=== PATIENT | female | born 1940 | race Caucasian/White ===

== ENCOUNTER → 2017-06-24 08:15 | Outpatient (CLI) | payer MEDICARE, SELFPAY ==
[2017-06-24 14:02] LABS: Basophils % 0.3 % (0.1-2.0); Eosinophils # 0.1 K/mm3 (0.0-0.4); Eosinophils % 2.4 % (0.1-12.0); Hematocrit 37.1 % (37.0-47.0); Hemoglobin 11.9 g/dL (12.2-16.2); Lymphocytes # 2.2 K/mm3 (0.7-4.5); Lymphocytes % 48.5 K/mm3 (10-50); Mean Corpuscular HGB Conc 31.9 g/dL (31.8-35.4); Mean Corpuscular Hemoglobin 30.2 pg (27.0-31.2); Mean Corpuscular Volume 94.5 fl (81-99); Mean Platelet Volume 7.6 fl (7.4-10.4); Monocytes # 0.3 K/mm3 (0.1-1.0); Monocytes % 7.1 % (1.7-9.3); Neutrophils # 1.9 K/mm3 (1.8-7.8); Neutrophils % 41.7 % (37.0-80.0); Platelet Count 200 K/mm3 (142-424); Red Blood Count 3.93 M/mm3 (4.20-5.40); White Blood Count 4.6 K/mm3 (4.8-10.8)
[2017-06-24 14:57] LABS: Alanine Aminotransferase 26 U/L (12-78); Albumin Level 3.8 gm/dL (3.4-5.0); Albumin/Globulin Ratio 1.4 (1.1-1.8); Alkaline Phosphatase 95 U/L (46-116); Anion Gap 10.7 mEq/L (5-15); Aspartate Amino Transferase 21 U/L (15-37); Bilirubin,Total 0.2 mg/dL (0.2-1.0); Blood Urea Nitrogen 13 mg/dL (7-18); Calcium 9.3 mg/dL (8.5-10.1); Carbon Dioxide 30 mmol/L (21.0-32.0); Chloride 104 mmol/L (98-107); Chol/HDL Ratio 3.8 (1-3.5); Cholesterol 229 mg/dL (140-200); Creatine Kinase 45 U/L (26-192); Creatinine,Serum 0.93 mg/dL (0.55-1.02); Estimated Glomerular Filt Rate 58 ml/min (>60); Ferritin 22 ng/mL (8-388); GFR (African American) 71 ML/MIN (>60); Globulin 2.7 gm/dl (1.3-3.2); Glucose 101 mg/dL (74-106); HDL Cholesterol 61 mg/dL (29-89); LDL Cholesterol 128 mg/dL (0-130); Potassium 4.7 mmoL/L (3.5-5.1); Sodium 140 mmol/L (136-145); Thyroid Stimulating Hormone 0.34 uIU/ml (0.358-3.740); Total Protein,Serum 6.5 gm/dL (6.4-8.2); Triglycerides 200 mg/dL (30-200); VLDL Cholesterol 40 mg/dL (0-40)
== END ==
PROVIDERS: PCP Internal Medicine Adolescent Medicine; Visit Provider Internal Medicine Adolescent Medicine
DX: E78.5 Hyperlipidemia, unspecified (principal); M79.1 Myalgia; E03.9 Hypothyroidism, unspecified; D64.9 Anemia, unspecified
CPT/HCPCS: 36415; 80053; 80061; 82550; 82728; 84443; 85025

== ENCOUNTER → 2017-09-24 09:32 | Outpatient (CLI) | payer MEDICARE, SELFPAY ==
--- NOTE | 2017-09-24 09:35 | MM_ITS ---
MM Dig screening mamm BI w/CAD CAD Screening COMPARISON: Digital mammograms 03/16/2015 and 04/02/2016 INDICATION: There is no personal or family history of breast cancer. There have been previous biopsies on each breast. TECHNIQUE: Standard CC and MLO images were obtained. R2 CAD reviewed. FINDINGS: Prominent heterogenic fibroglandular densities are seen in both breasts. There is arterial calcification bilaterally. There is no suspicious lesion and there are no suspicious microcalcifications. IMPRESSION: Dense and heterogenic parenchymal pattern with no suspicious lesion seen BI-RADS Category: 2 Benign Finding(s) RECOMMENDED FOLLOW-UP: 1YR - 1 YEAR FOLLOW-UP (A letter has been sent to the patient regarding results of the study.)
== END ==
PROVIDERS: Family Provider Internal Medicine Adolescent Medicine; PCP Internal Medicine Adolescent Medicine; Visit Provider Internal Medicine Adolescent Medicine
DX: Z12.31 Encounter for screening mammogram for malignant neoplasm of breast (principal)
CPT/HCPCS: 77067

== ENCOUNTER → 2018-12-14 14:03 | Outpatient (CLI) | payer MEDICARE, SELFPAY ==
--- NOTE | 2018-12-14 14:12 | MM_ITS ---
MM Dig screening mamm BI w/CAD CAD Screening COMPARISON: Digital mammograms with CAD 09/24/2017 and 04/02/2016 INDICATION: There is no personal or family history of breast cancer TECHNIQUE: Standard CC and MLO images were obtained. R2 CAD reviewed. FINDINGS: Again noted is a diffusely dense and heterogenic parenchymal pattern lessening the sensitivity of mammography. There is moderate arterial calcification both breasts. There are few scattered benign-appearing microcalcifications in each breast as well. There is no suspicious lesion and no suspicious microcalcifications. IMPRESSION: Stable exam with no suspicious lesion seen BI-RADS Category: 2 Benign Finding(s) RECOMMENDED FOLLOW-UP: 1YR - 1 YEAR FOLLOW-UP (A letter has been sent to the patient regarding results of the study.)
== END ==
PROVIDERS: PCP Internal Medicine Adolescent Medicine; Visit Provider Internal Medicine Adolescent Medicine
DX: Z12.31 Encounter for screening mammogram for malignant neoplasm of breast (principal)
CPT/HCPCS: 77067

== ENCOUNTER → 2019-02-08 12:58 | Outpatient (CLI) | payer MEDICARE, SELFPAY ==
--- NOTE | 2019-02-08 13:04 | XR_ITS ---
PROCEDURE: XR LUMBAR SPINE MIN 4V CLINICAL INDICATION: LBP Low back pain COMPARISON: ABDPELW/WO CT ABD PELVIS W/WO CONTRAST from 03/04/2017 FINDINGS: There degenerative disc disease from T12-S1. There appears to be fusion at of the vertebral bodies at L4-L5 and S1. There is mild anterolisthesis of L3 on L4 of 6 mm. No fracture or dislocation. There is minimal lumbar curvature convex right. There is generalized vascular calcification. Degenerative changes are present in the hips left greater than right. No fracture or dislocation. No lytic or blastic change. IMPRESSION: Multilevel lumbar spondylosis with degenerative disc disease. Partial fusion of the vertebral bodies at L4-L5 and S1 Dictated by: Rao Echevarria MD 02/08/2019 15:40 Electronically signed by Rao Echevarria MD in [place] 02/08/2019 15:40
== END ==
PROVIDERS: PCP Internal Medicine Adolescent Medicine; Visit Provider Internal Medicine Adolescent Medicine
DX: M54.5 Low back pain (principal)
CPT/HCPCS: 72110

== ENCOUNTER → 2019-03-23 12:58 | Outpatient (CLI) | payer MEDICARE, SELFPAY | PROVIDERS: PCP Internal Medicine Adolescent Medicine; Visit Provider Internal Medicine Adolescent Medicine | DX: R06.09 Other forms of dyspnea (principal) | CPT/HCPCS: 94060; 94640; 94726; 94729 ==

== ENCOUNTER → 2019-06-20 09:26 | Outpatient (CLI) | payer MEDICARE, SELFPAY ==
--- NOTE | 2019-06-20 09:46 | XR_ITS ---
PROCEDURE: XR KUB CLINICAL INDICATION: SITZ MARKER STUDY, ABNORMAL DEFECATION Constipation, evaluate colon transit time COMPARISON: ABDPELW/O CT ABD PELVIS W/O CONTRAST from 01/10/2014 ABDPELW/WO CT ABD PELVIS W/WO CONTRAST from 03/04/2017 XR KUB from 06/22/2019 XR KUB from 06/24/2019 FINDINGS: Patient ingested a Sitz marker capsule. A 1 exam demonstrates 24 rings which all appear to be in the colon. Most are present in the transverse colon region. Day 3 exam demonstrates 4 residual rings 1 in the right colon and 2 in the sigmoid region and 1 in the rectal area. Day 5 KUB shows only 2 rings present in the rectal area. Incidental findings made of degenerative changes of the lumbar spine and a lobular coarse calcific density overlying the right ilium laterally and may be related to overlying gluteal calcification as noted on the prior CT scan. IMPRESSION: Colon transit time shows only 2 remaining Sitz marker rings at day 5 indicating colonic transit is grossly normal. Dictated by: Rao Echevarria MD 06/25/2019 12:58 Electronically signed by Rao Echevarria MD in [place] 06/25/2019 12:58
== END ==
PROVIDERS: PCP Internal Medicine Adolescent Medicine; Visit Provider Colon & Rectal Surgery
DX: R19.8 Other specified symptoms and signs involving the digestive system and abdomen (principal)
CPT/HCPCS: 74018

== ENCOUNTER → 2019-06-22 09:29 | Outpatient (CLI) | payer MEDICARE, SELFPAY ==
--- NOTE | 2019-06-22 09:35 | XR_ITS ---
PROCEDURE: XR KUB CLINICAL INDICATION: SITZ MARKER STUDY, ABNORMAL DEFECATION Constipation, evaluate colon transit time COMPARISON: ABDPELW/O CT ABD PELVIS W/O CONTRAST from 01/10/2014 ABDPELW/WO CT ABD PELVIS W/WO CONTRAST from 03/04/2017 XR KUB from 06/22/2019 XR KUB from 06/24/2019 FINDINGS: Patient ingested a Sitz marker capsule. A 1 exam demonstrates 24 rings which all appear to be in the colon. Most are present in the transverse colon region. Day 3 exam demonstrates 4 residual rings 1 in the right colon and 2 in the sigmoid region and 1 in the rectal area. Day 5 KUB shows only 2 rings present in the rectal area. Incidental findings made of degenerative changes of the lumbar spine and a lobular coarse calcific density overlying the right ilium laterally and may be related to overlying gluteal calcification as noted on the prior CT scan. IMPRESSION: Colon transit time shows only 2 remaining Sitz marker rings at day 5 indicating colonic transit is grossly normal. Dictated by: Rao Echevarria MD 06/22/2019 14:44 Electronically signed by Rao Echevarria MD in [place] 06/25/2019 12:59
== END ==
PROVIDERS: PCP Internal Medicine Adolescent Medicine; Visit Provider Colon & Rectal Surgery
DX: R19.8 Other specified symptoms and signs involving the digestive system and abdomen (principal)
CPT/HCPCS: 74018

== ENCOUNTER → 2019-06-24 09:27 | Outpatient (CLI) | payer MEDICARE, SELFPAY ==
--- NOTE | 2019-06-24 09:31 | XR_ITS ---
PROCEDURE: XR KUB CLINICAL INDICATION: ABNORMAL DEFECATION, SITZ MARKER STUDY Constipation COMPARISON: ABDPELW/WO CT ABD PELVIS W/WO CONTRAST from 03/04/2017 XR KUB from 06/22/2019 FINDINGS: ONLY 2 MARKERS ARE LEFT IN THE LOWER RECTAL REGION IMPRESSION: Grossly normal colon transit time Dictated by: Rao Echevarria MD 06/25/2019 13:28 Electronically signed by Rao Echevarria MD in [place] 06/25/2019 13:28
== END ==
PROVIDERS: PCP Internal Medicine Adolescent Medicine; Visit Provider Colon & Rectal Surgery
DX: R19.8 Other specified symptoms and signs involving the digestive system and abdomen (principal)
CPT/HCPCS: 74018

== ENCOUNTER → 2019-12-14 09:22 | Outpatient (CLI) | payer MEDICARE, SELFPAY ==
[2019-12-14 14:19] LABS: Basophils % 0.3 % (0.1-2.0); Eosinophils % 0.7 % (0.1-12.0); Hematocrit 30.9 % (37.0-47.0); Lymphocytes # 1.5 K/mm3 (0.7-4.5); Lymphocytes % 26.6 % (10-50); Mean Corpuscular HGB Conc 32.2 g/dL (31.8-35.4); Mean Corpuscular Hemoglobin 31.3 pg (27.0-31.2); Mean Platelet Volume 8.6 fl (7.4-10.4); Monocytes # 0.4 K/mm3 (0.1-1.0); Monocytes % 6.7 % (1.7-9.3); Neutrophils # 3.7 K/mm3 (1.8-7.8); Neutrophils % 65.6 % (37.0-80.0); Platelet Count 270 K/mm3 (142-424); Red Blood Count 3.19 M/mm3 (4.20-5.40); Red Cell Distribution Width 14.7 % (11.5-17.5); White Blood Count 5.7 K/mm3 (4.8-10.8)
[2019-12-14 14:28] LABS: Alanine Aminotransferase 11 U/L (12-78); Albumin Level 3.8 g/dl (3.5-5.0); Albumin/Globulin Ratio 1.6 (1.1-1.8); Alkaline Phosphatase 81 U/L (38-126); Anion Gap 13.2 mEq/L (5-15); Aspartate Amino Transferase 22 U/L (14-36); Bilirubin,Total 0.3 mg/dl (0.2-1.3); Blood Urea Nitrogen 14 mg/dl (7-17); Calcium 9.4 mg/dl (8.4-10.2); Carbon Dioxide 29 mmol/L (22.0-30.0); Chloride 98 mmol/L (98-107); Estimated Glomerular Filt Rate 53 ml/min (>60); GFR (African American) 64 ML/MIN (>60); Globulin 2.4 g/dL (1.3-3.2); Glucose 126 mg/dl (74-100); Potassium 4.2 mmoL/L (3.5-5.1); Sodium 136 mmol/L (136-145); Total Protein,Serum 6.2 g/dl (6.3-8.2)
== END ==
PROVIDERS: Visit Provider Colon & Rectal Surgery
DX: R19.7 Diarrhea, unspecified (principal)
CPT/HCPCS: 36415; 80053; 85025

== ENCOUNTER → 2020-01-06 07:39 | Outpatient (CLI) | payer MEDICARE, SELFPAY ==
--- NOTE | 2020-01-06 07:43 | MM_ITS ---
PROCEDURE: MM DIG SCREENING MAMM BI W/CAD Digital Breast Tomosynthesis Included CLINICAL INDICATION: SCREENING There is no personal or family history of breast cancer. There have been previous biopsies on each breast for benign disease. COMPARISON: MG DMSB DIG MAMM-SCREEN BAN from 04/02/2016 MG [facility]BI MM Dig screening mamm BI w/CAD from 09/24/2017 MG DIG MAMM-SCREEN BAN from 12/14/2018 TECHNIQUE: Standard CC and MLO images and 3D Tomosynthesis was obtained. R2 CAD reviewed. FINDINGS: Prominent somewhat heterogenic fibroglandular densities are seen throughout both breasts. There is a biopsy clip central portion left breast. There is minimal scattered arterial calcification in each breast. There is a benign-appearing calcifications central portion left breast. There is no suspicious lesion and no suspicious microcalcifications. IMPRESSION: Stable somewhat heterogenic moderately dense parenchymal pattern with no suspicious lesions seen BI-RAD Category: 2 Benign Finding(s) FOLLOW-UP: 1YR 1 Year Follow-up (A letter has been sent to the patient regarding results of the study.) Dictated by: Dr. Jose Sanchez MD 01/06/2020 10:32 Dr. Jose Sanchez MD in [place] 01/06/2020 10:32
--- NOTE | 2020-01-06 07:44 | XR_ITS ---
PROCEDURE: XR DEXA AXIAL SKELETON CLINICAL HISTORY: OSTEOPENIA the patient is postmenopausal and currently is on vitamin-D and calcium. COMPARISON: No exams were available for comparison FINDINGS: The total right hip BMD is 0.752 grams/centimeter squared with a t-score of -1.6. The right femoral neck is 0.582 grams/centimeter sq with a T-score -2.4. The total left hip BMD is 0.679 grams/centimeter squared with T-score -2.2. the left femoral neck is 0.640 grams/centimeter sq with a T-score -1.9. The lumbar spine BMD is 0.990 g per cm squared with a t-score of -0.5.. IMPRESSION: T-score in the osteopenia range for bilateral hips and normal range for lumbar spine, consider a follow-up study in 2 years Dictated by: Dr. Jose Sanchez MD 01/06/2020 11:48 Dr. Jose Sanchez MD in 01/06/2020 11:48
== END ==
PROVIDERS: PCP Internal Medicine Adolescent Medicine; Visit Provider Internal Medicine Adolescent Medicine
DX: Z12.31 Encounter for screening mammogram for malignant neoplasm of breast (principal); M85.89 Other specified disorders of bone density and structure, multiple sites
CPT/HCPCS: 77063; 77067; 77080

== ENCOUNTER → 2020-09-25 18:59 | Outpatient (CLI) | payer MEDICARE, SELFPAY ==
[2020-09-25 19:24] LABS: Basophils % 0.4 % (0.1-2.0); Eosinophils # 0.1 K/mm3 (0.0-0.4); Eosinophils % 1.3 % (0.1-12.0); Hematocrit 39.8 % (37.0-47.0); Hemoglobin 13.1 g/dL (12.2-16.2); Lymphocytes # 3.1 K/mm3 (0.7-4.5); Lymphocytes % 37.8 % (10-50); Mean Corpuscular Hemoglobin 31.5 pg (27.0-31.2); Mean Corpuscular Volume 95.5 fl (81-99); Mean Platelet Volume 8.8 fl (7.4-10.4); Monocytes # 0.6 K/mm3 (0.1-1.0); Monocytes % 7.6 % (1.7-9.3); Neutrophils # 4.4 K/mm3 (1.8-7.8); Neutrophils % 52.9 % (37.0-80.0); Platelet Count 231 K/mm3 (142-424); Red Blood Count 4.17 M/mm3 (4.20-5.40); Red Cell Distribution Width 13.2 % (11.5-17.5); White Blood Count 8.3 K/mm3 (4.8-10.8)
[2020-09-25 19:55] LABS: Alanine Aminotransferase 11 U/L (12-78); Albumin Level 4.5 g/dl (3.5-5.0); Alkaline Phosphatase 86 U/L (38-126); Aspartate Amino Transferase 26 U/L (14-36); Bilirubin,Total 0.4 mg/dl (0.2-1.3); Blood Urea Nitrogen 10 mg/dl (7-17); Calcium 9.7 mg/dl (8.4-10.2); Carbon Dioxide 28 mmol/L (22.0-30.0); Chloride 101 mmol/L (98-107); Chol/HDL Ratio 5.1 (1-3.5); Cholesterol 219 mg/dl (140-200); Estimated Glomerular Filt Rate 53 ml/min (>60); GFR (African American) 64 ML/MIN (>60); Globulin 2.2 g/dL (1.3-3.2); Glucose 92 mg/dl (74-100); HDL Cholesterol 43 mg/dl (40-60); Sodium 141 mmol/L (136-145); Total Protein,Serum 6.7 g/dl (6.3-8.2)
[2020-09-25 20:06] LABS: Direct LDL Cholesterol 100.67 mg/dL (100-129)
[2020-09-25 20:09] LABS: Triglycerides 448 mg/dl (30-150)
[2020-09-25 20:28] LABS: Ferritin 56.8 ng/ml (11.1-264)
== END ==
PROVIDERS: Visit Provider Internal Medicine Adolescent Medicine
DX: D50.0 Iron deficiency anemia secondary to blood loss (chronic) (principal); E78.5 Hyperlipidemia, unspecified; E03.9 Hypothyroidism, unspecified
CPT/HCPCS: 80053; 80061; 82728; 84443; 85025

== ENCOUNTER → 2020-12-25 18:37 | Outpatient (CLI) | payer MEDICARE, SELFPAY | PROVIDERS: Visit Provider Internal Medicine Adolescent Medicine | DX: R30.0 Dysuria (principal) | CPT/HCPCS: 87086; 87088; 87186 ==

== ENCOUNTER → 2021-01-08 08:20 | Outpatient (CLI) | payer MEDICARE, SELFPAY | PROVIDERS: Visit Provider Nurse Practitioner Family | DX: N39.0 Urinary tract infection, site not specified (principal) | CPT/HCPCS: 87086; 87088; 87186 ==

== ENCOUNTER → 2021-03-26 16:30 | Outpatient (CLI) | payer MEDICARE, SELFPAY ==
[2021-03-27 09:07] LABS: Basophils # 0.1 K/mm3 (0-0.2); Basophils % 0.9 % (0.1-2.0); Eosinophils # 0.1 K/mm3 (0.0-0.4); Eosinophils % 2.4 % (0.1-12.0); Hematocrit 41.1 % (37.0-47.0); Hemoglobin 12.9 g/dL (12.2-16.2); Lymphocytes % 50.1 % (10-50); Mean Corpuscular HGB Conc 31.3 g/dL (31.8-35.4); Mean Corpuscular Hemoglobin 31.4 pg (27.0-31.2); Mean Corpuscular Volume 100.3 fl (81-99); Mean Platelet Volume 9.3 fl (7.4-10.4); Monocytes # 0.4 K/mm3 (0.1-1.0); Monocytes % 6.2 % (1.7-9.3); Neutrophils # 2.4 K/mm3 (1.8-7.8); Neutrophils % 40.4 % (37.0-80.0); Platelet Count 234 K/mm3 (142-424); Red Blood Count 4.09 M/mm3 (4.20-5.40); Red Cell Distribution Width 13.1 % (11.5-17.5); White Blood Count 5.9 K/mm3 (4.8-10.8)
[2021-03-27 09:14] LABS: MANUAL DIFFERENTIAL MANUAL DIFFERENTIAL (MANUAL DIFF)
[2021-03-27 09:49] LABS: Eosinophils % 5 % (0-3); Lymphocytes % 52 % (10-50); Monocytes % 11 % (2-9); Neutrophils % 32 % (42-76); Total Cells Counted 100
[2021-03-27 09:50] LABS: Anisocytosis 1+; Hypochromasia 1+; Macrocytosis 1+; Platelet Estimate Normal
[2021-03-27 10:16] LABS: Chloride 104 mmol/L (98-107); Potassium 4.8 mmoL/L (3.5-5.1); Sodium 141 mmol/L (136-145)
[2021-03-27 10:18] LABS: Blood Urea Nitrogen 17 mg/dl (7-17); Estimated Glomerular Filt Rate 48 ml/min (>60); GFR (African American) 58 ML/MIN (>60)
[2021-03-27 10:19] LABS: Alanine Aminotransferase 9 U/L (12-78); Albumin Level 4.1 g/dl (3.5-5.0); Albumin/Globulin Ratio 1.7 (1.1-1.8); Alkaline Phosphatase 103 U/L (38-126); Anion Gap 16.8 mEq/L (5-15); Aspartate Amino Transferase 23 U/L (14-36); Bilirubin,Total 0.3 mg/dl (0.2-1.3); Calcium 9.4 mg/dl (8.4-10.2); Carbon Dioxide 25 mmol/L (22.0-30.0); Globulin 2.4 g/dL (1.3-3.2); Glucose 88 mg/dl (74-100); Magnesium 1.9 mg/dl (1.6-2.3); Total Protein,Serum 6.5 g/dl (6.3-8.2)
[2021-03-27 10:47] LABS: Thyroid Stimulating Hormone 2.82 uIU/mL (0.465-4.68)
== END ==
PROVIDERS: Visit Provider Internal Medicine Adolescent Medicine
DX: I25.10 Atherosclerotic heart disease of native coronary artery without angina pectoris (principal); E03.9 Hypothyroidism, unspecified
CPT/HCPCS: 80053; 83735; 84443; 85007; 85025

== ENCOUNTER → 2021-09-24 11:23 | Outpatient (CLI) | payer MEDICARE, SELFPAY ==
--- NOTE | 2021-09-24 11:38 | XR_ITS ---
FINAL REPORT CLINICAL HISTORY: COUGH; soa; patient has had part of right lung removed FINDINGS: Two views of the chest were obtained. The heart size and pulmonary vascularity are within normal limits. The mediastinum is normal. There is elevation of the right hemidiaphragm. There is postoperative change of the right thorax. There is mild scarring in the right lung. There is no abnormality in the left lung. There is no pneumothorax. The bony thorax is intact. IMPRESSION: No acute cardiopulmonary process. Reviewed, Interpreted and Dictated by Rojas Ricardo III, MD Transcribed by Glenn Velasco Authenticated by Rojas Ricardo III, MD on 09/24/2021 01:56:20 PM [facility]
[2021-09-24 12:41] LABS: Basophils # 0.1 K/mm3 (0-0.2); Basophils % 1.4 % (0.1-2.0); Eosinophils # 0.1 K/mm3 (0.0-0.4); Eosinophils % 1.3 % (0.1-12.0); Hematocrit 34.4 % (37.0-47.0); Hemoglobin 11.3 g/dL (12.2-16.2); Lymphocytes # 2.4 K/mm3 (0.7-4.5); Lymphocytes % 32.1 % (10-50); Mean Corpuscular Hemoglobin 31.2 pg (27.0-31.2); Mean Corpuscular Volume 94.4 fl (81-99); Monocytes # 0.5 K/mm3 (0.1-1.0); Monocytes % 7.3 % (1.7-9.3); Neutrophils # 4.3 K/mm3 (1.8-7.8); Platelet Count 290 K/mm3 (142-424); Red Blood Count 3.64 M/mm3 (4.20-5.40); Red Cell Distribution Width 13.5 % (11.5-17.5); White Blood Count 7.4 K/mm3 (4.8-10.8)
[2021-09-24 12:50] LABS: Chloride 103 mmol/L (98-107)
[2021-09-24 12:51] LABS: Sodium 140 mmol/L (136-145)
[2021-09-24 12:53] LABS: Alanine Aminotransferase 8 U/L (12-78); Aspartate Amino Transferase 16 U/L (14-36); Blood Urea Nitrogen 9 mg/dl (7-17); Estimated Glomerular Filt Rate 48 ml/min (>60); GFR (African American) 58 ML/MIN (>60)
[2021-09-24 12:54] LABS: Albumin Level 3.6 g/dl (3.5-5.0); Albumin/Globulin Ratio 1.6 (1.1-1.8); Alkaline Phosphatase 90 U/L (38-126); Bilirubin,Total 0.3 mg/dl (0.2-1.3); Calcium 9.3 mg/dl (8.4-10.2); Carbon Dioxide 31 mmol/L (22.0-30.0); Globulin 2.2 g/dL (1.3-3.2); Glucose 106 mg/dl (74-100); Total Protein,Serum 5.8 g/dl (6.3-8.2)
[2021-09-24 13:29] LABS: Ferritin 66.7 ng/ml (11.1-264)
== END ==
PROVIDERS: PCP Internal Medicine Adolescent Medicine; Visit Provider Internal Medicine Adolescent Medicine
DX: R05.9 Cough, unspecified (principal); D50.0 Iron deficiency anemia secondary to blood loss (chronic)
CPT/HCPCS: 36415; 71046; 80053; 82728; 85025

== ENCOUNTER → 2022-01-16 06:03 | Outpatient (CLI) | payer MEDICARE, SELFPAY ==
[2022-01-16 18:18] LABS: Basophils # 0.1 K/mm3 (0-0.2); Basophils % 0.8 % (0.1-2.0); Eosinophils # 0.1 K/mm3 (0.0-0.4); Eosinophils % 1.3 % (0.1-12.0); Hemoglobin 12.5 g/dL (12.2-16.2); Lymphocytes # 2.7 K/mm3 (0.7-4.5); Mean Corpuscular HGB Conc 32.1 g/dL (31.8-35.4); Mean Corpuscular Hemoglobin 31.1 pg (27.0-31.2); Mean Corpuscular Volume 96.7 fl (81-99); Mean Platelet Volume 9.5 fl (7.4-10.4); Monocytes # 0.5 K/mm3 (0.1-1.0); Monocytes % 7.3 % (1.7-9.3); Neutrophils # 3.1 K/mm3 (1.8-7.8); Neutrophils % 48.6 % (37.0-80.0); Platelet Count 258 K/mm3 (142-424); Red Blood Count 4.03 M/mm3 (4.20-5.40); Red Cell Distribution Width 14.2 % (11.5-17.5); White Blood Count 6.4 K/mm3 (4.8-10.8)
[2022-01-16 19:02] LABS: Erythrocyte Sedimentation Rate 37 mm/hr (0-30)
[2022-01-16 19:05] LABS: Alanine Aminotransferase 9 U/L (12-78); Albumin Level 4.3 g/dl (3.5-5.0); Alkaline Phosphatase 94 U/L (38-126); Anion Gap 13.3 mEq/L (5-15); Aspartate Amino Transferase 21 U/L (14-36); Blood Urea Nitrogen 10 mg/dl (7-17); Calcium 9.5 mg/dl (8.4-10.2); Carbon Dioxide 29 mmol/L (22.0-30.0); Chloride 102 mmol/L (98-107); Estimated Glomerular Filt Rate 53 ml/min (>60); GFR (African American) 64 ML/MIN (>60); Globulin 2.2 g/dL (1.3-3.2); Glucose 102 mg/dl (74-100); Potassium 4.3 mmoL/L (3.5-5.1); Sodium 140 mmol/L (136-145); Total Protein,Serum 6.5 g/dl (6.3-8.2)
[2022-01-16 19:13] LABS: Bilirubin,Total < 0.1 mg/dl (0.2-1.3)
== END ==
PROVIDERS: PCP Internal Medicine Adolescent Medicine; Visit Provider Internal Medicine Adolescent Medicine
DX: C34.90 Malignant neoplasm of unspecified part of unspecified bronchus or lung (principal); E78.5 Hyperlipidemia, unspecified; E03.9 Hypothyroidism, unspecified; I10 Essential (primary) hypertension
CPT/HCPCS: 80053; 84443; 85025; 85651

== ENCOUNTER → 2022-05-07 14:30 | Outpatient (CLI) | payer MEDICARE, SELFPAY | PROVIDERS: PCP Family Medicine; Visit Provider Family Medicine | DX: R30.0 Dysuria (principal); B96.29 Other Escherichia coli [E. coli] as the cause of diseases classified elsewhere | CPT/HCPCS: 87086; 87088; 87186 ==

== ENCOUNTER 2022-07-01 11:00 | Outpatient (RCR) | payer MEDICARE, SELFPAY ==
--- NOTE | 2022-06-02 12:26 | HMH.PTOPEV ---
PT Outpatient Evaluation Rehab PT Outpatient Evaluation Start: 06/02/22 11:03 Freq: Status: Active Protocol: Document 06/02/22 11:03 YOANA (Rec: 06/02/22 12:25 [email or web address] [id number]) E-signed By Dell Bond, PT Outpatient Therapy Subjective History Subjective History Pt. is a 81 year old female whom presents to [facility] Out[facility] Therapy Services in [place] for the initial evaluation this date( 06/02/22) w/ c/o acute on chronic and intermittent P!, tingling, and imbalance of insidious onset that has worsened since 2021. Pt. c/o increased P! 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 Pt. also reports LLE hip P! that increases w/ activity. Pt. reports having a constant ache into BLEs secondary to having rounds of Chemotherapy to treat for cancer. Pt. also c/o spinning when she has a fall. Pt. reports most recent fall was forward and onto her face. Pt. RTMD in 3 months of for an annual check up, sooner if need be. Current medications include Atenolol, Nexium, and Zyrtec. PMH includes RA, cancer in remission, R-sided lobectomy, hx. chemotherapy, hx. of inner ear infections. Pt. denies history of pacemaker, denies hx. of diabetes, denies latex allergy , reports medicational allergy to Lipitor. Chief Complaint Pain,Spasms,Stiff,Paresthesia, Weakness,Decreased Glass Finisher Strength,Decreased Coordination Symptom Type Ache,Sharp,Dull,Stabbing, Numbness,Tingling,Shooting Symptoms Relieved By Rest/Positioning,Ice, Prescription Meds Symptoms Aggravated By Standing,Bending/Stooping, Physical Activity,Twisting,
== END 2022-07-03 13:11 | disposition home or self-care (01) ==
LOC: PT 11:00
PROVIDERS: PCP Family Medicine; Visit Provider Internal Medicine Adolescent Medicine
DX: R29.6 Repeated falls (principal)
CPT/HCPCS: 97110; 97112; 97163; 97530; 97535

== ENCOUNTER → 2022-08-18 05:52 | Outpatient (CLI) | payer MEDICARE, SELFPAY | PROVIDERS: PCP Family Medicine; Visit Provider Family Medicine | DX: R30.0 Dysuria (principal); B96.29 Other Escherichia coli [E. coli] as the cause of diseases classified elsewhere | CPT/HCPCS: 87086; 87088; 87186 ==

== ENCOUNTER 2023-10-06 13:00 | Outpatient (RCR) | payer MEDICARE, SELFPAY | END 2023-10-13 17:55 | disposition home or self-care (01) | LOC: PT 13:00 | PROVIDERS: Visit Provider Orthopaedic Surgery | DX: M25.552 Pain in left hip (principal) | CPT/HCPCS: 97010; 97014; 97035; 97110; 97140; 97163; 97164; 97530; G0283 ==

== ENCOUNTER 2024-03-10 14:00 | Outpatient (RCR) | payer MEDICARE, SELFPAY | END 2024-03-15 17:00 | disposition home or self-care (01) | LOC: PT 14:00 | PROVIDERS: Visit Provider Orthopaedic Surgery | DX: M70.72 Other bursitis of hip, left hip (principal) | CPT/HCPCS: 97110; 97140; 97163 ==

== ENCOUNTER 2024-07-23 13:56 | Inpatient (IN) | payer MEDICARE, SELFPAY ==
[2024-07-23] VITALS (14 sets, daily range): BP systolic 113–136; BP diastolic 52–68; PULSE 98–117; RESP 18–22; TEMP 36.8–38.4; O2SAT 91–99; BMI 20.5; BMI 21.3
--- NOTE | 2024-07-23 14:13 | CT_ITS ---
PROCEDURE INFORMATION: Exam: CTA Chest With Contrast Exam date and time: 07/23/2024 4:52 PM Age: 83 years old Clinical indication: Other: Sepsis; Additional info: Sepsis, AMS, unknown origin TECHNIQUE: Imaging protocol: Computed tomographic angiography of the chest with contrast. Exam focused on the arteries. 3D rendering (Not supervised by radiologist): MIP and/or 3D reconstructed images were created by the technologist. Radiation optimization: All CT scans at this facility use at least one of these dose optimization techniques: automated exposure control; mA and/or kV adjustment per patient size (includes targeted exams where dose is matched to clinical indication); or iterative reconstruction. Contrast material: ISOVUE 370; Contrast volume: 75 ml; Contrast route: INTRAVENOUS (IV); COMPARISON: CR XR CHEST 2V 09/24/2021 11:59 AM FINDINGS: Pulmonary arteries: Normal. No pulmonary emboli. Aorta: Aortic annulus calcifications. Other arteries: Heavy atherosclerotic disease. Lungs: Right lung base consolidation with satellite ground-glass and tree-in-bud nodularity. Multifocal regions of architectural distortion, scarring, atelectasis. Sub 6 mm solid left upper lobe nodule (series 5, image 31). A few focal regions of bronchial filling in the right lower lobe. Pleural spaces: Unremarkable. No pneumothorax. No pleural effusion. Heart: Unremarkable. No cardiomegaly. No pericardial effusion. Coronary arteries: [id number] coronary calcified atherosclerotic disease. Lymph nodes: Unremarkable. No enlarged lymph nodes. Bones/joints: Diffusely demineralized bones. Diffuse degenerative change of the visualized osseous structures. Soft tissues: Unremarkable. IMPRESSION: 1. No pulmonary embolus. 2. Right lower lobe pneumonia with possible superimposed aspiration. Correlate clinically. Recommend 8-12 week interval follow-up to ensure improvement/resolution as neoplasm can sometimes present similarly. 3. Solitary 6 mm left upper lobe solid nodule. Recommend follow-up CT in 12 months to ensure stability.
--- NOTE | 2024-07-23 14:13 | CT_ITS ---
PROCEDURE INFORMATION: Exam: CT Head Without Contrast Exam date and time: 07/23/2024 4:29 PM Age: 83 years old Clinical indication: Other: Sepsis, AMS, unknown origin TECHNIQUE: Imaging protocol: Computed tomography of the head without contrast. Radiation optimization: All CT scans at this facility use at least one of these dose optimization techniques: automated exposure control; mA and/or kV adjustment per patient size (includes targeted exams where dose is matched to clinical indication); or iterative reconstruction. COMPARISON: No relevant prior studies available. FINDINGS: Brain: No intracranial hemorrhage. Generalized atrophic changes of the ventricles and subarachnoid spaces. Chronic small-vessel ischemic changes noted. No mass, mass effect or midline shift. Intracranial atherosclerotic changes are noted. Cerebral ventricles: See Brain finding. Paranasal sinuses: Visualized sinuses are unremarkable. No fluid levels. Mastoid air cells: Visualized mastoid air cells are well aerated. Bones: Unremarkable. No acute fracture. Soft tissues: Unremarkable. IMPRESSION: No acute intracranial abnormality. Chronic changes as above.
--- NOTE | 2024-07-23 14:13 | CT_ITS ---
PROCEDURE INFORMATION: Exam: CT Abdomen And Pelvis With Contrast Exam date and time: 07/23/2024 4:52 PM Age: 83 years old Clinical indication: Other: Sepsis; Additional info: Sepsis, AMS, unknown origin TECHNIQUE: Imaging protocol: Computed tomography of the abdomen and pelvis with contrast. 3D rendering (Not supervised by radiologist): MIP and/or 3D reconstructed images were created by the technologist. Radiation optimization: All CT scans at this facility use at least one of these dose optimization techniques: automated exposure control; mA and/or kV adjustment per patient size (includes targeted exams where dose is matched to clinical indication); or iterative reconstruction. Contrast material: ISOVUE; Contrast volume: 75 ml; Contrast route: IV; COMPARISON: CR XR KUB 06/24/2019 9:33 AM FINDINGS: Lungs: Consolidation with peripheral ground-glass noted in the right lower lobe. Scattered basilar atelectasis and scarring elsewhere. Heart: Base of heart is unremarkable as visualized. Coronary arteries: Heavy coronary calcified atherosclerotic disease. Liver: Prominence of the intrahepatic and extrahepatic biliary system which is not an uncommon finding in a patient that is status post cholecystectomy. Gallbladder and biliary ducts: Cholecystectomy. Pancreas: Atrophy of the pancreas. Spleen: Normal. No splenomegaly. Adrenal glands: Normal. No mass. Kidneys and ureters: Multiple bilateral benign appearing renal cysts. Prominence of the ureters. Stomach and bowel: Suture chain noted of the distal large bowel. Diverticulosis without evidence of diverticulitis. Mild colonic stool burden. Appendix: No evidence of appendicitis. Intraperitoneal space: Unremarkable. No free air. No significant fluid collection. Vasculature: Peripheral arterial vascular disease. Heavy atherosclerotic disease. Aortic annulus calcifications. Lymph nodes: Unremarkable. No enlarged lymph nodes. Urinary bladder: Bladder is distended. Reproductive: Unremarkable as visualized. Bones/joints: Demineralized bones diffusely. Left total hip arthroplasty. Anterolisthesis of L3 on L4. Soft tissues: Unremarkable. IMPRESSION: 1. Right lung base pneumonia. Recommend follow-up to ensure resolution as neoplasm is difficult to exclude. 2. Prominence of the urinary collecting system which is likely due to a distended bladder. Cystitis/urinary tract infection can appear similarly. Correlate clinically. 3. Otherwise, no acute findings of the abdomen, specifically no evidence for further source of sepsis. COMMENTS: Consistent with the [employer]'s Incidental Findings Committee white paper (J Am Kelley Radiol 2018): Any incidental renal lesion less than 1 cm or classified as too small to characterize, or any incidental cystic renal lesion characterized as simple-appearing, is likely benign. No follow-up imaging is recommended for these lesions per consensus recommendations based on imaging criteria.
[2024-07-23 14:23] LABS: Microscopic, Urine URINE MICROSCOPIC (MICROSCOPIC)
--- NOTE | 2024-07-23 14:25 | ECG_ITS ---
APPROVED REPORT Exam: Resting ECG HR:113 bpm ECG Measurements Heart Rate 113 AXES NJ 181 P 63 QRSd 82 QRS 5 QT 297 T 80 QTc 364 Conclusion SINUS TACHYCARDIA WITH OCCASIONAL VENTRICULAR PREMATURE COMPLEXES NONSPECIFIC ST & T-WAVE ABNORMALITY Electronically signed by : VICTOR HUGO ROBIN, 07/23/2024 16:17:20
[2024-07-23 14:30] LABS: VBG Base Excess -2.4 mmol/L (-2.4-2.3); VBG HCO3 21.8 mmol/L (23-30); VBG Oxygen Saturation 81.2 % (50-70); VBG PCO2 33.4 mmol/L (35-51); VBG PH 7.43 mmol/L (7.31-7.41); VBG PO2 44.1 mmol/L (28-40); VBG Total CO2 22.8 mmol/L (23-27)
[2024-07-23 14:33] LABS: Lactate Venous 2.7 mmol/L (0.4-2.0)
[2024-07-23 14:35] LABS: Appearance,Urine CLEAR (Clear); Bilirubin,Urine Negative (Negative); Blood, Urine Negative (Negative); Color,Urine YELLOW (Yellow); Glucose,Urine (UA) Negative (Negative); Ketones,Urine Negative (Negative); Leukocyte Esterase,Urine Negative (Negative); Nitrate,Urine Negative (Negative); PH,Urine 5.5 (5.0-8.5); Protein,Urine Negative (Negative); Specific Gravity, Urine 1.015 (1.005-1.030); Urobilinogen,Urine 0.2 EU/dl (0.2)
[2024-07-23 14:35] LABS: Eosinophils % 0.2 % (0.1-12.0); Hematocrit 34.6 % (37.0-47.0); Hemoglobin 11.6 g/dL (12.2-16.2); Lymphocytes # 0.6 K/mm3 (0.7-4.5); Lymphocytes % 11.8 % (10-50); Mean Corpuscular HGB Conc 33.5 g/dL (31.8-35.4); Mean Corpuscular Volume 95.6 fl (81-99); Mean Platelet Volume 9.6 fl (7.4-10.4); Monocytes # 0.5 K/mm3 (0.1-1.0); Monocytes % 8.9 % (1.7-9.3); Neutrophils % 78.3 % (37.0-80.0); Platelet Count 122 K/mm3 (142-424); Red Blood Count 3.62 M/mm3 (4.20-5.40); Red Cell Distribution Width 12.5 % (11.5-17.5); White Blood Count 5.1 K/mm3 (4.8-10.8)
[2024-07-23 14:42] LABS: Activated Partial Thrombo Time 21.8 seconds (22.5-28.5)
--- NOTE | 2024-07-23 14:47 | ED_ITS ---
Discharge Plan Disposition Patient Disposition: Admitted Chief Complaint: Altered Mental Status Prescriptions Prescriptions: No Action esomeprazole magnesium 40 mg capsule,delayed release(DR/EC) 40 mg PO BID 30 Days Qty: 60 Patient Comments: levothyroxine 100 mcg tablet 100 mcg PO DAILY 90 Days Qty: 90 Patient Comments: pravastatin 40 mg tablet 40 mg PO HS 90 Days Qty: 90 Patient Comments: lidocaine 5 % adhesive patch,medicated 1 patch topical DAILY oxycodone-acetaminophen 7.5-325 mg tablet 1 tab PO QID promethazine 25 mg tablet 25 mg PO QID PRN (Reason: Nausea) meclizine 25 mg tablet 25 mg PO DAILY PRN (Reason: Dizziness Or Vertigo) furosemide 20 mg tablet 20 mg PO DAILY Referrals Follow up/Referrals: Mazin Restrepo MD [Primary Care Provider] - See instructions Clinical Impressions Clinical Impression: Pneumonia, Sepsis Instructions Patient Instructions: DI for Altered Mental Status Print Language Print Language: Mosotho Discharge ED Provider: Ilir Kim General Adult HPI <Adriana Fernandes DO - Last Filed: 07/23/24 15:23> General Chief complaint: Altered Mental Status Stated complaint: Weakness Time Seen by Provider: 07/23/24 14:01 Mode of Arrival: EMS Source of Information: Patient, Relative and EMS Limitations: Altered Mental Status Description of Symptoms (Recalled from ER Triage Doc. by RN): pt is confused,fever,flu last week, weak. History of Present Illness HPI narrative: This patient is an 83-year-old female with history of hypertension, hypothyroidism, hyperlipidemia, lymphoma in remission, rheumatoid arthritis presenting to the emergency department for evaluation with concern for altered mental status. According to the patient's family, she tested positive for the flu just over a week ago and has had some persistent fevers, cough and issues since then. The states that it really has knocked her down. She typically lives alone and is fully functional, but today they noted that she is very very confused and not answering questions for them appropriately. They live across the street and check on her frequently. Patient does not contribute to history, as she is very confused. She answers yes or no questions and denies any chest pain, abdominal pain, or pain elsewhere. Related Data Home Medications ?Medication ?Instructions ?Recorded ?Confirmed esomeprazole magnesium 40 mg 40 mg PO BID GERD 30 days #60 caps 01/16/22 07/23/24 capsule,delayed release levothyroxine 100 mcg tablet 100 mcg PO DAILY hypothyroidism 90 01/16/22 07/23/24 days #90 tabs pravastatin 40 mg tablet 40 mg PO HS hyprelipdemia 90 days 01/16/22 07/23/24 #90 tabs lidocaine 5 % topical patch 1 patch topical DAILY 07/20/24 07/23/24 meclizine 25 mg tablet 25 mg PO DAILY PRN Dizziness Or 07/20/24 07/23/24 Vertigo oxycodone-acetaminophen 7.5 mg-325 1 tab PO QID 07/20/24 07/23/24 mg tablet promethazine 25 mg tablet 25 mg PO QID PRN Nausea 07/20/24 07/23/24 furosemide 20 mg tablet 20 mg PO DAILY 07/23/24 07/23/24 Allergies Allergy/AdvReac Type Severity Reaction Status Date / Time atorvastatin (From LIPITOR) Allergy Unknown LEG CRAMPS Verified 07/23/24 14:31 tolmetin (From TOLECTIN) Allergy Unknown FACIAL Verified 07/23/24 14:31 SWELLING PFS <Adriana Fernandes DO - Last Filed: 07/23/24 15:23> [facility] Disclaimer: The information contained in this section may have been updated after the patient was seen, as this information can be updated by other users. Medical History Cognitive change Lung cancer Fall Heart murmur Hyperlipidemia Hypothyroidism Hypertension Stress incontinence in female Surgical History History of hip replacement, total History of lung surgery History of hysterectomy History of cholecystectomy Hx of cardiac cath History of bowel resection Family History Other No significant family history Social History Smoking Status: Never smoker alcohol intake: never substance use type: denies use current occupational status: retired Travel in the last 8 weeks: None household members: none housing: house lives independently: Yes marital status: number of children: 3 halfway: No Hx Recent Travel: No sexually active: No well-balanced diet: daily or most days physical activity: walking Have you lived/traveled outside [place] in past 30 days?: No Contact w/someone who lives/traveled outside US past 30 days?: No Exposure to someone with infectious disease in past 14 days?: No Do you have a fever (greater than 100.4 F or 38 C)?: No Have you tested positive for COVID-19: No Exposed to someone with COVID-19 in past 14 days?: No Do you have a sore throat?: No Do you have a cough?: No Do you have any weakness?: Yes Do you have any diarrhea?: No Are you experiencing any unusual bleeding?: No Do you have any muscle aches/pain?: No Do you have any abdominal pain?: No Are you experiencing loss of taste or smell?: No Other Medical History Have you received the Flu Vaccine for this season: Yes Have you received the Pneumonia Vaccine: Yes <Adriana Fernandes DO - Last Filed: 07/23/24 15:23> ROS Obtained: Yes All systems reviewed & no additional complaints except as documented Physical Exam <Adriana Fernandes DO - Last Filed: 07/23/24 15:23> General General appearance: alert and in no apparent distress Head Head exam: atraumatic and normocephalic Eye Eye exam: Present normal appearance, PERRL and EOMI ENT ENT exam: Present normal exam, normal oropharynx, mucous membranes moist and normal external ear exam Neck Neck exam: Present normal inspection, full ROM and trachea midline; Absent tenderness Chest Chest inspection: Present normal inspection and symmetric chest wall rise; Absent tenderness Respiratory Respiratory exam: Present other (Coarse rhonchi bilaterally); Absent respiratory distress, wheezes, stridor or accessory muscle use Cardiovascular Cardiovascular exam: Present normal rhythm and tachycardia Abdominal Exam Abdominal exam: Present soft; Absent distention, tenderness or guarding Extremities Exam Extremities exam: Present normal inspection, full ROM and normal capillary refill; Absent tenderness or edema Back Exam Back exam: Present normal inspection and full ROM; Absent tenderness Neurological Exam Neurological exam: Present alert, CN II-XII intact, normal gait and other (Pleasantly confused without focal neurologic deficit); Absent oriented X3 or motor sensory deficit Psychiatric Psychiatric exam: Present normal affect and normal mood Skin Skin exam: Present warm and dry Medical Decision Making <Adriana Fernandes DO - Last Filed: 07/23/24 15:23> Medical Records Medical records reviewed: Yes I reviewed the patient's medical records. Screening: Per USPSTF and CDC recommendations, given the prevalence of disease in our region, it is our hospital?s policy to screen for HIV and viral Hepatitis for all patients aged 18 and over and those with ongoing risk factors. Kirill Inquiry Pt receiving controlled substance: No Vital Signs: 07/23/24 13:56 07/23/24 14:01 07/23/24 14:14 Temperature 101.2 F H Temperature Source Oral Pulse Rate 111 H 110 H Pulse Rate [Right] 117 H Respiratory Rate 18 22 Blood Pressure 132/67 136/56 L Blood Pressure [Right Arm] 122/61 Blood Pressure Mean [Right Arm] 81 02 Sat by Pulse Oximetry 93 L 93 L 91 L Oxygen Delivery Method Room Air Room Air Room Air 07/23/24 14:30 07/23/24 15:01 07/23/24 15:30 Temperature Temperature Source Pulse Rate 108 H 104 H 106 H Pulse Rate [Right] Respiratory Rate 20 22 19 Blood Pressure 136/62 113/52 L 117/52 L Blood Pressure [Right Arm] Blood Pressure Mean [Right Arm] 02 Sat by Pulse Oximetry 93 L 92 L 93 L Oxygen Delivery Method Room Air Room Air Room Air 07/23/24 16:00 07/23/24 17:11 07/23/24 17:30 Temperature Temperature Source Pulse Rate 108 H 107 H 104 H Pulse Rate [Right] Respiratory Rate 22 22 20 Blood Pressure 113/56 L 133/65 134/62 Blood Pressure [Right Arm] Blood Pressure Mean [Right Arm] 02 Sat by Pulse Oximetry 95 94 L 96 Oxygen Delivery Method Room Air Room Air Room Air 07/23/24 18:00 Temperature 99.8 F H Temperature Source Pulse Rate 103 H Pulse Rate [Right] Respiratory Rate 21 Blood Pressure 136/68 Blood Pressure [Right Arm] Blood Pressure Mean [Right Arm] 02 Sat by Pulse Oximetry 97 Oxygen Delivery Method Lab Data Lab results reviewed: Yes I reviewed the patient's lab results. Lab Results 07/23/24 14:00: Urine Color Yellow, Urine Appearance Clear, Urine pH 5.5, Ur Specific [place] 1.015, Urine Protein Negative, Urine Glucose (UA) Negative, Urine Ketones Negative, Urine Blood Negative, Urine Nitrate Negative, Urine Bilirubin Negative, Urine Urobilinogen 0.2, Ur Leukocyte Esterase Negative, Urine RBC None, Urine WBC Occasional, Ur Squamous Epith Cells Occasional, Urine Bacteria Trace 07/23/24 14:14: WBC 5.1, RBC 3.62 L, Hgb 11.6 L, Hct 34.6 L, MCV 95.6, MCH 32.0 H, MCHC 33.5, RDW 12.5, Plt Count 122 L, MPV 9.6, Neut % (Auto) 78.3, Lymph % (Auto) 11.8, [place] % (Auto) 8.9, Eos % (Auto) 0.2, Baso % (Auto) 0.0 L, Neut # (Auto) 4.0, Lymph # (Auto) 0.6 L, [place] # (Auto) 0.5, Eos # (Auto) 0.0, Baso # (Auto) 0.0, PT 10.0, INR 0.90, APTT 21.8 L, Sodium 136, Potassium 4.0, Chloride 102, Carbon Dioxide 24, Anion Gap 14.0, BUN 18 H, Creatinine 1.10 H, Estimated Creat Clear 34, Estimated GFR 47 L, Est GFR ( Amer) 57 L, Glucose 112 H, Calcium 8.6, Total Bilirubin 0.7, AST 30, ALT 13, Alkaline Phosphatase 43, Total Creatine Kinase 49, Troponin I 0.02, Total Protein 6.1 L, Albumin 4.2, Globulin 1.9, Albumin/Globulin Ratio 2.2 H, Lipase 31, TSH 0.24 L, Thyroxine (T4) 14.0 H, HCV Ab NOVA w/Rflx PCR Qn Negative, HIV Ag/Ab Combo Qual Negative 07/23/24 14:18: VBG pH 7.43 H, VBG pCO2 33.4 L, VBG pO2 44.1 H, VBG HCO3 21.8 L, VBG Total CO2 22.8 L, VBG O2 Saturation 81.2 H, VBG Base Excess -2.4, VBG Lactic Acid 2.7 H 07/23/24 14:14 07/23/24 14:14 Orders (Tests/Meds): ED MEDICATIONS Generic Name Dose Route Start Last Admin Trade Name Freq PRN Reason Stop Dose Admin Miscellaneous 1 each 07/23/24 15:15 07/23/24 15:41 Vancomycin Consult Request NOTAPPLIC 08/22/24 15:14 1 each CONSULT PHARMACY KARLO Administration Sodium Chloride 10 ml 07/23/24 16:53 07/23/24 16:55 Sodium Chloride 0.9% 10ml Syr (Rad Only) IV 08/22/24 16:52 10 ml NEEDED PRN Administration Maintain IV Site Discontinued Medications Generic Name Dose Route Start Last Admin Trade Name Freq PRN Reason Stop Dose Admin Acetaminophen 1,000 mg 07/23/24 14:19 07/23/24 15:05 Acetaminophen 1,000mg/100ml Vial IV 07/23/24 14:20 1,000 mg ONCE ONE Administration Lactated Ringer's 1,780 mls @ 890 mls/hr 07/23/24 14:39 07/23/24 15:05 Lactated Ringer's 1000 Ml Bag 30 ml/kg infuse over 2 hr (1780 ml) 07/23/24 16:38 890 mls/hr IV Administration .Q2H ONE Piperacillin Sod/Tazobactam 50 mls @ 100 mls/hr 07/23/24 15:12 07/23/24 15:44 Sod 3.375 gm/ Sodium Chloride IV 07/23/24 15:41 100 mls/hr ONCE ONE Administration Vancomycin/PEG/NADA/Lysine/Water 1.25 gm in 250 mls @ 125 mls/hr 07/23/24 15:30 07/23/24 16:04 Vancomycin 1.25gm/250ml (Peg) Premix IV 07/23/24 17:29 125 mls/hr ONCE ONE Administration Iopamidol 70 ml 07/23/24 16:53 07/23/24 16:54 Iopamidol-370 (76%);100ml Bottle IV 07/23/24 16:54 70 ml ONCE ONE Administration Sodium Chloride 50 ml 07/23/24 16:53 07/23/24 16:54 0.9 % Sodium Chloride 50 Ml Vial IV 07/23/24 16:54 50 ml ONCE ONE Administration ORDERS Category Date Time Status CT abdomen pelvis w con Stat Cat Scan 07/23/24 14:[address] angio chest PE protocol Stat Cat Scan 07/23/24 14:[address] head/brain wo con Stat Cat Scan 07/23/24 14:13 Completed CK [Creatine Kinase] Stat Lab 07/23/24 14:14 Completed Complete Blood Count Auto Diff Stat Lab 07/23/24 14:14 Completed Comprehensive Metabolic Panel Stat Lab 07/23/24 14:14 Completed Full Resp Panel w/COVID ([facility]) Routine Lab 07/23/24 15:24 Received HIV Combo Stat Lab 07/23/24 14:14 Completed Hepatitis C Ab Qual. W/ RFX Stat Lab 07/23/24 14:14 Completed Lactic Acid Follow Up (RFLX 1) Stat Lab 07/23/24 18:32 Ordered Lipase Stat Lab 07/23/24 14:14 Completed PT INR [Prothrombin Time INR] Stat Lab 07/23/24 14:14 Completed PTT [Activated Partial Thrombo Time] Stat Lab 07/23/24 14:14 Completed T4 (Thyroxine) Stat Lab 07/23/24 14:14 Completed TSH [Thyroid Stimulating Hormone] Stat Lab 07/23/24 14:14 Completed Trop I [Troponin I] Stat Lab 07/23/24 14:14 Completed Troponin I Q3H Lab 07/23/24 17:15 Ordered Troponin I Q3H Lab 07/23/24 20:15 Ordered UA [Urinalysis and Microscopic] Stat Lab 07/23/24 14:00 Completed Blood Culture Stat Micro 07/23/24 14:40 Received Urine Culture Stat Micro 07/23/24 14:00 Received VBG [Venous Blood Gas] Stat RT 07/23/24 14:18 Completed ECG Data Tracing #1: I reviewed this ECG and interpreted as documented below: Sinus tachycardia with a ventricular to [address] changes concerning for STEMI. PVCs noted. Normal QTc at 364 ms ECG initial impression date: 07/23/24 ECG initial impression time: 14:27 Medical Decision Narrative: In summary, this patient is a 83-year-old female presenting to the Emergency Department for evaluation of fevers, cough, general weakness, altered mental status. Differential diagnoses considered include but are not limited to sepsis, pneumonia, urinary tract infection, metabolic derangements, hyperthyroid. Ruling out the most morbid conditions drove assessment. It should be noted patient's history includes hypothyroidism, lymphoma in remission, hypertension, hyperlipidemia which may or may not be at goal therapy. This complicates all aspects of care by increasing patient's risk for morbidity. I reviewed patient's past medical records and noted PCP evaluation 3 days ago to establish care with Dr. Restrepo. They did note some cognitive concerns at that time for which it was like he was going to refer her to neurology. On exam, the patient is lying in bed in no acute distress. She is tachycardic and febrile O2 saturation is 92 to 93% on room air. Blood pressure is stable. She is pleasantly confused, not answering orientation questions. She will answer yes and no questions by nodding, and she denies any pain. Workup included lab evaluation to evaluate for infectious, metabolic, cardiac causes of potential altered mental status. With vital sign abnormalities, she technically triggers for sepsis, so sepsis bolus was given as well as IV vancomycin and Zosyn. She cannot provide a reliable history and is altered, so I have made the decision to order CT head, CT angiogram PE protocol, and CT abdomen pelvis with IV contrast to evaluate for cause of sepsis/borderline respiratory failure. CBC demonstrated mild anemia with no significant leukocytosis. VBG demonstrates elevated lactic acid and a mild respiratory alkalosis. Urine is not really concerning for infection. Chemistries and imaging pending at time of signout to oncoming provider, Dr. Kim. <Ilir Kim MD - Last Filed: 07/23/24 18:37> Vital Signs: 07/23/24 13:56 07/23/24 14:01 07/23/24 14:14 Temperature 101.2 F H Temperature Source Oral Pulse Rate 111 H 110 H Pulse Rate [Right] 117 H Respiratory Rate 18 22 Blood Pressure 132/67 136/56 L Blood Pressure [Right Arm] 122/61 Blood Pressure Mean [Right Arm] 81 02 Sat by Pulse Oximetry 93 L 93 L 91 L Oxygen Delivery Method Room Air Room Air Room Air 07/23/24 14:30 07/23/24 15:01 07/23/24 15:30 Temperature Temperature Source Pulse Rate 108 H 104 H 106 H Pulse Rate [Right] Respiratory Rate 20 22 19 Blood Pressure 136/62 113/52 L 117/52 L Blood Pressure [Right Arm] Blood Pressure Mean [Right Arm] 02 Sat by Pulse Oximetry 93 L 92 L 93 L Oxygen Delivery Method Room Air Room Air Room Air 07/23/24 16:00 07/23/24 17:11 07/23/24 17:30 Temperature Temperature Source Pulse Rate 108 H 107 H 104 H Pulse Rate [Right] Respiratory Rate 22 22 20 Blood Pressure 113/56 L 133/65 134/62 Blood Pressure [Right Arm] Blood Pressure Mean [Right Arm] 02 Sat by Pulse Oximetry 95 94 L 96 Oxygen Delivery Method Room Air Room Air Room Air 07/23/24 18:00 Temperature 99.8 F H Temperature Source Pulse Rate 103 H Pulse Rate [Right] Respiratory Rate 21 Blood Pressure 136/68 Blood Pressure [Right Arm] Blood Pressure Mean [Right Arm] 02 Sat by Pulse Oximetry 97 Oxygen Delivery Method Lab Data Lab Results 07/23/24 14:00: Urine Color Yellow, Urine Appearance Clear, Urine pH 5.5, Ur Specific [place] 1.015, Urine Protein Negative, Urine Glucose (UA) Negative, Urine Ketones Negative, Urine Blood Negative, Urine Nitrate Negative, Urine Bilirubin Negative, Urine Urobilinogen 0.2, Ur Leukocyte Esterase Negative, Urine RBC None, Urine WBC Occasional, Ur Squamous Epith Cells Occasional, Urine Bacteria Trace 07/23/24 14:14: WBC 5.1, RBC 3.62 L, Hgb 11.6 L, Hct 34.6 L, MCV 95.6, MCH 32.0 H, MCHC 33.5, RDW 12.5, Plt Count 122 L, MPV 9.6, Neut % (Auto) 78.3, Lymph % (Auto) 11.8, [place] % (Auto) 8.9, Eos % (Auto) 0.2, Baso % (Auto) 0.0 L, Neut # (Auto) 4.0, Lymph # (Auto) 0.6 L, [place] # (Auto) 0.5, Eos # (Auto) 0.0, Baso # (Auto) 0.0, PT 10.0, INR 0.90, APTT 21.8 L, Sodium 136, Potassium 4.0, Chloride 102, Carbon Dioxide 24, Anion Gap 14.0, BUN 18 H, Creatinine 1.10 H, Estimated Creat Clear 34, Estimated GFR 47 L, Est GFR ( Amer) 57 L, Glucose 112 H, Calcium 8.6, Total Bilirubin 0.7, AST 30, ALT 13, Alkaline Phosphatase 43, Total Creatine Kinase 49, Troponin I 0.02, Total Protein 6.1 L, Albumin 4.2, Globulin 1.9, Albumin/Globulin Ratio 2.2 H, Lipase 31, TSH 0.24 L, Thyroxine (T4) 14.0 H, HCV Ab NOVA w/Rflx PCR Qn Negative, HIV Ag/Ab Combo Qual Negative 07/23/24 14:18: VBG pH 7.43 H, VBG pCO2 33.4 L, VBG pO2 44.1 H, VBG HCO3 21.8 L, VBG Total CO2 22.8 L, VBG O2 Saturation 81.2 H, VBG Base Excess -2.4, VBG Lactic Acid 2.7 H Orders (Tests/Meds): ED MEDICATIONS Generic Name Dose Route Start Last Admin Trade Name Freq PRN Reason Stop Dose Admin Miscellaneous 1 each 07/23/24 15:15 07/23/24 15:41 Vancomycin Consult Request NOTAPPLIC 08/22/24 15:14 1 each CONSULT PHARMACY KARLO Administration Sodium Chloride 10 ml 07/23/24 16:53 07/23/24 16:55 Sodium Chloride 0.9% 10ml Syr (Rad Only) IV 08/22/24 16:52 10 ml NEEDED PRN Administration Maintain IV Site Discontinued Medications Generic Name Dose Route Start Last Admin Trade Name Freq PRN Reason Stop Dose Admin Acetaminophen 1,000 mg 07/23/24 14:19 07/23/24 15:05 Acetaminophen 1,000mg/100ml Vial IV 07/23/24 14:20 1,000 mg ONCE ONE Administration Lactated Ringer's 1,780 mls @ 890 mls/hr 07/23/24 14:39 07/23/24 15:05 Lactated Ringer's 1000 Ml Bag 30 ml/kg infuse over 2 hr (1780 ml) 07/23/24 16:38 890 mls/hr IV Administration .Q2H ONE Piperacillin Sod/Tazobactam 50 mls @ 100 mls/hr 07/23/24 15:12 07/23/24 15:44 Sod 3.375 gm/ Sodium Chloride IV 07/23/24 15:41 100 mls/hr ONCE ONE Administration Vancomycin/PEG/NADA/Lysine/Water 1.25 gm in 250 mls @ 125 mls/hr 07/23/24 15:30 07/23/24 16:04 Vancomycin 1.25gm/250ml (Peg) Premix IV 07/23/24 17:29 125 mls/hr ONCE ONE Administration Iopamidol 70 ml 07/23/24 16:53 07/23/24 16:54 Iopamidol-370 (76%);100ml Bottle IV 07/23/24 16:54 70 ml ONCE ONE Administration Sodium Chloride 50 ml 07/23/24 16:53 07/23/24 16:54 0.9 % Sodium Chloride 50 Ml Vial IV 07/23/24 16:54 50 ml ONCE ONE Administration ORDERS Category Date Time Status CT abdomen pelvis w con Stat Cat Scan 07/23/24 14:[address] angio chest PE protocol Stat Cat Scan 07/23/24 14:[address] head/brain wo con Stat Cat Scan 07/23/24 14:13 Completed CK [Creatine Kinase] Stat Lab 07/23/24 14:14 Completed Complete Blood Count Auto Diff Stat Lab 07/23/24 14:14 Completed Comprehensive Metabolic Panel Stat Lab 07/23/24 14:14 Completed Full Resp Panel w/COVID ([facility]) Routine Lab 07/23/24 15:24 Received HIV Combo Stat Lab 07/23/24 14:14 Completed Hepatitis C Ab Qual. W/ RFX Stat Lab 07/23/24 14:14 Completed Lactic Acid Follow Up (RFLX 1) Stat Lab 07/23/24 18:32 Ordered Lipase Stat Lab 07/23/24 14:14 Completed PT INR [Prothrombin Time INR] Stat Lab 07/23/24 14:14 Completed PTT [Activated Partial Thrombo Time] Stat Lab 07/23/24 14:14 Completed T4 (Thyroxine) Stat Lab 07/23/24 14:14 Completed TSH [Thyroid Stimulating Hormone] Stat Lab 07/23/24 14:14 Completed Trop I [Troponin I] Stat Lab 07/23/24 14:14 Completed Troponin I Q3H Lab 07/23/24 17:15 Ordered Troponin I Q3H Lab 07/23/24 20:15 Ordered UA [Urinalysis and Microscopic] Stat Lab 07/23/24 14:00 Completed Blood Culture Stat Micro 07/23/24 14:40 Received Urine Culture Stat Micro 07/23/24 14:00 Received VBG [Venous Blood Gas] Stat RT 07/23/24 14:18 Completed Medical Decision Narrative: In summary, this patient is a 83-year-old female presenting to the Emergency Department for evaluation of fevers, cough, general weakness, altered mental status. Differential diagnoses considered include but are not limited to sepsis, pneumonia, urinary tract infection, metabolic derangements, hyperthyroid. Ruling out the most morbid conditions drove assessment. It should be noted patient's history includes hypothyroidism, lymphoma in remission, hypertension, hyperlipidemia which may or may not be at goal therapy. This complicates all aspects of care by increasing patient's risk for morbidity. I reviewed patient's past medical records and noted PCP evaluation 3 days ago to establish care with Dr. Restrepo. They did note some cognitive concerns at that time for which it was like he was going to refer her to neurology. On exam, the patient is lying in bed in no acute distress. She is tachycardic and febrile O2 saturation is 92 to 93% on room air. Blood pressure is stable. She is pleasantly confused, not answering orientation questions. She will answer yes and no questions by nodding, and she denies any pain. Workup included lab evaluation to evaluate for infectious, metabolic, cardiac causes of potential altered mental status. With vital sign abnormalities, she technically triggers for sepsis, so sepsis bolus was given as well as IV vancomycin and Zosyn. She cannot provide a reliable history and is altered, so I have made the decision to order CT head, CT angiogram PE protocol, and CT abdomen pelvis with IV contrast to evaluate for cause of sepsis/borderline respiratory failure. CBC demonstrated mild anemia with no significant leukocytosis. VBG demonstrates elevated lactic acid and a mild respiratory alkalosis. Urine is not really concerning for infection. Chemistries and imaging pending at time of signout to oncoming provider, Dr. Kim. Ilir Kim MD Patient's thyroid studies which showed low TSH of 0.24 and T4 elevated at 14. Patient is reportedly on levothyroxine. Urine studies without evidence of infection. Patient's creatinine mildly elevated at 1.10 and BUN mildly elevated at 18 (her baseline creatinine appears to be between 1 and 1.0). eGFR of 47. Glucose of 112. CT imaging was interpreted by me personally and demonstrated no acute intracranial findings. No acute findings within the abdomen and pelvis. She does have a right-sided lower lobe pneumonia with groundglass opacities in this area. Prior to official radiology read. Patient was mildly hypoxic with SpO2 at 88% and was put on 2 L nasal cannula. Due to her sepsis in the setting of pneumonia, will discuss case with Dr. Winslow for admission. Dr. Mejia agreed to admit the patient. Critical Care <Adriana Fernandes, DO - Last Filed: 07/23/24 15:23> Critical Care Time Critical Care Time: No
[2024-07-23 14:51] LABS: Troponin I 0.02 ng/ml (0.00-0.034)
[2024-07-23] MEDS: ACETAMINOPHEN 1,000MG/100ML VIAL 1000 MG IV (15:05)
[2024-07-23] MEDS: LACTATED RINGERS 1000ML 1,780 ML 890 ML IV (15:05)
[2024-07-23 15:09] LABS: Thyroid Stimulating Hormone 0.24 uIU/mL (0.465-4.68)
[2024-07-23 15:10] LABS: Bacteria,Urine Trace /lpf; Squamous Epithelial Cell,Urine Occasional #/hpf (0-5); WBC,Urine Occasional #/hpf (0-3)
[2024-07-23 15:33] LABS: Adenovirus,PCR Not Detected (NotDetected); Bordetella Pertussis Not Detected (NotDetected); Chlamydophila Pneumoniae, PCR Not Detected (NotDetected); Coronavirus 19, PCR Not Detected (NotDetected); Coronavirus 229E Not Detected (NotDetected); Coronavirus NL63 Not Detected (NotDetected); Coronavirus OC43 Not Detected (NotDetected); Coronovirus HKU1,PCR Not Detected (NotDetected); Human Metapneumovirus Not Detected (NotDetected); Influenza A, PCR Not Detected (NotDetected); Influenza AH1, PCR Not Detected (NotDetected); Influenza AH3,PCR Not Detected (NotDetected); Influenza B, PCR Not Detected (NotDetected); Mycoplasma Pneumoniae, PCR Not Detected (NotDetected); Parainfluenza 1, PCR Not Detected (NotDetected); Parainfluenza 2, PCR Not Detected (NotDetected); Parainfluenza 3, PCR Not Detected (NotDetected); Parainfluenza 4, PCR Not Detected (NotDetected); Respiratory Syncytial Virus Not Detected (NotDetected); Rhinovirus/Enterovirus Not Detected (NotDetected)
[2024-07-23] MEDS: VANCOMYCIN CONSULT REQUEST 1 EACH NOTAPPLIC (15:41)
[2024-07-23] MEDS: PIPERACILLIN/TAZO 3.375 GM in 0.9 % SODIUM CHLORIDE 50 ML IV (15:44)
[2024-07-23] MEDS: VANCOMYCIN/WATER FOR INJ (PEG) 1.25 GM/250 ML PIGGYBACK IV (16:04)
[2024-07-23 16:18] LABS: Chloride 102 mmol/L (98-107); Sodium 136 mmol/L (136-145)
[2024-07-23 16:20] LABS: Alanine Aminotransferase 13 U/L (12-78); Alkaline Phosphatase 43 U/L (38-126); Aspartate Amino Transferase 30 U/L (14-36); Bilirubin,Total 0.7 mg/dl (0.2-1.3); Blood Urea Nitrogen 18 mg/dl (7-17); Carbon Dioxide 24 mmol/L (22.0-30.0); Creatinine Clearance Estimated 34 mL/min (50-200); Estimated Glomerular Filt Rate 47 ml/min (>60); GFR (African American) 57 ML/MIN (>60); Total Protein,Serum 6.1 g/dl (6.3-8.2)
[2024-07-23 16:21] LABS: Calcium 8.6 mg/dl (8.4-10.2); Creatine Kinase 49 U/L (30-135); Glucose 112 mg/dl (74-100); Lipase 31 U/L (23-300)
[2024-07-23 16:39] LABS: Albumin/Globulin Ratio 2.2 (1.1-1.8); Globulin 1.9 g/dL (1.3-3.2); HIV Combo NEGATIVE (Negative)
[2024-07-23 16:40] LABS: Albumin Level 4.2 g/dl (3.5-5.0)
[2024-07-23 16:47] LABS: Hepatitis C Ab Qual. W/ RFX NEGATIVE (Negative)
[2024-07-23] MEDS: IOPAMIDOL-370 (76%);100ML BOTTLE 70 ML IV (16:54)
[2024-07-23] MEDS: 0.9 % SODIUM CHLORIDE 50 ML VIAL IV (16:54)
[2024-07-23] MEDS: SODIUM CHLORIDE 0.9% 10ML SYR (RAD ONLY) 10 ML IV (16:55)
--- NOTE | 2024-07-23 17:00 | PC.NURSE ---
pt is at ct
--- NOTE | 2024-07-23 17:02 | PC.NURSE ---
pt arrived back to room from ct
--- NOTE | 2024-07-23 18:06 | PC.NURSE ---
Family approached the nurses station stating they are concerned about the pts color. I went bedside they state they are worried about her skin being bright pink around her hairline. I notified the provider, she suggested to decrease the dose of the vanc. I slowed it down to 100ml/hr. I asked the pt if she would like to be pulled up in the bed and repositioned she declined. no needs voiced. no new complaints. call su in reach.
[2024-07-23 18:32] LABS: Reflex Lactic Add Lactic Reflex
--- NOTE | 2024-07-23 18:38 | PC.NURSE ---
HS aware of admission
[2024-07-23 18:44] LABS: Influenza AH1, 2009 Detected (NotDetected)
[2024-07-23 19:21] LABS: Lactic Acid Follow Up (RFLX 1) 3.3 mmol/L (0.7-2.1)
[2024-07-23 19:30] LABS: Troponin I 0.01 ng/ml (0.00-0.034)
--- NOTE | 2024-07-23 19:41 | P.HP_ITS ---
<Statement entered by Shahab Keene MD - 07/25/24 22:59> Personally evaluated patient and agree with plan of care as outlined by the PRINCIPAL BIOSTATISTICIAN. History of Present Illness *Admission Date: 07/23/24 *Reason for visit:: Altered Mental Status *History of present illness: The patient is an 83-year-old female with a past medical history significant for hypertension, hypothyroidism (on levothyroxine), hyperlipidemia, lymphoma in remission, and rheumatoid arthritis, who presented to the emergency department for evaluation of altered mental status. Per family, the patient tested positive for influenza approximately 9 days ago and has since experienced persistent fevers, cough, and generalized weakness, which they describe as having knocked her down. She typically lives independently and is fully functional, but today, family noted marked confusion with inability to answer questions appropriately. They check on her frequently as they live across the [address]. The patient is unable to provide a reliable history due to her altered mental status, though she can nod to yes/no questions and denies chest pain, abdominal pain, or other localized pain. In the ED, vital signs revealed tachycardia (HR 113 bpm, per ECG showing sinus tachycardia with PVCs), fever, and O2 saturation of 92-93% on room air (later dropping to 88%, improved with 2L NC). BP was stable. Physical exam showed a pleasantly confused elderly female, not oriented, but in no acute distress. Labs demonstrated mild anemia (Hgb 11.6, Hct 34.6), thrombocytopenia (Plt 122), normal WBC (5.1), elevated lactic acid (2.7), mild respiratory alkalosis on VBG (pH 7.43, pCO2 33.4, HCO3 21.8), and a mildly elevated creatinine (1.10, with eGFR 47, consistent with baseline ~1.0-1.1). Thyroid studies showed low TSH (0.24) and elevated T4 (14.0), suggesting possible over-replacement of levothyroxine. Urinalysis was unremarkable for infection. CT imaging revealed right lower lobe pneumonia with ground-glass opacities, but no acute intracranial, abdominal, or PE findings. ECG showed sinus tachycardia without STEMI changes (QTc 364 ms). Given fever, tachycardia, hypoxia, and altered mental status, the patient met sepsis criteria. She received an IV fluid bolus, vancomycin, and Zosyn in the ED. Differential diagnosis includes sepsis secondary to pneumonia, possible contribution from influenza, hyperthyroidism, and less likely metabolic or neurologic etiologies. After discussion with hospitalist service, the patient was deemed appropriate for inpatient admission for further management. [facility] Disclaimer: The information contained in this section may have been updated after the patient was seen, as this information can be updated by other users. Medical History Cognitive change Lung cancer Fall Heart murmur Hyperlipidemia Hypothyroidism Hypertension Stress incontinence in female Surgical History History of hip replacement, total History of lung surgery History of hysterectomy History of cholecystectomy Hx of cardiac cath History of bowel resection Family History Other No significant family history Social History Smoking Status: Never smoker alcohol intake: never substance use type: denies use current occupational status: retired Travel in the last 8 weeks: None household members: none housing: house lives independently: Yes marital status: number of children: 3 alf: No Hx Recent Travel: No sexually active: No well-balanced diet: daily or most days physical activity: walking Have you lived/traveled outside [place] in past 30 days?: No Contact w/someone who lives/traveled outside [place] past 30 days?: No Exposure to someone with infectious disease in past 14 days?: No Do you have a fever (greater than 100.4 F or 38 C)?: No Have you tested positive for COVID-19: No Exposed to someone with COVID-19 in past 14 days?: No Do you have a sore throat?: No Do you have a cough?: No Do you have any weakness?: Yes Do you have any diarrhea?: No Are you experiencing any unusual bleeding?: No Do you have any muscle aches/pain?: No Do you have any abdominal pain?: No Are you experiencing loss of taste or smell?: No Other Medical History Have you received the Flu Vaccine for this season: Yes Have you received the Pneumonia Vaccine: Yes Review of Systems Review of Systems Review of systems (narrative): 13 point review of systems negative outside of HPI Meds Home Medications and Allergies Home Medications ?Medication ?Instructions ?Recorded ?Confirmed ?Type esomeprazole magnesium 40 mg 40 mg PO BID GERD 30 days #60 caps 01/16/22 07/23/24 History capsule,delayed release levothyroxine 100 mcg tablet 100 mcg PO DAILY hypothyroidism 90 01/16/22 07/23/24 History days #90 tabs pravastatin 40 mg tablet 40 mg PO HS hyprelipdemia 90 days 01/16/22 07/23/24 History #90 tabs lidocaine 5 % topical patch 1 patch topical DAILY 07/20/24 07/23/24 History meclizine 25 mg tablet 25 mg PO DAILY PRN Dizziness Or 07/20/24 07/23/24 History Vertigo oxycodone-acetaminophen 7.5 mg-325 1 tab PO QID 07/20/24 07/23/24 History mg tablet promethazine 25 mg tablet 25 mg PO QID PRN Nausea 07/20/24 07/23/24 History furosemide 20 mg tablet 20 mg PO DAILY 07/23/24 07/23/24 History New Prescriptions to Start Prescriptions: Allergies Allergy/AdvReac Type Severity Reaction Status Date / Time atorvastatin (From LIPITOR) Allergy Unknown LEG CRAMPS Verified 07/23/24 14:31 tolmetin (From TOLECTIN) Allergy Unknown FACIAL Verified 07/23/24 14:31 SWELLING Exam Data for Last 24 hours Vital signs and Labs for Last 24 Hours: Temp Pulse Resp BP Pulse Ox O2 Del Method 99.8 F H 103 H 20 116/53 L 97 Room Air 07/23/24 18:00 07/23/24 18:30 07/23/24 18:30 07/23/24 18:30 07/23/24 18:30 07/23/24 18:30 Laboratory Results - last 24 hr 07/23/24 14:00: Urine Color Yellow, Urine Appearance Clear, Urine pH 5.5, Ur Specific [place] 1.015, Urine Protein Negative, Urine Glucose (UA) Negative, Urine Ketones Negative, Urine Blood Negative, Urine Nitrate Negative, Urine Bilirubin Negative, Urine Urobilinogen 0.2, Ur Leukocyte Esterase Negative, Urine RBC None, Urine WBC Occasional, Ur Squamous Epith Cells Occasional, Urine Bacteria Trace 07/23/24 14:14: WBC 5.1, RBC 3.62 L, Hgb 11.6 L, Hct 34.6 L, MCV 95.6, MCH 32.0 H, MCHC 33.5, RDW 12.5, Plt Count 122 L, MPV 9.6, Neut % (Auto) 78.3, Lymph % (Auto) 11.8, [place] % (Auto) 8.9, Eos % (Auto) 0.2, Baso % (Auto) 0.0 L, Neut # (Auto) 4.0, Lymph # (Auto) 0.6 L, [place] # (Auto) 0.5, Eos # (Auto) 0.0, Baso # (Auto) 0.0, PT 10.0, INR 0.90, APTT 21.8 L, Sodium 136, Potassium 4.0, Chloride 102, Carbon Dioxide 24, Anion Gap 14.0, BUN 18 H, Creatinine 1.10 H, Estimated Creat Clear 34, Estimated GFR 47 L, Est GFR ( Amer) 57 L, Glucose 112 H, Calcium 8.6, Total Bilirubin 0.7, AST 30, ALT 13, Alkaline Phosphatase 43, Total Creatine Kinase 49, Troponin I 0.02, Total Protein 6.1 L, Albumin 4.2, Globulin 1.9, Albumin/Globulin Ratio 2.2 H, Lipase 31, TSH 0.24 L, Thyroxine (T4) 14.0 H, HCV Ab NOVA w/Rflx PCR Qn Negative, HIV Ag/Ab Combo Qual Negative 07/23/24 14:18: VBG pH 7.43 H, VBG pCO2 33.4 L, VBG pO2 44.1 H, VBG HCO3 21.8 L, VBG Total CO2 22.8 L, VBG O2 Saturation 81.2 H, VBG Base Excess -2.4, VBG Lactic Acid 2.7 H 07/23/24 15:24: Chlamy pneumoniae PCR Not detected, Adenovirus (PCR) Not detected, B. pertussis DNA (PCR) Not detected, Coronavirus OC43 (PCR) Not detected, Coronavirus HKU1 (PCR) Not detected, Coronavirus 229E (PCR) Not detected, SARS-CoV-2 (PCR) Not detected, Coronavirus NL63 (PCR) Not detected, Human Metapneumovir PCR Not detected, Influenza A (H1) PCR Not detected, Influ A (H1N1/09) PCR Detected A, Influenza A (H3) PCR Not detected, Influenza Type A (PCR) Not detected, Influenza Type B (PCR) Not detected, M. pneumoniae (PCR) Not detected, Parainfluenza 1 (PCR) Not detected, Parainfluenza 2 (PCR) Not detected, Parainfluenza 3 (PCR) Not detected, Parainfluenza 4 (PCR) Not detected, RSV (PCR) Not detected, Entero/Rhino (PCR) Not detected 07/23/24 18:53: Lactate 3.3 H, Troponin I 0.01 I & O for Last 24 hours: Intake & Output 07/20/24 07/21/24 07/22/24 07/23/24 23:59 23:59 23:59 23:59 Weight 57.606 kg Constitutional Constitutional: no acute distress and chronically ill appearing *Routine HEENT Exam Head: Present normocephalic Eye: Present EOMI and PERRL ENT: Present mucous membranes moist *Routine Neck Exam Neck: Present supple; Absent lymphadenopathy *Routine Respiratory Exam Respiratory: Present CTA bilaterally *Routine Cardiovascular Exam Cardiovascular: Present RRR *Routine Abdominal Exam Abdominal: Present soft and normoactive bowel sounds; Absent tenderness *Routine Rectal Exam Rectal:: deferred *Routine Genitalia Exam Genitalia:: deferred *Routine Extremities Exam Extremities: Absent cyanosis, clubbing or edema *Routine Skin Exam Skin: Present warm; Absent rash *Routine Neurological Exam Neurological: Present alert and oriented X3 Assessment and Plan *Assessment and plan (1) Sepsis: Status: Acute Category: Medical Code(s): A41.9 - Sepsis, unspecified organism (2) Pneumonia: Status: Acute Category: Medical Code(s): J18.9 - Pneumonia, unspecified organism (3) Cognitive change: Status: Acute Category: Medical Code(s): R41.89 - Other symptoms and signs involving cognitive functions and awareness (4) Hyperlipidemia: Status: Acute Category: Medical Code(s): E78.5 - Hyperlipidemia, unspecified Plan * Sepsis secondary to pneumonia * Pertinent Info: Fever, tachycardia (HR 113 bpm), hypoxia (SpO2 88% on RA, improved to 92-93% on 2L NC), lactic acid 2.7, and CT chest showing right lower lobe pneumonia with ground-glass opacities. Meets sepsis criteria per SIRS (fever, tachycardia, respiratory compromise). Likely post-influenza bacterial superinfection given flu diagnosis 9 days ago. * Continue IV antibiotics: Vancomycin and Zosyn initiated in ED; await cultures (blood, sputum) to tailor therapy. * IV fluids: 30 mL/kg bolus given in ED; monitor for fluid overload given age and baseline renal function (eGFR 47). * Supplemental O2: Maintain 2L NC, titrate to SpO2 >90%. * Monitor lactate q6h until normalization (<2.0). * Daily CXR to assess pneumonia progression. * Altered mental status * Pertinent Info: Pleasantly confused, unable to answer orientation questions but responds to yes/no prompts. Likely multifactorial: sepsis, possible hyperthyroidism (see below), and baseline cognitive concerns noted by PCP [address] head negative for acute intracranial pathology. * Treat underlying sepsis as primary jukebox route driver; reassess mental status daily with CAM-ICU score. * Check ammonia, vitamin B12, and folate levels to exclude other metabolic causes. * Avoid sedatives; ensure safe environment (fall precautions). * Hyperthyroidism (possible over-replacement) * Pertinent Info: TSH 0.24 (low), T4 14.0 (high), on levothyroxine for hypothyroidism. May contribute to tachycardia and altered mental status. No overt thyroid storm (stable BP, no severe agitation). * Hold levothyroxine pending further evaluation. * Order free T3 and repeat TSH/T4 in 24 hours to trend. * Recommend PCP follow-up * Mild acute kidney injury (GENE) * Pertinent Info: Creatinine 1.10 (baseline ~1.0-1.1), BUN 18, eGFR 47. Likely prerenal from dehydration/sepsis vs. early ATN. Urine studies negative for infection or significant abnormalities. * Monitor renal function daily (Cr, BUN, urine output). * Continue IV fluids cautiously; avoid nephrotoxic agents. * Recheck BMP in a.m. * Anemia and thrombocytopenia * Pertinent Info: Hgb 11.6, Hct 34.6, Plt 122. Mild anemia and thrombocytopenia, possibly chronic (lymphoma history) or acute (sepsis- related bone marrow suppression). No active bleeding. * Monitor CBC daily; transfuse PRBCs if Hgb <7 or symptomatic. * Trend platelets; no transfusion unless <10K or bleeding. * Review peripheral smear if worsening. * Hypoxia * Pertinent Info: SpO2 88% on RA, improved to 92-93% on 2L NC. Likely due to pneumonia; CT PE protocol negative for embolism. * Continue 2L NC, titrate to maintain SpO2 >90%. * Pulmonary toilet: Encourage incentive spirometry once mentation improves. * Repeat ABG if respiratory status worsens. * Chronic conditions * Hypertension: BP stable; hold home meds until sepsis resolves and reassess. * Hyperlipidemia: Hold statins during acute illness. * Lymphoma in remission: No evidence of recurrence; monitor CBC trends. * Rheumatoid arthritis: No acute flare; hold DMARDs during sepsis workup. * Supportive care * DVT prophylaxis: Lovenox 40 units subcu. * Nutrition: NPO initially given altered mental status; perform bedside swallow study before advancing * Strict I/Os, daily weights, and telemetry monitoring. * Family updated; goals of care to be discussed if clinical decline. Disposition: The patient will be admitted to the medical floor under Dr. Mejia?s service for management of sepsis secondary to pneumonia, altered mental status, and associated comorbidities. She requires close monitoring for respiratory status, mental status improvement, and response to antibiotics. Anticipated length of stay is 3-5 days, pending clinical improvement (resolution of fever, lactate clearance, and return to baseline mentation). Discharge planning will include coordination with family for potential short-term rehab or home support, given her acute deconditioning and baseline independence. Will reassess need for outpatient follow-ups (PCP, neurology, endocrine) based on hospital course.
--- NOTE | 2024-07-23 19:44 | PC.NURSE ---
report called to harper fletcher RN
--- NOTE | 2024-07-23 19:53 | PC.NURSE ---
pt weaned from 3.5 L NC to 2.5 L NC . O2 sat 99%
--- NOTE | 2024-07-23 20:11 | PC.NURSE ---
Patient arrived to floor via stretcher from ED at 20:08.
[2024-07-23] MEDS: ACETAMINOPHEN 325MG TAB 650 MG PO (20:35)
--- NOTE | 2024-07-23 20:36 | PC.NURSE ---
Patient daughters left multiple numbers to call if there is any changes, Lenka [phone], Sylwia [phone], Rohith [phone], Isa [phone].
[2024-07-23 21:00] LABS: Reflex Lactic (2 hrs) Add Lactic Reflex
[2024-07-23] MEDS: PIPERCILLIN/TAZO 3.375 GM in 0.9 % SODIUM CHLORIDE 50 ML IV (21:06)
[2024-07-23] MEDS: LACTATED RINGERS 1000ML 1,000 ML 50 ML IV (21:39)
[2024-07-23 21:59] LABS: Lactic Acid Follow up (RFLX 2) 2.8 mmol/L (0.7-2.1)
[2024-07-23 22:07] LABS: Troponin I 0.02 ng/ml (0.00-0.034)
--- NOTE | 2024-07-23 22:34 | PC.NURSE ---
Patient weaned to room air at this time, O2 sat 98% on 2L NC, patient resting, O2 sat now 96% on room air.
[2024-07-24] VITALS (9 sets, daily range): BP systolic 101–130; BP diastolic 58–74; PULSE 60–100; RESP 16–19; TEMP 36.7–37.3; O2SAT 93–97; BMI 21.3
[2024-07-24] MEDS: PIPERCILLIN/TAZO 3.375 GM in 0.9 % SODIUM CHLORIDE 50 ML IV ×2 (05:32→12:01)
--- NOTE | 2024-07-24 06:26 | PC.NURSE ---
Patient is alert to self only, understands she is in hospital, but unsure of location. Patient has rested since arrival to the floor. IV abx and fluids. Weaned to room air. Lung sounds wheezing. Non productive cough. Bed alarm on. Call light in reach.
--- NOTE | 2024-07-24 08:26 | HMH.PHAINT1 ---
Pharmacy Intervention Comments: MEDICATION RECONCILIATION COMPLETED ON PATIENT USING EXTERNAL FILL HISTORY FROM PHARMACY AND LIST FROM PCP OFFICE. -DHARMESH SOTOMAYOR, HAYLIED
[2024-07-24] MEDS: ENOXAPARIN 40MG/0.4ML SYRINGE 40 MG SUBCUT (09:00)
[2024-07-24] MEDS: LIDOCAINE 5% TRANSDERMAL PATCH 1 EACH TP (09:01)
[2024-07-24 11:40] LABS: Basophils % 0.2 % (0.1-2.0); Hematocrit 31.7 % (37.0-47.0); Hemoglobin 10.7 g/dL (12.2-16.2); Lymphocytes # 1.4 K/mm3 (0.7-4.5); Lymphocytes % 12.2 % (10-50); Mean Corpuscular HGB Conc 33.8 g/dL (31.8-35.4); Mean Corpuscular Hemoglobin 32.1 pg (27.0-31.2); Mean Corpuscular Volume 95.2 fl (81-99); Mean Platelet Volume 9.6 fl (7.4-10.4); Monocytes # 0.5 K/mm3 (0.1-1.0); Monocytes % 4.2 % (1.7-9.3); Neutrophils # 9.1 K/mm3 (1.8-7.8); Neutrophils % 81.4 % (37.0-80.0); Platelet Count 132 K/mm3 (142-424); Red Blood Count 3.33 M/mm3 (4.20-5.40); Red Cell Distribution Width 12.7 % (11.5-17.5); White Blood Count 11.2 K/mm3 (4.8-10.8)
[2024-07-24 12:49] LABS: Chloride 104 mmol/L (98-107); Potassium 3.4 mmoL/L (3.5-5.1); Sodium 137 mmol/L (136-145)
[2024-07-24 12:52] LABS: Anion Gap 11.4 mEq/L (5-15); Blood Urea Nitrogen 14 mg/dl (7-17); Calcium 8.6 mg/dl (8.4-10.2); Carbon Dioxide 25 mmol/L (22.0-30.0); Creatinine Clearance Estimated 39 mL/min (50-200); Estimated Glomerular Filt Rate 68 ml/min (>60); GFR (African American) 82 ML/MIN (>60); Glucose 104 mg/dl (74-100)
[2024-07-24 12:53] LABS: Magnesium 1.5 mg/dl (1.6-2.3)
[2024-07-24] MEDS: CEFTRIAXONE 1 GM 1 GM in 0.9 % SODIUM CHLORIDE 50 ML IV (13:40)
[2024-07-24] MEDS: DOXYCYCLINE HYCLATE 100 MG in 0.9 % SODIUM CHLORIDE 250 ML 166.667 MG IV (14:14)
--- NOTE | 2024-07-24 14:38 | P.PN_ITS ---
Subjective *Date: 07/24/24 *Time: 14:38 Interval history: Patient still feels quite quite weak, will have PT/OT work with her tomorrow. Continue antibiotics. On room air. Exam Data for Last 24 hours Vital signs and Labs for Last 24 Hours: Temp Pulse Resp BP Pulse Ox O2 Del Method O2 Flow Rate 98.8 F 99 H 16 121/74 97 Room Air 2 07/24/24 08:00 07/24/24 08:00 07/24/24 08:00 07/24/24 08:00 07/24/24 08:00 07/24/24 13:00 07/23/24 21:00 Laboratory Results - last 24 hr 07/23/24 14:00: Urine Color Yellow, Urine Appearance Clear, Urine pH 5.5, Ur Specific [place] 1.015, Urine Protein Negative, Urine Glucose (UA) Negative, Urine Ketones Negative, Urine Blood Negative, Urine Nitrate Negative, Urine Bilirubin Negative, Urine Urobilinogen 0.2, Ur Leukocyte Esterase Negative, Urine RBC None, Urine WBC Occasional, Ur Squamous Epith Cells Occasional, Urine Bacteria Trace 07/23/24 14:14: WBC 5.1, RBC 3.62 L, Hgb 11.6 L, Hct 34.6 L, MCV 95.6, MCH 32.0 H, MCHC 33.5, RDW 12.5, Plt Count 122 L, MPV 9.6, Neut % (Auto) 78.3, Lymph % (Auto) 11.8, [place] % (Auto) 8.9, Eos % (Auto) 0.2, Baso % (Auto) 0.0 L, Neut # (Auto) 4.0, Lymph # (Auto) 0.6 L, [place] # (Auto) 0.5, Eos # (Auto) 0.0, Baso # (Auto) 0.0, PT 10.0, INR 0.90, APTT 21.8 L, Sodium 136, Potassium 4.0, Chloride 102, Carbon Dioxide 24, Anion Gap 14.0, BUN 18 H, Creatinine 1.10 H, Estimated Creat Clear 34, Estimated GFR 47 L, Est GFR ( Amer) 57 L, Glucose 112 H, Calcium 8.6, Total Bilirubin 0.7, AST 30, ALT 13, Alkaline Phosphatase 43, Total Creatine Kinase 49, Troponin I 0.02, Total Protein 6.1 L, Albumin 4.2, Globulin 1.9, Albumin/Globulin Ratio 2.2 H, Lipase 31, TSH 0.24 L, Thyroxine (T4) 14.0 H, HCV Ab NOVA w/Rflx PCR Qn Negative, HIV Ag/Ab Combo Qual Negative 07/23/24 15:24: Chlamy pneumoniae PCR Not detected, Adenovirus (PCR) Not detected, B. pertussis DNA (PCR) Not detected, Coronavirus OC43 (PCR) Not detected, Coronavirus HKU1 (PCR) Not detected, Coronavirus 229E (PCR) Not detected, SARS-CoV-2 (PCR) Not detected, Coronavirus NL63 (PCR) Not detected, Human Metapneumovir PCR Not detected, Influenza A (H1) PCR Not detected, Influ A (H1N1/09) PCR Detected A, Influenza A (H3) PCR Not detected, Influenza Type A (PCR) Not detected, Influenza Type B (PCR) Not detected, M. pneumoniae (PCR) Not detected, Parainfluenza 1 (PCR) Not detected, Parainfluenza 2 (PCR) Not detected, Parainfluenza 3 (PCR) Not detected, Parainfluenza 4 (PCR) Not detected, RSV (PCR) Not detected, Entero/Rhino (PCR) Not detected 07/23/24 18:53: Lactate 3.3 H, Troponin I 0.01 07/23/24 21:30: Lactate 2.8 H, Troponin I 0.02 07/24/24 10:59: Sodium 137, Potassium 3.4 L, Chloride 104, Carbon Dioxide 25, Anion Gap 11.4, BUN 14, Creatinine 0.80 D, Estimated Creat Clear 39, Estimated GFR 68, Est GFR ( Amer) 82 D, Glucose 104 H, Calcium 8.6, Magnesium 1.5 L 07/24/24 11:30: WBC 11.2 H D, RBC 3.33 L, Hgb 10.7 L, Hct 31.7 L, MCV 95.2, MCH 32.1 H, MCHC 33.8, RDW 12.7, Plt Count 132 L, MPV 9.6, Neut % (Auto) 81.4 H, Lymph % (Auto) 12.2, [place] % (Auto) 4.2, Eos % (Auto) 0.0 L, Baso % (Auto) 0.2, Neut # (Auto) 9.1 H, Lymph # (Auto) 1.4, [place] # (Auto) 0.5, Eos # (Auto) 0.0, Baso # (Auto) 0.0 I & O for Last 24 hours: Intake & Output 07/21/24 07/22/24 07/23/24 07/24/24 23:59 23:59 23:59 23:59 Intake Total 757 / 757 Output Total 500 / 500 Balance 257 / 257 Weight 60.192 kg 60.192 kg Microbiology Reports for the Last 24 Hours: Microbiology 07/23/24 14:18 Blood Blood Culture - Preliminary Constitutional Constitutional: no acute distress *Routine HEENT Exam Head: Present normocephalic Eye: Present EOMI and PERRL ENT: Present mucous membranes moist *Routine Neck Exam Neck: Present supple; Absent lymphadenopathy *Routine Respiratory Exam Respiratory: Present CTA bilaterally *Routine Cardiovascular Exam Cardiovascular: Present RRR *Routine Abdominal Exam Abdominal: Present soft and normoactive bowel sounds; Absent tenderness *Routine Extremities Exam Extremities: Absent cyanosis, clubbing or edema *Routine Skin Exam Skin: Present warm; Absent rash *Routine Neurological Exam Neurological: Present alert and oriented X3 Assessment and Plan *Assessment and plan (1) Sepsis: Status: Acute Category: Medical Code(s): A41.9 - Sepsis, unspecified organism (2) Pneumonia: Status: Acute Category: Medical Code(s): J18.9 - Pneumonia, unspecified organism (3) Cognitive change: Status: Acute Category: Medical Code(s): R41.89 - Other symptoms and signs involving cognitive functions and awareness (4) Hyperlipidemia: Status: Acute Category: Medical Code(s): E78.5 - Hyperlipidemia, unspecified Plan Francisca Espinoza is a 83-year-old female who who presented with flu for more than a week, generalized weakness, shortness of breath and admitted for sepsis secondary to right lower lobe pneumonia. #Sepsis #Community-acquired pneumonia #Influenza A #Physical deconditioning #Acute metabolic encephalopathy, resolved ? Progressive generalized weakness, cough, and some shortness of breath. Initially tachycardic, tachypneic. ? CTA chest revealed right lower lobe pneumonia. Initial WBC 5.1. On room air. ? WBC worsened to 11.2 today, though could be reactive. Continue monitor. ? Started ceftriaxone, doxycycline day 1, discontinue Zosyn. ? Follow-up procalcitonin, ESR, CRP., Sputum culture. ? Patient feeling quite weak today, PT/OT consulted, pending recommendations. #Hypothyroidism ? TSH low at 0.24. Follow-up free T4. ? Hold home levothyroxine. Hypertension: BP stable; hold home meds until sepsis resolves and reassess. Hyperlipidemia: Hold statins during acute illness. Lymphoma in remission: No evidence of recurrence; monitor CBC trends. Rheumatoid arthritis: No acute flare; hold DMARDs during sepsis workup. Full code DVT prophylaxis: Lovenox 40 mg
[2024-07-24] MEDS: POTASSIUM CHLORIDE 20MEQ TAB 40 MEQ PO ×2 (15:06→18:44)
[2024-07-24] MEDS: MAGNESIUM SULFATE IN WATER 2 GM/50 ML PIGGYBACK IV ×2 (15:47→16:35)
[2024-07-24] MEDS: IPRATROPIUM/ALBUTEROL 3 ML NEB IH ×2 (18:15→23:15)
[2024-07-24 18:46] LABS: Adenovirus F 40/41, stool Not Detected (NotDetected); Astrovirus Not Detected (NotDetected); Campylobacter Not Detected (NotDetected); Clostridium Difficile A/B, PCR Not Detected (NotDetected); Cryptosporidium Not Detected (NotDetected); Cyclospora Cayetanesis Not Detected (NotDetected); Entamoeba histolytica Not Detected (NotDetected); Enteroaggregative E coli Not Detected (NotDetected); Enteropathogenic E coli Not Detected (NotDetected); Enterotoxigenic E coli Not Detected (NotDetected); Giardia lamblia Not Detected (NotDetected); Norovirus Not Detected (NotDetected); Plesimonas Shigalloides, PCR Not Detected (NotDetected); Rotavirus A Not Detected (NotDetected); Salmonella, PCR Not Detected (NotDetected); Sapovirus Not Detected (NotDetected); Shiga-like toxin E coli Not Detected (NotDetected); Shigella Enterovasive E coli Not Detected (NotDetected); Vibrio Cholerae Not Detected (NotDetected); Vibrio, PCR Not Detected (NotDetected); Yersinia Entercolitica, PCR Not Detected (NotDetected)
[2024-07-24] MEDS: FAMOTIDINE 20MG TABLET 40 MG PO (20:13)
[2024-07-25] VITALS (7 sets, daily range): BP systolic 119–133; BP diastolic 54–68; PULSE 72–102; RESP 16–18; TEMP 36.6–37.2; O2SAT 96–99; BMI 21.8
[2024-07-25] MEDS: DOXYCYCLINE HYCLATE 100 MG in 0.9 % SODIUM CHLORIDE 250 ML 166.667 MG IV (01:00)
--- NOTE | 2024-07-25 04:21 | PC.NURSE ---
Addendum entered by Abbie Roberts RN 07/25/24 05:18: During bladder scan attempt, the patient was woken up and verbalized the need to go to the bathroom. Patient was assisted out of bed with charge nurse (Skyler Wheat RN) and me at the bedside; she ambulated quite well with standby assistance. However, she did require x1 assistance to initially get up out of the bed. The patient voided and had a liquified bowel movement this morning. Patient was not bladder scanned; 200 mL of bright yellow urine ouput was observed in the hat. Patient also appeared to be much more alert and conversational this morning. Patient's purewick was removed and a new brief was applied. Due to consistent oxygen saturations > 95% on 2 L of oxygen via nasal cannula, the patient was also weaned to room air at this time. Original Note: Patient is alert to herself, place, and was able to cite her birthday correctly. She has expressed drowsiness this shift, but is easily aroused. Slight disorientation, particularly with time, was noted. She was observed to have eyes closed, respirations even and unlabored on 2 L of oxygen via nasal cannula (applied during shift change due to dropping oxygen saturations), and no apparent distress throughout the night. Upon auscultation of her lungs, diminished lung sounds and expiratory rhonchi throughout + coarse crackles in the bases could be heard. Auscultation of her heart and bowels were within normal findings. Normal sinus rhythm on telemetry. Patient reports a intermittent cough, productive of thick sputum. A purewick/brief has been utilized this shift for elimination needs; however, the patient has not voided/defecated this shift (to be bladder scanned this morning). Patient has consumed very little ice water this shift. Scheduled medications and breathing treatments were administered as appropriately per JUL; some coaching was given to the patient to swallow pills. Aspiration precautions taken. Vital signs stable, heart rate slightly elevated. At this time, the patient is resting upright in bed without any further complaints. No acute changes noted thus far. Bed alarm on. Call light within reach.
[2024-07-25] MEDS: IPRATROPIUM/ALBUTEROL 3 ML NEB IH ×2 (06:38→12:57)
[2024-07-25 06:39] LABS: Basophils % 0.1 % (0.1-2.0); Hematocrit 32.1 % (37.0-47.0); Hemoglobin 10.2 g/dL (12.2-16.2); Lymphocytes # 1.2 K/mm3 (0.7-4.5); Lymphocytes % 13.8 % (10-50); Mean Corpuscular HGB Conc 31.8 g/dL (31.8-35.4); Mean Corpuscular Hemoglobin 32.3 pg (27.0-31.2); Mean Corpuscular Volume 101.6 fl (81-99); Mean Platelet Volume 10.4 fl (7.4-10.4); Monocytes # 0.4 K/mm3 (0.1-1.0); Monocytes % 4.6 % (1.7-9.3); Neutrophils % 79.4 % (37.0-80.0); Platelet Count 110 K/mm3 (142-424); Red Blood Count 3.16 M/mm3 (4.20-5.40); Red Cell Distribution Width 13.2 % (11.5-17.5); White Blood Count 8.9 K/mm3 (4.8-10.8)
[2024-07-25 06:58] LABS: Blood Urea Nitrogen 12 mg/dl (7-17); Calcium 8.7 mg/dl (8.4-10.2); Carbon Dioxide 21 mmol/L (22.0-30.0); Chloride 110 mmol/L (98-107); Creatinine Clearance Estimated 40 mL/min (50-200); Estimated Glomerular Filt Rate 80 ml/min (>60); GFR (African American) 96 ML/MIN (>60); Glucose 99 mg/dl (74-100); Sodium 137 mmol/L (136-145)
[2024-07-25 07:04] LABS: C-Reactive Protein 220.7 mg/L (0-4); Erythrocyte Sedimentation Rate 91 mm/hr (0-30)
[2024-07-25 07:28] LABS: Thyroid Stimulating Hormone 0.07 uIU/mL (0.465-4.68)
[2024-07-25 08:00] LABS: Free T4 (Free Thyroxine) 1.56 ng/dl (0.78-2.19)
[2024-07-25 08:39] LABS: Magnesium 2.2 mg/dl (1.6-2.3)
[2024-07-25] MEDS: LIDOCAINE 5% TRANSDERMAL PATCH 1 EACH TP (09:25)
[2024-07-25] MEDS: ENOXAPARIN 40MG/0.4ML SYRINGE 40 MG SUBCUT (09:25)
[2024-07-25 10:03] LABS: Procalcitonin 1.38 ng/mL (0.0-2.0)
--- NOTE | 2024-07-25 10:24 | HMH.PTEV ---
Physical Therapy Evaluation Rehab PT IP Evaluation Start: 07/24/24 14:50 Freq: ONCE Status: Active Protocol: Document 07/25/24 10:19 HERB (Rec: 07/25/24 10:24 HERB [id number]) Subjective/History History History Per H&P, The patient is an 83 -year-old female with a past medical history significant for hypertension, hypothyroidism (on levothyroxine), hyperlipidemia , lymphoma in remission, and rheumatoid arthritis, who presented to the emergency department for evaluation of altered mental status. Per family, the patient tested positive for influenza approximately 9 days ago and has since experienced persistent fevers, cough, and generalized weakness, which they describe as having knocked her down. She typically lives independently and is fully functional, but today, family noted marked confusion with inability to answer questions appropriately . They check on her frequently as they live across the street. The patient is unable to provide a reliable history due to her altered mental status, though she can nod to yes/no questions and denies chest pain, abdominal pain, or other localized pain. In the ED, vital signs revealed tachycardia (HR 113 bpm, per ECG showing sinus tachycardia with PVCs), fever, and O2 saturation of 92-93% on room air (later dropping to 88%, improved with 2L NC). BP was stable. Physical exam showed a pleasantly confused elderly female, not oriented, but in no acute distress. Labs demonstrated mild anemia (Hgb 11.6, Hct 34.6), thrombocytopenia (Plt 122), normal WBC (5.1), elevated lactic acid (2.7), mild respiratory alkalosis on VBG ( pH 7.43, pCO2 33.4, HCO3 21.8) , and a mildly elevated creatinine (1.10, with eGFR 47 , consistent with baseline ~1. 0-1.1). Thyroid studies showed low TSH (0.24) and elevated T4 (14.0), suggesting possible over-replacement of levothyroxine. Urinalysis was unremarkable for infection. CT imaging revealed right lower lobe pneumonia with ground- glass opacities, but no acute intracranial, abdominal, or PE findings. ECG showed sinus tachycardia without STEMI changes (QTc 364 ms). Given fever, tachycardia, hypoxia, and altered mental status, the patient met sepsis criteria. She received an IV fluid bolus, vancomycin, and Zosyn in the ED. Differential diagnosis includes sepsis secondary to pneumonia, possible contribution from influenza, hyperthyroidism, and less likely metabolic or neurologic etiologies. After discussion with hospitalist service, the patient was deemed appropriate for inpatient admission for further management. Subjective Subjective Pt is orientedx3. She reports that she lives alone in a home with a ramp to enter her home . She reports that prior to admission to the hospital, she was completely independent with all mobility and ADLs. She reports that her daughter lives across the road and checks on her daily. Reports that she does all of the cooking and cleaning at her home. She also reports that she continues to drive. New diagnosis of cancer in past 12 No months? Rehab PT IP Eval Objective Appearance Patient Behavior Appropriate,Patient Baseline Patient Orientation Person,Place,Time Difficulty following instructions none Speech Pattern Clear,Patient Baseline Ambulation Patient Able to Ambulate Yes Ambulation Observation IP General Gait Pattern Observation No Deviations/Normal Ambulation Distance (feet) 50 Ambulation Assistive Device None Ambulation Ability Independent Balance Ability to Arise Able, w/o using arms Sitting Balance Steady, safe Standing Balance Narrow stance w/o support Dynamic Sitting Balance Ability Good Dynamic Standing Balance Ability Good Transfers Bed Transfer Ability Supervision/Stand by Chair Transfer Ability Supervision/Stand by Sit to Stand Bed Transfer Ability Supervision/Stand by Sit to Stand Chair Transfer Ability Supervision/Stand by Rehab PT IP prob,goals,plan Problems Date of Evaluation: 07/25/24 Rehab Potential Rehab Potential Innapropriate for Skilled Therapy Discharge Plan PT Discharge Plan PT is recommending home with home health at this time. Pt presents near her baseline at this time and skilled PT is not indicated for this pt during her acute stay. Eval Complexity Eval Charge Codes 40011 - Low Complexity PHYSICIAN CERTIFICATION: I certify the specified therapy services for Francisca Espinoza are required, authorized, and reviewed every 30 days.
--- NOTE | 2024-07-25 10:32 | SW/DCPLANNER ---
Addendum entered by Ana Packer 07/25/24 11:58: Patient now expresses that she prefer to return to outpatient PT in [place]. MD will order therapy and Speech Clinician will schedule appointment. Per MD patient will discharge home today. Original Note: I spoke w/ patient and daughter in law at bedside regarding plans once medically stable for discharge. PT/OT evaluated patient and recommended home w/ home health services. Patient and family are agreeable to home health w/ no agency preference. I will set up home health services at time of discharge. Discharge date is unknown at this time. Daughter in law ([facility] [phone]) requested she be contacted by home health agency to schedule services.
--- NOTE | 2024-07-25 11:56 | P.DS_ITS ---
General Admission date:: 07/23/24 HPI HPI HPI: The patient is an 83-year-old female with a past medical history significant for hypertension, hypothyroidism (on levothyroxine), hyperlipidemia, lymphoma in remission, and rheumatoid arthritis, who presented to the emergency department for evaluation of altered mental status. Per family, the patient tested positive for influenza approximately 9 days ago and has since experienced persistent fevers, cough, and generalized weakness, which they describe as having knocked her down. She typically lives independently and is fully functional, but today, family noted marked confusion with inability to answer questions appropriately. They check on her frequently as they live across the street. The patient is unable to provide a reliable history due to her altered mental status, though sh e can nod to yes/no questions and denies chest pain, abdominal pain, or other localized pain. In the ED, vital signs revealed tachycardia (HR 113 bpm, per ECG showing sinus tachycardia with PVCs), fever, and O2 saturation of 92-93% on room air (later dropping to 88%, improved with 2L NC). BP was stable. Physical exam showed a pleasantly confused elderly female, not oriented, but in no acute distress. Labs demonstrated mild anemia (Hgb 11.6, Hct 34.6), thrombocytopenia (Plt 122), normal WBC (5.1), elevated lactic acid (2.7), mild respiratory alkalosis on VBG (pH 7.43, pCO2 33.4, HCO3 21.8), and a mildly elevated creatinine (1.10, with eGFR 47, consistent with baseline ~1.0-1.1). Thyroid studies showed low TSH (0.24) and elevated T4 (14.0), suggesting possible over-replacement of levothyroxine. Urinalysis was unremarkable for infection. CT imaging revealed right lower lobe pneumonia with ground-glass opacities, but no acute intracranial, abdominal, or PE findings. ECG showed sinus tachycardia without STEMI changes (QTc 364 ms). Given fever, tachycardia, hypoxia, and altered mental status, the patient met sepsis criteria. She received an IV fluid bolus, vancomycin, and Zosyn in the ED. Differential diagnosis includes sepsis secondary to pneumonia, possible contribution from influenza, hyperthyroidism, and less likely metabolic or neurologic etiologies. After discussion with hospitalist service, the patient was deemed appropriate for inpatient admission for further management. Hospital Course Hospital Course Hospital Course: Francisca Espinoza is a 83-year-old female who who presented with flu for more than a week, generalized weakness, shortness of breath and admitted for sepsis secondary to right lower lobe pneumonia. #Sepsis #Community-acquired pneumonia #Strep pneumonia bacteremia #Influenza A #Physical deconditioning #Acute metabolic encephalopathy, resolved ? Presented with progressive generalized weakness, cough, and some shortness of breath. Initially tachycardic, tachypneic. ? CTA chest revealed right lower lobe pneumonia. ? Blood cultures positive for strep pneumonia. ? Clinically improved with ceftriaxone. Weaned to cefdinir. ? Discharged with cefdinir for 8 more days. ? PT OT recommended rehab, patient preferred outpatient therapy and referral was made. #Hypothyroidism ? TSH low at 0.24. Free T4 normal. ? Hold home levothyroxine. Will follow-up with PCP within 1 week. Hyperlipidemia: Continue statin Lymphoma in remission: No evidence of recurrence; monitor CBC trends. Rheumatoid arthritis: No acute flare. Total time spent on discharge: 32 minutes on chart review, counseling, documentation, and direct care with patient. Exam Data for Last 24 hours Vital signs and Labs for Last 24 Hours: Temp Pulse Resp BP Pulse Ox O2 Del Method O2 Flow Rate 98.7 F 102 H 18 119/54 L 98 Room Air 2 07/25/24 08:00 07/25/24 08:00 07/25/24 08:00 07/25/24 08:00 07/25/24 08:00 07/25/24 08:00 07/25/24 03:00 Laboratory Results - last 24 hr 07/24/24 10:59: Sodium 137, Potassium 3.4 L, Chloride 104, Carbon Dioxide 25, Anion Gap 11.4, BUN 14, Creatinine 0.80 D, Estimated Creat Clear 39, Estimated GFR 68, Est GFR ( Amer) 82 D, Glucose 104 H, Calcium 8.6, Magnesium 1.5 L 07/24/24 18:42: Stl Aeromonas (PCR) Not detected, Stl C. cayetanensis PCR Not detected, Stool Rotavirus (PCR) Not detected, Stl Adenov F 40/41 PCR Not detected, Stool Astrovirus (PCR) Not detected, Stool Campylobacter PCR Not detected, Stl C.difficile Tox PCR Not detected, Stool Cryptosporidium PCR Not detected, Stl E.coli Shiga Tox PCR Not detected, Stool E coli O157 PCR Not detected, Stl Enterotoxigenic E PCR Not detected, Stool EPEC (PCR) Not detected, Stool EAEC (PCR) Not detected, Stl E. histolytica PCR Not detected, Stool Giardia Lamblia PCR Not detected, Stool Salmonella PCR Not detected, Stool Sapovirus (PCR) Not detected, Stl P. shigelloides PCR Not detected, Stl Shigella/EIEC PCR Not detected, St Y.enterocolitica PCR Not detected, Stool Vibrio (PCR) Not detected, Stl Vibrio cholerae PCR Not detected, Stl Norovirus GI/GII PCR Not detected 07/25/24 06:13: WBC 8.9, RBC 3.16 L, Hgb 10.2 L, Hct 32.1 L, MCV 101.6 H, MCH 32.3 H, MCHC 31.8, RDW 13.2, Plt Count 110 L, MPV 10.4, Neut % (Auto) 79.4, Lymph % (Auto) 13.8, [place] % (Auto) 4.6, Eos % (Auto) 0.0 L, Baso % (Auto) 0.1, Neut # (Auto) 7.0, Lymph # (Auto) 1.2, [place] # (Auto) 0.4, Eos # (Auto) 0.0, Baso # (Auto) 0.0, ESR 91 H, Sodium 137, Potassium 4.0, Chloride 110 H, Carbon Dioxide 21 L, Anion Gap 10.0, BUN 12, Creatinine 0.70, Estimated Creat Clear 40, Estimated GFR 80, Est GFR ( Amer) 96, Glucose 99, Calcium 8.7, Magnesium 2.2 D, C-Reactive Protein 220.7 H, Procalcitonin 1.38, TSH 0.07 L D, Free T4 1.56 I & O for Last 24 hours: Intake & Output 07/22/24 07/23/24 07/24/24 07/25/24 23:59 23:59 23:59 23:59 Intake Total 1307 / 1407 160 / 160 Output Total 600 / 600 200 / 200 Balance 707 / 807 -40 / -40 Weight 60.192 kg 60.192 kg 61.55 kg Microbiology Reports for the Last 24 Hours: Microbiology 07/23/24 14:18 Blood Blood Culture - Preliminary 07/23/24 14:00 Urine,Catheterized Urine Culture - Final No growth. 07/24/24 09:20 Sputum - Expectorated Sputum Gram Stain - Final 07/23/24 14:40 Blood Blood Culture - Preliminary NO GROWTH AFTER 24 HOURS Constitutional Constitutional: no acute distress *Routine HEENT Exam Head: Present normocephalic Eye: Present EOMI and PERRL ENT: Present mucous membranes moist *Routine Neck Exam Neck: Present supple; Absent lymphadenopathy *Routine Respiratory Exam Respiratory: Present CTA bilaterally *Routine Cardiovascular Exam Cardiovascular: Present RRR *Routine Abdominal Exam Abdominal: Present soft and normoactive bowel sounds; Absent tenderness *Routine Extremities Exam Extremities: Absent cyanosis, clubbing or edema *Routine Skin Exam Skin: Present warm; Absent rash *Routine Neurological Exam Neurological: Present alert Results Data Completed and Pending Labs on day of discharge: Labs from last 24 hours 07/25/24 07/24/24 07/24/24 06:13 18:42 10:59 WBC 8.9 RBC 3.16 L Hgb 10.2 L Hct 32.1 L MCV 101.6 H MCH 32.3 H MCHC 31.8 RDW 13.2 Plt Count 110 L MPV 10.4 Neut % (Auto) 79.4 Lymph % (Auto) 13.8 [place] % (Auto) 4.6 Eos % (Auto) 0.0 L Baso % (Auto) 0.1 Neut # (Auto) 7.0 Lymph # (Auto) 1.2 [place] # (Auto) 0.4 Eos # (Auto) 0.0 Baso # (Auto) 0.0 ESR 91 H Sodium 137 137 Potassium 4.0 3.4 L Chloride 110 H 104 Carbon Dioxide 21 L 25 Anion Gap 10.0 11.4 BUN 12 14 Creatinine 0.70 0.80 D Estimated Creat Clear 40 39 Estimated GFR 80 68 Est GFR ( Amer) 96 82 D Glucose 99 104 H Calcium 8.7 8.6 Magnesium 2.2 D 1.5 L C-Reactive Protein 220.7 H Procalcitonin 1.38 TSH 0.07 L D Free T4 1.56 Stl Aeromonas (PCR) Not detected Stl C. cayetanensis PCR Not detected Stool Rotavirus (PCR) Not detected Stl Adenov F 40/41 PCR Not detected Stool Astrovirus (PCR) Not detected Stool Campylobacter PCR Not detected Stl C.difficile Tox PCR Not detected Stool Cryptosporidium PCR Not detected Stl E.coli Shiga Tox PCR Not detected Stool E coli O157 PCR Not detected Stl Enterotoxigenic E PCR Not detected Stool EPEC (PCR) Not detected Stool EAEC (PCR) Not detected Stl E. histolytica PCR Not detected Stool Giardia Lamblia PCR Not detected Stool Salmonella PCR Not detected Stool Sapovirus (PCR) Not detected Stl P. shigelloides PCR Not detected Stl Shigella/EIEC PCR Not detected St Y.enterocolitica PCR Not detected Stool Vibrio (PCR) Not detected Stl Vibrio cholerae PCR Not detected Stl Norovirus GI/GII PCR Not detected Preliminary micro results at discharge 07/23/24 14:18 Blood Culture - Preliminary Blood 07/23/24 14:40 Blood Culture - Preliminary Blood NO GROWTH AFTER 24 HOURS DS: Diagnosis Discharge Diagnosis (1) Sepsis: Status: Acute Code(s): A41.9 - Sepsis, unspecified organism (2) Pneumonia: Status: Acute Code(s): J18.9 - Pneumonia, unspecified organism (3) Cognitive change: Status: Acute Code(s): R41.89 - Other symptoms and signs involving cognitive functions and awareness (4) Hyperlipidemia: Status: Acute Code(s): E78.5 - Hyperlipidemia, unspecified Meds Home Medications and Allergies Home Medications ?Medication ?Instructions ?Recorded ?Confirmed ?Type pravastatin 40 mg tablet 40 mg PO HS 90 days #90 tabs 01/16/22 08/01/24 History lidocaine 5 % topical patch 1 patch topical DAILY 07/20/24 08/01/24 History furosemide 20 mg tablet 20 mg PO DAILY 07/23/24 08/01/24 History methocarbamol 500 mg tablet 500 mg PO BID 07/23/24 08/01/24 History cefdinir 300 mg capsule 300 mg PO BID 8 days #16 caps 07/25/24 08/01/24 Rx esomeprazole magnesium 40 mg See Rx Instructions .Route 07/25/24 08/01/24 Rx capsule,delayed release (Nexium) .COMPLEX #180 caps levothyroxine 100 mcg tablet 50 mcg (1/2 x 100 mcg) PO DAILY 90 07/25/24 08/01/24 Rx days #90 tabs hydrocortisone-acetic acid 1 %-2 % 4 drp otic (ear) TID #10 mL 08/01/24 08/01/24 Rx ear drops famotidine 40 mg tablet 40 mg PO BID #60 tabs 08/05/24 Rx oxycodone-acetaminophen 7.5 mg-325 1 tab PO Q6H PRN pain #60 tabs 08/09/24 Rx mg tablet New Prescriptions to Start Prescriptions: Shahab Crews Allergies Allergy/AdvReac Type Severity Reaction Status Date / Time atorvastatin (From LIPITOR) Allergy Unknown LEG CRAMPS Verified 08/01/24 11:22 tolmetin (From TOLECTIN) Allergy Unknown FACIAL Verified 08/01/24 11:22 SWELLING Discharge Plan Disposition Patient Disposition: Home, Self-Care Condition: Fair Discharge Order Discharge Orders: Discharge Order (Routine); Ordered 07/25/24 Ordered By: Shahab Keene Follow up Plan Follow up with: aMzin Restrepo MD [Primary Care Provider] - 07/28/24 11:00 am Prescriptions/Medication Reconciliation: New cefdinir 300 mg capsule 300 mg PO BID 8 Days Qty: 16 0RF Continued pravastatin 40 mg tablet 40 mg PO HS 90 Days Qty: 90 Patient Comments: lidocaine 5 % adhesive patch,medicated 1 patch topical DAILY esomeprazole magnesium [Nexium] 40 mg capsule,delayed release(DR/EC) See Rx Instructions .ROUTE .COMPLEX Qty: 180 0RF Dose Instruction: TAKE 1 CAPSULE BY MOUTH TWICE DAILY Rx Instructions: TAKE 1 CAPSULE BY MOUTH TWICE DAILY furosemide 20 mg tablet 20 mg PO DAILY Changed levothyroxine 100 mcg tablet 50 mcg PO DAILY 90 Days Qty: 90 0RF Patient Comments: Held methocarbamol 500 mg tablet 500 mg PO BID Hold Instructions: Resume on 08/15/24. This medication can increase your risk of falls, fatigue, drowsiness. Please use only as needed, it is not intended for long-term use. No Action hydrocortisone-acetic acid 1-2 % drops 4 drp otic (ear) TID Qty: 10 4RF Rx Instructions: apply to (cotton) wick; replace wick every 24 hours famotidine 40 mg tablet 40 mg PO BID Qty: 60 2RF oxycodone-acetaminophen 7.5-325 mg tablet 1 tab PO Q6H PRN (Reason: pain) Qty: 60 0RF Other Ambulatory Orders: Rehab Eval, OP (Routine) Timeframe: 2 Weeks Facility: [facility] - Location: Physical Therapy Ordered By: Shahab Keene Problem Reconciliation Problems Reviewed?: Yes Patient Discharge Instructions Additional Instructions: Your levothyroxine dose is too high based on your blood work. I have decreased it to levothyroxine 50 mcg daily. Please follow-up with your PCP within a week for further evaluation and management. Patient Instructions: DI for Pneumonia -- Adult, DI for Sepsis -- Adult Print Language: Kinyarwanda Providers Primary Care Provider: Mazin Restrepo Admit Provider: Shahab Keene Attending Provider: Shahab Keene
--- NOTE | 2024-07-26 10:06 | SW/DCPLANNER ---
Spoke with patients granddaughter on the phone. Patients granddaughter stated that she had a very good night. Patients granddaughter stated that they are aware of her upcoming appointment. Patients granddaughter stated that they were able to get her new medicine picked up and that they actually had it transferred from clinic pharmacy to a pharmacy in [place]. Patients granddaughter stated that they have no concerns or questions at this time. Arben Bowman
== END 2024-07-25 13:45 | disposition home or self-care (01) | DRG 871 ==
LOC: ER 18:37 → 2ND 19:10
PROVIDERS: Emergency Medicine; Nurse Practitioner Family; Admitting Provider Student in an Organized Health Care Education/Training Program; Emergency Provider Student in an Organized Health Care Education/Training Program; PCP Family Medicine; Visit Provider Student in an Organized Health Care Education/Training Program
DX: A40.3 Sepsis due to Streptococcus pneumoniae (principal); G93.41 Metabolic encephalopathy; J09.X1 Influenza due to identified novel influenza A virus with pneumonia; C85.9A Non-Hodgkin lymphoma, unspecified, in remission; N17.9 Acute kidney failure, unspecified; R41.89 Other symptoms and signs involving cognitive functions and awareness; E78.5 Hyperlipidemia, unspecified; Z88.8 Allergy status to other drugs, medicaments and biological substances; Z60.2 Problems related to living alone; M06.9 Rheumatoid arthritis, unspecified; Z79.899 Other long term (current) drug therapy
CPT/HCPCS: 36415; 70450; 71275; 74177; 80048; 80053; 81001; 82550; 82803; 83605; 83690; 83735; 84145; 84436; 84439; 84443; 84484; 85025; 85610; 85651; 85730; 86140; 86803; 87040; 87070; 87077; 87086; 87186; 87205; 87389; 87506; 87633; 93005; 94640; 97161; 97165; 99285; J0131; J0696; J1650; J2543; J3372; J3475; J7120; J7620; Q9967

== ENCOUNTER 2024-08-22 14:00 | Outpatient (RCR) | payer MEDICARE, SELFPAY ==
--- NOTE | 2024-08-01 14:52 | HMH.PTOPEV ---
PT Outpatient Evaluation Rehab PT Outpatient Evaluation Start: 08/01/24 14:03 Freq: Status: Active Protocol: Document 08/01/24 14:03 PDESEROUShira (Rec: 08/01/24 14:52 PDESEROUX [id number]) E-signed By Dell Bond, PT Outpatient Therapy Subjective History Subjective History Pt. is a 83 year old female who presents to [facility] Outpatient Physical Therapy Services in [place] for the outpatient initial evaluation this date( 08/01/24) w/ c/o acute and constant muscle weakness, fatigue, and exertional dyspnea of insidious onset 2 weeks ago. Pt. reports she spent one week in the hospital secondary to sepsis and pneumonia. Pt. vocalizes having a hard time remembering the events that led up to the hospitalization. Pt. repots she does not remember riding in the ambulate to the hospital. Pt. reports she was told that she was non-verbal and wasn't able to move. Pt. reports recently seeing her PCP where she was instructed to return to some of her prior medication. Pt. reports she needs assistance w/ ADLs at home including transferring into/out of the bath tub, negotiating the ramp into/out of house, and performing guide. Pt. reports she is unable to perform chores at this time secondary to exertional dyspnea and increased muscle weakness w/ activity. Pt. unable to recall medication list at this time. 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 New diagnosis of cancer in past 12 No months? Chief Complaint Stiff,Swelling,Gives out/ Unstable,Weakness,Other Symptom Type Ache,Dull,Other Symptoms Relieved By Rest/Positioning,Brace/Support ,Prescription Meds Symptoms Aggravated By Standing,Physical Activity, Twisting,Walking,Lifting Prior Functional Limitations None Current Functional Limitations Lifting,Housework,Dressing, Standing,Squatting,Recreation Activity,Walking,Stairs Symptom Description Constant and Continuous, Activity Dependent Level of pain today (0-10) 2 Pain scale - at its best (0-10) 1 Pain scale - at its worst (0-10) 5 Hip/Knee Eval Gait Observation General Gait Pattern Observation Antalgic Gait,Decrease Weight Bear (L),Decrease Stride Lngth (R) Assistive Device Assistive Devices Straight Cane MMT right Hip Flexion Strength Grade 4 Good Hip Abduction Strength Grade 4 Good Hip Adduction Strength Grade 4 Good Hip Extension Strength Grade 4 Good Gluteus Rome Strength Grade 4 Good Hip External Rotation Strength Grade 4 Good Hip Internal Rotation Strength Grade 4 Good Knee Extension Strength Grade 4 Good Knee Flexion Strength Grade 4 Good left Hip Flexion Strength Grade 3+ Fair+ Hip Abduction Strength Grade 4- Good- Hip Adduction Strength Grade 4- Good- Hip Extension Strength Grade 4- Good- Gluteus Rome Strength Grade 4- Good- Hip External Rotation Strength Grade 4- Good- Hip Internal Rotation Strength Grade 4- Good- Knee Extension Strength Grade 4- Good- Knee Flexion Strength Grade 4- Good- Hip Extensors Muscle Tone Description Severe Hypertonicity Hip Flexors Muscle Tone Description Severe Hypertonicity Outpatient Therapy Assessment Impairments Problems/Impairmments Palpation Tenderness,Impaired Strength,Impaired Endurance, Impaired Transfers,Impaired Gait Pattern,Impaired Walking, Impaired Standing,Impaired Lifting,Impaired Dressing, Impaired Shower/Bathing, Impaired Household Care, Impaired Incline Stepping, Impaired Recreational Activities,Increased Edema, Subjective C/O Pain,Impaired Self Care/Self Management Prognosis Rehab Potential Good Comment w/ HEP compliancy Clinical Impression Consistent with Diagnosis Yes Consistent with Physical Deconditioning Additional details: other malaise, pneumonia, sepsis Short Term Goals Number of Weeks 2 Improve Self Care/Self Management Yes: denies falls Patient to be Ind w/ HEP Yes College Associate Goals Number of Weeks 4-6 Increase Strength Yes: 4+ to 5/5 LLE MMT scores grossly Improve Transfers Yes: Pt. will sit to stand w/ SPC w/o difficulty SPV Increase Ability to Walk Yes: 10' w/ SPC w/o difficulty for improved ADLs Increase Ability to Stand Yes: 5' w/ SPC w/o difficulty for improved ADLs Improve Ability to Dress Self Yes Improve Ability to Shower/Bathe Self Yes: Pt. will transfer into tub w/o difficulty SPV. Improve Ability For Household Care Yes Improve Incline Stepping Ability Yes: Pt. will negotiate incline/decline w/ SPC into/ out of house SPV. Improve LEFI Score Yes: MDC and MCID of 9 or greater points Improve Self Care/Self Management Yes: Pt. denies falls Patient to be Ind w/ Advanced HEP Yes Outpatient Therapy Plan of Care Treatment Plan May Include Therapeutic Exercise Including Home Yes Exercise Program Manual Therapy Techniques Yes Neuromuscular Re-education Yes Therapeutic Activities to Return to Yes Previous Functional/Work Level Gait Training Yes ADL/Self Care Education Yes Eval/Re-Eval Yes Frequency Times per week 2 Duration Number of Weeks 4-6 Addendums This patient is a candidate for social No or vocational rehab? Patient/Guardian verbally acknowledges Yes understanding of treatment program and consents to further treatment? Patient/Guardian verbally acknowledges Yes understanding of diagnosis, prognosis and goals for treatment? Eval Complexity PT Charges 22487 - Low Complexity Shoulder/Elbow Eval Shoulder Objective Measurements Elbow Objective Measurements PHYSICIAN CERTIFICATION: I certify the specified therapy services for Francisca Espinoza are required, authorized, and reviewed every 30 days.
[2024-08-01 16:47] LABS: Basophils % 0.3 % (0.1-2.0); Eosinophils % 0.5 % (0.1-12.0); Hematocrit 28.9 % (37.0-47.0); Hemoglobin 9.3 g/dL (12.2-16.2); Lymphocytes # 1.6 K/mm3 (0.7-4.5); Lymphocytes % 26.5 % (10-50); Mean Corpuscular HGB Conc 32.2 g/dL (31.8-35.4); Mean Corpuscular Hemoglobin 31.4 pg (27.0-31.2); Mean Corpuscular Volume 97.6 fl (81-99); Mean Platelet Volume 9.8 fl (7.4-10.4); Monocytes # 0.6 K/mm3 (0.1-1.0); Monocytes % 9.1 % (1.7-9.3); Neutrophils # 3.9 K/mm3 (1.8-7.8); Neutrophils % 63.1 % (37.0-80.0); Platelet Count 186 K/mm3 (142-424); Red Blood Count 2.96 M/mm3 (4.20-5.40); Red Cell Distribution Width 12.8 % (11.5-17.5); White Blood Count 6.1 K/mm3 (4.8-10.8)
[2024-08-01 17:52] LABS: T4 (Thyroxine) 8.2 ug/dl (5.53-11.0)
[2024-08-01 18:06] LABS: Thyroid Stimulating Hormone 2.44 uIU/mL (0.465-4.68)
== END 2024-08-22 23:59 | disposition home or self-care (01) ==
LOC: PT 14:00
PROVIDERS: PCP Family Medicine; Visit Provider Student in an Organized Health Care Education/Training Program
DX: R53.81 Other malaise (principal); J18.9 Pneumonia, unspecified organism; A41.9 Sepsis, unspecified organism
CPT/HCPCS: 84436; 84443; 85025; 97110; 97163; 97530

== ENCOUNTER 2024-08-29 11:55 | Outpatient (CLI) | payer MEDICARE, SELFPAY ==
[2024-08-29 17:03] LABS: Basophils % 0.7 % (0.1-2.0); Eosinophils # 0.1 K/mm3 (0.0-0.4); Eosinophils % 1.7 % (0.1-12.0); Hematocrit 35.6 % (37.0-47.0); Hemoglobin 11.2 g/dL (12.2-16.2); Lymphocytes # 1.9 K/mm3 (0.7-4.5); Lymphocytes % 31.8 % (10-50); Mean Corpuscular HGB Conc 31.5 g/dL (31.8-35.4); Mean Corpuscular Hemoglobin 31.7 pg (27.0-31.2); Mean Corpuscular Volume 100.8 fl (81-99); Mean Platelet Volume 10.4 fl (7.4-10.4); Monocytes # 0.4 K/mm3 (0.1-1.0); Monocytes % 6.4 % (1.7-9.3); Neutrophils # 3.5 K/mm3 (1.8-7.8); Neutrophils % 59.2 % (37.0-80.0); Platelet Count 164 K/mm3 (142-424); Red Blood Count 3.53 M/mm3 (4.20-5.40); Red Cell Distribution Width 13.8 % (11.5-17.5); White Blood Count 5.8 K/mm3 (4.8-10.8)
[2024-08-29 18:31] LABS: Alanine Aminotransferase 8 U/L (12-78); Albumin Level 4.4 g/dl (3.5-5.0); Albumin/Globulin Ratio 1.9 (1.1-1.8); Alkaline Phosphatase 95 U/L (38-126); Anion Gap 13.8 mEq/L (5-15); Aspartate Amino Transferase 20 U/L (14-36); Bilirubin,Total 0.6 mg/dl (0.2-1.3); Blood Urea Nitrogen 7 mg/dl (7-17); Calcium 9.9 mg/dl (8.4-10.2); Carbon Dioxide 27 mmol/L (22.0-30.0); Chloride 103 mmol/L (98-107); Chol/HDL Ratio 3.8 (1-3.5); Cholesterol 235 mg/dl (140-200); Estimated Glomerular Filt Rate 60 ml/min (>60); GFR (African American) 72 ML/MIN (>60); Globulin 2.3 g/dL (1.3-3.2); Glucose 86 mg/dl (74-100); HDL Cholesterol 62 mg/dl (40-60); Potassium 3.8 mmoL/L (3.5-5.1); Sodium 140 mmol/L (136-145); Total Protein,Serum 6.7 g/dl (6.3-8.2); Triglycerides 337 mg/dl (30-150); VLDL Cholesterol 67 mg/dL (0-40)
[2024-08-29 18:49] LABS: Direct LDL Cholesterol 106.35 mg/dL (100-129)
[2024-08-29 18:55] LABS: T4 (Thyroxine) 8.1 ug/dl (5.53-11.0)
[2024-08-29 19:08] LABS: Thyroid Stimulating Hormone 4.63 uIU/mL (0.465-4.68)
--- OUTSIDE RECORDS SUMMARY | 2024-09-01 21:35 | XMS_ITS ---
Care Plan - [facility], [facility] Created on: September 01, 2024 Alexis Francisca : 1940 Sex: Female Author Organization [facility] Address [address] [place] [address] Phone Care Team Providers Care Purchasing Director Name Role Phone KANDACE NORWOOD, ZULY Primary Care Provider [phone] Shala NORWOOD, Nathan Unavailable [phone] Jesus NORWOOD, Karthikeyan Unavailable [phone]
--- OUTSIDE RECORDS SUMMARY | 2024-09-01 21:35 | XMS_ITS | Clinical Summary ---
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 Role Phone KANDACE NORWOOD, ZULY Primary Care Provider [phone] Shala NORWOOD, Nathan Unavailable [phone] Jesus NORWOOD, Karthikeyan Unavailable [phone] Reason for Visit and Chief Complaint The Chief Complaint is: fu L NOLAN Problems Includes: Problems addressed during this encounter and other active Problems All Visits Onset Date Resolved Date Provider Condition S tatus Joint Pain in the Left Hip 01/15/2023 Nathan acosta MD Active Last Documented On 3 1:01PM ; [facility], [facility] Plan of Treatment - Patient screened for future fall risk: documentation of any fall with injury in past year - Last Documented On 01/29/2024 10:53AM ; [facility], [facility] Fall Risk Assessment: This patient has been identified as a fall risk. Balance/gait along with postural blood pressure, vision and home fall hazards have been assessed. Medications have been reviewed, and recommendations made with regard to contributing factors for future falls. Plan of care: Consideration of vitamin D supplementation along with balance and strength training with consideration for formal physical therapy has been discussed with the patient. - Last Documented On 01/29/2024 10:53AM ; [facility], [facility] Future Appointments Date Time Location Provi anne-marie Follow Up 09/30/2024 10:15AM [facility] Nathan Last MD Last Documented On 4 1:06PM ; [facility], [facility] Assessments Includes: Assessments from this encounter No Assessments Recorded Medical Equipment - Implanted Devices Includes: Current Devices No Medical Equipment Recorded Medications Includes: Medications discussed during this encounter and other current Medications Current Medications (continue as prescribed) Meclizine HCl 25 MG Oral Tablet, chewable 06/10/2023 Provider: ZULY JERONIMO MD Diagnosis: Last Documented On 4 2:34PM By Garry Tapia ; [facility], [facility] Fluticasone Propionate 50 MC G/ACT Nasal Suspension 06/01/2023 Provider: ZULY JERONIMO MD Diagnosis: Last Documented On 4 2:34PM By Garry Tapia ; [facility], [facility] ZyrTEC 10 MG Oral Tablet Chewable 01/16/2023 Provide r: Diagnosis: Last Documented On 3 8:00AM By Pooja Dixon ; [facility], [facility] oxyCODONE-Acetaminophen 10-325 MG Oral Tablet 12/24/19 Provider: ZULY JERONIMO MD Diagnosis: Last Documented On 3 7:59AM By Pooja Dixon ; [facility], [facility] Atenolol 25 MG Oral Tablet 12/22/2022 Provider: Jen JERONIMO MD Diagnosis: Last Documented On 3 7:59AM By Pooja Dixon ; [facility], [facility] Furosemide 20 MG Oral Tablet 12/22/2022 Provider: ZULY JERONIMO MD Diagnosis: Last Documented On 3 7:59AM By Pooja Dixon ; [facility], [facility] Levothyroxine Sodium 100 MCG Oral Tablet 12/22/2022 Provider: ZULY JERONIMO MD Diagnosis: Last Documented On 3 7:59AM By Pooja Dixon ; [facility], [facility] Pravastatin Sodium 40 MG Oral Tablet 12/22/2022 Prov ider: ZULY JERONIMO MD Diagnosis: Last Documented On 3 7:59AM By Pooja Dixon ; [facility], [facility] Famotidine 20 MG Oral Tablet 11/21/2022 Provider: ZULY JERONIMO MD Diagnosis: Last Documented On 3 7:59AM By Pooja Dixon ; [facility], [facility] NexIUM 40 MG Oral Capsule Delayed Release 07/23/2022 Provider: ZULY JERONIMO MD Diagnosis: Last Documented On 3 7:59AM By Pooja Dixon ; [facility], [facility] Medications Administered Includes: Administered Medications from this encounter No Administered Medications Recorded Vital Signs Includes: Vital Signs from this encounter Vital Name 01/28/2024 10:22A Height (in) 63 Weight (lb) 130 Body Mass Index 23 Body Surface Area 1.6 Note: tm Last Documented: On 01/28/2024 10:22A M ; [facility], [facility] Results Includes: Results discussed during this encounter No Results Recorded For Specified Dates History of Present Illness Includes: History of Present Illness from this encounter MELISSA Espinoza is an 83 year old female. - Allergy list reviewed - Problem list reviewed - Medication list reviewed - - Review of medications documented Social History Description Last Updated No caffeine use 01/28/2024 Last Documented On 4 10:53AM ; [facility] No recent change in diet 01/28/2024 Last Documented On 4 10:53AM ; [facility], [facility] Not a current smoker. 01/28/2024 Last Documented On 4 10:53AM ; [facility], [facility] Not exercising regularly 01/28/2024 Last Documented On 4 10:53AM ; [facility], [facility] Not using alcohol 01/28/2024 Last Documented On 4 10:53AM ; [facility], [facility] Not using drugs 01/28/2024 Last Documented On 4 10:53AM ; [facility], [facility] Tobacco non-user 01/28/2024 Last Documented On 4 10:53AM ; [facility], [facility] Smoking Status Unknown Procedures and Surgical History Includes: Procedures from this encounter Procedures Code Diagnosis Performing Provider Service Location Service Date PELVIS w/ 2-3 VIEW HIP (LEFT) 36633 Trochanteric bursitis, left hip, Presence of left artificial hip joint Nathan Last MD [facility] 01/28/2024 Last Documented On 4 5:36AM ; [facility], [facility] use of tobacco assessment performed 1000F Last Documented On 4 9:00AM ; [facility], [facility] review of medications documented 1160F Last Documented On 4 9:00AM ; [facility], [facility] Surgical History Last Updated History of hysterectomy 01/28/2024 Last Documented On 4 10:53AM ; [facility], [facility] Medical History Includes: Medical History addressed during this encounter Description Last Updated History of Anemia 01/28/2024 Last Documented On 4 10:53AM ; [facility], [facility] History of arthritis 01/28/2024 Last Documented On 4 10:53AM ; [facility], [facility] History of Heartburn / Acid Reflux 01/27 Last Documented On 4 10:53AM ; [facility], [facility] History of History of Cancer 01/28/2024 Last Documented On 4 10:53AM ; [facility], [facility] History of History of Rheumatology 01/27 Last Documented On 4 10:53AM ; [facility], [facility] History of Kidney Disease 01/28/2024 Last Documented On 4 10:53AM ; [facility], [facility] History of osteoporosis 01/28/2024 Last Documented On 4 10:53AM ; [facility], [facility] Family History Includes: Family History addressed during this encounter Description Last Updated No significant family history 01/28/2024 Last Documented On 4 10:53AM ; [facility], [facility] Review of Systems Includes: Review of Systems from this encounter Systemic: Not feeling tired, no recent weight loss, and no recent weight gain. Head: No headache and no sinus pain. Eyes: No vision problems and no Cataracts. Glasses/Contacts. No Glaucoma. Otolaryngeal: Hearing loss. No tinnitus. Cardiovascular: No chest pain or discomfort, no palpitations, no Hypertension, and no High Cholesterol. Pulmonary: No daytime asthma symptoms and no chronic cough. No wheezing. Gastrointestinal: No heartburn and no abdominal pain. Indigestion. No Peptic Ulcer, no GI Stomach Bleed, no Ulcers, and no Acid Reflux. Endocrine: No hot flashes. Muscle weakness. No Diabetes, no Hypothyroid, and no Hyperthyroid. Hematologic: No easy bleeding, no tendency for easy bruising, and no Anemia. Musculoskeletal: Arthritis and lower back pain. No soft tissue swelling. Pain localized to one or more joints. Neurological: Dizziness. No convulsions and no numbness. Psychological: No anxiety, no emotional lability, no depression, and no insomnia. Not crying for no reason. Skin: No dry skin. No Ulcers, no Scars, and no rash. Allergic and Immunologic: No complaint of seasonal allergic reaction. Mental Status Includes: Mental Status from this encounter Description No anxiety Functional Status Includes: Functional Status from this encounter No Functional Status Recorded Physical Exam Includes: Physical Exam from this encounter Allergies Includes: Active Allergies No Known Allergies Encounters Encounter Provider Location Date Check-In Time Check- Out Time Diagnosis Follow Up Nathan Last MD [facility] 4 8:55AM 10:20AM Insurance Includes: Active Insurance Policies Plan Name Member ID Group # Subscriber Relationship Effect prudencio Dates 1 - Medicare Part B [facility] [id number] Francisca Espinoza Self 2 - [facility] [employer] [id number] Francisca Espinoza Self Clinical Notes Includes: Clinical Notes from this encounter * Progress note Date Encounter Last Documented by 01/28/2024 Follow Up Last documented on 01/29/2024; 10:53 AM, Nathan Last MD; [facility], [facility] Active Problems & Conditions - Joint Pain in the Left Hip Chief Complaint The Chief Complaint is: Fu L NOLAN. Referred Here Referred by. History of Present Illness Francisca Espinoza is an 83 year old female. - Allergy list reviewed - Problem list reviewed - Medication list reviewed - - Review of medications documented Current Medication - Atenolol 25 MG Oral Tablet 90 days, 0 refills - Famotidine 20 MG Oral Tablet 90 days, 0 refills - Fluticasone Propionate 50 MCG/ACT Nasal Suspension 90 days, 0 refills - Furosemide 20 MG Oral Tablet 90 days, 0 refills - Levothyroxine Sodium 100 MCG Oral Tablet 90 days, 0 refills - Meclizine HCl 25 MG Oral Tablet, chewable Tablet Chewable 7 days, 0 refills - NexIUM 40 MG Oral Capsule Delayed Release 90 days, 0 refills - oxyCODONE-Acetaminophen 10-325 MG Oral Tablet 30 days, 0 refills - Pravastatin Sodium 40 MG Oral Tablet 90 days, 0 refills - ZyrTEC 10 MG Oral Tablet Chewable take as directed 0 days, 0 refills Past Medical/Surgical History Diagnoses: Anemia History of Cancer Heartburn / Acid Reflux Kidney Disease History of Rheumatology. Osteoporosis. Arthritis Surgical: - Hysterectomy Social History Not a current smoker. Current diet: No recent change in diet. Caffeine use: No caffeine use. Tobacco use: Tobacco non-user. Alcohol: Not using alcohol. Drug Use: Not using drugs. Habits: Not exercising regularly. Allergies - No Known Allergies Family History No significant family history Review Of Systems Systemic: Not feeling tired, no recent weight loss, and no recent weight gain. Head: No headache and no sinus pain. Eyes: No vision problems and no Cataracts. Glasses/Contacts. No Glaucoma. Otolaryngeal: Hearing loss. No tinnitus. Cardiovascular: No chest pain or discomfort, no palpitations, no Hypertension, and no High Cholesterol. Pulmonary: No daytime asthma symptoms and no chronic cough. No wheezing. Gastrointestinal: No heartburn and no abdominal pain. Indigestion. No Peptic Ulcer, no GI Stomach Bleed, no Ulcers, and no Acid Reflux. Endocrine: No hot flashes. Muscle weakness. No Diabetes, no Hypothyroid, and no Hyperthyroid. Hematologic: No easy bleeding, no tendency for easy bruising, and no Anemia. Musculoskeletal: Arthritis and lower back pain. No soft tissue swelling. Pain localized to one or more joints. Neurological: Dizziness. No convulsions and no numbness. Psychological: No anxiety, no emotional lability, no depression, and no insomnia. Not crying for no reason. Skin: No dry skin. No Ulcers, no Scars, and no rash. Allergic and Immunologic: No complaint of seasonal allergic reaction. Physical Findings - Vitals taken 01/28/2024 10:22 am tm Height 63 in Weight 130 lbs Body Mass Index 23 kg/m2 Body Surface Area 1.6 m2 Counseling/Education - Tobacco non-user - Use of tobacco assessment performed Plan - Patient screened for future fall risk: documentation of any fall with injury in past year Fall Risk Assessment: This patient has been identified as a fall risk. Balance/gait along with postural blood pressure, vision and home fall hazards have been assessed. Medications have been reviewed, and recommendations made with regard to contributing factors for future falls. Plan of care: Consideration of vitamin D supplementation along with balance and strength training with consideration for formal physical therapy has been discussed with the patient. Notes This dictation was done with voice recognition software and may contain errors and omissions. Follows up today for left hip. Had some pain posteriorly and laterally when she bent down a few weeks ago. Denies any pain in the groin. She is able to ambulate. On exam ambulates with a steady gait with her cane. Well-healed incision. Tender to palpation over the greater trochanter. Negative straight leg raise. Neurovascularly intact distally. AP pelvis two-view obtained personally reviewed today of the left hip demonstrate left total hip arthroplasty in good position. Left hip bursitis Recommended anti-inflammatories if okay with her PCP, stretching strengthening. Happy to see her back for pain is not improving. Practice Management Use of tobacco assessment performed Review of medications documented. Care Team - Karthikeyan Lee MD
--- OUTSIDE RECORDS SUMMARY | 2024-09-01 21:35 | XMS_ITS ---
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 Role Phone KANDACE NORWOOD, ZULY Primary Care Provider [phone] Shala NORWOOD, Nathan Unavailable [phone] Karthikeyan Lee MD Unavailable [phone] Problems Includes: Active, inactive, and resolved Problems All Visits Onset Date Resolved Date Provider Condition S tatus Joint Pain in the Left Hip 01/15/2023 Nathan acosta MD Active Last Documented On 3 1:01PM ; [facility], [facility] Plan of Treatment Findings Encounter Date Patient screened for future fall risk: documentation of any fall with injury in past year Follow Up with Nathan Last MD 01/28/2024 Last Documented On 4 10:53AM ; [facility] Patient screened for future fall risk: documentation of any fall with injury in past year Follow Up with Nathan Last MD 10/01/2023 Last Documented On 4 6:08AM ; [facility], [facility] Future Appointments Date Time Location Provi anne-marie Follow Up 09/30/2024 10:15AM [facility] Nathan Last MD Last Documented On 4 1:06PM ; [facility], [facility] Assessments Includes: Assessments for all patient encounters No Assessments Recorded Medical Equipment - Implanted Devices Includes: Current and historical Devices No Medical Equipment Recorded Medications Includes: Current and historical Medications Current Medications (continue as prescribed) Meclizine HCl 25 MG Oral Tablet, chewable 06/10/2023 Provider: ZULY JERONIMO MD Diagnosis: Last Documented On 4 2:34PM By Garry Tapia ; [facility] Fluticasone Propionate 50 MC G/ACT Nasal Suspension 06/01/2023 Provider: ZULY JREONIMO MD Diagnosis: Last Documented On 4 2:34PM By Garry Tapia ; [facility], [facility] ZyrTEC 10 MG Oral Tablet Chewable 01/16/2023 Provide r: Diagnosis: Last Documented On 3 8:00AM By Pooja Dixon ; [facility], [facility] oxyCODONE-Acetaminophen 10-325 MG Oral Tablet 12/24/19 Provider: ZULY JERONIMO MD Diagnosis: Last Documented On 3 7:59AM By Pooja Dixon ; [facility], [facility] Atenolol 25 MG Oral Tablet 12/22/2022 Provider: Jen JERONIMO MD Diagnosis: Last Documented On 3 7:59AM By Pooja Dixon ; [facility], [facility] Furosemide 20 MG Oral Tablet 12/22/2022 Provider: ZULY JERONIMO MD Diagnosis: Last Documented On 3 7:59AM By Pooja Dixon ; [facility], [facility] Levothyroxine Sodium 100 MCG Oral Tablet 12/22/2022 Provider: ZULY JERONIMO MD Diagnosis: Last Documented On 3 7:59AM By Pooja Dixon ; [facility], [facility] Pravastatin Sodium 40 MG Oral Tablet 12/22/2022 Prov ider: ZULY JERONIMO MD Diagnosis: Last Documented On 3 7:59AM By Pooja Dixon ; [facility], [facility] Famotidine 20 MG Oral Tablet 11/21/2022 Provider: ZULY JERONIMO MD Diagnosis: Last Documented On 3 7:59AM By Pooja Dixon ; [facility], [facility] NexIUM 40 MG Oral Capsule Delayed Release 07/23/2022 Provider: ZULY JERONIMO MD Diagnosis: Last Documented On 3 7:59AM By Pooja Dixon ; [facility], [facility] Medications Administered Includes: Administered Medications in patient's chart No Administered Medications Recorded Vital Signs Includes: Vital Signs from 09/02/2023 through 09/01/2024 Vital Name 01/28/2024 10:22A 10/01/2023 12: 54P Height (in) 63 63 Weight (lb) 130 127.8 Body Mass Index 23 22.6 Body Surface Area 1.6 1.6 Note: tm tm Last Documented: On 01/28/2024 10:22A M ; [facility] On 10/01/2023 12:54PM ; [facility] Results Includes: Results from 09/02/2023 through 09/01/2024 No Results Recorded For Specified Dates History of Present Illness History of Present Illness not supported for this document type No History of Present Illness Recorded Social History Description Last Updated No caffeine use 01/28/2024 Last Documented On 4 10:53AM ; [facility] No recent change in diet 01/28/2024 Last Documented On 4 10:53AM ; [facility] Not a current smoker. 01/28/2024 Last Documented On 4 10:53AM ; [facility] Not exercising regularly 01/28/2024 Last Documented On 4 10:53AM ; [facility] Not using alcohol 01/28/2024 Last Documented On 4 10:53AM ; [facility] Not using drugs 01/28/2024 Last Documented On 4 10:53AM ; [facility] Tobacco non-user 01/28/2024 Last Documented On 4 10:53AM ; [facility] Smoking Status Unknown Procedures and Surgical History Includes: Procedures from 09/02/2023 through 09/01/2024 Procedures Code Diagnosis Performing Provider Service Location Service Date PELVIS w/ 2-3 VIEW HIP (LEFT) 83570 Trochanteric bursitis, left hip, Presence of left artificial hip joint Nathan Last MD [facility] 01/28/2024 Last Documented On 4 5:36AM ; [facility] Surgical History Last Updated History of hysterectomy 01/28/2024 Last Documented On 4 10:53AM ; [facility], [facility] Medical History Includes: Medical History in patient's chart Description Last Updated History of Anemia 01/28/2024 Last Documented On 4 10:53AM ; [facility], [facility] History of arthritis 01/28/2024 Last Documented On 4 10:53AM ; [facility], [facility] History of Heartburn / Acid Reflux 01/27 Last Documented On 4 10:53AM ; [facility], [facility] History of History of Cancer 01/28/2024 Last Documented On 4 10:53AM ; [facility], [facility] History of History of Rheumatology 01/27 Last Documented On 4 10:53AM ; [facility], [facility] History of Kidney Disease 01/28/2024 Last Documented On 4 10:53AM ; [facility], [facility] History of osteoporosis 01/28/2024 Last Documented On 4 10:53AM ; [facility], [facility] Family History Includes: Family History in patient's chart Description Last Updated No significant family history 01/28/2024 Last Documented On 4 10:53AM ; [facility], [facility] Review of Systems Review of Systems not supported for this document type No Review of Systems Recorded Mental Status Description No anxiety Functional Status No Functional Status Recorded Physical Exam Physical Exam not supported for this document type No Physical Exam Recorded Allergies Includes: Active, inactive, and resolved Allergies No Known Allergies Encounters Includes: Encounters from 09/02/2023 through 09/01/2024 Encounter Provider Location Date Check-In Time Check- Out Time Diagnosis Follow Up Nathan Last MD [facility] 4 8:55AM 10:20AM Follow Up Nathan Last MD [facility] 4 11:50AM 12:57PM Insurance Includes: Active Insurance Policies Plan Name Member ID Group # Subscriber Relationship Effect prudencio Dates 1 - Medicare Part B [facility] [id number] Francisca Espinoza Self 2 - [facility] [employer] [id number] Francisca Braswell Clinical Notes Includes: Signed Clinical Notes starting from 05/08/2022 * Progress note Date Encounter Last Documented by 01/28/2024 Follow Up Last documented on 01/29/2024; 10:53 AM, Nathan Last MD; [facility] Active Problems & Conditions - Joint [...] documented. Care Team - Karthikeyan Lee MD * Progress note Date Encounter Last Documented by 10/01/2023 Follow Up Last documented on 10/06/2023; 6:08 AM, Nathan Last MD; [facility], [facility] Active Problems & Conditions - Joint Pain in the Left Hip Chief Complaint The Chief Complaint is: Fu L NOLAN. Referred Here Referred by. History of Present Illness Francisca Espinoza is an 82 year old female. - Allergy list reviewed [...] allergic reaction. Physical Findings - Vitals taken 10/01/2023 12:54 pm tm Height 63 in Weight 127 lbs 12.8 oz Body Mass Index 22.6 kg/m2 Body Surface Area 1.6 m2 Counseling/Education [...] and omissions. Follows up today for left hip revision. She has been doing very well. She has just very minimal pain located laterally over the hip. This has been improving with therapy. On exam she walks with a steady gait with a cane. Neurovascularly intact distally. Calf soft and nontender. Incision is healing well. Status post revision left total hip arthroplasty doing well Activities as tolerated. Follow up with us in about a year. Practice Management Use of tobacco assessment performed and patient screened for future fall risk documentation of any fall with injury in past year Review of medications documented; Body mass index not documented system reason. Care Team - Karthikeyan Lee MD User Defined 5 Fall Risk Assessment: This patient has been [...]
--- OUTSIDE RECORDS SUMMARY | 2024-09-01 21:35 | XMS_ITS | Clinical Summary ---
Author Organization [facility] Address [address] [place] [address] Phone Care Team Providers Care Event Decorator And Designer Name Role Phone KANDACE NORWOOD, ZULY Primary Care Provider [phone] Shala NORWOOD, Nathan Unavailable [phone] Jesus NORWOOD, Karthikeyan Unavailable [phone] Reason for Visit and Chief Complaint The Chief Complaint is: fu L NOLAN Problems Includes: Problems addressed during this encounter and other active Problems All Visits Onset Date Resolved Date Provider Condition S tatus Joint Pain in the Left Hip 01/15/2023 Nathan acosta MD Active Last Documented On 3 1:01PM ; [facility] Plan of Treatment Future Appointments Date Time Location Provi anne-marie [facility] 09[facility]30[facility]2024 10[email or web address] ULISES PS C Nathan Last MD Last Documented On 4 1:06PM ; [facility] Assessments Includes: Assessments from this encounter Findings Fall Risk Assessment: - Last Documented On 07/30/2023 10:48AM ; [facility] This patient has been identified as a fall risk. Balance/gait along with postural blood pressure, vision and home fall hazards have been assessed. Medications have been reviewed, and recommendations made with regard to contributing factors for future falls. - Last Documented On 07/30/2023 10:48AM ; [facility] Plan of care: Consideration of vitamin D supplementation along with balance and strength training with consideration for formal physical therapy has been discussed with the patient. - Last Documented On 07/30/2023 10:48AM ; [facility] Status post revision left total hip arthroplasty - Last Documented On 07/30/2023 10:48AM ; [facility] Discuss that some of her tenderness is likely related to hip bursitis tendonitis. Recommend restarting physical therapy as well as anti-inflammatories if approved by her PCP. I will see her back in 2-3 months to see how she is doing. - Last Documented On 07/30/2023 10:48AM ; [facility], [facility] Medical Equipment - Implanted Devices Includes: Current Devices No Medical Equipment Recorded Medications Includes: Medications discussed during this encounter and other current Medications Current Medications (continue as prescribed) Meclizine HCl 25 MG Oral Tablet, chewable 06/10/2023 Provider: ZULY JERONIMO MD Diagnosis: Last Documented On 4 2:34PM By Garry Tapia ; [facility] Fluticasone Propionate 50 MC G/ACT Nasal Suspension 06/01/2023 Provider: ZULY JERONIMO MD Diagnosis: Last Documented On 4 2:34PM By Garry Tapia ; [facility], [facility] ZyrTEC 10 MG Oral Tablet Chewable 01/16/2023 Provide r: Diagnosis: Last Documented On 3 8:00AM By Pooja Dixon ; [facility] oxyCODONE-Acetaminophen 10-325 MG Oral Tablet 12/24/19 Provider: ZULY JERONIMO MD Diagnosis: Last Documented On 3 7:59AM By Pooja Dixon ; [facility], [facility] Atenolol 25 MG Oral Tablet 12/22/2022 Provider: Jen JERONIMO MD Diagnosis: Last Documented On 3 7:59AM By Pooja Dixon ; [facility], [facility] Furosemide 20 MG Oral Tablet 12/22/2022 Provider: ZULY JERONIMO MD Diagnosis: Last Documented On 3 7:59AM By Pooja Dixon ; [facility], [facility] Levothyroxine Sodium 100 MCG Oral Tablet 12/22/2022 Provider: ZULY JERONIMO MD Diagnosis: Last Documented On 3 7:59AM By Pooja Dixon ; [facility], [facility] Pravastatin Sodium 40 MG Oral Tablet 12/22/2022 Prov ider: ZULY JERONIMO MD Diagnosis: Last Documented On 3 7:59AM By Pooja Dixon ; [facility] Famotidine 20 MG Oral Tablet 11/21/2022 Provider: ZULY JERONIMO MD Diagnosis: Last Documented On 3 7:59AM By Pooja Dixon ; [facility] NexIUM 40 MG Oral Capsule Delayed Release 07/23/2022 Provider: ZULY JERONIMO MD Diagnosis: Last Documented On 3 7:59AM By Pooja Dixon ; [facility] Medications Administered Includes: Administered Medications from this encounter No Administered Medications Recorded Vital Signs Includes: Vital Signs from this encounter Vital Name 07/29/2023 02:32P Height (in) 63 Note: tm Last Documented: On 07/29/2023 2:34PM ; [facility], [facility] Results Includes: Results discussed during this encounter No Results Recorded For Specified Dates History of Present Illness Includes: History of Present Illness from this encounter MELISSA Espinoza is an 82 year old female. - Allergy list reviewed - Problem list reviewed - Medication list reviewed Follows up today now 7 months status post revision left total hip arthroplasty. She is still having some soreness over the lateral aspect of the hip. She is up and walking. She ambulates around her neighborhood she states. She has a hard time sleeping on the lateral aspect of the hip. She does take chronic oxycodone. Social History Description Last Updated No caffeine use 07/29/2023 Last Documented On 4 10:48AM ; [facility], [facility] No recent change in diet 07/29/2023 Last Documented On 4 10:48AM ; [facility], [facility] Not a current smoker. 07/29/2023 Last Documented On 4 10:48AM ; [facility], [facility] Not exercising regularly 07/29/2023 Last Documented On 4 10:48AM ; [facility], [facility] Not using alcohol 07/29/2023 Last Documented On 4 10:48AM ; [facility], [facility] Not using drugs 07/29/2023 Last Documented On 4 10:48AM ; [facility], [facility] Tobacco non-user 07/29/2023 Last Documented On 4 10:48AM ; [facility], [facility] Smoking Status Unknown Procedures and Surgical History Includes: Procedures from this encounter Procedures Code Diagnosis Performing Provider Service L ocation Service Date use of tobacco assessment performed 1000F Last Documented On 4 1:43PM ; [facility], [facility] patient screened for future fall risk: documentation of any fall with injury in past year 1100F Last Documented On 4 1:43PM ; [facility], [facility] review of medications documented 1160F Last Documented On 4 1:43PM ; [facility] body mass index not documented system reason [id number] Last Documented On 4 1:43PM ; [facility], [facility] Surgical History Last Updated History of hysterectomy 07/29/2023 Last Documented On 4 10:48AM ; [facility] Medical History Includes: Medical History addressed during this encounter Description Last Updated History of Anemia 07/29/2023 Last Documented On 4 10:48AM ; [facility] History of arthritis 07/29/2023 Last Documented On 4 10:48AM ; [facility] History of Heartburn / Acid Reflux 07/28 Last Documented On 4 10:48AM ; [facility] History of History of Cancer 07/29/2023 Last Documented On 4 10:48AM ; [facility] History of History of Rheumatology 07/28 Last Documented On 4 10:48AM ; [facility] History of Kidney Disease 07/29/2023 Last Documented On 4 10:48AM ; [facility] History of osteoporosis 07/29/2023 Last Documented On 4 10:48AM ; [facility] Family History Includes: Family History addressed during this encounter Description Last Updated No significant family history 07/29/2023 Last Documented On 4 10:48AM ; [facility] Review of Systems Includes: Review of [...] heartburn and no abdominal pain. Indigestion. No Acid Reflux, no Peptic Ulcer, no GI Stomach Bleed, and no Ulcers. Endocrine: No hot flashes. Muscle weakness. No [...] Time Diagnosis Follow Up Nathan Last MD [facility] 4 1:27PM 2:56PM Insurance Includes: Active Insurance Policies Plan Name Member ID Group # Subscriber Relationship Effect prudencio Dates 1 - Medicare Part B [facility] [id number] Francisca Espinoza Self 2 - [facility] [employer] [id number] Francisca Espinoza Self Clinical Notes Includes: Clinical Notes from this encounter * Progress note Date Encounter Last Documented by 07/29/2023 Follow Up Last documented on 07/30/2023; 10:48 AM, Nathan Last MD; [facility], [facility] Active Problems & Conditions - Joint Pain in the Left Hip Chief Complaint The Chief Complaint is: Fu L NOLAN. Referred Here Referred by. History of Present Illness Francisca Espinoza is an 82 year old female. - Allergy list reviewed - Problem list reviewed - Medication list reviewed Follows up today now 7 months status post revision left total hip arthroplasty. She is still having some soreness over the lateral aspect of the hip. She is up and walking. She ambulates around her neighborhood she states. She has a hard time sleeping on the lateral aspect of the hip. She does take chronic oxycodone. Current Medication - Atenolol 25 MG Oral Tablet 90 days, 0 refills - Famotidine 20 MG Oral Tablet 90 days, 0 refills - Fluticasone Propionate 50 MCG/ACT Nasal Suspension 90 days, 0 refills - Furosemide 20 MG Oral Tablet 90 days, 0 refills - Levothyroxine Sodium 100 MCG Oral Tablet 90 days, 0 refills - Meclizine HCl 25 MG Oral Tablet, chewable 7 days, 0 refills - NexIUM 40 MG Oral Capsule Delayed Release Capsule, delayed-release 90 days, 0 refills - oxyCODONE-Acetaminophen 10-325 MG Oral Tablet 30 days, 0 refills - Pravastatin Sodium 40 MG Oral Tablet 90 days, 0 refills - ZyrTEC 10 MG Oral Tablet Chewable Tablet, chewable take as directed 0 days, 0 refills [...] heartburn and no abdominal pain. Indigestion. No Acid Reflux, no Peptic Ulcer, no GI Stomach Bleed, and no Ulcers. Endocrine: No hot flashes. Muscle weakness. No [...] allergic reaction. Physical Findings - Vitals taken 07/29/2023 02:32 pm tm Height 63 in On exam she walks with a steady gait with a walker. Her incisions are well healed. I do not see any erythema over the side of the hip. She has painless gentle internal external range motion of the hip. She is tender to palpation over the greater trochanter. Neurovascularly intact distally. Calf soft and nontender. AP pelvis two-view obtained personally reviewed today of the left hip demonstrate left total hip arthroplasty in good position. Notes This dictation was done with voice recognition software and may contain errors and omissions. Practice Management Use of tobacco assessment performed [...] therapy has been discussed with the patient. Status post revision left total hip arthroplasty Discuss that some of her tenderness is likely related to hip bursitis tendonitis. Recommend restarting physical therapy as well as anti-inflammatories if approved by her PCP. I will see her back in 2-3 months to see how she is doing.
--- OUTSIDE RECORDS SUMMARY | 2024-09-01 21:35 | XMS_ITS | Clinical Summary ---
Author Organization [facility] , [facility] Address [address] [place] [address] Phone Care Team Providers Care Psychology Instructor Name Role Phone KANDACE NORWOOD, ZULY Primary Care Provider [phone] Shala NORWOOD, Nathan Unavailable [phone] Jesus NORWOOD, Karthikeyan Unavailable [phone] Reason for Visit and Chief Complaint The Chief Complaint is: fu L NOLAN Problems Includes: Problems addressed during this encounter and other active Problems All Visits Onset Date Resolved Date Provider Condition S tatus Joint Pain in the Left Hip 01/15/2023 Nathan acosta MD Active Last Documented On 3 1:01PM ; [facility], [facility] Plan of Treatment Fall Risk Assessment: This patient has been [...] with the patient. - Last Documented On 03/26/2023 8:17AM ; [facility], [facility] Future Appointments Date Time Location Provi [facility]ie Follow Up 09/30/2024 10:15AM [facility] Last MD Last Documented On 4 1:06PM ; [facility], [facility] Assessments Includes: Assessments from this encounter Findings Status post revision left total hip arthroplasty doing well - Last Documented On 03/26/2023 8:17AM ; [facility] moderate left knee osteoarthritis - Last Documented On 03/26/2023 8:17AM ; [facility], [facility] continue activities as tolerated for the left hip. Lower extremity strengthening for the left hip and left knee. We did discuss a steroid injection today for the left knee. Happy to see her back if its not improving. Otherwise I will see her back in 9 months for the left hip. - Last Documented On 03/26/2023 8:17AM ; [facility] Injection note - Last Documented On 03/26/2023 8:17AM ; [facility] we discussed the indications, risks, benefits, alternatives, and recovery in detail to a Left knee steroid injection. Risks discussed include but are not limited to bleeding, infection (possibly requiring surgery to treat), pain, allergic reaction, and failure to relieve pain. The patient gave verbal and written consent, and wished to proceed. - Last Documented On 03/26/2023 8:17AM ; [facility] Procedure: The the skin around the superior-lateral aspect of the patella was prepped with alcohol followed by Betadine and anesthetized with 2cc of 1% lidocaine. The area was then reprepped. Using sterile procedure, 40mg of kenalog along with 4cc of 0.25% marcaine was injected into the knee joint. The needle was removed, the skin was cleansed with alcohol and a Band-Aid was applied. The knee was taken through a range of motion. - Last Documented On 03/26/2023 8:17AM ; [facility] The patient tolerated to procedure well. - Last Documented On 03/26/2023 8:17AM ; [facility] Medical Equipment - Implanted Devices Includes: Current Devices No Medical Equipment Recorded Medications Includes: Medications discussed during this encounter and other current Medications Current Medications (continue as prescribed) Meclizine HCl 25 MG Oral Tablet, chewable 06/10/2023 Provider: ZULY JERONIMO MD Diagnosis: Last Documented On 4 2:34PM By Garry [facility], [facility] Fluticasone Propionate 50 MC G/ACT Nasal Suspension 06/01/2023 Provider: ZULY JERONIMO MD Diagnosis: Last Documented On 4 2:34PM By Garry Tapia ; [facility], [facility] ZyrTEC 10 MG Oral Tablet Chewable 01/16/2023 Provide r: Diagnosis: Last Documented On 3 8:00AM By Pooja Dixon ; [facility], [facility] oxyCODONE-Acetaminophen 10-325 MG Oral Tablet 12/24/19 Provider: ZULY JERONIMO MD Diagnosis: Last Documented On 3 7:59AM By Pooja Dixon ; [facility], [facility] Atenolol 25 MG Oral Tablet 12/22/2022 Provider: Jen JERONIMO MD Diagnosis: Last Documented On 3 7:59AM By Pooja Dixon ; [facility], [facility] Furosemide 20 MG Oral Tablet 12/22/2022 Provider: ZULY JERONIMO MD Diagnosis: Last Documented On 3 7:59AM By Pooja Dixon ; [facility], [facility] Levothyroxine Sodium 100 MCG Oral Tablet 12/22/2022 Provider: ZULY JERONIMO MD Diagnosis: Last Documented On 3 7:59AM By Pooja Dixon ; [facility], [facility] Pravastatin Sodium 40 MG Oral Tablet 12/22/2022 Prov ider: ZULY JERONIMO MD Diagnosis: Last Documented On 3 7:59AM By Pooja Dixon ; [facility], [facility] Famotidine 20 MG Oral Tablet 11/21/2022 Provider: ZULY JERONIMO MD Diagnosis: Last Documented On 3 7:59AM By Pooja Dixon ; [facility], [facility] NexIUM 40 MG Oral Capsule Delayed Release 07/23/2022 Provider: ZULY JERONIMO MD Diagnosis: Last Documented On 3 7:59AM By Pooja Dixon ; [facility], [facility] Medications Administered Includes: Administered Medications from this encounter No Administered Medications Recorded Vital Signs Includes: Vital Signs from this encounter Vital Name 03/25/2023 09:13A Height (in) 63 Weight (lb) 110 Body Mass Index 19.5 Body Surface Area 1.5 Note: mgg Last Documented: On 03/25/2023 9:16AM ; [facility], [facility] Results Includes: Results discussed during this encounter No Results Recorded For Specified Dates History of Present Illness Includes: History of Present Illness from this encounter MELISSA Espinoza is an 82 year old female. - Allergy list reviewed - Problem list reviewed - Medication list reviewed Follows up today 3 months s/p rev L NOLAN. She is doing much better with the hip - feels better than before her first surgery. She is having pain in the left knee when she walks. Mainly over the medial aspect. She has known arthritis in this knee. Social History Description Last Updated No caffeine use 03/25/2023 Last Documented On 3 8:17AM ; [facility], [facility] No recent change in diet 03/25/2023 Last Documented On 3 8:17AM ; [facility], [facility] Not a current smoker. 03/25/2023 Last Documented On 3 8:17AM ; [facility], [facility] Not exercising regularly 03/25/2023 Last Documented On 3 8:17AM ; [facility], [facility] Not using alcohol 03/25/2023 Last Documented On 3 8:17AM ; [facility], [facility] Not using drugs 03/25/2023 Last Documented On 3 8:17AM ; [facility], [facility] Tobacco non-user 03/25/2023 Last Documented On 3 8:17AM ; [facility], [facility] Smoking Status Unknown Procedures and Surgical History Includes: Procedures from this encounter Procedures Code Diagnosis Performing Provider Service L ocation Service Date use of tobacco assessment performed 1000F Last Documented On 3 8:57AM ; [facility], [facility] patient screened for future fall risk: documentation of any fall with injury in past year 1100F Last Documented On 3 8:57AM ; [facility], [facility] review of medications documented 1160F Last Documented On 3 8:57AM ; [facility], [facility] body mass index not documented system reason 300 8F Last Documented On 3 8:57AM ; [facility], [facility] Surgical History Last Updated History of hysterectomy 03/25/2023 Last Documented On 3 8:17AM ; [facility], [facility] Medical History Includes: Medical History addressed during this encounter Description Last Updated History of Anemia 03/25/2023 Last Documented On 3 8:17AM ; [facility] History of arthritis 03/25/2023 Last Documented On 3 8:17AM ; [facility], [facility] History of Heartburn / Acid Reflux 03/25 Last Documented On 3 8:17AM ; [facility], [facility] History of History of Cancer 03/25/2023 Last Documented On 3 8:17AM ; [facility], [facility] History of History of Rheumatology 03/25 Last Documented On 3 8:17AM ; [facility], [facility] History of Kidney Disease 03/25/2023 Last Documented On 3 8:17AM ; [facility], [facility] History of osteoporosis 03/25/2023 Last Documented On 3 8:17AM ; [facility], [facility] Family History Includes: Family History addressed during this encounter Description Last Updated No significant family history 03/25/2023 Last Documented On 3 8:17AM ; [facility], [facility] Review of Systems Includes: Review of [...] Date Check-In Time Check- Out Time Diagnosis Post Op Nathan Last MD [facility] 3 8:52AM 10:18AM Insurance Includes: Active Insurance Policies Plan Name Member ID Group # Subscriber Relationship Effect prudencio Dates 1 - Medicare Part B [facility] [id number] Francisca Espinoza Self 2 - [facility] [employer] [id number] Francisca Espinoza Self Clinical Notes Includes: Clinical Notes from this encounter * Progress note Date Encounter Last Documented by 03/25/2023 Post Op Last documented on 03/26/2023; 8:17 AM, Nathan Last MD; [facility], [facility] Active Problems & Conditions - Joint Pain in the Left Hip Chief Complaint The Chief Complaint is: Fu L NOLAN. Referred Here Referred by. History of Present Illness Francisca Espinoza is an 82 year old female. - Allergy list reviewed - Problem list reviewed - Medication list reviewed Follows up today 3 months s/p rev L NOLAN. She is doing much better with the hip - feels better than before her first surgery. She is having pain in the left knee when she walks. Mainly over the medial aspect. She has known arthritis in this knee. Current Medication - Atenolol 25 MG Oral Tablet 90 days, 0 refills - Famotidine 20 MG Oral Tablet 90 days, 0 refills - Furosemide 20 MG Oral Tablet 90 days, 0 refills - Levothyroxine Sodium 100 MCG Oral Tablet 90 days, 0 refills - NexIUM 40 MG [...] allergic reaction. Physical Findings - Vitals taken 03/25/2023 09:13 am mgg Height 63 in Weight 110 lbs Body Mass Index 19.5 kg/m2 Body Surface Area 1.5 m2 On exam walks with a steady gait with her walker. Incisions are healing well over the left hip. She is neurovascular intact distally with 5 out of 5 left ankle dorsiflexion plantarflexion palpable dorsalis pedis pulse. She does have tenderness to palpation over the medial aspect of the left knee. Range of motion is 5 to 120 degrees with crepitus. AP pelvis 2 view obtained personally reviewed today of the left hip demonstrate a revision left total hip arthroplasty in good position. No movement of the cup. 4 view weightbearing obtained personally reviewed today of the left knee demonstrate moderate tricompartmental osteoarthritis. Plan Fall Risk Assessment: This patient has been [...] - Karthikeyan Lee MD User Defined 5 Status post revision left total hip arthroplasty doing well moderate left knee osteoarthritis continue activities as tolerated for the left hip. Lower extremity strengthening for the left hip and left knee. We did discuss a steroid injection today for the left knee. Happy to see her back if its not improving. Otherwise I will see her back in 9 months for the left hip. Injection note we discussed the indications, risks, benefits, alternatives, and recovery in detail to a Left knee steroid injection. Risks discussed include but are not limited to bleeding, infection (possibly requiring surgery to treat), pain, allergic reaction, and failure to relieve pain. The patient gave verbal and written consent, and wished to proceed. Procedure: The the skin around the superior-lateral aspect of the patella was prepped with alcohol followed by Betadine and anesthetized with 2cc of 1% lidocaine. The area was then reprepped. Using sterile procedure, 40mg of kenalog along with 4cc of 0.25% marcaine was injected into the knee joint. The needle was removed, the skin was cleansed with alcohol and a Band-Aid was applied. The knee was taken through a range of motion. The patient tolerated to procedure well.
--- OUTSIDE RECORDS SUMMARY | 2024-09-01 21:35 | XMS_ITS | Clinical Summary ---
Author Organization [facility] Address [address] [place] [address] Phone Care Team Providers Care Manager Water Name Role Phone KANDACE NORWOOD, ZULY Primary Care Provider [phone] Shala NORWOOD, Nathan Unavailable [phone] Jesus NORWOOD, Karthikeyan Unavailable [phone] Reason for Visit and Chief Complaint The Chief Complaint is: fu L NOLAN Problems Includes: Problems addressed during this encounter and other active Problems All Visits Onset Date Resolved Date Provider Condition S tatus Joint Pain in the Left Hip 01/15/2023 Nathan acosta MD Active Last Documented On 3 1:01PM ; [facility] Plan of Treatment - Patient screened for future fall risk: documentation of any fall with injury in past year - Last Documented On 10/06/2023 6:08AM ; [facility] Fall Risk Assessment: This patient has been [...] with the patient. - Last Documented On 10/06/2023 6:08AM ; [facility] Future Appointments Date Time Location [facility] Last Documented On 4 1:06PM ; [facility] Assessments Includes: Assessments from this encounter Findings Fall Risk Assessment: - Last Documented On 10/06/2023 6:08AM ; [facility] This patient has been identified as a fall risk. Balance/gait along with postural blood pressure, vision and home fall hazards have been assessed. Medications have been reviewed, and recommendations made with regard to contributing factors for future falls. - Last Documented On 10/06/2023 6:08AM ; [facility] Plan of care: Consideration of vitamin D supplementation along with balance and strength training with consideration for formal physical therapy has been discussed with the patient. - Last Documented On 10/06/2023 6:08AM ; [facility] Medical Equipment - Implanted Devices Includes: Current Devices No Medical Equipment Recorded Medications Includes: Medications discussed during this encounter and other current Medications Current Medications (continue as prescribed) Meclizine HCl 25 MG Oral Tablet, chewable 06/10/2023 Provider: ZULY JERONIMO MD Diagnosis: Last Documented On 4 2:34PM By Garry Tapia ; [facility] Fluticasone Propionate 50 MC G/ACT Nasal Suspension 06/01/2023 Provider: ZULY JERONIMO MD Diagnosis: Last Documented On 4 2:34PM By Garry Tapia ; [facility] ZyrTEC 10 MG Oral Tablet Chewable 01/16/2023 Provide r: Diagnosis: Last Documented On 3 8:00AM By Pooja Dixon ; [facility] oxyCODONE-Acetaminophen 10-325 MG Oral Tablet 12/24/19 Provider: ZULY JERONIMO MD Diagnosis: Last Documented On 3 7:59AM By Pooja Dixon ; [facility] Atenolol 25 MG Oral Tablet 12/22/2022 Provider: Jen JERONIMO MD Diagnosis: Last Documented On 3 7:59AM By Pooja Dixon ; [facility] Furosemide 20 MG Oral Tablet 12/22/2022 Provider: ZULY JERONIMO MD Diagnosis: Last Documented On 3 7:59AM By Pooja Dixon ; [facility] Levothyroxine Sodium 100 MCG Oral Tablet 12/22/2022 Provider: ZULY JERONIMO MD Diagnosis: Last Documented On 3 7:59AM By Pooja Dixon ; [facility] Pravastatin Sodium 40 MG Oral Tablet 12/22/2022 Prov ider: ZULY JERONIMO MD Diagnosis: Last Documented On 3 7:59AM By Pooja Dixon ; [facility] Famotidine 20 MG Oral Tablet 11/21/2022 Provider: ZULY JERONIMO MD Diagnosis: Last Documented On 3 7:59AM By Pooja Dixon ; [facility] NexIUM 40 MG Oral Capsule Delayed Release 07/23/2022 Provider: ZULY JERONIMO MD Diagnosis: Last Documented On 3 7:59AM By Pooja Dixon ; [facility] Medications Administered Includes: Administered Medications from this encounter No Administered Medications Recorded Vital Signs Includes: Vital Signs from this encounter Vital Name 10/01/2023 12:54P Height (in) 63 Weight (lb) 127.8 Body Mass Index 22.6 Body Surface Area 1.6 Note: tm Last Documented: On 10/01/2023 12:54P M ; [facility] Results Includes: Results discussed during this encounter No Results Recorded For Specified Dates History of Present Illness Includes: History of Present Illness from this encounter MELISSA Espinoza is an 82 year old female. - Allergy list reviewed - Problem list reviewed - Medication list reviewed - - Review of medications documented Social History Description Last Updated No caffeine use 10/01/2023 Last Documented On 4 6:08AM ; [facility] No recent change in diet 10/01/2023 Last Documented On 4 6:08AM ; [facility] Not a current smoker. 10/01/2023 Last Documented On 4 6:08AM ; [facility] Not exercising regularly 10/01/2023 Last Documented On 4 6:08AM ; [facility] Not using alcohol 10/01/2023 Last Documented On 4 6:08AM ; [facility] Not using drugs 10/01/2023 Last Documented On 4 6:08AM ; [facility] Tobacco non-user 10/01/2023 Last Documented On 4 6:08AM ; [facility] Smoking Status Unknown Procedures and Surgical History Includes: Procedures from this encounter Procedures Code Diagnosis Performing Provider Service L ocation Service Date use of tobacco assessment performed 1000F Last Documented On 4 12:50PM ; [facility] patient screened for future fall risk: documentation of any fall with injury in past year 1100F Last Documented On 4 12:50PM ; [facility] review of medications documented 1160F Last Documented On 4 12:50PM ; [facility] body mass index not documented system reason 300 8F Last Documented On 4 12:50PM ; [facility] Surgical History Last Updated History of hysterectomy 10/01/2023 Last Documented On 4 6:08AM ; [facility] Medical History Includes: Medical History addressed during this encounter Description Last Updated History of Anemia 10/01/2023 Last Documented On 4 6:08AM ; [facility] History of arthritis 10/01/2023 Last Documented On 4 6:08AM ; [facility] History of Heartburn / Acid Reflux 09/30 Last Documented On 4 6:08AM ; [facility] History of History of Cancer 10/01/2023 Last Documented On 4 6:08AM ; [facility] History of History of Rheumatology 09/30 Last Documented On 4 6:08AM ; [facility] History of Kidney Disease 10/01/2023 Last Documented On 4 6:08AM ; [facility] History of osteoporosis 10/01/2023 Last Documented On 4 6:08AM ; [facility] Family History Includes: Family History addressed during this encounter Description Last Updated No significant family history 10/01/2023 Last Documented On 4 6:08AM ; [facility] Review of Systems Includes: Review of Systems [...] Diagnosis Follow Up Nathan Last MD [facility] 4 11:50AM 12:57PM Insurance Includes: Active Insurance Policies Plan Name Member ID Group # Subscriber Relationship Effect prudencio Dates 1 - Medicare Part B [facility] [id number] Francisca Espinoza Self 2 - [facility] [employer] [id number] Francisca Espinoza Self Clinical Notes Includes: Clinical Notes from this encounter * Progress note Date Encounter Last Documented by 10/01/2023 Follow Up Last documented on 10/06/2023; 6:08 AM, Nathan Last MD; [facility] Active Problems & Conditions - Joint Pain [...]
--- OUTSIDE RECORDS SUMMARY | 2024-09-01 21:35 | XMS_ITS | Clinical Summary ---
Author Organization [facility] , [facility] Address [address] [place] [address] Phone Care Team Providers Care Tutorial Laboratory Supervisor Name Role Phone KANDACE NORWOOD, ZULY Primary Care Provider [phone] Shala NORWOOD, Nathan Unavailable [phone] Jesus NORWOOD, Karthikeyan Unavailable [phone] Reason for Visit and Chief Complaint The Chief Complaint is: left hip pain Problems Includes: Problems addressed during this encounter and other active Problems All Visits Onset Date Resolved Date Provider Condition S tatus Joint Pain in the Left Hip 01/15/2023 Nathan acosta MD Active Last Documented On 3 1:01PM ; [facility], [facility] Plan of Treatment Fall Risk Assessment: This [...] with the patient. - Last Documented On 02/16/2023 7:37AM ; [facility], [facility] Future Appointments Date Time Location Provi anne-marie Follow Up 09/30/2024 10:15AM [facility] C Nathan Last MD Last Documented On 4 1:06PM ; [facility], [facility] Assessments Includes: Assessments from this encounter Findings 6 weeks status post revision left total hip arthroplasty doing well - Last Documented On 02/16/2023 7:37AM ; [facility], [facility] okay to advance to protected weightbearing on a walker. Maintain posterior hip precautions. Follow-up with me in 6 weeks. - Last Documented On 02/16/2023 7:37AM ; [facility], [facility] Medical Equipment - Implanted Devices Includes: Current Devices No Medical Equipment Recorded Medications Includes: Medications discussed during this encounter and other current Medications Current Medications (continue as prescribed) Meclizine HCl 25 MG Oral Tablet, chewable 06/10/2023 Provider: ZULY JERONIMO MD Diagnosis: Last Documented On 4 2:34PM By Garry Tapia ; [facility], [facility] Fluticasone Propionate 50 MC G/ACT Nasal Suspension 06/01/2023 Provider: ZULY JERONIMO MD Diagnosis: Last Documented On 4 2:34PM By Garry Tapia ; [facility], [facility] ZyrTEC 10 MG Oral Tablet Chewable 01/16/2023 Provide r: Diagnosis: Last Documented On 3 8:00AM By Pooja Dixon ; [facility], [facility] oxyCODONE-Acetaminophen 10-325 MG Oral Tablet 12/24/19 Provider: ZULY JERONIMO MD Diagnosis: Last Documented On 3 7:59AM By Pooja Dixon ; [facility], [facility] Atenolol 25 MG Oral Tablet 12/22/2022 Provider: Jen JERONIMO MD Diagnosis: Last Documented On 3 7:59AM By Pooja Dixon ; [facility], [facility] Furosemide 20 MG Oral Tablet 12/22/2022 Provider: ZULY JERONIMO MD Diagnosis: Last Documented On 3 7:59AM By Pooja Dixon ; [facility], [facility] Levothyroxine Sodium 100 MCG Oral Tablet 12/22/2022 Provider: ZULY JERONIMO MD Diagnosis: Last Documented On 3 7:59AM By Pooja Dixon ; [facility], [facility] Pravastatin Sodium 40 MG Oral Tablet 12/22/2022 Prov ider: ZULY JERONIMO MD Diagnosis: Last Documented On 3 7:59AM By Pooja Dixon ; [facility], [facility] Famotidine 20 MG Oral Tablet 11/21/2022 Provider: ZULY JERONIMO MD Diagnosis: Last Documented On 3 7:59AM By Pooja Dixon ; [facility], [facility] NexIUM 40 MG Oral Capsule Delayed Release 07/23/2022 Provider: ZUYL JERONIMO MD Diagnosis: Last Documented On 3 7:59AM By Pooja Dixon ; [facility], [facility] Medications Administered Includes: Administered Medications from this encounter No Administered Medications Recorded Results Includes: Results discussed during this encounter No Results Recorded For Specified Dates History of Present Illness Includes: History of Present Illness from this encounter MELISSA Espinoza is an 82 year old female. 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 She is having no groin pain. Some occasional soreness on the lateral side of her hip. She has been in rehab doing toe-touch weightbearing. Social History Description Last Updated No caffeine use 02/12/2023 Last Documented On 3 7:37AM ; [facility], [facility] No recent change in diet 02/12/2023 Last Documented On 3 7:37AM ; [facility], [facility] Not a current smoker. 02/12/2023 Last Documented On 3 7:37AM ; [facility], [facility] Not exercising regularly 02/12/2023 Last Documented On 3 7:37AM ; [facility], [facility] Not using alcohol 02/12/2023 Last Documented On 3 7:37AM ; [facility], [facility] Not using drugs 02/12/2023 Last Documented On 3 7:37AM ; [facility], [facility] Tobacco non-user 02/12/2023 Last Documented On 3 7:37AM ; [facility], [facility] Smoking Status Unknown Procedures and Surgical History Includes: Procedures from this encounter Procedures Code Diagnosis Performing Provider Service L ocation Service Date use of tobacco assessment performed 1000F Last Documented On 3 8:57AM ; [facility], [facility] patient screened for future fall risk: documentation of any fall with injury in past year 1100F Last Documented On 3 8:57AM ; [facility], [facility] review of medications documented 1160F Last Documented On 3 8:57AM ; [facility], [facility] body mass index not documented system reason 300 8F Last Documented On 3 2:27PM ; [facility], [facility] Surgical History Last Updated History of hysterectomy 02/12/2023 Last Documented On 3 7:37AM ; [facility], [facility] Medical History Includes: Medical History addressed during this encounter Description Last Updated History of Anemia 02/12/2023 Last Documented On 3 7:37AM ; [facility], [facility] History of arthritis 02/12/2023 Last Documented On 3 7:37AM ; [facility], [facility] History of Heartburn / Acid Reflux 02/12 Last Documented On 3 7:37AM ; [facility], [facility] History of History of Cancer 02/12/2023 Last Documented On 3 7:37AM ; [facility], [facility] History of History of Rheumatology 02/12 Last Documented On 3 7:37AM ; [facility], [facility] History of Kidney Disease 02/12/2023 Last Documented On 3 7:37AM ; [facility], [facility] History of osteoporosis 02/12/2023 Last Documented On 3 7:37AM ; [facility], [facility] Family History Includes: Family History addressed during this encounter Description Last Updated No significant family history 02/12/2023 Last Documented On 3 7:37AM ; [facility] Review of Systems Includes: Review of [...] Time Diagnosis Post Op Nathan Last MD [facility] 3 8:40AM 9:16AM Insurance Includes: Active Insurance Policies Plan Name Member ID Group # Subscriber Relationship Effect prudencio Dates 1 - Medicare Part B [facility] [id number] Francisca Espinoza Self 2 - [facility] [employer] [id number] Francisca Espinoza Self Clinical Notes Includes: Clinical Notes from this encounter * Progress note Date Encounter Last Documented by 02/12/2023 Post Op Last documented on 02/16/2023; 7:37 AM, Nathan Last MD; [facility], [facility] Active Problems & Conditions - Joint Pain in the Left Hip Chief Complaint The Chief Complaint is: Left hip pain. Referred Here Referred by. History of Present Illness Francisca Espinoza is an 82 year old female. 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 She is having no groin pain. Some occasional soreness on the lateral side of her hip. She has been in rehab doing toe-touch weightbearing. Current Medication - Atenolol 25 MG Oral [...] complaint of seasonal allergic reaction. Physical Findings On exam her incisions healing well. She is neurovascular intact distally. Calf soft nontender. She can stand and put full weight on her hip without any hip or groin pain. Tests AP pelvis 2 view obtained personally reviewed today of the left hip demonstrate a revision left total hip arthroplasty acetabular component in good position. Plan Fall Risk Assessment: This patient has [...] - Karthikeyan Lee MD User Defined 5 6 weeks status post revision left total hip arthroplasty doing well okay to advance to protected weightbearing on a walker. Maintain posterior hip precautions. Follow-up with me in 6 weeks.
== END 2024-08-29 23:59 | disposition home or self-care (01) ==
LOC: LAB.DROPOF 08-30 14:52
PROVIDERS: PCP Family Medicine; Visit Provider Family Medicine
DX: E78.5 Hyperlipidemia, unspecified (principal); E03.9 Hypothyroidism, unspecified
CPT/HCPCS: 80053; 80061; 84436; 84443; 85025

== ENCOUNTER 2024-10-11 08:48 | Outpatient (CLI) | payer MEDICARE, SELFPAY ==
[2024-10-11 09:30] LABS: Blood Urea Nitrogen 8 mg/dl (7-17); Estimated Glomerular Filt Rate 53 ml/min (>60); GFR (African American) 64 ML/MIN (>60)
[2024-10-11] MEDS: IOPAMIDOL-370 (76%);100ML BOTTLE 75 ML IV (09:53)
[2024-10-11] MEDS: SODIUM CHLORIDE 0.9% 10ML SYR (RAD ONLY) 10 ML IV (09:53)
--- NOTE | 2024-10-11 10:00 | CT_ITS ---
FINAL REPORT TECHNIQUE: Pre and postcontrast axial imaging of the chest was obtained. Reformatted images were also obtained and reviewed. This study was performed with techniques to keep radiation doses as low as reasonably achievable (ALARA). Individualized dose reduction techniques using automated exposure control or adjustment of mA and/or kV according to the patient's size were employed. CLINICAL HISTORY: cough; RLL pneumonia; s/p cancer COMPARISON: 07/23/2024 FINDINGS: There has been significant improvement in right lower lobe pneumonia from prior exam. There has been interval development of a spiculated, subpleural density of the anterior right upper lobe measuring 18 mm. A rapidly growing neoplasm would be unusual, although morphology is suspicious. Fine nodular densities are seen scattered throughout the right lung consistent with bronchiolitis. Left lung is clear. There is a new, moderate right pleural effusion. There is a trace left pleural effusion. There is no adenopathy. There is no pneumothorax. IMPRESSION: Near complete resolution of right lower lobe pneumonia. Underlying bronchiolitis in the right lung. New pleural effusions. New development of masslike density in the right upper lobe, favor inflammatory given short interval development from prior exam. Recommend close interval follow-up in 2 months time. Reviewed, Interpreted and Dictated by Colby Baker MD Transcribed by Lucretia Quan Authenticated and [facility]
== END 2024-10-11 23:59 | disposition home or self-care (01) ==
PROVIDERS: PCP Family Medicine; Visit Provider Family Medicine
DX: C34.90 Malignant neoplasm of unspecified part of unspecified bronchus or lung (principal); J18.9 Pneumonia, unspecified organism; J21.9 Acute bronchiolitis, unspecified; J90 Pleural effusion, not elsewhere classified; R91.8 Other nonspecific abnormal finding of lung field
CPT/HCPCS: 36415; 71270; 82565; 84520; Q9967

== ENCOUNTER 2024-10-25 08:45 | Outpatient (CLI) | payer MEDICARE, SELFPAY ==
--- NOTE | 2024-10-25 | XR_ITS ---
FINAL REPORT CLINICAL HISTORY: .Post thoracentesis COMPARISON: 09/24/2021, 10/11/2024 FINDINGS: 2 views of the chest were obtained . The heart is mildly enlarged. There is a spiculated right upper lobe nodule, new from prior chest x-ray but was seen on recent chest CT. Right middle lobe opacity likely represents atelectasis or scarring. Lungs are otherwise clear. There is no pleural effusion. There is no pneumothorax. IMPRESSION: Right middle lobe opacity, likely atelectasis or scarring. Reviewed, Interpreted and Dictated by Nga Wiggins MD Transcribed by Lucretia Quan Authenticated and [facility]
[2024-10-25 09:01] VITALS: BMI 24.4
[2024-10-25 09:03] VITALS: BP 141/75; PULSE 108; RESP 16; TEMP 36.1; O2SAT 97
--- NOTE | 2024-10-25 10:00 | US_ITS ---
FINAL REPORT CLINICAL HISTORY: Right pleural effusion -- 300 ML REMOVED - JASMIN MCKENZIE FINDINGS: ULTRASOUND-GUIDED THORACENTESIS HISTORY: Pleural effusion. ATTENDING PHYSICIAN: Dr. Wiggins PHYSICIAN BEAN WEIGHER: Jasmin Hunt PA-C TECHNIQUE: Informed consent was obtained from the patient. The indications and complications were discussed with the patient prior to beginning the procedure. This included, but was not limited to pain, bleeding, infection, and pneumothorax requiring chest tube placement. The right back was then prepped and draped in sterile fashion. 1% Lidocaine was used for local anesthesia. Utilizing sonographic guidance, a standard thoracentesis needle and sheath were inserted into the pleural space and approximately 300 mL of clear pleural fluid was successfully removed without complication. The patient tolerated the procedure well. IMPRESSION: Technically successful sonographic guided right-sided thoracentesis as above. Films reviewed , interpreted and dictated by Dr. Nga Wiggins. Transcribed by Jasmin Hunt PA-C. Reviewed, Interpreted and Dictated by Nga Wiggins MD Transcribed by MAGALY Guzman Authenticated and [facility]
[2024-10-25 10:35] VITALS: BP 135/91; PULSE 99; RESP 18; TEMP 36.5; O2SAT 98
[2024-10-25 10:50] VITALS: BP 127/78; PULSE 94; RESP 18; O2SAT 96
[2024-10-25 11:01] LABS: Appearance,Body Fld. Normal; Source, Body Fld. Pleural Fluid; TNC,Body Fluid 1561 cells/uL (< 1000); Volume,Body Fld. 300 mL
[2024-10-25 11:02] LABS: RBC,Body Fluid 2000 cells/uL (< 10 X 10^3)
[2024-10-25 11:05] VITALS: BP 128/82; PULSE 96; RESP 18; O2SAT 94
[2024-10-25 11:20] VITALS: BP 130/82; PULSE 96; RESP 18; O2SAT 96
[2024-10-25 13:59] LABS: Mononuclear WBCs,Body Fluid 97 %; Polynuclear WBC,Body Fluid 3 %
[2024-10-26 15:41] LABS: Albumin, Body Fluid 2.4 g/dL (Not Estab.); LD, Body Fluid 92 IU/L (.)
== END 2024-10-25 11:30 | disposition home or self-care (01) ==
PROVIDERS: PCP Family Medicine; Visit Provider Internal Medicine Pulmonary Disease
DX: R91.8 Other nonspecific abnormal finding of lung field (principal); J90 Pleural effusion, not elsewhere classified
CPT/HCPCS: 32555; 71046; 82042; 83615; 84155; 87070; 88112; 88305; 89051

== ENCOUNTER 2024-10-31 10:19 | Outpatient (CLI) | payer MEDICARE, SELFPAY ==
--- OUTSIDE RECORDS SUMMARY | 2024-10-31 10:24 | XMS_ITS | Clinical Summary ---
Author Organization [facility] Address [address] [place] [address] Care Team Providers Care Cost Estimating Engineer Name Role Phone Josue Jay MD Primary Care Provider [phone] Florencio Escobar MD Unavailable [phone] Allergies Active Allergy Reactions Criticality Noted Date Comments Atorvastatin Other - please docum ent in the comment field,Swelling,Unknown - Patient states they do not know rxn details High 05/26/2012 leg cramps FACE AND MOUTH SWELLING Tolmetin Itching,Swelling,Unk nown - Patient states they do not know rxn details High 05/26/2012 lip swelling lip swelling lip swelling FACE AND MOUTH SWELLING Medications atenolol (Tenormin) 25 MG tablet Take 1 tablet (25 mg) by mouth 1 (one) time each day. 1 Active NexIUM [address] capsule TAKE 1 CAPSULE BY MOUTH TWO TIMES A DAY 1 Active famotidine (Pepcid) 20 MG tablet 1 Active fluticasone (Flonase) 50 MCG/ACT nasal spray 1 Active furosemide (Lasix) 20 MG tablet Take 1 tablet (20 mg) by mouth 1 (one) time each day. 1 Active levothyroxine (Synthroid, Levoxyl) 100 MCG tablet Take 1 tablet (100 mcg) by mouth 1 (one) time each day. 1 Active loratadine (Claritin) 10 MG tablet 1 tab(s) orally once a day Active oxyCODONE-aceta minophen (Percocet) 10-325 MG tablet Take 1 tablet by mouth every 6 (six) hours if needed. 1 Active pravastatin (Pravachol) 40 MG tablet Take 1 tablet (40 mg) by mouth every night. 1 Active promethazine (Phenergan) 25 MG tablet Take 1 tablet (25 mg) by mouth. Active triamcinolone (Kenalog) 0.5 % ointment Apply 1 application topically. Active meclizine (Antivert) 25 MG tablet every 8 (eight) hours. 2 Active diclofenac (Voltaren) 1 % topical gel 3 Active gabapentin (Neurontin) 100 MG capsule 3 Active sulfamethoxazol e-trimethoprim (Bactrim DS) 800-160 MG tablet 3 Active cetirizine (ZyrTEC) 10 MG chewable tablet Chew 1 (one) time each day. Active lidocaine (Lidoderm) 5 % patch 4 Active Active Problems No known active problems Family History Medical History Relation Name Comments Arthritis Father Family history of arthritis Arthritis Mother Family history of arthritis Hypertension Mother Family history of hypertension Pancreatic cancer Other 1 Family his tory of pancreatic cancer Heart disease Other 2 FH: heart dise ase Conversions - Other Other 3 Diagnosi s unknown Relation Name Status Comments Father Mother Other 1 Other 2 Other 3 Social History Tobacco Use Types Packs/Day Years Used Date Smoking Tobacco: Never Smokeless Tobacco: Never Tobacco Cessation:Counseling Given: Not Answered PHQ-2 Answer Date Recorded Patient Health Questionnaire-2 Score 0 11/07/2021 Comments Unknown Sex and Gender Information Value Date Recorded Sex Assigned at Not on file Legal Sex Female 7:52 PM EDT Gender Identity Not on file Sexual Orientation Not on file Last Filed Vital Signs Vital Sign Reading Time Taken Comments Blood Pressure 152/82 11/25/2023 1:49 PM EDT Pulse 61 11/25/2023 1:44 PM EDT Temperature 36.4 C (97.5 F) 11/25/2023 1:44 PM EDT Respiratory Rate 16 11/25/2023 1:44 PM EDT Oxygen Saturation 96% 11/25/2023 1:44 PM EDT Inhaled Oxygen Concentration - - Weight 59.4 kg (130 lb 15.3 oz) 11/25/2023 1:44 PM EDT Height 160 cm (5' 2.99 ) 11/07/2022 9:04 AM EDT Body Mass Index 23.2 11/07/2022 9:04 AM EDT Plan of Treatment Health Maintenance Due Date Last Done Comments [facility]-Bone Density Scan 1940 [facility]-Medicare Annual Wellness (AWV) 1940 [facility]-Infant/Child/Adol SDOH Screenings 1940 [facility]- SDOH Screenings 1956 [facility]-Adult SDOH Screenings 1958 [facility]-Depression Screening 11/07/2022 11/07/2021 [facility]-Zoster Vaccines (2 of 2) 06/16/2023 04/21/2023 [id number] Vaccine ( - season) 2024 07/26/2021, 04/11/2021, 07/26/2020, Additional history exists [facility]-Influenza Vaccine (Season Ended) 2025 03/26/2021, 03/27/2020, 03/09/2018, Additional history exists [facility]-DTaP,Tdap,and Td Vaccines (2 - Td or Tdap) 07/05/2029 07/05/2019 [facility]-Pneumococcal Vaccine: 50+ Years Completed 03/04/2016, 03/14/2013 [facility]-RSV Vaccine: 60+ Years or Completed 04/21/2023 HPV Vaccines Aged Out No longer eligi ble based on patient's age to complete this topic [facility]-HIB Vaccines Aged Out No longer e ligible based on patient's age to complete this topic [facility]-Hepatitis A Vaccines Aged Out No longer eligible based on patient's age to complete this topic [facility]-IPV Vaccines Aged Out No longer e ligible based on patient's age to complete this topic [facility]-Rotavirus Vaccines Aged Out No lo nger eligible based on patient's age to complete this topic [place] [address] [employer] Care Teams Cost Estimating Engineer Relationship Specialty Start Date End Date Josue Jay MD [address] [place] [address] PCP - General 10/05/20 Florencio Escobar MD [address] [id number] Surgeon Cardiothoracic Surgery 03/18/21
--- OUTSIDE RECORDS SUMMARY | 2024-10-31 10:24 | XMS_ITS ---
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 Role Phone Ivana Anaya (Alyx) Unavailable Unavail able Josue Jay Unavailable Unavailable Allergies and adverse reactions Code CodeSystem Substance Reaction Severity StartDate Concern Status Lipitor Unknown 01/06/2023 active Care Team Name Role Address Phone Organization Dates Josue Jay PCP [address] [place] [address], [place], [address], [place] States (Office): [facility] 01/06/2023 - 01/13/2023 Ivana (Alyx) [place], [address], [place] States (Office): : [facility] 01/06/2023 - 01/13/2023 Immunizations Immunization Status Vaccine Details Vaccine Code CodeSystem Date Notes TB 1 Step Mantoux (PPD) completed tuberculin skin test; unspecified formulation lotNumber: [id number] expiry: 02/21/2023 Mfg: [employer]ofi pasteur limited Given 0.1 unit Right Forearm subcutaneously 98 CVX created date: 01/07/2023 consent date: 01/07/2023 administer ed date: 01/07/2023 Educated by rox Mejia RN on 01/07/2023 Right Formarm Prevnar 23 completed pneumococcal polysaccharide vaccine, 23 valent 33 CVX created date: 01/06/2023 administer ed date: 03/14/2013 Previnar 13 completed pneumococcal conjugate vaccine, 13 valent 133 CVX created date: 01/06/2023 administer ed date: 03/04/2016 1st dose Moderna COVID-19 Vaccine completed SARS-COV-2 (COVID-19) vaccine, mRNA, spike protein, LNP, preservative free, 100 mcg/0.5mL dose or 50 mcg/0.25mL dose 207 CVX created date: 01/06/2023 administer ed date: 06/28/2020 2nd dose Moderna COVID-19 Vaccine completed SARS-COV-2 (COVID-19) vaccine, mRNA, spike protein, LNP, preservative free, 100 mcg/0.5mL dose or 50 mcg/0.25mL dose 207 CVX created date: 01/06/2023 administer ed date: 07/26/2021 3rd dose Moderna COVID-19 Vaccine completed SARS-COV-2 (COVID-19) vaccine, mRNA, spike protein, LNP, preservative free, 100 mcg/0.5mL dose or 50 mcg/0.25mL dose 207 CVX created date: 01/06/2023 administer ed date: 04/11/2021 Influenza High Dose completed Influenza, high-dose, split virus, quadrivalent, injectable, preservative free 197 CVX created date: 01/06/2023 administer ed date: 02/25/2022 Mental Status Section Date Assessment Total Score Description 01/13/2023 BIMS 15 cognitively int act CAM 0 No delirium ind icated PHQ-9 00 01/12/2023 BIMS 15 cognitively int act CAM 0 No delirium ind icated PHQ-9 00 Problems Problem # Description Date of onset Resolved Date Code CodeSystem Concern Status 1 ACUTE POSTHEMORRHAGIC ANEMIA 01/07/[address] active 2 AFTERCARE FOLLOWING EXPLANTATION OF HIP JOINT PROSTHESIS 01/07/[address] active 3 AGE-RELATED OSTEOPOROSIS WITH CURRENT PATHOLOGICAL FRACTURE 01/07/[address] active 4 ATHEROSCLEROTIC HEART DISEASE OF [place] CORONARY ARTERY WITHOUT ANGINA PECTORIS 01/07/[address] active 5 ESSENTIAL (PRIMARY) HYPERTENSION 01/07/[address] active 6 GASTRO-ESOPHAGEAL REFLUX DISEASE WITHOUT ESOPHAGITIS 01/07/[address] active 7 HYPERLIPIDEMIA, UNSPECIFIED 01/07/[address] active 8 HYPO-OSMOLALITY AND HYPONATREMIA 01/07/[address] active 9 HYPOTHYROIDISM, UNSPECIFIED 01/07/[address] active 10 MUSCLE WEAKNESS (GENERALIZED) 01/07/[address] active 11 NEED FOR ASSISTANCE WITH PERSONAL CARE 01/07/[address] active 12 OTHER SYMBOLIC DYSFUNCTIONS 01/07/[address] active 13 PAIN IN LEFT HIP 01/07/[address] active 14 RHEUMATOID ARTHRITIS, UNSPECIFIED 01/07/[address] active Reason for Referral No Reasons for Referral Entered Social History Social History Observation Description Start Date End Date Code Code System Current Smoking Status Tobacco smoking consumption unknown 904340634 SNOMED CT Sex Assigned At Female 1940 86004-6 [facility] Gender Identity Vital Signs Code Code System Vitals Name Values and Units Timing Information 9279-1 [facility] Respiratory Rate Value=18.0 Units=/m in 01/13/2023 8462-4 [facility] Blood Pressure-Diastolic Value=58 Un its=mmHg 01/13/2023 8480-6 [facility] Blood Pressure-Systolic Etzjm=087 Un its=mmHg 01/13/2023 8310-5 [facility] Body Temperature Value=97.4 Units= F 01/13/2023 8867-4 [facility] Heart rate Value=82.0 Units=/min 38020-0 [facility] O2 % dC Oximetry Value=97.0 Units= % 01/13/2023 15715-4 [facility] Pain Level Value=8.0 01/13/2023 03856-3 [facility] Weight Fnicz=540.6 Units=Lbs 8302-2 [facility] Height Value=63.0 Units=Inches 01/06/2023
[2024-10-31 11:16] LABS: Lactate Dehydrogenase 178 U/L (313-618)
[2024-10-31 12:09] LABS: Vitamin B12 860 pg/mL (239-931)
[2024-10-31 18:21] LABS: Folate > 20.00 ng/mL
== END 2024-10-31 23:59 | disposition home or self-care (01) ==
LOC: LAB 10:21
PROVIDERS: Internal Medicine Pulmonary Disease; PCP Family Medicine; Visit Provider Specialist
DX: J90 Pleural effusion, not elsewhere classified (principal); R41.3 Other amnesia; C34.90 Malignant neoplasm of unspecified part of unspecified bronchus or lung
CPT/HCPCS: 36415; 82607; 82746; 83615

== ENCOUNTER 2024-11-02 07:58 | Outpatient (CLI) | payer MEDICARE, SELFPAY ==
--- OUTSIDE RECORDS SUMMARY | 2024-07-28 06:00 | XMS_ITS ---
Author Organization [facility] Address [address] [place] [address] Care Team Providers Care Geriatric Nurse Practitioner Name Role Phone Josue Jay Primary Care Provider [phone] REASON FOR VISIT med ck, discharged 07/25/24 Encounters Encounter Location Date Provider Diagnosis [address] [address] 07/28/2024 Josue Jay Plan Of Treatment No Information Progress Notes * Francisca ESPINOZA WDOB: [birth year] (83 yo F)Acc No.[id number]:07/28/2024 HOSP F/U Patient: Francisca WATT Provider: Jen Jay MD :1940 A ge:83 Y S ex:Female Date:07/28/2024 Address:[address] [place], [place] [id number] Subjective: * Chief Complaints: * 1 . Med ck, discharged 07/25/24. * Medical History: Objective: * Vitals: Assessment: Plan: * Treatment: * * Electronic signature of Chele Jay MD FAAP on 11/02/2024 at 08:08 AM EDT Sign off status: Pending * Provider: Jen Jay MD Date: 07/28/2024 Generated for Printi ng/Faxing/eTransmitting on: 11/02/2024 08:08 AM EDT
--- OUTSIDE RECORDS SUMMARY | 2024-08-27 17:30 | XMS_ITS ---
Author Organization [facility] Address [address] [facility] [address] [place] [address] Care Team Providers Care Window And Door Installer Name Role Phone Josue Jay Primary Care Provider [phone] Migration, Provider Unavailable Unavailable Allergies Allergen (clinical drug ingredient) Drug/Non Drug Allergy documented on EMR Reaction Allergy Type Onset Date Status TOLECTIN (uncoded) Unknown Allergy A ctive atorvastatin Lipitor Unknown Drug Allergy Acti ve REASON FOR VISIT [facility] To [facility] Conversion Encounter Medications Medication SIG (Take, Route, Frequency, Duration) Notes Start Date End Date Status B-12 1000 MCG 1 tab(s) orally once a day Active ACIDOPHILUS WITH PECTIN - 1 CAP(S) ORALLY ONCE A DAY 75mg *Please review for potential replacement for e-prescription and drug interaction check* Active Furosemide 20 MG 1 tab(s) orally once a day for 90 days Active Claritin 10 MG 1 tab(s) orally once a day Active oxyCODONE-Acetaminoph en 7.5-325 MG 1 tab(s) orally every 6 hours for 30 days 06/23/2024 Active NexIUM 40 MG TAKE 1 CAPSULE BY MOUTH TWICE DAILY for 90 Active Promethazine HCl 25 MG 1 tab(s) orally every 6 hours for 10 days Active Pepcid 40 MG 1 tab(s) orally twice a day for 90 days Active Pravastatin Sodium 40 MG 1 tab(s) orally once a day for 90 days Active Methocarbamol 500 MG 1 tab orally 2 times a day for 90 days Active Lidocaine 5 % 1 PATCH applied topically once a day for 30 days Active Levothyroxine Sodium 100 MCG 1 tab(s) orally once a day for 90 days Active Meclizine HCl 25 MG 1 tab(s) orally 3 times a day as needed for 7 days Active Flonase Allergy Relief 50 MCG/ACT 1 spray(s) in each nostril once a day for 30 days Active Encounters Encounter Location Date Provider Diagnosis [facility] [address] [place] [address] 08/27/2024 Provider Migration Plan Of Treatment No Information Progress Notes * Francisca ESPINOZA WDOB: [birth year] (83 yo F)Acc No.[id number]:08/27/2024 Patient: Francisca WATT W Provider: Angle salcedo Migration :1940 A ge:83 Y S ex:Female Date:08/27/2024 Address:[address] [place], [place] [phone] Pcp:Josue Jay Subjective: * Chief Complaints: * 1 . Multum To [facility] Conversion Encounter. * Medical History: * Medications: [...] Electronic signature of Prov ider Migration on 11/02/2024 at 08:07 AM EDT Sign off status: Pending * Provider: Angle salcedo Migration Date: 0 08/27/2024 Generated for Gregoria bhatt/Swathi/Alicjaitting on: 0 11/02/2024 08:07 AM EDT
--- OUTSIDE RECORDS SUMMARY | 2024-11-02 08:09 | XMS_ITS | Patient Health Record ---
Author Organization [facility] Address [address] [place] [address] Care Team Providers Care Medicaid Collection Specialist Name Role Phone Josue Jeronimo Primary Care Provider JaclynSharmaine leonardo Unavailable [phone] Sharmaine Holman Unavailable [phone] Migration, Provider Unavailable Unavailable Allergies Allergen (clinical drug ingredient) Drug/Non Drug Allergy documented on EMR Reaction Allergy Type Onset Date Status TOLECTIN (uncoded) Unknown Allergy A ctive atorvastatin Lipitor Unknown Drug Allergy Acti ve Results Component Value Reference Range Notes Urinalysis Reviewed date:12/24/2023 10:17:52 AM Interpretation: Performing Lab: Notes/Report: Color/Clarity cloudy yellow Leuk moderate Nitrite nwg Urobili 0.2 Protein neg pH 5.5 Blood trace-lysed Sp. Gr. 1.010 Ketone neg Bili neg Glucose neg CT CHEST WO CONTRAST Reviewed date:02/15/2024 02:20:21 PM Interpretation: Performing Lab: Notes/Report: [address] [place] [address] Name: GRISELDAPATTIE Exam Date: 02/10/2024 : 1940 Age 83 years Gender: F Physician: JOSUE JERONIMO Facility: [facility] Facility HSV: Outpatient Exam: CT CHEST WO CONTRAST STUDY: CT CHEST WITHOUT IV CONTRAST 02/10/2024 1:29 PM CDT REASON FOR EXAM: Female, 83 years old. . CHEST PAIN Individualized dose optimization techniques were used for this CT. One or more of the following dose-optimizing techniques was utilized for this exam: automated exposure control, adjustment of the mA and/or kV according to patient size, and/or use of iterative reconstruction technique. TECHNIQUE: Transaxial imaging was performed without IV contrast material. COMPARISON: None. FINDINGS: There are degenerative changes of the shoulders. There is no pneumothorax. There is no demonstrated pleural abnormality. 2 mm right lower lobe nodule. Series 4 image 32. Right middle lobe scarring. There are calcifications of the coronary arteries. Normal mediastinum. Normal hilar regions. Normal pulmonary arteries. There is atherosclerotic calcification of the aortic arch with tortuosity and elongation of the aortic arch and descending thoracic aorta. There are multi-level degenerative changes of the thoracic spine. There are no acute findings of the upper abdomen. IMPRESSION: No acute findings. Right solid pulmonary nodule measuring 2 mm. Per Fleischner Society Guidelines, no routine follow-up imaging is recommended. These guidelines do not apply to immunocompromised patients and patients with cancer. Follow up in patients with significant comorbidities as clinically warranted. For lung cancer screening, adhere to Lung-RADS guidelines. Reference: Radiology. 2017; 284(1):228-43. Electronically signed by: Ron Jacob MD 02/10/2024 02:32 PM EDT Dictated By: Ron Jacob Transcribed By: Transcribed On: 02/10/2024 1:52 PM Electronically signed by: Ron Jacob 02/10/2024 Thank you for referring GRISELDA NINI to [facility]. Legally authenticated by ANITA VILLEGAS MD 2024-02-10 13:52:05 ESOPHAGRAM Reviewed date:02/15/2024 02:20:21 PM Interpretation: Performing Lab: Notes/Report: [address] [place] [address] Name: NINI VILLALOBOS Exam Date: 02/10/2024 : 1940 Age 83 years Gender: F Physician: JOSUE JERONIMO Facility: [facility] Facility HSV: Outpatient Exam: ESOPHAGRAM EXAM: ESOPHAGRAM INDICATION: Difficulty swallowing medications. TECHNIQUE: Contrast evaluation of the esophagus was performed using double-contrast technique. Multiple overhead and fluoroscopic spot images were obtained. FLUORO TIME: 133.1 seconds. Reference air kerma: 14.847 mGy. FINDINGS: There is a normal primary stripping wave. Esophageal mucosa is unremarkable. No intrinsic or extrinsic masses, strictures or distention are noted. Small sliding hiatal hernia is identified. Mild gastroesophageal reflux is observed after Valsalva. A 13 mm barium tablet was swallowed with ease in upright position and passed into the stomach without delay. IMPRESSION: 1. Small sliding hiatal hernia. 2. Mild gastroesophageal reflux. Electronically signed by: Mane Oneill MD 02/10/2024 03:32 PM EDT RP Dictated By: Mane Oneill Transcribed By: Transcribed On: 02/10/2024 2:01 PM Electronically signed by: Mane Oneill 02/10/2024 Thank you for referring NINI VILLALOBOS to [facility]. Legally authenticated by VIVEK JACK MD 2024-02-10 14:01:12 VITAMIN B12/FOLATE, SERUM PA ORALIA ([id number]) Reviewed date:12/03/2023 02:42:23 PM Interpretation: Performing Lab:[facility] MD-IT-[facility] [id number], Kang [id number] Donnie Bianchi Notes/Report: NON-FASTING; NON-FASTING; NON-FASTING; NON-FASTING VITAMIN B12 >2000 200-1100 pg/mL FOLATE, SERUM 8.6 Reference Range Low: <3.4 Borderline: 3.4-5.4 Normal: >5.4 CBC (INCLUDES DIFF/PLT) (619 9) Reviewed date:12/03/2023 02:42:23 PM Interpretation: Performing Lab:[facility] [id number], [place] [id number] Donnie Bianchi Notes/Report: NON-FASTING; NON-FASTING; NON-FASTING; NON-FASTING WHITE BLOOD CELL COUNT 5.0 3.8-10.8 Thousand/ uL RED BLOOD CELL COUNT 3.69 3.80-5.10 Million/uL HEMOGLOBIN 12.2 11.7-15.5 g/dL HEMATOCRIT 36.6 35.0-45.0 % MCV 99.2 80.0-100.0 fL MCH 33.1 27.0-33.0 pg MCHC 33.3 32.0-36.0 g/dL RDW 12.2 11.0-15.0 % PLATELET COUNT 171 140-400 Thousand/uL MPV 9.3 7.5-12.5 fL ABSOLUTE NEUTROPHILS 2575 0554-4724 cells/uL ABSOLUTE LYMPHOCYTES 5928 219-1034 cells/uL ABSOLUTE MONOCYTES 400 200-950 cells/uL ABSOLUTE EOSINOPHILS 60 15-500 cells/uL ABSOLUTE BASOPHILS 40 0-200 cells/uL NEUTROPHILS 51.5 LYMPHOCYTES 38.5 MONOCYTES 8.0 EOSINOPHILS 1.2 BASOPHILS 0.8 COMPREHENSIVE METABOLIC PANE (69231) Reviewed date:12/03/2023 02:42:23 PM Interpretation: Performing Lab:CB, [facility] [address], [facility]ON[address] Donnie Bianchi Notes/Report: NON-FASTING; NON-FASTING; NON-FASTING; NON-FASTING GLUCOSE 100 65-99 mg/dL between 100 and 125 mg/dL is consistent with prediabetes and should be confirmed with a follow-up test. Fasting reference interval For someone without known diabetes, a glucose value UREA NITROGEN (BUN) 10 7-25 mg/dL CREATININE 1.01 0.60-0.95 mg/dL EGFR 55 > OR = 60 mL/min/1.73m2 BUN/CREATININE RATIO 10 6-22 (calc) SODIUM 140 135-146 mmol/L POTASSIUM 4.5 3.5-5.3 mmol/L CHLORIDE 103 98-110 mmol/L CARBON DIOXIDE 26 20-32 mmol/L CALCIUM 9.6 8.6-10.4 mg/dL PROTEIN, TOTAL 6.6 6.1-8.1 g/dL ALBUMIN 4.6 3.6-5.1 g/dL GLOBULIN 2.0 1.9-3.7 g/dL (calc) ALBUMIN/GLOBULIN RATIO 2.3 1.0-2.5 (calc) BILIRUBIN, TOTAL 0.3 0.2-1.2 mg/dL ALKALINE PHOSPHATASE 63 37-153 U/L AST 15 10-35 U/L ALT 5 6-29 U/L THYROID PANEL WITH TSH (7444 ) Reviewed date:12/03/2023 02:42:23 PM Interpretation: Performing Lab:[facility], MD-[facility] [id number], EposTiubVE[address] Donnie Bianchi Notes/Report: NON-FASTING; NON-FASTING; NON-FASTING; NON-FASTING T3 UPTAKE 30 22-35 % T4 (THYROXINE), TOTAL 8.5 5.1-11.9 mcg/dL FREE T4 INDEX (T7) 2.6 1.4-3.8 TSH 1.09 0.40-4.50 mIU/L CULTURE, URINE, ROUTINE (395 ) Reviewed date:12/31/2023 10:33:42 AM Interpretation: Performing Lab:[facility] MD-IT-[address], EposPmfrNQ[address] Donnie Bianchi Notes/Report: NON-FASTING CULTURE, URINE, ROUTINE SEE NOTE CULTURE, URINE, ROUTINE Micro Number: [id number] Test Status: Final Specimen Source: Urine Specimen Quality: Adequate Result: Greater than 100,000 CFU/mL of Klebsiella pneumoniae K.pneumoniae INT BRENDA AMOX/CLAVULANATE S <=2 AMP/SULBACTAM S <=2 CEFAZOLIN NR <=4 2 CEFEPIME S <=0.12 CEFTAZIDIME S <=1 CEFTRIAXONE S <=0.25 CIPROFLOXACIN S <=0.06 GENTAMICIN S <=1 IMIPENEM S <=0.25 LEVOFLOXACIN S <=0.12 MEROPENEM S <=0.25 NITROFURANTOIN I 64 PIP/TAZOBACTAM S <=4 TRIMETHOPRIM/SULFA S <=20 S=Susceptible I=Intermediate R=Resistant * = Not Tested NR = Not Reported NN = See Therapy Comments THERAPY COMMENTS Note 1: For infections other than uncomplicated UTI caused by E. coli, K. pneumoniae or P. mirabilis: Cefazolin is resistant if BRENDA > or = 8 mcg/mL. (Distinguishing susceptible versus intermediate for isolates with BRENDA < or = 4 mcg/mL requires additional testing.) Note 2: For uncomplicated UTI caused by E. coli, K. pneumoniae or P. mirabilis: Cefazolin is susceptible if BRENDA <32 mcg/mL and predicts susceptible to the oral agents cefaclor, cefdinir, cefpodoxime, cefprozil, cefuroxime, cephalexin and loracarbef. Medications Medication SIG (Take, Route, Frequency, Duration) Notes Start Date End Date Status Lidocaine 5 % 1 PATCH applied topically once a day for 30 days Active Levothyroxine Sodium 100 MCG 1 tab(s) orally once a day for 90 days Active NexIUM 40 MG TAKE 1 CAPSULE BY MOUTH TWICE DAILY for 90 Active Promethazine HCl 25 MG 1 tab(s) orally every 6 hours for 10 days Active Pepcid 40 MG 1 tab(s) orally twice a day for 90 days Active Pravastatin Sodium 40 MG 1 tab(s) orally once a day for 90 days Active B-12 1000 MCG 1 tab(s) orally once a day Active Methocarbamol 500 MG 1 tab orally 2 times a day for 90 days Active ACIDOPHILUS WITH PECTIN - 1 CAP(S) ORALLY ONCE A DAY 75mg *Please review for potential replacement for e-prescription and drug interaction check* Active Furosemide 20 MG 1 tab(s) orally once a day for 90 days Active Claritin 10 MG 1 tab(s) orally once a day Active oxyCODONE-Acetaminoph en 7.5-325 MG 1 tab(s) orally every 6 hours for 30 days 06/23/2024 Active Meclizine HCl 25 MG 1 tab(s) orally 3 times a day as needed for 7 days Active Flonase Allergy Relief 50 MCG/ACT 1 spray(s) in each nostril once a day for 30 days Active Immunizations Vaccine Route Administration Date Status Comme nts Zostavax (Shingles) SC Subcutaneous 07/27/2015 Administere d pt own supply Tetanus Toxoid Unknown 02/12/2009 Administered SHINGRIX IM Intramuscular 04/21/2023 Administered Prevnar PCV-13 (Pneumococcal conjugate 13) IM Intramuscular 03/04/2016 Administered Pneumovax-23 (pneumococccal vaccine polyvalent)2 years or older Unknown 03/14/2013 Administered Influenza (Fluzone)--Medicare only IM Intramuscular 03/08/2012 Administered Influenza (Fluzone)--Medicare only Unknown 03/03/2013 Administered Influenza (Fluzone)--Medicare only IM Intramuscular 02/21/2014 Administered Influenza (Fluzone)--Medicare only IM Intramuscular 02/26/2015 Administered Influenza (Fluzone)--Medicare only IM Intramuscular 03/04/2016 Administered Influenza (Fluzone)--Medicare only IM Intramuscular 02/26/2017 Administered Fluzone High Dose IM Intramuscular 03/09/2018 Administered Fluzone High Dose IM Intramuscular 03/15/2019 Administered Fluzone High Dose IM Intramuscular 03/27/2020 Administered Fluzone High Dose IM Intramuscular 03/26/2021 Administered Fluzone High Dose IM Intramuscular 02/25/2022 Administered Fluzone High Dose IM Intramuscular 03/16/2023 Administered Fluzone High Dose IM Intramuscular 01/28/2024 Administered Fluvirin--Influenza vaccine 3+ year Unknown 04/04/2009 Administered Fluvirin--Influenza vaccine 3+ year Unknown 03/15/2010 Administered Fluvirin--Influenza vaccine 3+ year Unknown 03/19/2011 Administered Arexvy IM Intramuscular 04/21/2023 Administered Social History Tobacco Use: Social History Observation Description Date Details (start date - stop date) Never Smoker NA - NA Smoking: Question Answer Notes Are you a: nonsmoker Additional Findings: Tobacco Non-User Current no n-smoker Section Notes: , nonsmoker, no alcoh ol use, excellent family support from her 3 children here in [place], multiple grandkids, somewhat limited in her activities because of pain from her lymphoma. , nonsmoker, no alcoh ol use, excellent family support from her 3 children here in [place], multiple grandkids, somewhat limited in her activities because of pain from her lymphoma. , nonsmoker, no alcoh ol use, excellent family support from her 3 children here in [place], multiple grandkids, somewhat limited in her activities because of pain from her lymphoma. , nonsmoker, no alcoh ol use, excellent family support from her 3 children here in [place], multiple grandkids, somewhat limited in her activities because of pain from her lymphoma. , nonsmoker, no alcoh ol use, excellent family support from her 3 children here in [place], multiple grandkids, somewhat limited in her activities because of pain from her lymphoma. , nonsmoker, no alcoh ol use, excellent family support from her 3 children here in [place], multiple grandkids, somewhat limited in her activities because of pain from her lymphoma. , nonsmoker, no alcoh ol use, excellent family support from her 3 children here in [place], multiple grandkids, somewhat limited in her activities because of pain from her lymphoma. , nonsmoker, no alcoh ol use, excellent family support from her 3 children here in [place], multiple grandkids, somewhat limited in her activities because of pain from her lymphoma. , nonsmoker, no alcoh ol use, excellent family support from her 3 children here in [place], multiple grandkids, somewhat limited in her activities because of pain from her lymphoma. , nonsmoker, no alcoh ol use, excellent family support from her 3 children here in [place], multiple grandkids, somewhat limited in her activities because of pain from her lymphoma. , nonsmoker, no alcoh ol use, excellent family support from her 3 children here in [place], multiple grandkids, somewhat limited in her activities because of pain from her lymphoma. , nonsmoker, no alcoh ol use, excellent family support from her 3 children here in [place], multiple grandkids, somewhat limited in her activities because of pain from her lymphoma. , nonsmoker, no alcoh ol use, excellent family support from her 3 children here in [place], multiple grandkids, somewhat limited in her activities because of pain from her lymphoma. , nonsmoker, no alcoh ol use, excellent family support from her 3 children here in [place], multiple grandkids, somewhat limited in her activities because of pain from her lymphoma. , nonsmoker, no alcoh ol use, excellent family support from her 3 children here in [place], multiple grandkids, somewhat limited in her activities because of pain from her lymphoma. , nonsmoker, no alcoh ol use, excellent family support from her 3 children here in [place], multiple grandkids, somewhat limited in her activities because of pain from her lymphoma. , nonsmoker, no alcoh ol use, excellent family support from her 3 children here in [place], multiple grandkids, somewhat limited in her activities because of pain from her lymphoma. , nonsmoker, no alcoh ol use, excellent family support from her 3 children here in [place], multiple grandkids, somewhat limited in her activities because of pain from her lymphoma. , nonsmoker, no alcoh ol use, excellent family support from her 3 children here in [place], multiple grandkids, somewhat limited in her activities because of pain from her lymphoma. , nonsmoker, no alcoh ol use, excellent family support from her 3 children here in [place], multiple grandkids, somewhat limited in her activities because of pain from her lymphoma. , nonsmoker, no alcoh ol use, excellent family support from her 3 children here in [place], multiple grandkids, somewhat limited in her activities because of pain from her lymphoma. , nonsmoker, no alcoh ol use, excellent family support from her 3 children here in [place], multiple grandkids, somewhat limited in her activities because of pain from her lymphoma. , nonsmoker, no alcoh ol use, excellent family support from her 3 children here in [place], multiple grandkids, somewhat limited in her activities because of pain from her lymphoma. , nonsmoker, no alcoh ol use, excellent family support from her 3 children here in [place], multiple grandkids, somewhat limited in her activities because of pain from her lymphoma. , nonsmoker, no alcoh ol use, excellent family support from her 3 children here in [place], multiple grandkids, somewhat limited in her activities because of pain from her lymphoma. , nonsmoker, no alcoh ol use, excellent family support from her 3 children here in [place], multiple grandkids, somewhat limited in her activities because of pain from her lymphoma. , nonsmoker, no alcoh ol use, excellent family support from her 3 children here in [place], multiple grandkids, somewhat limited in her activities because of pain from her lymphoma. , nonsmoker, no alcoh ol use, excellent family support from her 3 children here in [place], multiple grandkids, somewhat limited in her activities because of pain from her lymphoma. , nonsmoker, no alcoh ol use, excellent family support from her 3 children here in [place], multiple grandkids, somewhat limited in her activities because of pain from her lymphoma. , nonsmoker, no alcoh ol use, excellent family support from her 3 children here in [place], multiple grandkids, somewhat limited in her activities because of pain from her lymphoma. , nonsmoker, no alcoh ol use, excellent family support from her 3 children here in [place], multiple grandkids, somewhat limited in her activities because of pain from her lymphoma. , nonsmoker, no alcoh ol use, excellent family support from her 3 children here in [place], multiple grandkids, somewhat limited in her activities because of pain from her lymphoma. , nonsmoker, no alcoh ol use, excellent family support from her 3 children here in [place], multiple grandkids, somewhat limited in her activities because of pain from her lymphoma. , nonsmoker, no alcoh ol use, excellent family support from her 3 children here in [place], multiple grandkids, somewhat limited in her activities because of pain from her lymphoma. , nonsmoker, no alcoh ol use, excellent family support from her 3 children here in [place], multiple grandkids, somewhat limited in her activities because of pain from her lymphoma. , nonsmoker, no alcoh ol use, excellent family support from her 3 children here in [place], multiple grandkids, somewhat limited in her activities because of pain from her lymphoma. , nonsmoker, no alcoh ol use, excellent family support from her 3 children here in [place], multiple grandkids, somewhat limited in her activities because of pain from her lymphoma. , nonsmoker, no alcoh ol use, excellent family support from her 3 children here in [place], multiple grandkids, somewhat limited in her activities because of pain from her lymphoma. , nonsmoker, no alcoh ol use, excellent family support from her 3 children here in [place], multiple grandkids, somewhat limited in her activities because of pain from her lymphoma. , nonsmoker, no alcoh ol use, excellent family support from her 3 children here in [place], multiple grandkids, somewhat limited in her activities because of pain from her lymphoma. , nonsmoker, no alcoh ol use, excellent family support from her 3 children here in [place], multiple grandkids, somewhat limited in her activities because of pain from her lymphoma. 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, unspecified (G60.9) Active confirmed Problem 347447731 Chronic pain syndrome (G89.4) Active confirmed Problem 37745079 Acute maxillary sinusitis, unspecified (J01.00) Active confirmed Problem Localized, secondary osteoarthritis of the shoulder region (415316809) Secondary osteoarthritis, 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) Active confirmed Problem Localized, secondary osteoarthritis of the shoulder region (923997007) Secondary osteoarthritis, left shoulder (M19.212) Active confirmed Problem 02128146 Urge incontinenc e (N39.41) Active confirmed Problem History of musculoskeletal operation (067246449) Aftercare following joint replacement surgery (Z47.1) Active confirmed Problem 377921757 Hypothyroidism (acquired) (E03.9) Active confirmed Problem 394810393 Hyperlipemia, 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 Problem 197624065 Seasonal allergi es (J30.2) Active confirmed Problem 73630330 Restless leg syndrome (G25.81) Active confirmed Problem 80959733 Idiopathic peripheral neuropathy (G60.9) Active confirmed Problem 72229660 Left hip pain (M25.552) Active confirmed Problem 83626195 Other chronic pa in (G89.29) Active confirmed Problem 91509083 Colon polyp (K63.5) Active confirmed Problem Benign essential hypertension (6292483) Benign essential hypertension (I10) Active confirmed Problem 41423991 Constipation, unspecified constipation type (K59.00) Active confirmed Problem 10834834 Memory loss (R41.3) Active confirmed Problem 620977960 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) Active confirmed Problem 188635492 Frequent falls (R29.6) Active confirmed Problem 184464695 Lung nodule (R91.1) Active confirmed Problem 994242842 Iron deficiency anemia due to chronic blood loss (D50.0) Active confirmed Problem 402701894 Status post left hip replacement (Z96.642) Active confirmed Problem 303332759 History of lymphoma (Z85.79) Active confirmed Problem 71629885 Esophagitis, erosive (K22.10) Active confirmed Problem 852064806 Diastolic CHF wi th preserved left ventricular function, NYHA class 2 (I50.30) Active confirmed Problem Accelerated essential hypertension (51540687) Accelerated essential hypertension (I10) Active confirmed Problem 917230077 Primary osteoarthritis of hips, 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) Active confirmed Problem 5435415105119712 Chronic otitis externa of both ears, unspecified type (H60.63) Active confirmed Problem 00513128998053 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) Active confirmed Problem 15426413544401284 Carpal tunnel syndrome, bilateral (G56.03) Active confirmed Problem 7654852 Diastolic dysfunction (I51.89) Active confirmed Problem History of left hip hemiarthroplasty (Z96.642) Active confirmed Problem 610042367 Peripheral edema (R60.0) Active confirmed Vital Signs Heart Rate 78 /min 06/30/2024 Temperature 97.9 degrees Fahrenheit 06/30/2024 Blood pressure diastolic 72 mm Hg 06/30/2024 Height 63 in 06/30/2024 Blood pressure systolic 118 mm Hg 06/30/2024 Weight 126 lbs 06/30/2024 BMI 22.32 kg/m2 06/30/2024 Encounters Encounter Location Date Provider Diagnosis [place] [facility] [address] [place] [address] 08/27/2024 Provider Migration [place] [address] [address] 12/01/2023 Josue Jeronimo Idiopathic periphera l neuropathy G60.9 ; Otalgia of right ear H92.01 ; Frequent falls R29.6 ; Cancer associated pain G89.3 and Peripheral edema R60.[address] [place] [address] [place] [address] 12/24/2023 Sharmaine Hendersonell Dysuria R30.0 and Acute cystitis with hematuria N30.01 [facility] [address] [address] 01/28/2024 Josue Besson Memory loss R41.3 ; History of lymphoma Z85.79 ; Shortness of breath R06.02 ; Immunization(s) administered Z23 and Esophageal dysphagia R13.19 [facility] [address] [address] 03/15/2024 Josue Besson Memory loss R41.3 ; Hypothyroidism (acquired) E03.9 ; Esophagitis, erosive K22.10 ; Cancer associated pain G89.3 ; Idiopathic peripheral neuropathy G60.9 ; Diastolic CHF with preserved left ventricular function, NYHA class 2 I50.30 ; Accelerated essential hypertension I10 ; Routine medical exam Z00.00 and Lung nodule R91.1 [facility] [place] [address] [address] 04/28/2024 Josue Besson Cancer associated pa in G89.3 ; Primary osteoarthritis of hips, bilateral M16.0 ; Diastolic CHF with preserved left ventricular function, NYHA class 2 I50.30 and Memory loss R41.3 [facility] [place] [address] [address] 06/30/2024 Josue Besson Memory loss R41.3 ; Hypothyroidism (acquired) E03.9 and Hyperlipemia, idiopathic familial E78.5 [facility] [address] [id number] 12/04/2023 Josue Besson [facility] [address] [phone] 12/08/2023 Sharmaine Anaya [facility] [address] [address] 01/04/2024 Josue Besson [facility] [address] [phone] 02/04/2024 Josue Besson Memory loss R41.3 [facility] [address] [place] [address] 02/10/2024 Josue Besson [facility] [address] [facility] [address] [place] [address] 02/16/2024 Josue Jeronimo [facility] [address] [place] [address] 03/16/2024 Josue Jeronimo [facility] [address] [place] [phone] 07/26/2024 Josue Jeronimo [facility] [address] [place] [phone] 07/28/2024 Josue Jeronimo Assessments Encounter Date Diagnosis (ICD Code) Assessment Notes Treatment Notes Treatment Clinical Notes Section Notes 12/01/2023 Otalgia of right ear (ICD-10 - H92.01) Ear exam looks normal, use Ciprodex as needed 12/01/2023 Idiopathic peripheral neuropathy (ICD-10 - G60.9) Patient has a history of B12 deficiency, stopped B12 supplementation. Neuropathy symptoms seem to be correlated with B12 deficiency issues. Recheck levels, consider shot therapy if needed. 12/24/2023 Acute cystitis with hematuria (ICD-10 - N30.01) Start antibiotic for presumed UTI based on symptoms/UA results as stated above. Will follow urine culture for growth and anti-microbial sensitivities. Encouraged patient to drink plenty of fluids & stay well hydrated. Discussed return precautions to clinic/ED including fever, vomiting, new worsening abdominal or back pain, or if symptoms do not improve in 1-2 days. Patient voices understanding and is agreeable to the plan of care above. 12/24/2023 Dysuria (ICD-10 - R30.0) 01/28/2024 Memory loss (ICD-10 - R41.3) MoCA testing done by me. . Very interesting results in that visual-spatial and executive functioning things such as clock draw and sequencing are excellent. She did very poorly on recent memory and serial subtraction. Discussed this with her and her son is here today. Will draw dementia labs and see if there are supplements or medicines that might be effective and get together a comprehensive care plan. Please note PSQ 15 is normal and negative for depression 01/28/2024 History of lymphoma (ICD-10 - Z85.79) 02/04/2024 Memory loss (ICD-10 - R41.3) 03/15/2024 Hypothyroidism (acquired) (ICD-10 - E03.9) TSH normal. Clinically euthyroid. No changes in plan 03/15/2024 Memory loss (ICD-10 - R41.3) Discussed with patient normal amyloid ratio testing. Her short-term memory loss seems to be improving and I think it is probably related to her falls, recurrent orthopedic surgery with anesthesia exposure and her ongoing multiple medical problems. She has been blessed with vigorous mental faculties over the years and I think this mild cognitive impairment is just extra frustrating for her. Discussed ways to keep yourself active but that I really did not have any medication to offer. 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 No evidence of problems with constipation or functional status. Patient has been compliant with our office and [place] regulations r.e. meds. No concerns on my part about diversion or misuse. Labs and Kirill reports reviewed and are appropriate. 06/30/2024 Hypothyroidism (acquired) (ICD-10 - E03.9) 06/30/2024 Memory loss (ICD-10 - R41.3) Patient is very angry about the fact that she was charged money for lab draws previously. We can find no record that she actually had these labs drawn. Patient is adamant that I started her on a medication to help her memory. We had a very long discussion about this. She really has not lost any kind of executive functioning and is able to use her telephone, balance her checkbook, etc. I talked about the low likelihood of improvement with medications but she is adamant that one of her friends in [place] took a medication and she was better in a week. I told her that I would consider medication if she would get the amyloid ratio testing done that I have found to be more helpful. She is very concerned about financial issues. We compromised, and I sent her down to the lab to get a cost estimate. She did this and will decide whether or not her Medicare plan will pay to her satisfaction. Will obtain other labs such as TSH etc. Once I get these labs back I will decide whether or not memantine or donepezil might be appropriate for her. She does not seem to understand that these medicines could have side effects which given her overall fragile medical condition might be a problem. 04/28/2024 Diastolic CHF with preserved left ventricular function, NYHA class 2 (ICD-10 - I50.30) Euvolemic. Takes as needed Lasix. 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 She has not been taking Nexium on an empty stomach and I advised her to do this to help with her reflux and esophagitis symptoms 01/28/2024 Shortness of breath (ICD-10 - R06.02) Given shortness of air and history of lymphoma will check CT scan of chest 12/01/2023 Frequent falls (ICD-10 - R29.6) Fall prevention plan in place, she been doing well since hip surgery. 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 Patient is tolerating this well, still has pain. Does not want to go back to higher dose. 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 She seems to be tolerating this well. Still has some osteoarthritis pain. See notes above about possibly reducing. Kirill has been appropriate, no diversion suspicion issues 04/28/2024 Memory loss (ICD-10 - R41.3) Patient is not as concerned about her memory at this point. Seems to be doing well. She did not obtain amyloid ratio testing or dementia panel from [facility] because of the cost issues. 01/28/2024 Esophageal dysphagia (ICD-10 - R13.19) Barium swallow/speech therapy evaluation 12/01/2023 Peripheral edema (ICD-10 - R60.0) Edema bothers patient and causes lots of pain in her legs. Continue daily Lasix. Check electrolytes 03/15/2024 Idiopathic peripheral neuropathy (ICD-10 - G60.9) Stable. Continue to use fall prevention plan in place 03/15/2024 Diastolic CHF with preserved left ventricular function, NYHA class 2 (ICD-10 - I50.30) Clinically euvolemic. No changes in meds 03/15/2024 Accelerated essential hypertension (ICD-10 - I10) Blood pressure under good control 03/15/2024 Routine medical exam (ICD-10 - Z00.00) HRA reviewed. Surrogate decision makers her family. Aged out of cancer screenings. Up-to-date with vaccines as noted. Depression screening negative 03/15/2024 Lung nodule (ICD-10 - R91.1) On CT scan done of chest in January patient had a 2 mm upper lung nodule. Really not able to be biopsied at this point. If she did not have an extensive cancer history I would not pursue at all but given her history and her overall worries about abnormal findings I recommended repeating the scan in 6 months. She is agreeable to this Plan Of Treatment Pending Test Test Name Order Date N-TSH (Thyroid Stimulating Hormone) 02/23 Occupational Therapy : Eval & Treatment 11/05/2009 N-Wound Culture 10/21/2011 H-CPK 06/23/2017 CT Scan : Hip, Left 03/04/2016 C-CBC 04/21/2011 C-CBC 06/15/2018 C-CBC 06/26/2020 C-CBC 11/20/2010 C-Sed Rate (ESR) 06/15/2018 C-CMP 06/26/2020 C-CMP 06/15/2018 C-CMP 04/21/2011 C-CMP 11/20/2010 C-LIPID PANEL 11/20/2010 C-LIPID PANEL 06/15/2018 C-LIPID PANEL 06/26/2020 C-LIPID PANEL 04/21/2011 C-TSH 04/21/2011 C-TSH 06/26/2020 C-TSH 06/15/2018 C-TSH 11/20/2010 C-THYROID PROFILE 11/24/2017 C-THYROID PROFILE 11/23/2018 C-THYROID PROFILE 03/15/2019 CT Scan : Hip, Right 03/04/2016 Comp. Metabolic Panel (14) 11/06/2022 Comp. Metabolic Panel (14) 05/27/2022 TSH 05/27/2022 Urine Culture, Routine 04/30/2020 CBC With Differential/Platelet Ferritin, Serum 05/27/2022 X ray : Chest PA and Lateral 11/06/2022 Lipid Panel 05/27/2022 Magnesium, Serum 05/27/2022 VENIPUNCT, ROUTINE* 07/19/2015 VENIPUNCT, ROUTINE* 10/10/2015 Pulmonary Function Test- Complete 2018 Prothrombin Time (PT) 11/06/2022 MRI : Lumbar Spine with & without 2022 PTT, Activated 11/06/2022 DEMENTIA PANEL, RESTOREU(TM) (40439) 09/2023 DEMENTIA PANEL, RESTOREU(TM) ([id number]) 10/2024 CULTURE, URINE, ROUTINE (395) 11/06/2022 QUEST AD DETECT(TM), BETA AMYLOID 42/40 RATIO, P ([id number]) 01/28/2024 QUEST AD DETECT(TM), BETA AMYLOID 42/40 RATIO, P ([id number]) 06/30/2024 Future Test Test Name Order Date N-Vitamin B 12 level 09/22/2011 Insurance Providers Payer Name Payer Address Payer Phone Subscriber Number Group Number Insured Name Patient Relationship to Insured Coverage Start Date Coverage End Date [place] [address] [place] [place] [address] [id number] Nini Villalobos Self - patient is the insured [facility] [address] [place] [address] [id number] Nini Villalobos Self - patient is the insured Medications Administered Medication Instructions Date of Administration Dosage Notes Ceftriaxone 500 12/03/2012 500 mg Ceftriaxone 500 04/21/2017 500 Dexamethasone 4mg Injection 02/25/2022 4 mg Kenalog 40mg 04/21/2017 40 mg Triamcinolone Acetonide 40mg Injection 12/21/2018 1 mL Triamcinolone Acetonide 40mg Injection 05/26/2019 1 mL Triamcinolone Acetonide 40mg Injection 10/31/2019 2 mL left intra-articular shoulder Triamcinolone Acetonide 40mg Injection 10/31/2019 2 mL right intra-articular Kenalog 12/03/2012 1 Kenalog 02/07/2014 1 Kenalog 03/08/2015 1 Kenalog 05/29/2015 1 mL Medical (General) History Medical History History ICD Code non-Hodgkin's lymphoma-diagn osed March 2006 --- recurrence in 2010 with surgery May 2011 chest pain-negative catheter ization three years ago complicated by femoral artery rupture. GERD colonoscopy 2008, nonspecifi c inflammation - normal in 2011 and in 2020 with minimal tics and normal anastamosis site hyperlipidemia hypertension diverticular disease right lung cancer s/p resection current nonsmoker hiatal hernia normal mammogram in 2015 and november 2018 and december 2019 and DEXA scan in 2019 showing mild osteopenia.. repeat in 2021 Surgical History Surgery Date(Month/Year) breast biopsy hysterectomy cholecystectomy right index finger right lung bowel resection 11/2019 colonoscopy 2020 LEFT hip replacement and subsequent revi rio 12/2022 Hospitalization History Reason Date(Month/Year) CR - rehab 2022 [facility] - LEFT hip replacement 12/2022 pneumonia migraines above
--- OUTSIDE RECORDS SUMMARY | 2024-11-02 08:09 | XMS_ITS | Data Portability ---
Author Organization [facility] in [facility] Address [address] [place] [address] Care Team Providers Care Dredge Engineer Name Role Phone SERENITY PETER Referring Provider Assessment Encounter Date Assessment Date Assessment LastModified by Organization Details LastModified Time 11/10/2022 11/10/2022 HPI: This is an 81-year-old female with left hip and thigh pain She has chronic low back and left hip pain. She was referred by [facility]. 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 Her primary complaint today is left hip and anterior thigh pain to the knee. She denies myelopathy. Denies cauda equina symptoms. She is unaware of when her most recent lumbar MRI was performed. She is reportedly being worked up for left hip replacement. She received what sounds like a greater trochanteric bursa and left intra-articular hip injection from her orthopedic surgeon recently which were not beneficial. Of note, prior to considering our discussion, she was adamant that her PCP said that she cannot have any shots of any kind before her appointment. I had not broached the subject of injection therapy. When inquiring about her pain patterns, she continually interrupted me and was not particularly interested in further work-up either. She is currently using Percocet 10 mg 4 times daily as well as gabapentin 100 mg as needed. Anticoagulants: None PMHx: Spine cancer, GERD, hyperlipidemia, hypothyroidism INJ Hx: Left hip injections, orthopedic surgeon recently PSHx/Surgical Evaluation: No prior back surgery IMAGING: No MRI available to review of lumbar spine Reportedly left hip x-rays demonstrate end-stage degeneration The above image findings were discussed with the patient. Current medications include Percocet and gabapentin. The patient feels that they receive inadequate analgesia and activity improvement with the medication. The patient denies side effects from the medications. UDS not obtained. ORT, PHQ-9 and CHRISTOPH were reviewed today. LEXX report was reviewed today and is appropriate. Based upon the above I would consider the patient to be Low risk. PT The patient completed over six weeks of physical therapy in the past without benefit for their pain ASSESSMENT/PLAN This is an 81-year-old female with left hip and leg pain We had an extensive discussion with her granddaughter present today. Her primary focus was her opioid therapy, she was curious about increasing her dose. Given her current dose of Percocet 10 mg 4 times daily, I told her that I would not recommend further escalating opioid management. I told her that I would be happy to increase her gabapentin, as she has what sounds like some degree of radicular pain in the left anterior thigh. 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 We discussed a lumbar MRI. She continues about the fact that her PCP told her to not have injection therapy and was very fixated on this. I did not recommend injection therapy from my standpoint without further work-up, I simply would recommend an MRI of the lumbar spine if she has not had one recently due to her history of cancer. She declined this. I also offered to increase her gabapentin dose given her radicular symptoms, she also declined this. I am somewhat confused about how I could offer help for her, I told her to contact us if she would like a follow-up to discuss these matters further. Otherwise, no follow-up needed. External records were reviewed and discussed as above, including imaging, clinical notes, and relevant labs. Much of this encounter is an electronic registered nurse midwife/tra nslation of spoken language to printed text. The electronic translation of spoken language may permit erroneous or at times nonsensical words of phrases to be inadvertently transcribed; Although I have reviewed the note for such errors, some may still exist. Not available 11/10/2022 11:01:10 Plan of Treatment Reminders Order Date Submit Date Provider Last Modified By Organization Details Last Modified Time Details Appointments None record ed. Lab None record ed. Referral None record ed. Procedures None record ed. Surgeries None record ed. Imaging None record ed. Medication Orders None record ed. Patient TargetsNo targets recorded. Patient Instructions Encounter Date Encounter Id Patient Instructions Last Modified By Organization Details Last Modified Time 11/10/2022 [id number] advance directives: care instructions [email or web address] Not available 11/10/2022 11:01:45 depression and chronic disease: care [facility] Not available 11/10/2022 11:01:45 safe use of opioid pain medicine: care instructions [facility] Not available 11/10/2022 11:01:45 Reason for Referral None Reported. Problems Name Problem SNOMED Code Status Onset Date Resolution Date Notes Provider Name and Address Organization Details Recorded Time Rheumatoid arthritis 27585605 Active 2022 Lina magallanes Formerly [facility] 3 11:45:24 Pain of hip region 23356392 Active 2022 TELMA Elias [facility] 3 11:45:31 Aortic aneurysm 89511071 Active 2022 TELMA Elias - [facility] 3 11:46:12 Malignant neoplastic disease 379774112 Active 2022 Lina magallanes TELMA [facility] 3 11:48:11 Lumbar radiculopathy 052400705 Active 2022 JOSEFINA BENJAMIN MD [address] [place] [address], [phone] , [place] - [facility] 3 11:01:30 Problem Notes None recorded. Procedures Surgical History Date Name Laterality Status Provider Name and Address Organization Details Recorded Time cardiac catheterization completed Lina Stallworth [place] - [facility] 11/03/2022 11:46:58 Cholecystectomy completed Lina Stallworth [facility] 11/03/2022 11:47:03 Hysterectomy completed Lina Stallworth [facility] 11/03/2022 11:47:10 lobectomy completed Lina Stallworth [facility] 11/03/2022 11:47:15 partial excision of small intestine completed Lina Stallworth [facility] 11/03/2022 11:47:26 Imaging Results None recorded. Procedure Notes None recorded. Medical Equipment None Reported. Allergies Allergen ID Allergen Name Allergen Category Reaction Reaction Severity Criticality Documentation Date Start Date Code Code System Note Provider Name and Address Organization Details Recorded Time 19500827 Lipitor medicatio n Not available Not available Not available 11/10/2022 32237 5 RxNorm TELMA Merino - [facility] 3 08:38:00 Medications Name Sig Start Date Stop Date Status Note LastModified by Organization Details LastModified Time pravastatin 40 mg tablet active Not Available Not Available Not Available atenolol 25 mg tablet active Not Available Not Available No t Available Nexium 40 mg capsule,delay ed release active Not Available Not Available N ot Available sulfamethoxaz ole 800 mg-trimethopr im 160 mg tablet 11/10 completed Not Available Not Available Not Available levothyroxine 100 mcg tablet active Not Available Not Available Not Available amoxicillin 875 mg tablet 11/10 completed Not Available Not Available Not Available famotidine 20 mg tablet active Not Available Not Available No t Available oxycodone-joana taminophen 10 mg-325 mg tablet active Not Available Not Available Not Available meclizine 25 mg tablet Take 1 tablet 3 times a day by oral route. active Not Available Not Available No t Available lidocaine 5 % topical patch active Not Available Not Availabl e Not Available furosemide 20 mg tablet active Not Available Not Available No t Available gabapentin 100 mg capsule active Not Available Not Available Not Available levofloxacin 500 mg tablet 11/10 completed Not Available Not Available Not Available fluticasone propionate 50 mcg/actuation nasal spray,suspens ion active Not Available Not Available Not Available ciprofloxacin 0.3 %-dexamethaso ne 0.1 % ear drops,suspens ion active Not Available Not Available Not Available magnesium active Not Available Not Abbie ilable Not Available promethazine active Not Available Not Available Not Available diclofenac 1 % topical gel active Not Available Not Availabl e Not Available Probiotic active Not Available Not Abbie ilable Not Available Vitals Date Recorded Body weight Body mass index (BMI) Body height Heart rate Oxygen saturation Oxygen saturation in Arterial blood by Pulse oximetry Systolic blood pressure Diastolic blood pressure Provider Name and Address Organization Details Last Updated DateTime 3 65026.1 5 g 24.3 kg/m2 160.02 cm 65 /min 97 % 97 % 123 mm[Hg] 79 mm[Hg] Chetan HOLLIS [facility] 08:41:15 Social History Question Answer Notes LastModified by Organizat ion Details LastModified Time Tobacco Smoking Status Never Smoker TELMA Merino [facility] 11/10/2022 08:57:54 Do You Have An Advance Directive? Yes Information not available 11/10/2022 What Type Of Diet Are You Following? REGULAR Information not available 11/10/2022 What Is The Highest Grade Or Level Of School You Have Completed Or The Highest Degree You Have Received? PL74005-7 Information not available 11/10/2022 What Was The Date Of Your Most Recent Tobacco Screening? 11/10/2022 Information not available 11/10/2022 What Is Your Relationship Status? Information not available 11/10/2022 Sex: Unknown Functional Status Question Answer Note LastModified by Organizat ion Details LastModified Time Do you use any illicit or recreational drugs? No Information not available 11/10/2022 What is your level of alcohol consumption? None Information not available 11/10/2022 Are you currently employed? No Information not available 11/10/2022 What is your exercise level? None Information not available 11/10/2022 Mental Status None recorded. Family History Nothing Reported. Medical History Condition Response Bipolar Disease N Coronary Artery Disease N Seizure Disorder N Gout N Thyroid Disease Y Atrial Fibrillation N Head Trauma/Injury N Hernia N Depression N COPD N Anxiety Disorder N Acid Reflux (GERD) N Cancer Y Stroke N Skin Disorder Y High Cholesterol Y Liver Disease N Rheumatoid Arthritis Y Fibromyalgia N Headaches N Kidney Disease N Autoimmune Disease N Osteoarthritis N Neurosurgery N DVT N Peptic Ulcer Disease N Anemia N Heart Attack ([place]) N Diabetes N Cardiomyopathy N Bleeding Disorder N CHF N AIDS/HIV N Inflammatory Bowel Disease N Dementia N Asthma N Substance Abuse N Sleep Apnea N Hepatitis N Heart Disease N Pulmonary Embolism N Chronic Low Back Pain Y Hypertension N Osteoporosis N Gynecological HistoryNo gynecological history recorded. Obstetrics History GPAL:G 0 P 0 0 0 0 Past Encounters Encounter ID Performer Location Encounter Start Date Encounter Closed Date Diagnosis/Indication Diagnosis SNOMED-CT Code Diagnosis ICD10 Code Diagnosis Note [id number] JOSEFINA BENJAMIN MD [facility] [address] [place] [address] 11/10/2022 08:09:27 11/10/2022 10:09:40 Long-term drug therapy 988414436 Z79.899 Pain of hip region 98038 002 M25.552 Lumbar radiculopathy 128 578936 M54.16 Health Concerns Section Related Observation LastModified by Organization Detai ls LastModified Time None Recorded Concern Status LastModified by Organization Details LastModified Time None Recorded Advance Directives Directive Y: Payers Insurance Date Sequence Insurance Name Policy Number Policy Friend Covered Member ID Friend Member ID Guarantor Name 11/07/2022 1 [place]ARE[place] Francisca Espinoza [id number] Francisca Espinoza 11/07/2022 2 A[employer] (MEDICARE SUPPLEMENT) Francisca Espinoza [id number] Francisca Espinoza Notes Date Note Type Note Provider Name and Address Organization Details Recorded Time 11/10/2022 text/html HipReported bypatient.Locatio n:left; anterior; posterior; deep; groin; anterior thigh; buttocks; posterior thigh Quality:stabbing; sharp; constant Severity:severe; pain level 8/10; worst pain 10/10 Duration:8 weeks Timing:chronic Context:fall; inner ear vertigo Alleviating Factors:nothing helps Aggravating Factors:standing; walking; lifting; carrying; twisting; bending/squatting ; pushing/pulling; ROM; weightbearing; exercise; changing clothes; getting out of bed; going from sit to stand; upstairs; downstairs; morning; daytime; nighttime; cold weather; damp weather Associated Symptoms:no numbness; no tingling; no swelling; no redness; no warmth; no ecchymosis; no catching/locking; no popping/clicking; no buckling; no grinding; no radiation down leg; no drainage; no fever; no weight loss;weakness;ins tability Previous Surgery:none Prior Imaging:MRI ([facility] 10/03/2022) Previous Injections:did not help; intra-articular steroid injection; Possible SI joint injection Previous PT:none MedicationsNeurop athics: (Gabapentin (minimal)); Opioid pain medications: (Oxycodone (minimal)) Work Related:no Working:no JOSEFINA BENJAMIN MD [address] [place] [address], [phone], [facility] 11/10/2022 11:01:48 OBGyn Episode No OBEpisode recorded.
--- OUTSIDE RECORDS SUMMARY | 2024-11-02 08:09 | XMS_ITS ---
Author Organization [facility] Care Team Providers Care Printed Circuit Board Layout Designer Name Role Phone Ivana Anaya (Alyx) Unavailable Unavail able Josue Jay Unavailable Unavailable Allergies and adverse reactions Code CodeSystem Substance Reaction Severity StartDate Concern Status Lipitor Unknown 01/06/2023 active Care Team Name Role Address Phone Organization Dates Josue Jay PCP [address] [place] [address], [place], [address], [place] (Office): [facility] 01/06/2023 - 01/13/2023 Ivana (Alyx) [place], [address], [place] (Office): : [facility] 01/06/2023 - 01/13/2023 Immunizations Immunization Status Vaccine Details Vaccine Code CodeSystem Date Notes TB 1 Step Mantoux (PPD) completed tuberculin skin test; unspecified formulation lotNumber: [id number] expiry: 02/21/2023 Mfg: sanofi pasteur limited Given [...] Concern Status 1 ACUTE POSTHEMORRHAGIC ANEMIA 01/07/[address] active 2 AFTERCARE FOLLOWING EXPLANTATION OF HIP JOINT PROSTHESIS 01/07/[address] active 3 AGE-RELATED OSTEOPOROSIS WITH CURRENT PATHOLOGICAL FRACTURE 01/07/[address] active 4 ATHEROSCLEROTIC HEART DISEASE OF [place] CORONARY ARTERY WITHOUT ANGINA PECTORIS 01/07/[address] active 5 ESSENTIAL (PRIMARY) HYPERTENSION 01/07/[address] active 6 GASTRO-ESOPHAGEAL REFLUX DISEASE WITHOUT ESOPHAGITIS 01/07/[address] active 7 HYPERLIPIDEMIA, UNSPECIFIED 01/07/[address] active 8 HYPO-OSMOLALITY AND HYPONATREMIA 01/07/[address] active 9 HYPOTHYROIDISM, UNSPECIFIED 01/07/[address] active 10 MUSCLE WEAKNESS (GENERALIZED) 01/07/[address] active 11 NEED FOR ASSISTANCE WITH PERSONAL CARE 01/07/[address] active 12 OTHER SYMBOLIC DYSFUNCTIONS 01/07/[address] active 13 PAIN IN LEFT HIP 01/07/[address] active 14 RHEUMATOID ARTHRITIS, UNSPECIFIED 01/07/[address] active Reason for Referral No Reasons for Referral Entered Social History Social History Observation Description Start Date End Date Code Code System Current Smoking Status Tobacco smoking consumption unknown 727112068 SNOMED CT Sex Assigned At Female 1940 [address]28[address]-5 [facility] Gender Identity Vital Signs Code Code System Vitals Name Values and Units Timing Information 9279-1 [facility] Respiratory Rate Value=18.0 Units=/m in 01/13/2023 8462-4 [facility] Blood Pressure-Diastolic Value=58 Un its=mmHg 01/13/2023 8480-6 [facility] Blood Pressure-Systolic Prhtz=166 Un its=mmHg 01/13/2023 8310-5 [facility] Body Temperature Value=97.4 Units= F 01/13/2023 8867-4 [facility] Heart rate Value=82.0 Units=/min 05699-2 [facility] O2 % dC Oximetry Value=97.0 Units= % 01/13/2023 71357-8 [facility] Pain Level Value=8.0 01/13/2023 73206-4 [facility] Weight Vqgzx=556.6 Units=Lbs 8302-2 [facility] Height Value=63.0 Units=Inches 01/06/2023
--- OUTSIDE RECORDS SUMMARY | 2024-11-02 08:09 | XMS_ITS | Clinical Summary ---
Author Organization [facility] Address [address] [place] [address] Care Team Providers Care Outreach Librarian Name Role Phone Josue Jay MD Primary Care Provider [phone] Florencio Escobar MD Unavailable [phone] Allergies Active Allergy Reactions Criticality Noted Date [...] UKY-Zoster Vaccines (2 of 2) 06/16/2023 04/21/2023 [id number] Vaccine ( - season) 2024 07/26/2021, 04/11/2021, [...] age to complete this topic [place] [address] [employer] Care Teams Outreach Librarian Relationship Specialty Start Date End Date Josue Jay MD [address] [place] [address] PCP - General 10/05/20 Florencio Escobar MD [address] [phone] Surgeon Cardiothoracic Surgery 03/18/21
--- NOTE | 2024-11-02 08:45 | CA_ITS ---
APPROVED REPORT EXAM: Comprehensive 2D, Doppler, and color-flow Echocardiogram Skein Drier: Amita Small CRT Ht: 5 ft 6 in Wt: 121lbs BSA: 1.62 BP: 133/77 mmHg Indications: Shortness of Breath, Pleural Effusion 2D Dimensions LA Volume 63.00 mL LA Volume Index 38.20 mL/m2 (M/F) 16-34 M-Mode Dimensions RVDd 3.19 cm (0.9-2.6) LA Diam 3.30 cm (1.9-4.0) LVDd 4.94 cm (3.5-5.7) LVDs 4.19 cm (3.5-5.7) IVSd 0.94 cm (0.6-1.1) PWd 0.81 cm (0.6-1.1) EF (Teich) 32.10% FS 15.20% EDV (Teich) 115.00 mL ESV (Teich) 78.10 mL LV Diastology E Decel Time 107 (160-240 msec) E/A Ratio 2.02 Aortic Valve BETTY Index 1.79 cm2/m2 AoV Peak Rajeev. 193.0 (50-130 cm/s) AI PHT 361.00 ms AO Peak GR. 15.00 mmHg AO Mean GR. 8.60 (<5 mmHg) AO VTI 31.5 (18-25 cm) BETTY (VTI) 2.96 (2.5-4.5 cm2) Mitral Valve MV E Max Rajeev. 103.0 (40-130 cm/s) MV A Velocity 51.0 (40-130 cm/s) E/A Ratio 2.02 MV PHT 31.0 ms Pulmonary Valve PV Peak Velocity 112.0 (50-150 cm/s) Tricuspid Valve TR P. Velocity 344.00 cm/s RAP Estimate 10.00 mmHg RVSP 57.30 mmHg Left Ventricle The left ventricle is normal size. The left ventricular systolic function is severely reduced. There is normal left ventricular wall thickness. There is severe global hypokinesis present. Grade 3 diastolic dysfunction is present. LVEF is 10-15%. Right Ventricle Right ventricle is moderately dilated. Right ventricle is moderately hypokinetic. Atria Left atrium is severely dilated. Right atrium is severely dilated. There is no Doppler evidence of interatrial shunt. Aortic Valve The aortic valve is mildly thickened. There is no aortic valvular stenosis. Mild aortic regurgitation. Mitral Valve The posterior mitral valve leaflet is tethered with restricted motion. No evidence of mitral valve stenosis. Moderate to severe mitral regurgitation. The mechanism of MR is likely functional due to tethering of the posterior MV leaflet (Sadie class IIIB). Tricuspid Valve Tricuspid valve is grossly normal in structure and function. Severe tricuspid regurgitation. RVSP is 50-55 mmHg. Pulmonic Valve The pulmonary valve is normal in structure. Trace pulmonic regurgitation. Great Vessels The aortic root is normal in size. The IVC is normal in size, but collapses < 50% with respirophasic variation. Pericardium There is no pericardial effusion. Other Information Study Quality: Fair Conclusion Severe reduction in LV systolic function (LVEF 10-15%). Grade 3 diastolic dysfunction. Moderate RV dilation with moderate reduction in RV function. Biatrial dilation. Severe TR. Moderate to severe MR (mechanism likely functional due to tethering of posterior MV leaflet [Sadie class IIIB]). Mild AI. Elevated RVSP 50-55 mmHg. In the setting of biventricular reduction in systolic function, early referral to cardiology and GDMT are recommended. Ischemic work-up, as well as cardiac MRI (cardiomyopathy protocol) are suggested, if clinically feasible and indicated. Electronically signed by : Yvonne Lozano MD 11/12/2024 16:21:50
[2024-11-02] MEDS: ALBUTEROL 0.083% 2.5 MG/3 ML NEB IH (09:02)
--- NOTE | 2024-11-02 09:02 | PC.NURSE ---
PFT and 6 Minute Walk Test completed without incident. Albuterol 0.083% given via HHN, per written protocol, Pt tolerated tx well.
== END 2024-11-02 23:59 | disposition home or self-care (01) ==
LOC: RT 07:59
PROVIDERS: PCP Family Medicine; Visit Provider Internal Medicine Pulmonary Disease
DX: I08.3 Combined rheumatic disorders of mitral, aortic and tricuspid valves (principal); J44.9 Chronic obstructive pulmonary disease, unspecified; J90 Pleural effusion, not elsewhere classified; R93.1 Abnormal findings on diagnostic imaging of heart and coronary circulation
CPT/HCPCS: 93306; 94010; 94618; 94727; 94729; 94762

== ENCOUNTER 2024-12-06 08:25 | Day surgery (SDC) | payer MEDICARE, SELFPAY ==
[2024-12-06] VITALS (14 sets, daily range): BP systolic 102–144; BP diastolic 53–76; PULSE 57–98; RESP 15–20; TEMP 36.9; O2SAT 91–99; BMI 18.2
--- NOTE | 2024-12-06 07:11 | IR_ITS ---
APPROVED REPORT Patient Location: Outpatient PROCEDURES Left heart catheterization Left ventriculogram Selective coronary angiogram INDICATION New onset cardiomyopathy ejection fraction 10 to 15% Informed consent was obtained prior to the procedure. COMPLICATIONS NONE Estimated Blood Loss: LESS THAN 10 ML TECHNIQUE One percent lidocaine used to anesthetize the right anterior aspect of the wrist. The right radial artery was accessed via the Seldinger technique. A 6 Guyanese sheath was placed in the right radial artery. 2.5 mg of Verapamil, 800 mcg of nitroglycerin, 1mg Lidocaine and 5000 U Heparin were given through the arterial sheath. The JL3 catheter was also used to perform left heart catheterization, left ventriculogram and selective coronary angiogram. At the end of the procedure the sheath was removed good hemostasis was achieved using Traclet band, patient was transferred to the postop holding area in stable condition. ANGIOGRAPHIC RESULTS The left main artery Normal The left anterior descending artery Normal The circumflex artery Normal The right coronary artery Dominant normal The FOSTER ventriculogram reveals Severely dilated globally hypokinetic ejection fraction 10 to 15% The left ventricular end-diastolic pressure 25 mmHg IMPRESSION Normal coronary arteries Severely reduced ejection fraction with elevated LVEDP PLAN 1. Consider cardiac MRI 2. Consider LifeVest and/or AICD if patient is a candidate 3. Standard therapy for systolic heart failure Electronically signed by : Jose Juan Camilo MD 12/06/2024 12:25:09
[2024-12-06 08:58] LABS: Hematocrit 38.6 % (37.0-47.0); Hemoglobin 12.4 g/dL (12.2-16.2); Immature Granulocytes % 0.2 %; Mean Corpuscular HGB Conc 32.1 g/dL (31.8-35.4); Mean Corpuscular Hemoglobin 29.5 pg (27.0-31.2); Mean Corpuscular Volume 91.9 fl (81-99); Nucleated Red Blood Cells % 0 %; Platelet Count 138 K/mm3 (142-424); Red Blood Count 4.20 M/mm3 (4.20-5.40); Red Cell Distribution Width-SD 48.8 fL; White Blood Count 5.8 K/mm3 (4.8-10.8)
[2024-12-06 09:06] LABS: Anion Gap 18.1 mEq/L (5-15); Blood Urea Nitrogen 13 mg/dl (7-17); Calcium 10.6 mg/dl (8.4-10.2); Carbon Dioxide 26 mmol/L (22.0-30.0); Chloride 100 mmol/L (98-107); Creatinine Clearance Estimated 33 mL/min (50-200); Creatinine,Serum 1.00 mg/dl (0.52-1.04); Estimated Glomerular Filt Rate 53 ml/min (>60); GFR (African American) 64 ML/MIN (>60); Glucose 99 mg/dl (74-100); Potassium 4.1 mmoL/L (3.5-5.1); Sodium 140 mmol/L (136-145)
[2024-12-06] MEDS: HEPARIN 1,000 UNITS/500ML NS (CATH LAB) 3000 UNIT IV (10:24)
[2024-12-06] MEDS: 0.9 % SODIUM CHLORIDE 500 ML 25 ML IV (10:25)
[2024-12-06] MEDS: LIDOCAINE 1% 10ML MDV 10 ML IJ (10:25)
[2024-12-06] MEDS: VERAPAMIL 2.5MG/ML 2ML VIAL 2.5 MG IV (10:25)
[2024-12-06] MEDS: NITROGLYCERIN 800MCG/8ML SYR (CATH LAB) 800 MCG IA (10:25)
[2024-12-06] MEDS: HEPARIN 1,000 UNITS/ML 10ML VIAL (CATH LAB) 5000 UNIT IV (10:25)
[2024-12-06] MEDS: FENTANYL 100MCG/2ML VIAL 50 MCG IV (10:50)
[2024-12-06] MEDS: MIDAZOLAM HCL 1MG/ML 5ML VIAL 1 MG IV (10:50)
[2024-12-06] MEDS: IOPAMIDOL-370 (76%);100ML BOTTLE 50 ML IV (14:20)
== END 2024-12-06 14:37 | disposition home or self-care (01) ==
PROVIDERS: PCP Family Medicine; Visit Provider Internal Medicine
PROC: 4A023N7 Measurement of Cardiac Sampling and Pressure, Left Heart, Percutaneous Approach (ICD-10-PCS; CPT 93452; principal; 2024-12-06 08:45)
DX: I34.0 Nonrheumatic mitral (valve) insufficiency (principal); I07.1 Rheumatic tricuspid insufficiency; R94.31 Abnormal electrocardiogram [ECG] [EKG]; R06.09 Other forms of dyspnea; I11.0 Hypertensive heart disease with heart failure; I50.20 Unspecified systolic (congestive) heart failure; C85.9A Non-Hodgkin lymphoma, unspecified, in remission; Z79.84 Long term (current) use of oral hypoglycemic drugs; Z79.51 Long term (current) use of inhaled steroids; Z79.899 Other long term (current) drug therapy; Z88.8 Allergy status to other drugs, medicaments and biological substances
CPT/HCPCS: 93458; 80048; 85025; 99152; C1725; C1769; J1200; J1644; J2003; J3010; J7040; Q9967

== ENCOUNTER 2025-01-12 06:34 | Outpatient (CLI) | payer MEDICARE, SELFPAY ==
--- OUTSIDE RECORDS SUMMARY | 2024-07-28 06:00 | XMS_ITS ---
Author Organization [facility] Address [address] [place] [address] Care Team Providers Care Outreach Counselor Name Role Phone Josue Jay Primary Care Provider REASON FOR VISIT med ck, discharged 07/25/24 Encounters Encounter Location Date Provider Diagnosis [address] [address] 07/28/2024 Josue Jay Plan Of Treatment No Information Progress Notes * Francisca ESPINOZA WDOB: [birth year] (84 yo F)Acc No.[id number]:07/28/2024 HOSP F/U Patient: Francisca WATT Provider: Jen Jay MD :1940 A ge:83 Y S ex:Female Date:07/28/2024 Address:[address] [place], [place] [id number] Subjective: * Chief Complaints: * 1 . Med ck, discharged 07/25/24. * Medical History: Objective: * Vitals: Assessment: Plan: * Treatment: * * Electronic signature of Chele Jay MD FAAP on 01/12/2025 at 06:36 AM EDT Sign off status: Pending * Provider: Jen Jay MD Date: 07/28/2024 Generated for Printi ng/Faxing/eTransmitting on: 0 01/12/2025 06:36 AM EDT
--- OUTSIDE RECORDS SUMMARY | 2024-08-27 17:30 | XMS_ITS ---
Author Organization [facility] Address [address] [facility] [address] [place] [address] Care Team Providers Care Sort Supervisor Name Role Phone Josue Jay Primary Care Provider [phone] Migration, Provider Unavailable Unavailable Allergies Allergen (clinical drug ingredient) Drug/Non Drug Allergy documented on EMR Reaction Allergy Type Onset Date Status TOLECTIN (uncoded) Unknown Allergy A ctive atorvastatin Lipitor Unknown Drug Allergy Acti ve REASON FOR VISIT [facility] To [facility] Conversion Encounter Medications Medication SIG (Take, Route, Frequency, Duration) Notes Start Date End Date Status B-12 1000 MCG 1 tab(s) orally once a day Active ACIDOPHILUS WITH PECTIN - 1 CAP(S) ORALLY ONCE A DAY 75mg *Please review for potential replacement for e-prescription and drug interaction check* Active Furosemide 20 MG 1 tab(s) orally once a day; Duration: 90 days Active Claritin 10 MG 1 tab(s) orally once a day Active oxyCODONE-Acetaminoph en 7.5-325 MG 1 tab(s) orally every 6 hours; Duration: 30 days 06/23/2024 Active NexIUM 40 MG TAKE 1 CAPSULE BY MOUTH TWICE DAILY; Duration: 90 Active Promethazine HCl 25 MG 1 tab(s) orally every 6 hours; Duration: 10 days Active Pepcid 40 MG 1 tab(s) orally twice a day; Duration: 90 days Active Pravastatin Sodium 40 MG 1 tab(s) orally once a day; Duration: 90 days Active Methocarbamol 500 MG 1 tab orally 2 times a day; Duration: 90 days Active Lidocaine 5 % 1 PATCH applied topically once a day; Duration: 30 days Active Levothyroxine Sodium 100 MCG 1 tab(s) orally once a day; Duration: 90 days Active Meclizine HCl 25 MG 1 tab(s) orally 3 times a day as needed; Duration: 7 days Active Flonase Allergy Relief 50 MCG/ACT 1 spray(s) in each nostril once a day; Duration: 30 days Active Encounters Encounter Location Date Provider Diagnosis [facility] [address] [place] [address] 08/27/2024 Provider Migration Plan Of Treatment No Information Progress Notes * Francisca ESPINOZA WDOB: [birth year] (84 yo F)Acc No.[id number]:08/27/2024 Patient: Francisca WATT Provider: Angle salcedo Migration :1940 A ge:83 Y S ex:Female Date:08/27/2024 Address:[address] [place] [id number] Pcp:Josue Jay Subjective: * Chief Complaints: * 1 . Multum To Medispan Conversion Encounter. * Medical History: * Medications: T aking B-12 1000 MCG Tablet 1 tab(s) orally once a day , Taking ACIDOPHILUS WITH PECTIN - CAPSULE 1 CAP(S) ORALLY ONCE A DAY , Notes to Pharmacist: 75mg *Please review for potential replacement for e-prescription and drug interaction check*, Taking Claritin 10 MG Tablet 1 tab(s) orally once a day , Taking Meclizine HCl 25 MG Tablet 1 tab(s) orally 3 times a day as needed , Taking Flonase Allergy Relief 50 MCG/ACT Suspension 1 spray(s) in each nostril once a day , Taking Lidocaine 5 % Patch 1 PATCH applied topically once a day , Taking Levothyroxine Sodium 100 MCG Tablet 1 tab(s) orally once a day , Taking NexIUM 40 MG Capsule Delayed Release TAKE 1 CAPSULE BY MOUTH TWICE DAILY , Taking Promethazine HCl 25 MG Tablet 1 tab(s) orally every 6 hours , Taking Pepcid 40 MG Tablet 1 tab(s) orally twice a day , Taking Pravastatin Sodium 40 MG Tablet 1 tab(s) orally once a day , Taking Methocarbamol 500 MG Tablet 1 tab orally 2 times a day , Taking Furosemide 20 MG Tablet 1 tab(s) orally once a day , Taking oxyCODONE-Acetaminophen 7.5-325 MG Tablet 1 tab(s) orally every 6 hours * Allergies: T OLECTIN, Lipitor. Objective: * Vitals: Assessment: Plan: * Treatment: * * Electronic signature of Prov ider Migration on 01/12/2025 at 06:36 AM EDT Sign off status: Pending * Provider: Angle salcedo Migration Date: 0 08/27/2024 Generated for Gregoria bhatt/Swathi/Noy on: 0 01/12/2025 06:36 AM EDT
--- OUTSIDE RECORDS SUMMARY | 2025-01-12 06:36 | XMS_ITS | Clinical Summary ---
Author Organization [facility] Address [address] [place] [address] Care Team Providers Care Application Administrator Name Role Phone Josue Jay MD Primary Care Provider [phone] Florencio Escobar MD Unavailable [phone] Allergies Active Allergy Reactions Criticality Noted Date [...] UKY-Zoster Vaccines (2 of 2) 06/16/2023 04/21/2023 [id number] Vaccine (5 - season) 2024 07/26/2021, 04/11/2021, 07/26/2020, Additional history exists UKY-Influenza Vaccine (#1) 01/23/202503/26, 03/27/2020, 03/09/2018, Additional history exists UKY-DTaP,Tdap,and Td [...] age to complete this [place] [address] [employer] Care Teams Application Administrator Relationship Specialty Start Date End Date Josue Jay MD [address] [place] [address] PCP - General 10/05/20 Florencio Escobar MD [address] [phone] Surgeon Cardiothoracic Surgery 03/18/21
--- OUTSIDE RECORDS SUMMARY | 2025-01-12 06:36 | XMS_ITS | Clinical Summary ---
[facility] Address [address] [place] [address] Care Team Providers Care Architect Manager Name Role Phone Josue Jay MD Primary Care Provider + [phone] Allergies Active Allergy Reactions Criticality Noted Date Comments Atorvastatin Calcium Swelling High 10/25/2019 FACE AND MOUTH SWELLING Tolmetin Swelling High 10/25/2019 FACE AND MOUTH SWELLING Medications atenolol (TENORMIN) 25 MG tablet Take 25 mg by mouth Daily. Active esomeprazole (nexIUM) 40 MG capsule Take 40 mg by mouth 2 (Two) Times a Day. Active pravastatin (PRAVACHOL) 40 MG tablet Take 40 mg by mouth Daily. Active levothyroxine (SYNTHROID, LEVOTHROID) 100 MCG tablet Take 100 mcg by mouth Daily. Active albuterol sulfate HFA 108 (90 Base) MCG/ACT inhaler Inhale 2 puffs Every 4 (Four) Hours As Needed for Wheezing. Active fluticasone (FLONASE) 50 MCG/ACT nasal spray 2 sprays into the nostril(s) as directed by provider Daily. Active furosemide (LASIX) 20 MG tablet Take 20 mg by mouth Daily. Active oxyCODONE-aceta minophen (PERCOCET) 10-325 MG per tablet Take 1 tablet by mouth Every 6 (Six) Hours As Needed for Moderate Pain . Active cholecalciferol (VITAMIN D3) 25 MCG (1000 UT) tablet Take 1,000 Units by mouth Daily. Active promethazine (PHENERGAN) 25 MG tablet Take 25 mg by mouth Every 6 (Six) Hours As Needed for Nausea or Vomiting. Active Loratadine 10 MG capsule Take 1 capsule by mouth Daily. Active triamcinolone (KENALOG) 0.5 % ointment Apply 1 application topically to the appropriate area as directed As Needed. Active Phenazopyridine HCl (AZO URINARY PAIN RELIEF PO) Take 1 tablet by mouth 2 (Two) Times a Day As Needed. Active diclofenac (VOLTAREN) 1 % gel gel Apply 4 g topically to the appropriate area as directed 4 (Four) Times a Day As Needed (ARTHRITIS IN SHOULDER). Active famotidine (PEPCID) 20 MG tablet Take 20 mg by mouth 2 (Two) Times a Day. Active hydrocortisone 2.5 % cream Apply 1 application topically to the appropriate area as directed 3 (Three) Times a Day. Active Active Problems Problem Noted Date Diagnosed Date Acute postoperative pain 11/16/2019 Hyperkalemia 11/16/2019 Hypomagnesemia 11/16/2019 Diverticulosis large intesti ne w/o perforation or abscess w/o bleeding 11/15/2019 S/P low anterior resection w ith cystoscopy bilateral temporary ureteral catheter stents inserted 11/15/2019 Hypertension 11/15/2019 Hypothyroid 11/15/2019 Hyperlipidemia 11/15/2019 Elevated hemoglobin A1c 11/15/2019 PONV (postoperative nausea and vomiting) 020 Diverticular stricture 11/02/2019 Overview (11/02/2019): Added automatically from request for surgery [id number] Family History Medical History Relation Name Comments No Known Problems Father No Known Problems Mother Relation Name Status Comments Father Mother Social History Tobacco Use Types Packs/Day Years Used Date Smoking Tobacco: Never Smokeless Tobacco: Never Alcohol Use Standard Drinks/Week Comments Never 0 (1 standard drink = 0.6 oz pur e alcohol) AUDIT-C Answer Date Recorded Q1: How often do you have a drink containing alc ohol? Never 10/25/2019 Average Number of Drinks Not on file 020 Frequency of Binge Drinking Not on file 06/2019 Abuse Screen Answer Date Recorded Unsafe at Home or Work/School Not on file Feels Threatened by Someone? Not on file 01/2023 Does Anyone Keep You from Co ntacting Others or Doint Things Outside the Home? Not on file 03/02/2023 Physical Sign of Abuse Present Not on file 1 Housing Stability Answer Date Recorded Current Living Arrangements Not on file 01/2023 Potentially Unsafe Housing Conditions Not on giselle e 03/02/2023 Family and Community Support Answer Prieto e Recorded Help with Day-to-Day Activities Not on file 03/02/2023 Lonely or Isolated Not on file 03/02/2023 Employment Answer Date Recorded Do you want help finding or keeping work or a rahel b? Not on file 03/02/2023 Disabilities Answer Date Recorded Concentrating, Remembering, or Making Decisions Difficulty Not on file 03/02/2023 Doing Errands Independently Difficulty Not on fi le 03/02/2023 Education Answer Date Recorded Help with school or training? Not on file Preferred Language Not on file 03/02/2023 Comments No Sex and Gender Information Value Date Recorded Sex Assigned at Not on file Legal Sex Female 10:46 AM EDT Gender Identity Not on file Sexual Orientation Not on file Last Filed Vital Signs Vital Sign Reading Time Taken Comments Blood Pressure 144/66 12/20/2019 11:22 AM EDT Pulse 70 12/20/2019 11:22 AM EDT Temperature 36.2 C (97.1 F) 12/20/2019 11:22 AM EDT Respiratory Rate 18 11/17/2019 7:40 AM EDT Oxygen Saturation 98% 12/20/2019 11:22 AM EDT Inhaled Oxygen Concentration - - Weight 60.8 kg (134 lb) 12/20/2019 11:22 AM EDT Height 162.6 cm (5' 4 ) 12/20/2019 11:22 AM EDT Body Mass Index 23 12/20/2019 11:22 AM EDT Plan of Treatment Health Maintenance Due Date Last Done Comments Pneumococcal Vaccine 50+ (1 of 1 - PCV) 1988 ZOSTER VACCINE (1 of 2) 1988 RSV Vaccine - Adults (1 - 1- dose 75+ series) 2013 ANNUAL PHYSICAL 10/20/2019 LIPID PANEL 09/25/2021 09/25/2020, 02/0 07/2020, 03/28/2020, Additional history exists DXA SCAN 01/05/2022 01/06/2020, 03/11/2016 COVID-19 Vaccine (2023-2 5 season) 2024 INFLUENZA VACCINE 02/22/2025 03/27/2020, , 12/27/2019, Additional history exists TDAP/TD VACCINES (2 - Td or Tdap) 07/05/2029 020 Medical Devices Implanted Type Area Metal Base Blocker Device Identifier Shelf Expiration Date Model / Serial / Lot Reload Stplr Sureform 60 Davinci/X/Xi 6row 4.3 Grn 1p/U - [id number] Implanted:Qty : 1 on 11/15/2019 by Kendal Meek MD at [facility] Implant N/A: Ureth[employer] [id number] / / [id number] Reload Stplr Sureform 60 Davinci/X/Xi 6row 4.3 Grn 1p/U - [id number] Implanted:Qty : 1 on 11/15/2019 by Kendal Meek MD at [facility] Implant N/A: Urethra [employer] [id number] / / [id number] Insurance MEDICARE A & B Member Subscriber Plan / Payer (Ef fective 2003-Present) Name:Francisca Espinoza Member ID:[id number] Relation to Subscriber:Self Name:Francisca Espinoza Subscriber ID:[id number] Payer ID:[id number] Group ID:Not on file Type:Not on file Address: [facility] [id number] [address] [employer] OPTIONS Advance Directives * CPR (Attempt to Resuscitate) (Latest Code Status on File) Date Activated Date Inactivated Comments 11/15/2019 11:58 AM 11/17/2019 7:07 PM Question Answer Comments Code Status (Patient has no pulse and is not breathing): CPR (Attempt to Resuscitate) Medical Interventions (Patie nt has pulse or is breathing): Full Care Teams Architect Manager Relationship Specialty Start Date End Date Josue Jay MD [address] [place] [address] [facility] [address] [place] [address] PCP - General Adolescent Medicine 10/25/19
--- OUTSIDE RECORDS SUMMARY | 2025-01-12 06:37 | XMS_ITS | Patient Health Record ---
Author Organization [facility] Address [address] [place] [address] Care Team Providers Care Diagnostic Assistant Name Role Phone Josue Jeronimo Primary Care Provider Migration, Provider Unavailable Unavailable Allergies Allergen (clinical drug ingredient) Drug/Non Drug Allergy documented on EMR Reaction Allergy Type Onset Date Status TOLECTIN (uncoded) Unknown Allergy A ctive atorvastatin Lipitor Unknown Drug Allergy Acti ve Results Component Value Reference Range Notes CT CHEST WO CONTRAST Reviewed date:02/15/2024 02:20:21 PM Interpretation: Performing Lab: Notes/Report: [address] [place] [address] Name: GRISELDAPATTIE Exam Date: 02/10/2024 : 1940 Age 83 years Gender: F Physician: JOSUE JERONIMO Facility: [facility] Facility HSV: Outpatient Exam: CT [...] Ron Jacob MD 02/10/2024 02:32 PM EDT RP Dictated By: Ron Jacob Transcribed By: Transcribed On: 02/10/2024 1:52 PM Electronically signed by: Ron Jacob 02/10/2024 Thank you for referring NINI ESPINOZA to [facility]. Legally authenticated by ANITA VILLEGAS MD 2024-02-10 13:52:05 ESOPHAGRAM Reviewed date:02/15/2024 02:20:21 PM Interpretation: Performing Lab: Notes/Report: [address] [place] [address] Name: NINI ESPINOZA Exam Date: 02/10/2024 : 1940 Age 83 years Gender: F Physician: JOSUE JERONIMO Facility: [facility] Facility HSV: Outpatient Exam: ESOPHAGRAM [...] Oneill 02/10/2024 Thank you for referring NINI ESPINOZA to [facility]. Legally authenticated by VIVEK JACK MD 2024-02-10 14:01:12 Medications Medication SIG (Take, Route, Frequency, Duration) Notes Start Date End Date Status Lidocaine 5 % 1 PATCH applied topically once a day; Duration: 30 days Active Levothyroxine Sodium 100 MCG 1 tab(s) orally once a day; Duration: 90 days Active NexIUM 40 MG TAKE 1 CAPSULE BY MOUTH TWICE DAILY; Duration: 90 Active Promethazine HCl 25 MG 1 tab(s) orally every 6 hours; Duration: 10 days Active Pepcid 40 MG 1 tab(s) orally twice a day; Duration: 90 days Active Pravastatin Sodium 40 MG 1 tab(s) orally once a day; Duration: 90 days Active B-12 1000 MCG 1 tab(s) orally once a day Active Methocarbamol 500 MG 1 tab orally 2 times a day; Duration: 90 days Active ACIDOPHILUS WITH PECTIN - [...] 6 hours; Duration: 30 days 06/23/2024 Active Meclizine HCl 25 MG 1 tab(s) orally 3 times a day as needed; Duration: 7 days Active Flonase Allergy Relief 50 MCG/ACT 1 spray(s) in each nostril once a day; Duration: 30 days Active Immunizations Vaccine Route Administration [...] support from her 3 children here in [place], multiple grandkids, somewhat limited in her activities because of pain from her lymphoma. , nonsmoker, no alcoh ol use, excellent family support from her 3 children here in [place], multiple grandkids, somewhat limited in her activities because of pain from her lymphoma. , nonsmoker, no alcoh ol use, excellent family support from her 3 children here in [place], multiple grandkids, somewhat limited in her activities because of pain from her lymphoma. , nonsmoker, no alcoh ol use, excellent family support from her 3 children here in [place], multiple grandkids, somewhat limited in her activities because of pain from her lymphoma. , nonsmoker, no alcoh ol use, excellent family support from her 3 children here in [place], multiple grandkids, somewhat limited in her activities because of pain from her lymphoma. , nonsmoker, no alcoh ol use, excellent family support from her 3 children here in [place], multiple grandkids, somewhat limited in her activities because of pain from her lymphoma. , nonsmoker, no alcoh ol use, excellent family support from her 3 children here in [place], multiple grandkids, somewhat limited in her activities because of pain from her lymphoma. , nonsmoker, no alcoh ol use, excellent family support from her 3 children here in [place], multiple grandkids, somewhat limited in her activities because of pain from her lymphoma. , nonsmoker, no alcoh ol use, excellent family support from her 3 children here in [place], multiple grandkids, somewhat limited in her activities because of pain from her lymphoma. , nonsmoker, no alcoh ol use, excellent family support from her 3 children here in [place], multiple grandkids, somewhat limited in her activities because of pain from her lymphoma. , nonsmoker, no alcoh ol use, excellent family support from her 3 children here in [place], multiple grandkids, somewhat limited in her activities because of pain from her lymphoma. , nonsmoker, no alcoh ol use, excellent family support from her 3 children here in [place], multiple grandkids, somewhat limited in her activities because of pain from her lymphoma. , nonsmoker, no alcoh ol use, excellent family support from her 3 children here in [place], multiple grandkids, somewhat limited in her activities because of pain from her lymphoma. , nonsmoker, no alcoh ol use, excellent family support from her 3 children here in [place], multiple grandkids, somewhat limited in her activities because of pain from her lymphoma. , nonsmoker, no alcoh ol use, excellent family support from her 3 children here in [place], multiple grandkids, somewhat limited in her activities because of pain from her lymphoma. , nonsmoker, no alcoh ol use, excellent family support from her 3 children here in [place], multiple grandkids, somewhat limited in her activities because of pain from her lymphoma. , nonsmoker, no alcoh ol use, excellent family support from her 3 children here in [place], multiple grandkids, somewhat limited in her activities because of pain from her lymphoma. , nonsmoker, no alcoh ol use, excellent family support from her 3 children here in [place], multiple grandkids, somewhat limited in her activities because of pain from her lymphoma. , nonsmoker, no alcoh ol use, excellent family support from her 3 children here in [place], multiple grandkids, somewhat limited in her activities because of pain from her lymphoma. , nonsmoker, no alcoh ol use, excellent family support from her 3 children here in [place], multiple grandkids, somewhat limited in her activities because of pain from her lymphoma. , nonsmoker, no alcoh ol use, excellent family support from her 3 children here in [place], multiple grandkids, somewhat limited in her activities because of pain from her lymphoma. , nonsmoker, no alcoh ol use, excellent family support from her 3 children here in [place], multiple grandkids, somewhat limited in her activities because of pain from her lymphoma. , nonsmoker, no alcoh ol use, excellent family support from her 3 children here in [place], multiple grandkids, somewhat limited in her activities because of pain from her lymphoma. , nonsmoker, no alcoh ol use, excellent family support from her 3 children here in [place], multiple grandkids, somewhat limited in her activities because of pain from her lymphoma. , nonsmoker, no alcoh ol use, excellent family support from her 3 children here in [place], multiple grandkids, somewhat limited in her activities because of pain from her lymphoma. , nonsmoker, no alcoh ol use, excellent family support from her 3 children here in [place], multiple grandkids, somewhat limited in her activities because of pain from her lymphoma. , nonsmoker, no alcoh ol use, excellent family support from her 3 children here in [place], multiple grandkids, somewhat limited in her activities because of pain from her lymphoma. , nonsmoker, no alcoh ol use, excellent family support from her 3 children here in [place], multiple grandkids, somewhat limited in her activities because of pain from her lymphoma. , nonsmoker, no alcoh ol use, excellent family support from her 3 children here in [place], multiple grandkids, somewhat limited in her activities because of pain from her lymphoma. , nonsmoker, no alcoh ol use, excellent family support from her 3 children here in [place], multiple grandkids, somewhat limited in her activities because of pain from her lymphoma. , nonsmoker, no alcoh ol use, excellent family support from her 3 children here in [place], multiple grandkids, somewhat limited in her activities because of pain from her lymphoma. , nonsmoker, no alcoh ol use, excellent family support from her 3 children here in [place], multiple grandkids, somewhat limited in her activities because of pain from her lymphoma. , nonsmoker, no alcoh ol use, excellent family support from her 3 children here in [place], multiple grandkids, somewhat limited in her activities because of pain from her lymphoma. , nonsmoker, no alcoh ol use, excellent family support from her 3 children here in [place], multiple grandkids, somewhat limited in her activities because of pain from her lymphoma. , nonsmoker, no alcoh ol use, excellent family support from her 3 children here in [place], multiple grandkids, somewhat limited in her activities because of pain from her lymphoma. , nonsmoker, no alcoh ol use, excellent family support from her 3 children here in [place], multiple grandkids, somewhat limited in her activities because of pain from her lymphoma. , nonsmoker, no alcoh ol use, excellent family support from her 3 children here in [place], multiple grandkids, somewhat limited in her activities because of pain from her lymphoma. , nonsmoker, no alcoh ol use, excellent family support from her 3 children here in [place], multiple grandkids, somewhat limited in her activities because of pain from her lymphoma. , nonsmoker, no alcoh ol use , nonsmoker, no alcoh ol use, excellent family support from her 3 children here in [place], multiple grandkids, somewhat limited in her activities because of pain from her lymphoma. , nonsmoker, no alcoh ol use , nonsmoker, no alcoh ol use , nonsmoker, no alcoh ol use, excellent family support from her 3 children here in [place], multiple grandkids, somewhat limited in her activities because of pain from her lymphoma. , nonsmoker, no alcoh ol use, excellent family support from her 3 children here in [place], multiple grandkids, somewhat limited in her activities [...] Problem Status W/U Status Risk Notes Problem Primary insomnia (1725832) Primary insomnia (F51.01) Active confirmed Problem Hereditary disorder of nervous system (178008246) Hereditary and idiopathic neuropathy, unspecified (G60.9) Active confirmed Problem Chronic pain syndrome (627079648) Chronic pain syndrome (G89.4) Active confirmed Problem Acute maxillary sinusitis (68300550) Acute maxillary sinusitis, unspecified (J01.00) Active confirmed Problem Localized, secondary osteoarthritis of the shoulder region (448101608) Secondary osteoarthritis, 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) Active confirmed Problem Localized, secondary osteoarthritis of the shoulder region (745528482) Secondary osteoarthritis, left shoulder (M19.212) Active confirmed Problem Urge incontinence of urine (47399890) Urge incontinence (N39.41) Active confirmed Problem History of musculoskeletal operation (916306427) Aftercare following joint replacement surgery (Z47.1) Active confirmed Problem Hypothyroidism (46515445) Hypothyroidism (acquired) (E03.9) Active confirmed Problem Hyperlipidemia (31421126) Hyperlipemia, 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 Problem Seasonal allergy (565808581) Seasonal allergies (J30.2) Active confirmed Problem Restless legs syndrome (36335926) Restless leg syndrome (G25.81) Active confirmed Problem Idiopathic peripheral neuropathy (26597008) Idiopathic peripheral neuropathy (G60.9) Active confirmed Problem Arthralgia of the pelvic region and thigh (029919727) Left hip pain (M25.552) Active confirmed Problem Chronic pain (90133126) Other chronic pain (G89.29) Active confirmed Problem Polyp colon (67055982) Colon polyp (K63.5) Active confirmed Problem Benign essential hypertension (9328466) Benign essential hypertension (I10) Active confirmed Problem Constipation (12762081) Constipation, unspecified constipation type (K59.00) Active confirmed Problem Memory loss (25286458) Memory loss (R41.3) Active confirmed Problem Atherosclerotic heart disease of [place] coronary artery without angina pectoris (539844004003034) Coronary artery disease involving ass[place]ibo[place] and sioux coronary artery of assinibo[place] and sioux heart without angina pectoris (I25.10) Active confirmed Problem Recurrent falls (800576243) Frequent falls (R29.6) Active confirmed Problem Solitary nodule of lung (927932329) Lung nodule (R91.1) Active confirmed Problem Iron deficiency anemia due to chronic blood loss (000261343) Iron deficiency anemia due to chronic blood loss (D50.0) Active confirmed Problem History of prosthetic arthroplasty of left hip (9378884697582637) Status post left hip replacement (Z96.642) Active confirmed Problem History of lymphoma (257095242) History of lymphoma (Z85.79) Active confirmed Problem Ulcer of esophagus (22620849) Esophagitis, erosive (K22.10) Active confirmed Problem Left ventricular diastolic dysfunction (205302843) Diastolic CHF with preserved left ventricular function, NYHA class 2 (I50.30) Active confirmed Problem Accelerated essential hypertension (49835215) Accelerated essential hypertension (I10) Active confirmed Problem Localized, primary osteoarthritis of the pelvic region and thigh (398635243) Primary osteoarthritis of hips, 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) Active confirmed Problem Chronic otitis externa (78843909) Chronic otitis externa of both ears, unspecified type (H60.63) Active confirmed Problem Pain due to neoplastic disease (45360848774190) 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) Active confirmed Problem Carpal tunnel syndrome (92299772) Carpal tunnel syndrome, bilateral (G56.03) Active confirmed Problem Diastolic dysfunction (2135209) Diastolic dysfunction (I51.89) Active confirmed Problem History of left hip hemiarthroplasty (Z96.642) Active confirmed Problem Peripheral edema (47245268) Peripheral edema (R60.0) Active confirmed Vital Signs Heart Rate 78 /min 06/30/2024 Temperature 97.9 degrees Fahrenheit 06/30/2024 Blood pressure diastolic 72 mm Hg 06/30/2024 Height 63 in 06/30/2024 Blood pressure systolic 118 mm Hg 06/30/2024 Weight 126 lbs 06/30/2024 BMI 22.32 kg/m2 06/30/2024 Encounters Encounter Location Date Provider Diagnosis [facility] [address] [facility] [address] [place] [address] 08/27/2024 Provider Migration [address] [address] 01/28/2024 Josue Jeronimo Memory loss R41.3 ; History of lymphoma Z85.79 ; Shortness of breath R06.02 ; Immunization(s) administered Z23 and Esophageal dysphagia R13.[address] [address] 03/15/2024 Josue Jeronimo Memory loss R41.3 ; Hypothyroidism (acquired) E03.9 ; Esophagitis, erosive K22.10 ; Cancer associated pain G89.3 ; Idiopathic peripheral neuropathy G60.9 ; Diastolic CHF with preserved left ventricular function, NYHA class 2 I50.30 ; Accelerated essential hypertension I10 ; Routine medical exam Z00.00 and Lung nodule R91.[address] [address] 04/28/2024 Josueshant Jeronimo Cancer associated pa in G89.3 ; Primary osteoarthritis of hips, bilateral M16.0 ; Diastolic CHF with preserved left ventricular function, NYHA class 2 I50.30 and Memory loss R41.[address] [address] 06/30/2024 Josue Jeronimo Memory loss R41.3 ; Hypothyroidism (acquired) E03.9 and Hyperlipemia, idiopathic familial E78.5 [facility] [address] [address] 02/04/2024 Josue Jeronimo Memory loss R41.3 [facility] [address] [place] [address] 02/10/2024 Josue Besson [facility] [address] [place] [address] 02/16/2024 Josue Besson [facility] [address] [place] [address] 03/16/2024 Josue Besson [facility] [address] [place] [address] 07/26/2024 Josue Faulknerson [facility] [address] [facility] [address] [place] [address] 07/28/2024 Josue Jeronimo Assessments Encounter Date Diagnosis (ICD Code) Assessment Notes Treatment Notes Treatment Clinical Notes Section Notes 06/30/2024 Hypothyroidism (acquired) (ICD-10 - E03.9) 06/30/2024 [...] adamant that one of her friends in [place] took a medication and she was better [...] medical condition might be a problem. 04/28/2024 Primary osteoarthritis of hips, bilateral (ICD-10 - M16.0) Osteoarthritic pain. 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 No evidence of problems with constipation or functional status. Patient has been compliant with our office and [place] regulations r.e. meds. No concerns on my part about diversion or misuse. Labs and Kirill reports reviewed and are appropriate. 03/15/2024 Hypothyroidism (acquired) (ICD-10 - E03.9) TSH [...] near future that certainly would be reasonable 02/04/2024 Memory loss (ICD-10 - R41.3) 01/28/2024 Memory loss (ICD-10 - R41.3) MoCA [...] 01/28/2024 History of lymphoma (ICD-10 - Z85.79) 01/28/2024 Shortness of breath (ICD-10 - R06.02) Given shortness of air and history of lymphoma will check CT scan of chest 03/15/2024 Esophagitis, erosive (ICD-10 - K22.10) Feels better with the addition of twice daily famotidine. She has not been taking Nexium on an empty stomach and I advised her to do this to help with her reflux and esophagitis symptoms 04/28/2024 Diastolic CHF with preserved left ventricular function, NYHA class 2 (ICD-10 - I50.30) Euvolemic. Takes as needed Lasix. Blood pressure under good control 06/30/2024 Hyperlipemia, idiopathic familial (ICD-10 - E78.5) 04/28/2024 Memory loss (ICD-10 - R41.3) Patient is not as concerned about her memory at this point. Seems to be doing well. She did not obtain amyloid ratio testing or dementia panel from [facility] because of the cost issues. 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 She seems to be tolerating this well. Still has some osteoarthritis pain. See notes above about possibly reducing. Kirill has been appropriate, no diversion suspicion issues 01/28/2024 Esophageal dysphagia (ICD-10 - R13.19) Barium swallow/speech therapy evaluation 03/15/2024 Idiopathic peripheral neuropathy (ICD-10 - G60.9) [...] CT Scan : Hip, Left 03/04/2016 C-CBC 06/26/2020 C-CBC 06/15/2018 C-CBC 04/21/2011 C-CBC 11/20/2010 C-Sed Rate (ESR) 06/15/2018 C-CMP 06/15/2018 C-CMP 06/26/2020 C-CMP 04/21/2011 C-CMP 11/20/2010 C-LIPID PANEL 04/21/2011 C-LIPID PANEL 06/26/2020 C-LIPID PANEL 06/15/2018 C-LIPID PANEL 11/20/2010 C-TSH 11/20/2010 C-TSH 06/15/2018 C-TSH 06/26/2020 C-TSH 04/21/2011 C-THYROID PROFILE 03/15/2019 C-THYROID PROFILE 11/23/2018 C-THYROID PROFILE 11/24/2017 CT Scan : Hip, Right 03/04/2016 Comp. Metabolic Panel (14) 11/06/2022 Comp. Metabolic Panel (14) 05/27/2022 TSH 05/27/2022 Urine Culture, Routine 04/30/2020 CBC With Differential/Platelet Ferritin, Serum 05/27/2022 X ray : Chest PA and Lateral 11/06/2022 Lipid Panel 05/27/2022 Magnesium, Serum 05/27/2022 VENIPUNCT, ROUTINE* 10/10/2015 VENIPUNCT, ROUTINE* 07/19/2015 Pulmonary Function Test- Complete 2018 Prothrombin Time (PT) 11/06/2022 MRI : Lumbar Spine with & without 2022 PTT, Activated 11/06/2022 DEMENTIA PANEL, RESTOREU(TM) (74693) 10/2024 DEMENTIA PANEL, RESTOREU(TM) (65932) 09/2023 CULTURE, URINE, ROUTINE (395) 11/06/2022 QUEST AD DETECT(TM), BETA AMYLOID 42/40 RATIO, P (56044) 06/30/2024 QUEST AD DETECT(TM), BETA AMYLOID 42/40 RATIO, P (50913) 01/28/2024 Future Test Test Name Order Date N-Vitamin B 12 level 09/22/2011 Insurance Providers Payer Name Payer Address Payer Phone Subscriber Number Group Number Insured Name Patient Relationship to Insured Coverage Start Date Coverage End Date [place] [address] [place] [phone] [id number] Nini Espinoza Self - patient is the insured [facility] [address] [place] [address] [id number] Nini Espinoza Self - patient is the insured Medications [...]
--- NOTE | 2025-01-12 07:00 | CT_ITS ---
FINAL REPORT TECHNIQUE: Axial imaging of the chest was obtained without contrast. Reformatted images were also obtained and reviewed.This study was performed with techniques to keep radiation doses as low as reasonably achievable, (ALARA). Individualized dose reduction technique using automated exposure control or adjustment of mA and/or kV according to the patient's size were employed. CLINICAL HISTORY: sob COMPARISON: 10/11/2024 FINDINGS: Moderate calcification is seen in the aortic arch. There is no axillary adenopathy. There is no hilar or mediastinal mass or adenopathy. Heart size is normal. There is no pericardial or pleural effusion. Limited images of the upper abdomen are unremarkable. Previously seen pleural-based mass in the anterior right upper lobe is not visualized. There is now minimal parenchymal scarring in this location. There is also scarring in the right middle lobe. Lungs are otherwise clear. IMPRESSION: Previously seen pleural-based mass in the anterior right upper lobe no longer identified. Reviewed, Interpreted and Dictated by Lamont Menjivar MD Transcribed by Lucretia Quan Authenticated and [facility]
[2025-01-12 09:58] LABS: Hematocrit 34.9 % (37.0-47.0); Hemoglobin 11.2 g/dL (12.2-16.2); Immature Granulocytes % 0.3 %; Mean Corpuscular HGB Conc 32.1 g/dL (31.8-35.4); Mean Corpuscular Hemoglobin 29.6 pg (27.0-31.2); Mean Corpuscular Volume 92.1 fl (81-99); Nucleated Red Blood Cells % 0 %; Platelet Count 148 K/mm3 (142-424); Red Blood Count 3.79 M/mm3 (4.20-5.40); Red Cell Distribution Width-SD 54.4 fL; White Blood Count 5.8 K/mm3 (4.8-10.8)
[2025-01-12 10:41] LABS: Alanine Aminotransferase 10 U/L (12-78); Albumin Level 4.5 g/dl (3.5-5.0); Alkaline Phosphatase 73 U/L (38-126); Anion Gap 12.7 mEq/L (5-15); Aspartate Amino Transferase 24 U/L (14-36); Bilirubin,Direct 0.2 mg/dl (0.0-0.4); Bilirubin,Indirect 0.2 mg/dL (0.0-0.9); Bilirubin,Total 0.4 mg/dl (0.2-1.3); Bilirubin,Unconjugated 0.2 mg/dL (0.0-1.1); Blood Urea Nitrogen 15 mg/dl (7-17); Calcium 9.5 mg/dl (8.4-10.2); Carbon Dioxide 26 mmol/L (22.0-30.0); Chloride 104 mmol/L (98-107); Cholesterol 155 mg/dl (140-200); Creatinine,Serum 1.00 mg/dl (0.52-1.04); Estimated Glomerular Filt Rate 53 ml/min (>60); GFR (African American) 64 ML/MIN (>60); Glucose 84 mg/dl (74-100); HDL Cholesterol 80 mg/dl (40-60); Magnesium 1.9 mg/dl (1.6-2.3); Potassium 4.7 mmoL/L (3.5-5.1); Sodium 138 mmol/L (136-145); Total Protein,Serum 6.5 g/dl (6.3-8.2); Triglycerides 102 mg/dl (30-150)
[2025-01-12 10:58] LABS: Free T4 (Free Thyroxine) 0.91 ng/dl (0.78-2.19)
[2025-01-12 11:12] LABS: Thyroid Stimulating Hormone 5.47 uIU/mL (0.465-4.68)
== END 2025-01-12 23:59 | disposition home or self-care (01) ==
LOC: RAD 06:35 → LAB 09:25
PROVIDERS: PCP Family Medicine; Visit Provider Physician Assistant
DX: E78.5 Hyperlipidemia, unspecified (principal); R91.1 Solitary pulmonary nodule; R06.02 Shortness of breath
CPT/HCPCS: 36415; 71250; 80048; 80061; 80076; 83735; 84439; 84443; 85025

== ENCOUNTER 2025-03-01 14:32 | Outpatient (CLI) | payer MEDICARE, SELFPAY ==
--- NOTE | 2025-03-01 15:15 | CA_ITS ---
APPROVED REPORT EXAM: Limited 2D Echocardiogram Director Of Acquisitions: Brynn Vasquez RVT Ht: 5 ft 6 in Wt: 121lbs BSA: 1.62 BP: 130/70 mmHg Indications: HFrEF,LIFEVEST IN PLACE 2D Dimensions IVSd 0.23 cm F: 0.6-1.0 GL Strain -5.6 % PWd 0.48 cm F: 0.6 - 1.0 LVDd 5.34 cm F: 3.9 - 5.3 LVDs 4.81 cm F: 2.2 - 3.5 M-Mode Dimensions LVDd 5.37 cm (3.5-5.7) LVDs 5.09 cm (3.5-5.7) IVSd 0.53 cm (0.6-1.1) PWd 0.68 cm (0.6-1.1) EF (Teich) 11.70% FS 5.20% EDV (Teich) 139.50 mL ESV (Teich) 123.20 mL Other Information Study Quality: Fair Conclusion This is a limited TTE to evaluate for LV systolic function. Limited windows are obtained. The left ventricle is normal in size. There is normal LV wall thickness. There is severe global hypokinesis present. LVEF is 10-15%. Compared to prior TTE from 11/02/2024, the LV systolic function is unchanged. Electronically signed by : Yvonne Lozano MD 03/01/2025 22:42:24
== END 2025-03-01 23:59 | disposition home or self-care (01) ==
LOC: RT 14:32
PROVIDERS: PCP Family Medicine; Visit Provider Physician Assistant
DX: I50.20 Unspecified systolic (congestive) heart failure (principal); I08.1 Rheumatic disorders of both mitral and tricuspid valves; I20.89 Other forms of angina pectoris; R94.31 Abnormal electrocardiogram [ECG] [EKG]; R93.1 Abnormal findings on diagnostic imaging of heart and coronary circulation
CPT/HCPCS: 93308

== ENCOUNTER 2025-03-15 09:27 | Day surgery (SDC) | payer MEDICARE, SELFPAY ==
[2025-03-15] VITALS (8 sets, daily range): BP systolic 117–126; BP diastolic 63–77; PULSE 87–108; RESP 18–20; TEMP 37; O2SAT 94–99; BMI 19.8
--- NOTE | 2025-03-15 07:16 | IR_ITS ---
APPROVED REPORT Patient Location: Outpatient PROCEDURES 1. Pocket formation for AICD. 2. Placement of atrial sensing and pacing coil into the right atrial appendage. 3. Placement of a ventricular sensing, pacing and shocking coil in the right ventricular apex. 4. Permanent AICD placement. 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 COMPLICATIONS NONE Estimated Blood Loss: LESS THAN 10 ML TECHNIQUE 1% Lidocaine with epinephrine used to anesthetized the left anterior aspect of the chest. Scalpel was used to make the initial cutaneous incision while electrocautery was used to dissect down tinto the fascia. The fascia was lifted off the pectoralis muscle and digitally manipulated creating a pocket for the defibrillator. The patient was then placed in Trendelenburg position and the subclavian vein was accessed 2 times via the Selinger technique. A 8 Bahraini sheath was placed under fluoroscopic guidance into the subclavian vein. The dilator was removed from the sheath. Using fluoroscopic guidance, the ventricular lead was placed into the right ventricular apex, screwed and secured into place. Electronic interrogation proved acceptable thresholds and voltage within the lead. Using 3-0 silk, the ventricular lead was then secured into place and sheath peeled away. A 6 Bahraini fresh sheath and dilator was placed over the existing wire. Using fluoroscopic guidance, the atrial lead was then placed into the right atrial appendage and screwed and secured in place. Electrical interrogation demonstrated acceptable thresholds and voltage number. The atrial lead was then secured into place using 3-0 silk and sheath peeled away. 1 gram of Ancef was used to flush the pocket. All 3 leads were connected to generator and tested via computer. The defibrillator then secured to the fascia. Monocryl was used to close the subcutaneous layers while jeanine were used to close the cutaneous layer. A pressure dressing was placed and the patient was transferred to the postop holding area in stable condition for postoperative care. INTERROGATION Generator Model number: [id number] Generator Serial number: [id number] Atrial lead model number: [id number] Atrial lead serial number: [id number] P-wave: 1.0V@0.5ms Impedance: 420ohms Threshold: 1V@27ohms Right Ventricular lead model number: [id number] Right Ventricular lead serial number: [id number] R-wave: 1.0V@0.5ms Impedance: 360ohms Pacing Parameters: Mode: DDDR Base/Max Track:60 ppm / 130 ppm No diaphragmatic stimulation at 10 volts. IMPRESSION 1. Successful pocket formation for AICD. 2. Successful placement of atrial sensing and pacing coil into the right atrial appendage. 3. Successful placement of a ventricular sensing, pacing and shocking coil in the right ventricular apex. 4. Successful permanent AICD placement. PLAN 1. Postop wound care. Electronically signed by : Jose Juan Camilo MD 03/17/2025 14:34:31
[2025-03-15 09:44] LABS: Hematocrit 34.0 % (37.0-47.0); Hemoglobin 10.6 g/dL (12.2-16.2); Immature Granulocytes % 0.2 %; Mean Corpuscular HGB Conc 31.2 g/dL (31.8-35.4); Mean Corpuscular Hemoglobin 30.5 pg (27.0-31.2); Mean Corpuscular Volume 97.7 fl (81-99); Nucleated Red Blood Cells % 0 %; Platelet Count 158 K/mm3 (142-424); Red Blood Count 3.48 M/mm3 (4.20-5.40); Red Cell Distribution Width-SD 51.6 fL; White Blood Count 6.0 K/mm3 (4.8-10.8)
[2025-03-15 09:49] LABS: Chloride 101 mmol/L (98-107); Sodium 141 mmol/L (136-145)
[2025-03-15 09:50] LABS: Potassium 3.5 mmoL/L (3.5-5.1)
[2025-03-15 09:52] LABS: Blood Urea Nitrogen 10 mg/dl (7-17); Creatinine Clearance Estimated 36 mL/min (50-200); Creatinine,Serum 1.00 mg/dl (0.52-1.04); Estimated Glomerular Filt Rate 53 ml/min (>60); GFR (African American) 64 ML/MIN (>60)
[2025-03-15 09:53] LABS: Anion Gap 11.5 mEq/L (5-15); Calcium 8.7 mg/dl (8.4-10.2); Carbon Dioxide 32 mmol/L (22.0-30.0); Glucose 110 mg/dl (74-100)
--- NOTE | 2025-03-15 12:58 | P.PNANES_ITS ---
[facility] Disclaimer: The information contained in this section may have been updated after the patient was seen, as this information can be updated by other users. Medical History Other cardiomyopathies Atypical angina Abnormal ECG Severe tricuspid regurgitation Moderate to severe mitral regurgitation HFrEF (heart failure with reduced ejection fraction) Non-Hodgkin lymphoma NHL (nodular histiocytic lymphoma) Asthma History of rheumatoid arthritis Lung nodule Dyspnea on exertion Pleural effusion, right Pneumonia Physical deconditioning Sepsis Influenza due to influenza virus, type A, human Muscle cramps Cystitis Otitis externa of right ear Non-Hodgkin lymphoma in remission Cognitive change Lung cancer Fall Heart murmur Hyperlipidemia Hypothyroidism Hypertension Stress incontinence in female Surgical History History of hip replacement, total History of lung surgery History of hysterectomy History of cholecystectomy Hx of cardiac cath History of bowel resection Family History Other No significant family history Social History Smoking Status: Never smoker alcohol intake: never substance use type: denies use current occupational status: retired Travel in the last 8 weeks?: None household members: none housing: house lives independently: Yes marital status: number of children: 3 chcf: No Hx Recent Travel: No sexually active: No well-balanced diet: daily or most days physical activity: walking Have you lived/traveled outside US in past 30 days?: No Contact w/someone who lives/traveled outside US past 30 days?: No Exposure to someone with infectious disease in past 14 days?: No Do you have a fever (greater than 100.4 F or 38 C)?: No Have you tested positive for COVID-19?: No Exposed to someone with COVID-19 in past 14 days?: No Do you have a sore throat?: No Do you have a cough?: No Do you have any weakness?: No Do you have any diarrhea?: No Are you experiencing any unusual bleeding?: No Do you have any muscle aches/pain?: No Do you have any abdominal pain?: No Are you experiencing loss of taste or smell?: No [facility] Anesthesia Checklist Patient Identification Patient Identification: Arm Band and Verbal (Name & ) Structural Data Admitted From: Home Planned Operative Procedure/s: pacemaker Consent for Planned Operative Procedure(s) Verified: Yes Verified Documents: Surgical Consent and History and Physical NPO Status Verified Time NPO: 00:00 Additional verifications Anesthesia Reactions: No Hx Blood Transfusions: No Blood Transfusion Reaction: No Airway Assessment Mallampati Score:: Class II Dentition: Edentulous Neurological Assessment Level of Consciousness: Awake, Alert and Appropriate Hx Seizures: No Numbness or tingling in extremities: No Anesthesia Plan Anesthesia Risk discussed: Yes Anesthesia Plan: Verified ASA Class: III Anesthesia Type: MAC
[2025-03-15] MEDS: LIDOCAINE 1% W/EPI 1:100,000 20ML VIAL 20 ML SQ (14:18)
--- NOTE | 2025-03-15 15:26 | XR_ITS ---
FINAL REPORT CLINICAL HISTORY: Confirm pacemaker/AID placement COMPARISON: None FINDINGS: A single frontal view of the chest was obtained. There is mild left lower lobe scar or atelectasis. Elevation left diaphragm is noted. There is no pneumothorax. Left subclavian dual lead pacer device is present with leads projecting over the right atrium and right ventricle. Heart size is normal. IMPRESSION: Left pacer in place without pneumothorax. Reviewed, Interpreted and Dictated by Colby Baker MD Transcribed by uYn Espinoza Authenticated and . [facility]
--- NOTE | 2025-03-15 16:08 | SUR.PHASEII ---
cupola tender helper showed pt started V-pacing at a rate of 108. cupola tender helper strip printed and pacemaker rep was informed. pacemaker rep interrogated device and changed parameters to fit pt atrial rhythm. pt remained asymptomatic and educated pt and family on outcome. MD jo.
== END 2025-03-15 16:45 | disposition home or self-care (01) ==
PROVIDERS: PCP Family Medicine; Visit Provider Internal Medicine
PROC: 0JH608Z Insertion of Defibrillator Generator into Chest Subcutaneous Tissue and Fascia, Open Approach (ICD-10-PCS; CPT 33249; principal; 2025-03-15 13:30)
DX: I25.5 Ischemic cardiomyopathy (principal); I50.21 Acute systolic (congestive) heart failure; I11.0 Hypertensive heart disease with heart failure; I20.89 Other forms of angina pectoris; I34.0 Nonrheumatic mitral (valve) insufficiency; I07.1 Rheumatic tricuspid insufficiency; C85.9A Non-Hodgkin lymphoma, unspecified, in remission; E03.9 Hypothyroidism, unspecified; R94.31 Abnormal electrocardiogram [ECG] [EKG]; J45.909 Unspecified asthma, uncomplicated; Z95.810 Presence of automatic (implantable) cardiac defibrillator; Z79.84 Long term (current) use of oral hypoglycemic drugs; Z79.51 Long term (current) use of inhaled steroids; Z79.899 Other long term (current) drug therapy; Z88.8 Allergy status to other drugs, medicaments and biological substances
CPT/HCPCS: 33249; 36415; 71045; 80048; 85025; C1721; C1769; C1895; C1898; J1200; J2004; J2250; J2704; J3010

== ENCOUNTER 2025-05-19 10:15 | Emergency (ER) | payer MEDICARE, SELFPAY ==
--- OUTSIDE RECORDS SUMMARY | 2024-08-27 16:30 | XMS_ITS ---
Author Organization [facility] Address [address] [facility] [address] [place] [address] Care Team Providers Care Electrical Estimator Name Role Phone Josue Jay Primary Care Provider [phone] Migration, Provider Unavailable Unavailable Allergies Allergen (clinical drug ingredient) Drug/Non Drug Allergy documented on EMR Reaction Allergy Type Onset Date Status tolmetin TOLECTIN (uncoded) Unknown Allergy A ctive atorvastatin Lipitor Unknown Drug Allergy Acti ve REASON FOR VISIT [facility] To [facility] Conversion Encounter Medications Medication SIG (Take, Route, Frequency, Duration) Notes Start Date End Date Status B-12 1000 MCG Tablet 1 tab(s) orally once a day Active ACIDOPHILUS WITH PECTIN - CAPSULE 1 CAP(S) ORALLY ONCE A DAY 75mg *Please review for potential replacement for e-prescription and drug interaction check* Active Furosemide 20 MG Tablet 1 tab(s) orally once a day; Duration: 90 days Active Claritin 10 MG Tablet 1 tab(s) orally once a day Active oxyCODONE-Acetaminoph en 7.5-325 MG Tablet 1 tab(s) orally every 6 hours; Duration: 30 days 06/23/2024 Active NexIUM 40 MG Capsule Delayed Release TAKE 1 CAPSULE BY MOUTH TWICE DAILY; Duration: 90 Active Promethazine HCl 25 MG Tablet 1 tab(s) orally every 6 hours; Duration: 10 days Active Pepcid 40 MG Tablet 1 tab(s) orally twice a day; Duration: 90 days Active Pravastatin Sodium 40 MG Tablet 1 tab(s) orally once a day; Duration: 90 days Active Methocarbamol 500 MG Tablet 1 tab orally 2 times a day; Duration: 90 days Active Lidocaine 5 % Patch 1 PATCH applied topically once a day; Duration: 30 days Active Levothyroxine Sodium 100 MCG Tablet 1 tab(s) orally once a day; Duration: 90 days Active Meclizine HCl 25 MG Tablet 1 tab(s) orally 3 times a day as needed; Duration: 7 days Active Flonase Allergy Relief 50 MCG/ACT Suspension 1 spray(s) in each nostril once a day; Duration: 30 days Active Encounters Encounter Location Date Provider Diagnosis [facility] [address] [place] [address] 08/27/2024 Provider Migration Plan Of Treatment No Information Progress Notes * Francisca ESPINOZA WDOB: [birth year] (84 yo F)Acc No.[id number]:08/27/2024 Patient: Francisca Purvis Provider: Angle salcedo Migration :1940 A ge:83 Y S ex:Female Date:08/27/2024 Address:[address] [place], [place] [id number] Pcp:Josue Jay Subjective: * Chief Complaints: * M ultum To Medispan Conversion Encounter * Medications: T akingB-12 1000 MCG Tablet 1 tab(s) orally once a day ACIDOPHILUS WITH PECTIN - CAPSULE 1 CAP(S) ORALLY ONCE A DAY , Notes to Pharmacist: 75mg *Please review for potential replacement for e-prescription and drug interaction check*Claritin 10 MG Tablet 1 tab(s) orally once a day Meclizine HCl 25 MG Tablet 1 tab(s) orally 3 times a day as needed Flonase Allergy Relief 50 MCG/ACT Suspension 1 spray(s) in each nostril once a day Lidocaine 5 % Patch 1 PATCH applied topically once a day Levothyroxine Sodium 100 MCG Tablet 1 tab(s) orally once a day NexIUM 40 MG Capsule Delayed Release TAKE 1 CAPSULE BY MOUTH TWICE DAILY Promethazine HCl 25 MG Tablet 1 tab(s) orally every 6 hours Pepcid 40 MG Tablet 1 tab(s) orally twice a day Pravastatin Sodium 40 MG Tablet 1 tab(s) orally once a day Methocarbamol 500 MG Tablet 1 tab orally 2 times a day Furosemide 20 MG Tablet 1 tab(s) orally once a day oxyCODONE-Acetaminophen 7.5-325 MG Tablet 1 tab(s) orally every 6 hours Taking B-12 1000 MCG Tablet 1 tab(s) orally once a day Taking ACIDOPHILUS WITH PECTIN - CAPSULE 1 CAP(S) ORALLY ONCE A DAY , Notes to Pharmacist: 75mg *Please review for potential replacement for e-prescription and drug interaction check*Taking Claritin 10 MG Tablet 1 tab(s) orally once a day Taking Meclizine HCl 25 MG Tablet 1 tab(s) orally 3 times a day as needed Taking Flonase Allergy Relief 50 MCG/ACT Suspension 1 spray(s) in each nostril once a day Taking Lidocaine 5 % Patch 1 PATCH applied topically once a day Taking Levothyroxine Sodium 100 MCG Tablet 1 tab(s) orally once a day Taking NexIUM 40 MG Capsule Delayed Release TAKE 1 CAPSULE BY MOUTH TWICE DAILY Taking Promethazine HCl 25 MG Tablet 1 tab(s) orally every 6 hours Taking Pepcid 40 MG Tablet 1 tab(s) orally twice a day Taking Pravastatin Sodium 40 MG Tablet 1 tab(s) orally once a day Taking Methocarbamol 500 MG Tablet 1 tab orally 2 times a day Taking Furosemide 20 MG Tablet 1 tab(s) orally once a day Taking oxyCODONE-Acetaminophen 7.5-325 MG Tablet 1 tab(s) orally every 6 hours * Allergies: T OLECTINLipitor Billing Information: * Procedure Codes: * Electronic signature of Prov ider Migration on 05/19/2025 at 10:29 AM EST Sign off status: Pending * Provider: Angle salcedo Migration Date: 0 08/27/2024 Generated for Gregoria bhatt/Swathi/Noy on: 07/20/2024 10:29 AM EST
[2025-05-19] VITALS (8 sets, daily range): BP systolic 109–119; BP diastolic 66–84; PULSE 78–90; RESP 18; TEMP 36.3–36.8; O2SAT 94–98; BMI 17.4
--- NOTE | 2025-05-19 10:24 | ECG_ITS ---
APPROVED REPORT Exam: Resting ECG HR:87 bpm ECG Measurements Heart Rate 87 AXES MI 146 P 54 QRSd 91 QRS 36 QT 372 T 60 QTc 416 Conclusion SINUS RHYTHM ANTEROSEPTAL MYOCARDIAL INFARCTION , OF INDETERMINATE AGE [40+ ms Q WAVE IN V1-V4] ABNORMAL ECG UNCONFIRMED REPORT Normal sinus rhythm. No STEMI Electronically signed by : FRANSICO MCNAIR, 05/19/2025 15:25:30
--- OUTSIDE RECORDS SUMMARY | 2025-05-19 10:29 | XMS_ITS | Clinical Summary ---
Author Organization [facility] Address [address] [place] [address] Care Team Providers Care Aws Developer Name Role Phone Josue Jay MD Primary Care Provider [phone] Allergies Active Allergy Reactions Criticality Noted Date [...] (11/02/2019): Added automatically from request for surgery [id number] Family History Medical History Relation Name Comments [...] history exists DXA SCAN 01/05/2022 01/06/2020, 03/11/2016 INFLUENZA VACCINE 12/23/2024 03/27/2020, , 12/27/2019, Additional history exists COVID-19 Vaccine (1 - 2023-2 5 season) 2025 TDAP/TD VACCINES (2 - Td or Tdap) 07/05/2029 020 Medical Devices Implanted Type Area Technology Strategist Device Identifier Shelf Expiration Date Model / Serial / Lot Reload Stplr Sureform 60 Davinci/X/Xi 6row 4.3 Grn 1p/U - [id number] Implanted:Qty : 1 on 11/15/2019 by Kendal Meek MD at [facility] Implant N/A: Urethra [employer]GICAL [id number] / / [id number] Reload Stplr Sureform 60 Davinci/X/Xi 6row 4.3 Grn 1p/U - [id number] Implanted:Qty : 1 on 11/15/2019 by Kendal Meek MD at [facility] Implant N/A: Urethra INTUITIVE SURGICAL [id number] / / [id number] Insurance MEDICARE A & B Member Subscriber Plan / Payer (Ef fective 2003-Present) Name:Francisca Espinoza Member ID:[id number] Relation to Subscriber:Self Name:Francisca Espinoza Subscriber ID:[id number] Payer ID:[id number] Group ID:Not on file Type:Not on file Address: [facility] [id number] HEALTH CARE OPTIONS Advance Directives * CPR (Attempt to Resuscitate) (Latest Code Status on File) Date Activated Date Inactivated Comments 11/15/2019 11:58 AM 11/17/2019 7:07 PM Question Answer Comments Code Status (Patient has no pulse and is not breathing): CPR (Attempt to Resuscitate) Medical Interventions (Patie nt has pulse or is breathing): Full Care Teams Aws Developer Relationship Specialty Start Date End Date Josue Jay MD [address] [facility] [address] [address] PCP - General Adolescent Medicine 10/25/19
--- OUTSIDE RECORDS SUMMARY | 2025-05-19 10:29 | XMS_ITS | Clinical Summary ---
Author Organization [facility] Address [address] [place] [address] Care Team Providers Care Identification Officer Name Role Phone Josue Jay MD Primary Care Provider [phone] Florencio Escobar MD Unavailable [phone] Allergies Active Allergy Reactions Criticality Noted Date [...] [facility]Y-Zoster Vaccines (2 of 2) 06/16/2023 04/21/2023 [id number]-73 Vaccine ( - season) 2025 07/26/2021, 04/11/2021, 07/26/2020, Additional history exists UKY-Influenza Vaccine (#1) 01/23/202503/26, 03/27/2020, 03/09/2018, Additional history exists UKY-DTaP,Tdap,and Td Vaccines (2 - Td or Tdap) 07/05/2029 07/05/2019 UKY-Pneumococcal Vaccine: 50+ Years Completed 03/04/2016, 03/14/2013 UKY-RSV Vaccine: 60+ Years or Completed 04/21/2023 HPV Vaccines (No Doses Required) Completed UKY-HIB Vaccines Aged Out No longer e [...] age to complete this topic Insurance MEDICARE [facility] Care Teams Identification Officer Relationship Specialty Start Date End Date Josue Jay MD [facility] [address] PCP - General 10/05/20 Florencio Escobar MD [address] [place] [id number] Surgeon Cardiothoracic Surgery 03/18/21
--- OUTSIDE RECORDS SUMMARY | 2025-05-19 10:29 | XMS_ITS ---
Care Plan - [facility] Created on: May 19, 2025 AlexisFrancisca : 1940 Sex: Female Author Organization [facility] Address [address] [place] [id number] Phone Care Team Providers Care Golf Course Mechanic Name Role Phone KANDACE NORWOOD, ZULY Primary Care Provider [phone] Shala NORWOOD, Nathan Unavailable [phone] Jesus NORWOOD, Karthikeyan Unavailable [phone]
--- OUTSIDE RECORDS SUMMARY | 2025-05-19 10:30 | XMS_ITS | Clinical Summary ---
Author Organization [facility] Address [address] [place] [address] Phone Care Team Providers Care Computer Systems Analyst Name Role Phone KANDACE NORWOOD, ZULY Primary Care Provider [phone] Shala NORWOOD, Nathan Unavailable [phone] Jesus NORWOOD, Karthikeyan Unavailable [phone] Reason for Visit and Chief Complaint The Chief Complaint is: fu L NOLAN Problems Includes: Problems addressed during this encounter and other active Problems All Visits Onset Date Date of Diagnosis Resolved Date Provider Condition Status Joint Pain Hip Left 01/15/2023 01/15/2023 Nathan Last MD Active Last Documented On 5 1:42AM ; [facility] Plan of Treatment - Patient screened for future fall risk: documentation of any fall with injury in past year - Last Documented On 01/29/2024 10:53AM ; [facility] Fall Risk Assessment: This patient has been [...] - Last Documented On 01/29/2024 10:53AM ; [facility] Assessments Includes: Assessments from this encounter No Assessments Recorded Medical Equipment - Implanted Devices Includes: Current Devices No Medical Equipment Recorded Medications Includes: Medications discussed during this encounter and other current Medications Current Medications (continue as prescribed) Meclizine HCl 25 MG Oral Tablet, chewable 06/10/2023 Provider: ZULY JERONIMO MD Diagnosis: Last Documented On 4 2:34PM By Garry Tapia ; [facility] Fluticasone Propionate 50 MC G/ACT Nasal Suspension 06/01/2023 Provider: ZULY JERONIMO MD Diagnosis: Last Documented On 4 2:34PM By Garry Tapia ; [facility] ZyrTEC 10 MG Oral Tablet Chewable 01/16/2023 Provide r: Diagnosis: Last Documented On 3 8:00AM By Pooja Dixon ; [facility] oxyCODONE-Acetaminophen 10-325 MG Oral Tablet 12/24/19 23 Provider: ZULY JERONIMO MD Diagnosis: Last Documented On 3 7:59AM By Pooja Dixon ; [facility] Atenolol 25 MG Oral Tablet 12/22/2022 Provider: Jen JERONIMO MD Diagnosis: Last Documented On 3 7:59AM By Pooja Dixon ; [facility] Furosemide 20 MG Oral Tablet 12/22/2022 Provider: ZULY JERONIMO MD Diagnosis: Last Documented On 3 7:59AM By Pooja Dixon ; [facility] Levothyroxine Sodium 100 MCG Oral Tablet 12/22/2022 Provider: ZULY JERONIMO MD Diagnosis: Last Documented On 3 7:59AM By Pooja Dixon ; [facility] Pravastatin Sodium 40 MG Oral Tablet 12/22/2022 Prov ider: ZULY JERONIMO MD Diagnosis: Last Documented On 3 7:59AM By Pooja Dixon ; [facility] Famotidine 20 MG Oral Tablet 11/21/2022 Provider: ZULY JERONIMO MD Diagnosis: Last Documented On 3 7:59AM By Pooja Dixon ; [facility] NexIUM 40 MG Oral Capsule Delayed Release 07/23/2022 Provider: ZULY JERONIMO MD Diagnosis: Last Documented On 3 7:59AM By Pooja Dxion ; [facility] Medications Administered Includes: Administered Medications from this encounter No Administered Medications Recorded Vital Signs Includes: Vital Signs from this encounter Vital Name 01/28/2024 10:22A Height (in) 63 Weight (lb) 130 Body Mass Index 23 Body Surface Area 1.6 Note: tm Last Documented: On 01/28/2024 10:22A M ; [facility] Results Includes: Results discussed during this encounter No Results Recorded For Specified Dates History of Present Illness Includes: History of Present Illness from this encounter HPI Francisca Espinoza is an 83 year old female. - Allergy list reviewed - Problem list reviewed - Medication list reviewed - - Review of medications documented Social History Description Last Updated No caffeine use 01/28/2024 Last Documented On 4 10:53AM ; [facility] No recent change in diet 01/28/2024 Last Documented On 4 10:53AM ; [facility] Not a current smoker. 01/28/2024 Last Documented On 4 10:53AM ; [facility] Not exercising regularly 01/28/2024 Last Documented On 4 10:53AM ; [facility] Not using alcohol 01/28/2024 Last Documented On 4 10:53AM ; [facility] Not using drugs 01/28/2024 Last Documented On 4 10:53AM ; [facility] Tobacco non-user 01/28/2024 Last Documented On 4 10:53AM ; [facility] Sex - Female 10/25/2024 Last Documented On 5 1:58PM ; [facility] Smoking Status Unknown Procedures and Surgical History Includes: Procedures from this encounter Procedures Code Diagnosis Performing Provider Service L ocation Service Date use of tobacco assessment performed 1000F Last Documented On 4 9:00AM ; [facility] review of medications documented 1160F Last Documented On 4 9:00AM ; [facility] Surgical History Last Updated History of hysterectomy 01/28/2024 Last Documented On 4 10:53AM ; [facility] Medical History Includes: Medical History addressed during this encounter Description Last Updated History of Anemia 01/28/2024 Last Documented On 4 10:53AM ; [facility] History of arthritis 01/28/2024 Last Documented On 4 10:53AM ; [facility] History of Heartburn / Acid Reflux 01/27 Last Documented On 4 10:53AM ; [facility] History of History of Cancer 01/28/2024 Last Documented On 4 10:53AM ; [facility] History of History of Rheumatology 01/27 Last Documented On 4 10:53AM ; [facility] History of Kidney Disease 01/28/2024 Last Documented On 4 10:53AM ; [facility] History of osteoporosis 01/28/2024 Last Documented On 4 10:53AM ; [facility] Family History Includes: Family History addressed during this encounter Description Last Updated No significant family history 01/28/2024 Last Documented On 4 10:53AM ; [facility] Review of Systems Includes: Review of Systems [...] Status from this encounter Description No anxiety Last Documented On 4 9:00AM ; [facility] Physical Exam Includes: Physical Exam from this encounter Allergies Includes: Active Allergies No Known Allergies Care Computer Systems Analyst Name (Identifier) Role/Relation Location/Telecom Last Documented By ZULY JERNOIMO MD ([id number]) Primary care physician (occupation) [address], [place], [place], [place], [address] tel:[phone] Last Documented On 10/25/2024 1:58PM ; [facility] Nathan Last MD ([id number]) Assigned practitioner (occupation) [address], [place], [place], [address] tel:[phone] Last Documented On 10/25/2024 1:58PM ; [facility] Karthikeyan Lee MD ([id number]) [address] [place] [address], [place], [address] tel:[phone] Last Documented On 01/15/2023 3:18PM ; [facility] Encounters Encounter Provider Location (Healthcare Service Location) Date Check-In Time Check-Out Time Diagnosis Encounter Disposition Follow Up Nathan Last MD [facility] 2023 8:55AM 10:20AM Payer Includes: Active Insurance Policies Plan Name (Payer ID) Coverage Type Member ID Group # Subscriber (ID) Relationship Effective Dates 1 - Medicare Part B [facility] ([id number]) [id number] Francisca Espinoza Self Last Documented On 3 12:51PM ; [facility] 2 - [facility] ([id number]) [id number] Francisca Espinoza Self Last Documented On 3 12:51PM ; [facility] Clinical Notes Includes: Clinical Notes from this encounter * Progress note Date Encounter Last Documented by 01/28/2024 Follow Up Last documented on 01/29/2024; 10:53 AM, Nathan Last MD; [facility] Active Problems & Conditions - [...]
--- OUTSIDE RECORDS SUMMARY | 2025-05-19 10:30 | XMS_ITS | Data Portability ---
Author Organization [facility] Address [address] [facility] [address] [place] [address] Care Team Providers Care Environmental Solutions Engineer Name Role Phone PETER BENTON Referring Provider [phone] Assessment Encounter Date Assessment Date Assessment LastModified by Organization Details LastModified Time 11/10/2022 11/10/2022 HPI: This is an 81-year-old female with left hip and thigh pain She has chronic low back and left hip pain. She was referred by [facility]. 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 [...] By Organization Details Last Modified Time 11/10/2022 [id number] advance directives: care instructions Not available 11/10/2022 11:01:45 depression and chronic disease: care instructions Not available 11/10/2022 11:01:45 safe use of opioid pain medicine: care instructions [email or web address] Not available 11/10/2022 11:01:45 Reason for Referral None Reported. Problems Name Problem SNOMED Code Status Onset Date Resolution Date Notes Provider Name and Address Organization Details Recorded Time Rheumatoid arthritis 38809114 Active 2022 Lina magallanes [place] - [facility] 3 11:45:24 Pain of hip region 99274573 Active 2022 TELMA Elias - [facility] 11:45:31 Aortic aneurysm 28810811 Active 2022 Lina magallanes [place] - [facility] 3 11:46:12 Malignant neoplastic disease 266190880 Active 2022 Lina magallanes [place] - [facility] 3 11:48:11 Lumbar radiculopathy 484134878 Active 2022 JOSEFINA BENJAMIN MD [address] [place] [address], [id number] , [place] - [facility] 3 11:01:30 Problem Notes None recorded. Procedures Surgical History Date Name Laterality Status Provider Name and Address Organization Details Recorded Time cardiac catheterization completed Lina HOLLIS - [facility] 11/03/2022 11:46:58 Cholecystectomy completed Lina HOLLIS - [facility] 11/03/2022 11:47:03 Hysterectomy completed Lina HOLLIS - [facility] 11/03/2022 11:47:10 lobectomy completed Lina HOLLIS - [facility] 11/03/2022 11:47:15 partial excision of small intestine completed Lina Stallworth [place] - [facility] 11/03/2022 11:47:26 Imaging Results None recorded. Procedure Notes None recorded. Medical Equipment None Reported. Allergies Allergen ID Allergen Name Allergen Category Reaction Reaction Severity Criticality Documentation Date Start Date Code Code System Note Provider Name and Address Organization Details Recorded Time 19500827 Lipitor medicatio n Not available Not available Not available 11/10/2022 79929 5 RxNorm TELMA Merino - [facility] 3 08:38:00 Medications Name Sig Start Date [...] weight Body mass index (BMI) Body height Pain severity - 0-10 verbal numeric rating [Score] - Reported Heart rate Oxygen saturation Systolic And Diastolic Provider Name and Address Organization Details Last Updated DateTime 3 66219.1 5 g 24.3 kg/m2 160.02 cm 8 65 /min 97 % 123/79 mm[Hg] Chetan HOLLIS [facility] 08:41:15 Social History Question Answer Notes LastModified by Organizat ion Details LastModified Time Tobacco Smoking Status Never Smoker TELMA Merino [facility] 11/10/2022 08:57:54 Do You Have An Advance Directive? Yes Information not available 11/10/2022 What Type Of Diet Are You Following? REGULAR Information not available 11/10/2022 What Is The Highest Grade Or Level Of School You Have Completed Or The Highest Degree You Have Received? GC07264-4 Information not available 11/10/2022 What Was The [...] Bipolar Disease N Coronary Artery Disease N Gout N Seizure Disorder N Thyroid Disease Y Atrial Fibrillation N Hernia N Head Trauma/Injury N COPD N Depression N Anxiety Disorder N Acid Reflux (GERD) N Cancer Y Skin Disorder Y Stroke N High Cholesterol Y Liver Disease N Rheumatoid Arthritis Y Fibromyalgia N Headaches N Autoimmune Disease N Kidney Disease N Osteoarthritis N Neurosurgery N DVT N Peptic Ulcer Disease N Anemia N Heart Attack (NE) N Diabetes N Cardiomyopathy N Bleeding Disorder [...] Diagnosis SNOMED-CT Code Diagnosis ICD10 Code Diagnosis IMO Codes Diagnosis Note [id number] JOSEFINA BENJAMIN MD [place] [address] ,[facility] [address] [place] [address] 11/10/2022 08:09:27 11/10/2022 10:09:40 Long-term drug therapy 763345504 Z79.899 Pain of hip region 82188 002 M25.552 Lumbar radiculopathy 128 400473 M54.16 Health Concerns Section Related Observation LastModified by Organization Detai ls LastModified Time None Recorded Concern Status LastModified by Organization Details LastModified Time None Recorded Advance Directives Directive Y: Payers Insurance Date Sequence Insurance Name Policy Number Policy Friend Covered Member ID Friend Member ID Guarantor Name 11/07/2022 1 [place]ARE[place] Francisca Espinoza [id number] Francisca Espinoza 11/07/2022 2 A[employer] (MEDICARE SUPPLEMENT) Francisca Espinoza [id number] Francisca Espinoza Notes Date Note Type Note Provider Name and Address Organization Details Recorded Time 023 text/ht ml HipReported by PatientHPIFor associated symptoms, patient reportsweaknessandinstabilitybut reportsno numbness,no tingling,no swelling,no redness,no warmth,no ecchymosis,no catching/locking,no popping/clicking,no buckling,no grinding,no radiation down leg,no drainage,no fever, andno weight loss. For location, patient reportsleft,anterior,posterior,deep ,groin,anterior thigh,buttocks, andposterior thigh. For quality, patient reportsstabbing,sharp, andconstant. For severity, patient reportssevere,pain level 8/10, andworst pain 10/10. For duration, patient reports8 weeks. For timing, patient reportschronic. For context, patient reportsfall(inner ear vertigo). For alleviating factors, patient reportsnothing helps. For aggravating factors, patient reportsstanding,walking,lifting,car rying,twisting,bending/squatting,pu shing/pulling,rom,weightbearing,exe rcise,changing clothes,getting out of bed,going from sit to stand,upstairs,downstairs,morning,d aytime,nighttime,cold weather, anddamp weather. For previous surgery, patient reportsnone. For prior imaging, patient reportsmri ([facility] 10/03/2022). For previous injections, patient reportsdid not helpandintra-articular steroid injection(possible si joint injection). For previous pt, patient reportsnone. For medications, patient reportsneuropathics: (gabapentin (minimal))andopioid pain medications: (oxycodone (minimal)). For work related, patient reportsno. For working, patient reportsno. JOSEFINA BENJAMIN MD [address] [place] [address], [phone], [facility] 11/10/2022 11:01:48 OBGyn Episode No OBEpisode recorded.
--- OUTSIDE RECORDS SUMMARY | 2025-05-19 10:30 | XMS_ITS | Clinical Summary ---
Author Organization [facility] Address [address] [place] [address] Phone Care Team Providers Care Mica Laminating Machine Feeder Name Role Phone KANDACE NORWOOD, ZULY Primary Care Provider [phone] Shala NORWOOD, Nathan Unavailable [phone] Jesus NORWOOD, Karthikeyan Unavailable [phone] Reason for Visit and Chief Complaint The Chief Complaint is: fu L NOLAN Problems Includes: Problems addressed during this encounter and other active Problems All Visits Onset Date Date of Diagnosis Resolved Date Provider Condition Status Joint Pain Hip Left 01/15/2023 01/15/2023 Nathan Last MD Active Last Documented On 5 1:42AM ; [facility] Plan of Treatment Patient screened for future fall risk: documentation of any fall with injury in past year. - Last Documented On 10/21/2024 9:53AM ; [facility] Fall Risk Assessment: This patient has been [...] with the patient. - Last Documented On 10/21/2024 9:53AM ; [facility] Assessments Includes: Assessments from this encounter No Assessments Recorded Medical Equipment - Implanted Devices Includes: Current Devices No Medical Equipment Recorded Medications Includes: Medications discussed during this encounter and other current Medications Current Medications (continue as prescribed) Meclizine HCl 25 MG Oral Tablet, chewable 06/10/2023 Provider: ZULY JERONIMO MD Diagnosis: Last Documented On 4 2:34PM By Garry Tapia ; [facility] Fluticasone Propionate 50 MC G/ACT Nasal Suspension 06/01/2023 Provider: ZULY JERONIMO MD Diagnosis: Last Documented On 4 2:34PM By Garry Tapia ; [facility] ZyrTEC 10 MG Oral Tablet Chewable 01/16/2023 Provide r: Diagnosis: Last Documented On 3 8:00AM By Pooja Dixon ; [facility] oxyCODONE-Acetaminophen 10-325 MG Oral Tablet 12/24/19 Provider: ZULY JERONIMO MD Diagnosis: Last Documented On 3 7:59AM By Pooja Dixon ; [facility], [facility] Atenolol 25 MG Oral Tablet 12/22/2022 Provider: Jen JERONIMO MD Diagnosis: Last Documented On 3 7:59AM By Pooja Dixon ; [facility], [facility] Furosemide 20 MG Oral Tablet 12/22/2022 Provider: ZULY JERONIMO MD Diagnosis: Last Documented On 3 7:59AM By Pooja Dixon ; [facility] Levothyroxine Sodium 100 MCG Oral Tablet 12/22/2022 Provider: ZULY JERONIMO MD Diagnosis: Last Documented On 3 7:59AM By Pooja Dixon ; [facility] Pravastatin Sodium 40 MG Oral Tablet 12/22/2022 Prov ider: ZULY JERONIMO MD Diagnosis: Last Documented On 3 7:59AM By Pooja Dixon ; [facility], [facility] Famotidine 20 MG Oral Tablet 11/21/2022 Provider: ZULY JERONIMO MD Diagnosis: Last Documented On 3 7:59AM By Pooja Dixon ; [facility] NexIUM 40 MG Oral Capsule Delayed Release 07/23/2022 Provider: ZULY JERONIMO MD Diagnosis: Last Documented On 3 7:59AM By Pooja Dixon ; [facility] Medications Administered Includes: Administered Medications from this encounter No Administered Medications Recorded Results Includes: Results discussed during this encounter No Results Recorded For Specified Dates History of Present Illness Includes: History of Present Illness from this encounter MELISSA Espinoza is an 83 year old female. - Allergy list reviewed - Problem list reviewed - Medication list reviewed - Review of medications documented Social History Description Last Updated No caffeine use 10/21/2024 Last Documented On 9:53AM ; [facility] No recent change in diet 10/21/2024 Last Documented On 9:53AM ; [facility] Not a current smoker. 10/21/2024 Last Documented On 9:53AM ; [facility] Not exercising regularly 10/21/2024 Last Documented On 5 9:53AM ; [facility] Not using alcohol 10/21/2024 Last Documented On 9:53AM ; [facility] Not using drugs 10/21/2024 Last Documented On 5 9:53AM ; [facility] Tobacco non-user 10/21/2024 Last Documented On 5 9:53AM ; [facility] Sex - Female 10/25/2024 Last Documented On 5 1:58PM ; [facility] Smoking Status Unknown Procedures and Surgical History Includes: Procedures from this encounter Procedures Code Diagnosis Performing Provider Service Location Service Date PELVIS w/ 2-3 VIEW HIP (LEFT) 63616 Unilateral primary osteoarthritis, left hip, Presence of left artificial hip joint Nathan Last MD [facility] 10/21/2024 Last Documented On 1:58PM ; [facility] use of tobacco assessment performed 1000F Last Documented On 5 9:36AM ; [facility] review of medications documented 1160F Last Documented On 5 9:36AM ; [facility] Surgical History Last Updated History of hysterectomy 10/21/2024 Last Documented On 5 9:53AM ; [facility] Medical History Includes: Medical History addressed during this encounter Description Last Updated History of Anemia 10/21/2024 Last Documented On 5 9:53AM ; [facility] History of arthritis 10/21/2024 Last Documented On 5 9:53AM ; [facility] History of Heartburn / Acid Reflux 10/21 Last Documented On 5 9:53AM ; [facility], [facility] History of History of Cancer 10/21/2024 Last Documented On 5 9:53AM ; [facility], [facility] History of History of Rheumatology 10/21 Last Documented On 5 9:53AM ; [facility] History of Kidney Disease 10/21/2024 Last Documented On 5 9:53AM ; [facility], [facility] History of osteoporosis 10/21/2024 Last Documented On 5 9:53AM ; [facility], [facility] Family History Includes: Family History addressed during this encounter Description Last Updated No significant family history 10/21/2024 Last Documented On 5 9:53AM ; [facility] Review of Systems Includes: Review of Systems [...] encounter Description No anxiety Last Documented On 5 9:36AM ; [facility] Physical Exam Includes: Physical Exam from this encounter No Physical Exam Recorded Allergies Includes: Active Allergies No Known Allergies Care Mica Laminating Machine Feeder Name (Identifier) Role/Relation Location/Telecom Last Documented By ZULY JERONIMO MD ([id number]) Primary care physician (occupation) [address], [place], [place], [place], [address] tel:[phone] Last Documented On 10/25/2024 1:58PM ; [facility] Nathan Last MD ([id number]) Assigned practitioner (occupation) [address] [place], [place], [place], [address] tel:[phone] Last Documented On 10/25/2024 1:58PM ; [facility], [facility] Karthikeyan Lee MD ([id number]) [facility] [place], [place], [place], [address] tel:[phone] Last Documented On 01/15/2023 3:18PM ; [facility] Encounters Encounter Provider Location (Healthcare Service Location) Date Check-In Time Check-Out Time Diagnosis Encounter Disposition Follow Up Nathan Last MD [facility] 2024 9:34AM 9:58AM Payer Includes: Active Insurance Policies Plan Name (Payer ID) Coverage Type Member ID Group # Subscriber (ID) Relationship Effective Dates 1 - Medicare Part B [facility] ([id number]) [id number] Francisca Espinoza Self Last Documented On 3 12:51PM ; [facility] 2 - [facility] ([id number]) [id number] Francisca Espinoza Self Last Documented On 3 12:51PM ; [facility] Clinical Notes Includes: Clinical Notes from this encounter * Progress note Date Encounter Last Documented by 10/21/2024 Follow Up Last documented on 10/21/2024; 9:53 AM, Nathan Last MD[facility] Active Problems & Conditions - Joint Pain in the Left Hip Chief Complaint The Chief Complaint is: Fu L NOALN. Referred Here Referred by. History of Present Illness Francisca Espinoza is an 83 year old female. - Allergy list reviewed - Problem list reviewed - Medication list reviewed - Review of medications documented Current Medication [...] Current diet: No recent change in diet. Behavioral: Tobacco non-user. Caffeine: No caffeine use. Alcohol: Not using alcohol. Drug Use: Not [...] Immunologic: No complaint of seasonal allergic reaction. Counseling/Education Tobacco non-user. use of tobacco assessment performed. Plan Patient screened for future fall risk: documentation of any fall with injury in past year. Fall Risk Assessment: This patient has been [...] may contain errors and omissions. 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 She has been doing very well. No significant pain in the hip. On exam she walks with a steady gait with a cane. Incisions are well healed. No pain with gentle internal external range motion of the hip. Neurovascularly intact distally. AP pelvis two-view obtained personally reviewed today of the left hip demonstrate revision left total hip arthroplasty in good position. Status post revision left total hip arthroplasty overall doing well Activities as tolerated. Follow up with me anytime if pain returns. Practice Management Use of tobacco assessment performed Review of medications documented. Care Team - Karthikeyan Lee MD
--- OUTSIDE RECORDS SUMMARY | 2025-05-19 10:30 | XMS_ITS | Clinical Summary ---
Author Organization [facility] , [facility] Address [address] [place] [address] Phone Care Team Providers Care Disability Representative Name Role Phone KANDACE NORWOOD, ZULY Primary Care Provider [phone] Shala NORWOOD, Nathan Unavailable [phone] Jesus NORWOOD, Karthikeyan Unavailable [phone] Reason for Visit and Chief Complaint The Chief Complaint is: fu L NOLAN Problems Includes: Problems addressed during this encounter and other active Problems All Visits Onset Date Date of Diagnosis Resolved Date Provider Condition Status Joint Pain Hip Left 01/15/2023 01/15/2023 Nathan Last MD Active Last Documented On 1:42AM ; [facility], [facility] Plan of Treatment No Plan of Treatment Recorded Assessments Includes: Assessments from this encounter Findings Fall Risk Assessment: - Last Documented On 07/30/2023 10:48AM ; [facility] This patient has been identified as a fall risk. Balance/gait along with postural blood pressure, vision and home fall hazards have been assessed. Medications have been reviewed, and recommendations made with regard to contributing factors for future falls. - Last Documented On 07/30/2023 10:48AM ; [facility], [facility] Plan of care: Consideration of vitamin D supplementation along with balance and strength training with consideration for formal physical therapy has been discussed with the patient. - Last Documented On 07/30/2023 10:48AM ; [facility], [facility] Status post revision left total hip arthroplasty - Last Documented On 07/30/2023 10:48AM ; [facility], [facility] Discuss that some of her tenderness is likely related to hip bursitis tendonitis. Recommend restarting physical therapy as well as anti-inflammatories if approved by her PCP. I will see her back in 2-3 months to see how she is doing. - Last Documented On 07/30/2023 10:48AM ; [facility], [facility] Medical Equipment - Implanted Devices Includes: Current Devices No Medical Equipment Recorded Medications Includes: Medications discussed during this encounter and other current Medications Current Medications (continue as prescribed) Meclizine HCl 25 MG Oral Tablet, chewable 06/10/2023 Provider: ZULY JERONIMO MD Diagnosis: Last Documented On 4 2:34PM By Garry Tapia ; [facility], [facility] Fluticasone Propionate 50 MC G/ACT Nasal Suspension 06/01/2023 Provider: ZULY JERONIMO MD Diagnosis: Last Documented On 4 2:34PM By Garry Tapia ; [facility], [facility] ZyrTEC 10 MG Oral Tablet Chewable 01/16/2023 Provide r: Diagnosis: Last Documented On 3 8:00AM By Pooja Dixon ; [facility], [facility] oxyCODONE-Acetaminophen 10-325 MG Oral Tablet 12/24/19 Provider: ZULY JERONIMO MD Diagnosis: Last Documented On 3 7:59AM By Pooja Dixon ; [facility], [facility] Atenolol 25 MG Oral Tablet 12/22/2022 Provider: Jen JERONIMO MD Diagnosis: Last Documented On 3 7:59AM By Pooja Dixon ; [facility], [facility] Furosemide 20 MG Oral Tablet 12/22/2022 Provider: ZULY JERONIMO MD Diagnosis: Last Documented On 3 7:59AM By Pooja Dixon ; [facility], [facility] Levothyroxine Sodium 100 MCG Oral Tablet 12/22/2022 Provider: ZULY JERONIMO MD Diagnosis: Last Documented On 3 7:59AM By Pooja Dixon ; [facility], [facility] Pravastatin Sodium 40 MG Oral Tablet 12/22/2022 Prov ider: ZULY JERONIMO MD Diagnosis: Last Documented On 3 7:59AM By Pooja Dixon ; [facility], [facility] Famotidine 20 MG Oral Tablet 11/21/2022 Provider: ZULY JERONIMO MD Diagnosis: Last Documented On 3 7:59AM By Pooja Dixon ; [facility], [facility] NexIUM 40 MG Oral Capsule Delayed Release 07/23/2022 Provider: ZULY JERONIMO MD Diagnosis: Last Documented On 3 7:59AM By Pooja Dixon ; [facility], [facility] Medications Administered Includes: Administered Medications from this encounter No Administered Medications Recorded Vital Signs Includes: Vital Signs from this encounter Vital Name 07/29/2023 02:32P Height (in) 63 Note: tm Last Documented: On 07/29/2023 2:34PM ; [facility] Results Includes: Results discussed during this [...] 07/29/2023 Last Documented On 4 10:48AM ; [facility], [facility] No recent change in diet 07/29/2023 Last Documented On 4 10:48AM ; [facility], [facility] Not a current smoker. 07/29/2023 Last Documented On 4 10:48AM ; [facility], [facility] Not exercising regularly 07/29/2023 Last Documented On 4 10:48AM ; [facility], [facility] Not using alcohol 07/29/2023 Last Documented On 4 10:48AM ; [facility], [facility] Not using drugs 07/29/2023 Last Documented On 4 10:48AM ; [facility], [facility] Tobacco non-user 07/29/2023 Last Documented On 4 10:48AM ; [facility], [facility] Sex - Female 10/25/2024 Last Documented On 5 1:58PM ; [facility], [facility] Smoking Status Unknown Procedures and Surgical History Includes: Procedures from this encounter Procedures Code Diagnosis Performing Provider Service L ocation Service Date use of tobacco assessment performed 1000F Last Documented On 4 1:43PM ; [facility], [facility] patient screened for future fall risk: documentation of any fall with injury in past year 1100F Last Documented On 4 1:43PM ; [facility], [facility] review of medications documented 1160F Last Documented On 4 1:43PM ; [facility], [facility] body mass index not documented system reason 300 8F Last Documented On 4 1:43PM ; [facility], [facility] Surgical History Last Updated History of hysterectomy 07/29/2023 Last Documented On 4 10:48AM ; [facility], [facility] Medical History Includes: Medical History addressed during this encounter Description Last Updated History of Anemia 07/29/2023 Last Documented On 4 10:48AM ; [facility], [facility] History of arthritis 07/29/2023 Last Documented On 4 10:48AM ; [facility], [facility] History of Heartburn / Acid Reflux 07/28 Last Documented On 4 10:48AM ; [facility] History of History of Cancer 07/29/2023 Last Documented On 4 10:48AM ; [facility] History of History of Rheumatology 07/28 Last Documented On 4 10:48AM ; [facility], [facility] History of Kidney Disease 07/29/2023 Last Documented On 4 10:48AM ; [facility] History of osteoporosis 07/29/2023 Last Documented On 4 10:48AM ; [facility], [facility] Family History Includes: Family History addressed during this encounter Description Last Updated No significant family history 07/29/2023 Last Documented On 4 10:48AM ; [facility], [facility] Review of Systems Includes: Review of [...] encounter Description No anxiety Last Documented On 1:43PM ; [facility] Physical Exam Includes: Physical Exam from this encounter Allergies Includes: Active Allergies No Known Allergies Care Disability Representative Name (Identifier) Role/Relation Location/Telecom Last Documented By ZULY JERONIMO MD ([id number]) Primary care physician (occupation) [address] [facility] [address] [facility] [place], [place], [place], [address] tel:[phone] Last Documented On 10/25/2024 1:58PM ; [facility] Nathan Last MD ([id number]) Assigned practitioner (occupation) [address] [place], [place], [place], [address] tel:[phone] Last Documented On 10/25/2024 1:58PM ; [facility] Karthikeyan Lee MD ([id number]) [address] [place], [place], [place], [address] tel:[phone] Last Documented On 01/15/2023 3:18PM ; [facility] Encounters Encounter Provider Location (Healthcare Service Location) Date Check-In Time Check-Out Time Diagnosis Encounter Disposition Follow Up Nathan Last MD [facility] 2023 1:27PM 2:56PM Payer Includes: Active Insurance Policies Plan Name (Payer ID) Coverage Type Member ID Group # Subscriber (ID) Relationship Effective Dates 1 - Medicare Part B [facility] ([id number]) [id number] Francisca Espinoza Self Last Documented On 3 12:51PM ; [facility], [facility] 2 - [facility] [id number]) [id number] Francisca Espinoza Self Last Documented On 3 12:51PM ; [facility], [facility] Clinical Notes Includes: Clinical Notes from this encounter * Progress note Date Encounter Last Documented by 07/29/2023 Follow Up Last documented on 07/30/2023; 10:48 AM, Nathan Last MD; [facility], [facility] Active Problems & Conditions - Joint [...]
--- OUTSIDE RECORDS SUMMARY | 2025-05-19 10:30 | XMS_ITS | Patient Health Record ---
Author Organization [facility] Address [address] [facility] [address] [place] [address] Care Team Providers Care Area Cleaner Name Role Phone Josue Jay Primary Care Provider Migration, Provider Unavailable Unavailable Allergies Allergen (clinical drug ingredient) Drug/Non Drug Allergy documented on EMR Reaction Allergy Type Onset Date Status tolmetin TOLECTIN (uncoded) Unknown Allergy A ctive atorvastatin Lipitor Unknown Drug Allergy Acti ve Medications Medication SIG (Take, Route, Frequency, Duration) Notes Start Date End Date Status Lidocaine 5 % Patch 1 PATCH applied topically once a day; Duration: 30 days Active Levothyroxine Sodium 100 MCG Tablet 1 tab(s) orally once a day; Duration: 90 days Active NexIUM 40 MG Capsule Delayed Release [...] Duration: 90 days Active B-12 1000 MCG Tablet 1 tab(s) orally once a day Active Methocarbamol 500 MG Tablet 1 tab orally 2 times a day; Duration: 90 days Active ACIDOPHILUS WITH PECTIN - CAPSULE 1 [...] days 06/23/2024 Active Meclizine HCl 25 MG Tablet 1 [...] stop date) Never Smoker NA - NA Social History Social History Social Info Question Answer Notes Smoking: Are you a: nonsmoker Additional Findings: Tobacco Non-User Current no n-smoker Additional Details Category Social Info Options Details Social History Occupation: retired Travel outside [place]: no Alcohol: no Recreational drug use: no Home smoke detector use: yes Caffeine: no Living Will No Section Notes: , nonsmoker, no alcoh ol use, excellent family support from her 3 children here in [place], multiple grandkids, somewhat limited in her activities because of pain from her lymphoma. , nonsmoker, no alcoh ol use, excellent family support from her 3 children here in [place], multiple grandkids, somewhat limited in her activities because of pain from her lymphoma. , nonsmoker, no alcoh ol use, excellent family support from her 3 children here in [place], multiple grandkids, somewhat limited in her activities because of pain from her lymphoma. , nonsmoker, no alcoh ol use, excellent family support from her 3 children here in [place], multiple grandkids, somewhat limited in her activities because of pain from her lymphoma. , nonsmoker, no alcoh ol use, excellent family support from her 3 children here in [place], multiple grandkids, somewhat limited in her activities because of pain from her lymphoma. , nonsmoker, no alcoh ol use, excellent family support from her 3 children here in [place], multiple grandkids, somewhat limited in her activities because of pain from her lymphoma. , nonsmoker, no alcoh ol use, excellent family support from her 3 children here in [place], multiple grandkids, somewhat limited in her activities because of pain from her lymphoma. , nonsmoker, no alcoh ol use, excellent family support from her 3 children here in [place], multiple grandkids, somewhat limited in her activities because of pain from her lymphoma. , nonsmoker, no alcoh ol use, excellent family support from her 3 children here in [place], multiple grandkids, somewhat limited in her activities because of pain from her lymphoma. , nonsmoker, no alcoh ol use, excellent family support from her 3 children here in [place], multiple grandkids, somewhat limited in her activities because of pain from her lymphoma. , nonsmoker, no alcoh ol use, excellent family support from her 3 children here in [place], multiple grandkids, somewhat limited in her activities because of pain from her lymphoma. , nonsmoker, no alcoh ol use, excellent family support from her 3 children here in [place], multiple grandkids, somewhat limited in her activities because of pain from her lymphoma. , nonsmoker, no alcoh ol use, excellent family support from her 3 children here in [place], multiple grandkids, somewhat limited in her activities because of pain from her lymphoma. , nonsmoker, no alcoh ol use, excellent family support from her 3 children here in [place], multiple grandkids, somewhat limited in her activities because of pain from her lymphoma. , nonsmoker, no alcoh ol use, excellent family support from her 3 children here in [place], multiple grandkids, somewhat limited in her activities because of pain from her lymphoma. , nonsmoker, no alcoh ol use, excellent family support from her 3 children here in [place], multiple grandkids, somewhat limited in her activities because of pain from her lymphoma. , nonsmoker, no alcoh ol use, excellent family support from her 3 children here in [place], multiple grandkids, somewhat limited in her activities because of pain from her lymphoma. , nonsmoker, no alcoh ol use, excellent family support from her 3 children here in [place], multiple grandkids, somewhat limited in her activities because of pain from her lymphoma. , nonsmoker, no alcoh ol use, excellent family support from her 3 children here in [place], multiple grandkids, somewhat limited in her activities because of pain from her lymphoma. , nonsmoker, no alcoh ol use, excellent family support from her 3 children here in [place], multiple grandkids, somewhat limited in her activities because of pain from her lymphoma. , nonsmoker, no alcoh ol use, excellent family support from her 3 children here in [place], multiple grandkids, somewhat limited in her activities because of pain from her lymphoma. , nonsmoker, no alcoh ol use, excellent family support from her 3 children here in [place], multiple grandkids, somewhat limited in her activities because of pain from her lymphoma. , nonsmoker, no alcoh ol use, excellent family support from her 3 children here in [place], multiple grandkids, somewhat limited in her activities because of pain from her lymphoma. , nonsmoker, no alcoh ol use, excellent family support from her 3 children here in [place], multiple grandkids, somewhat limited in her activities because of pain from her lymphoma. , nonsmoker, no alcoh ol use, excellent family support from her 3 children here in [place], multiple grandkids, somewhat limited in her activities because of pain from her lymphoma. , nonsmoker, no alcoh ol use, excellent family support from her 3 children here in [place], multiple grandkids, somewhat limited in her activities because of pain from her lymphoma. , nonsmoker, no alcoh ol use, excellent family support from her 3 children here in [place], multiple grandkids, somewhat limited in her activities because of pain from her lymphoma. , nonsmoker, no alcoh ol use, excellent family support from her 3 children here in [place], multiple grandkids, somewhat limited in her activities because of pain from her lymphoma. , nonsmoker, no alcoh ol use, excellent family support from her 3 children here in [place], multiple grandkids, somewhat limited in her activities because of pain from her lymphoma. , nonsmoker, no alcoh ol use, excellent family support from her 3 children here in [place], multiple grandkids, somewhat limited in her activities because of pain from her lymphoma. , nonsmoker, no alcoh ol use, excellent family support from her 3 children here in [place], multiple grandkids, somewhat limited in her activities because of pain from her lymphoma. , nonsmoker, no alcoh ol use, excellent family support from her 3 children here in [place], multiple grandkids, somewhat limited in her activities because of pain from her lymphoma. , nonsmoker, no alcoh ol use, excellent family support from her 3 children here in [place], multiple grandkids, somewhat limited in her activities because of pain from her lymphoma. , nonsmoker, no alcoh ol use, excellent family support from her 3 children here in [place], multiple grandkids, somewhat limited in her activities because of pain from her lymphoma. , nonsmoker, no alcoh ol use, excellent family support from her 3 children here in [place], multiple grandkids, somewhat limited in her activities because of pain from her lymphoma. , nonsmoker, no alcoh ol use, excellent family support from her 3 children here in [place], multiple grandkids, somewhat limited in her activities because of pain from her lymphoma. , nonsmoker, no alcoh ol use, excellent family support from her 3 children here in [place], multiple grandkids, somewhat limited in her activities because of pain from her lymphoma. , nonsmoker, no alcoh ol use , nonsmoker, no alcoh ol use, excellent family support from her 3 children here in [place], multiple grandkids, somewhat limited in her activities because of pain from her lymphoma. , nonsmoker, no alcoh ol use , nonsmoker, no alcoh ol use , nonsmoker, no alcoh ol use, excellent family support from her 3 children here in [place], multiple grandkids, somewhat limited in her activities because of pain from her lymphoma. , nonsmoker, no alcoh ol use, excellent family support from her 3 children here in [place], multiple grandkids, somewhat limited in her activities because of pain from her lymphoma. 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) Hereditary and idiopathic neuropathy, unspecified (G60.9) Active confirmed Problem Chronic pain syndrome (934566337) Chronic pain syndrome (G89.4) Active confirmed Problem Acute maxillary sinusitis (99826042) Acute maxillary sinusitis, unspecified (J01.00) Active confirmed Problem Localized, secondary osteoarthritis of the shoulder region (518914989) Secondary osteoarthritis, 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) Active confirmed Problem Localized, secondary osteoarthritis of the shoulder region (927277551) Secondary osteoarthritis, left shoulder (M19.212) Active confirmed Problem Urge incontinence of urine (88654722) Urge incontinence (N39.41) Active confirmed Problem History of musculoskeletal operation (757464956) Aftercare following joint replacement surgery (Z47.1) Active confirmed Problem Hypothyroidism (75191539) Hypothyroidism (acquired) (E03.9) Active confirmed Problem Hyperlipidemia (06253984) Hyperlipemia, 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 Problem Seasonal allergy (257670612) Seasonal allergies (J30.2) Active confirmed Problem Restless legs syndrome (54710014) Restless leg syndrome (G25.81) Active confirmed Problem Idiopathic peripheral neuropathy (38597294) Idiopathic peripheral neuropathy (G60.9) Active confirmed Problem Arthralgia of the pelvic region and thigh (950861277) Left hip pain (M25.552) Active confirmed Problem Chronic pain (39426222) Other chronic pain (G89.29) Active confirmed Problem Polyp colon (11927239) Colon polyp (K63.5) Active confirmed Problem Benign essential hypertension (2592440) Benign essential hypertension (I10) Active confirmed Problem Constipation (71606381) Constipation, unspecified constipation type (K59.00) Active confirmed Problem Memory loss (96845405) Memory loss (R41.3) Active confirmed Problem Atherosclerotic heart disease of [place] coronary artery without angina pectoris (774299631632001) Coronary artery disease involving [place] coronary artery of [place] heart without angina pectoris (I25.10) Active confirmed Problem Recurrent falls (789899810) Frequent falls (R29.6) Active confirmed Problem Solitary nodule of lung (867501001) Lung nodule (R91.1) Active confirmed Problem Iron deficiency anemia due to chronic blood loss (979424305) Iron deficiency anemia due to chronic blood loss (D50.0) Active confirmed Problem History of prosthetic arthroplasty of left hip (8453360729058274) Status post left hip replacement (Z96.642) Active confirmed Problem History of lymphoma (605938407) History of lymphoma (Z85.79) Active confirmed Problem Ulcer of esophagus (01856854) Esophagitis, erosive (K22.10) Active confirmed Problem Left ventricular diastolic dysfunction (524197978) Diastolic CHF with preserved left ventricular function, NYHA class 2 (I50.30) Active confirmed Problem Accelerated essential hypertension (75016821) Accelerated essential hypertension (I10) Active confirmed Problem Localized, primary osteoarthritis of the pelvic region and thigh (955424585) Primary osteoarthritis of hips, 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) Active confirmed Problem Chronic otitis externa (67943106) Chronic otitis externa of both ears, unspecified type (H60.63) Active confirmed Problem Pain due to neoplastic disease (03305401033047) 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) Active confirmed Problem Carpal tunnel syndrome (29878265) Carpal tunnel syndrome, bilateral (G56.03) Active confirmed Problem Diastolic dysfunction (7338330) Diastolic dysfunction (I51.89) Active confirmed Problem History of left hip hemiarthroplasty (Z96.642) Active confirmed Problem Peripheral edema (73975081) Peripheral edema (R60.0) Active confirmed Vital Signs Heart Rate 78 /min 06/30/2024 Temperature 97.9 degrees Fahrenheit 06/30/2024 Blood pressure diastolic 72 mm Hg 06/30/2024 Height 63 in 06/30/2024 Blood pressure systolic 118 mm Hg 06/30/2024 Weight 126 lbs 06/30/2024 BMI 22.32 kg/m2 06/30/2024 Encounters Encounter Location Date Provider Diagnosis [facility] [address] [place] [address] 08/27/2024 Provider Migration [facility] [address] [address] 06/30/2024 Josue Jay Memory loss R41.3 ; Hypothyroidism (acquired) E03.9 and Hyperlipemia, idiopathic familial E78.5 [facility] [address] [facility] [address] [place] [address] 07/26/2024 Josue Jay [facility] [address] [facility] [address] [place] [address] 07/28/2024 Josue Jay Assessments Encounter Date Diagnosis (ICD Code) Assessment [...] adamant that one of her friends in [place] took a medication and she was better [...] fragile medical condition might be a problem. 06/30/2024 Hyperlipemia, idiopathic familial (ICD-10 - E78.5) Plan Of Treatment Pending Test Test Name Order Date N-TSH (Thyroid Stimulating Hormone) 02/23 Occupational Therapy : Eval & Treatment 11/05/2009 N-Wound Culture 10/21/2011 H-CPK 06/23/2017 CT Scan : Hip, Left 03/04/2016 C-CBC 06/15/2018 C-CBC 04/21/2011 C-CBC 11/20/2010 C-CBC 06/26/2020 C-Sed Rate (ESR) 06/15/2018 C-CMP 06/26/2020 C-CMP 11/20/2010 C-CMP 04/21/2011 C-CMP 06/15/2018 C-LIPID PANEL 06/15/2018 C-LIPID PANEL 04/21/2011 C-LIPID PANEL 06/26/2020 C-LIPID PANEL 11/20/2010 C-TSH 06/26/2020 C-TSH 11/20/2010 C-TSH 04/21/2011 C-TSH 06/15/2018 C-THYROID PROFILE 11/24/2017 C-THYROID PROFILE 11/23/2018 C-THYROID PROFILE 03/15/2019 CT Scan : Hip, Right 03/04/2016 Comp. Metabolic Panel (14) 05/27/2022 Comp. Metabolic Panel (14) 11/06/2022 TSH 05/27/2022 Urine Culture, Routine 04/30/2020 CBC With Differential/Platelet 3 Ferritin, Serum 05/27/2022 X ray : Chest PA and Lateral 11/06/2022 Lipid Panel 05/27/2022 Magnesium, Serum 05/27/2022 VENIPUNCT, ROUTINE* 07/19/2015 VENIPUNCT, ROUTINE* 10/10/2015 Pulmonary Function Test- Complete 2018 Prothrombin Time (PT) 11/06/2022 MRI : Lumbar Spine with & without 2022 PTT, Activated 11/06/2022 DEMENTIA PANEL, RESTOREU(TM) (18833) 10/2024 DEMENTIA PANEL, RESTOREU(TM) (43796) 09/2023 CULTURE, URINE, ROUTINE (395) 11/06/2022 [facility] AD DETECT(TM), BETA AMYLOID 42/40 RATIO, P (22753) 06/30/2024 [facility] AD DETECT(TM), BETA AMYLOID 42/40 RATIO, P (81240) 01/28/2024 Future Test Test Name Order Date N-Vitamin B 12 level 09/22/2011 Insurance Providers Payer Name Payer Address Payer Phone Subscriber Number Group Number Insured Name Patient Relationship to Insured Coverage Start Date Coverage End Date [place] [address] [place] [address] [id number] Francisca Espinoza Self - patient is the insured [facility] [address] [place] [address] [phone] [id number] Francisca Espinoza Self - patient is the insured [...] History Reason Date(Month/Year) CR - rehab 2022 [facility] - LEFT hip replacement 12/2022 pneumonia migraines above
--- OUTSIDE RECORDS SUMMARY | 2025-05-19 10:30 | XMS_ITS | Clinical Summary ---
Author Organization [facility] Address [address] [place] [address] Phone Care Team Providers Care Piece Hand Name Role Phone KANDACE NORWOOD, ZULY Primary Care Provider [phone] Shala NORWOOD, Nathan Unavailable [phone] Jesus NORWOOD, Karthikeyan Unavailable [phone] Reason for Visit and Chief Complaint The Chief Complaint is: fu L NOLAN Problems Includes: Problems addressed during this encounter and other active Problems All Visits Onset Date Date of Diagnosis Resolved Date Provider Condition Status Joint Pain Hip Left 01/15/2023 01/15/2023 Nathan Last MD Active Last Documented On 5 1:42AM ; [facility], [facility] Plan of Treatment - Patient screened for future fall risk: documentation of any fall with injury in past year - Last Documented On 10/06/2023 6:08AM ; [facility], [facility] Fall Risk Assessment: This patient has been [...] - Last Documented On 10/06/2023 6:08AM ; [facility] Assessments Includes: Assessments from this encounter Findings Fall Risk Assessment: - Last Documented On 10/06/2023 6:08AM ; [facility] This patient has been identified as a fall risk. Balance/gait along with postural blood pressure, vision and home fall hazards have been assessed. Medications have been reviewed, and recommendations made with regard to contributing factors for future falls. - Last Documented On 10/06/2023 6:08AM ; [facility], [facility] Plan of care: Consideration of vitamin D supplementation along with balance and strength training with consideration for formal physical therapy has been discussed with the patient. - Last Documented On 10/06/2023 6:08AM ; [facility], [facility] Medical Equipment - Implanted Devices Includes: Current Devices No Medical Equipment Recorded Medications Includes: Medications discussed during this encounter and other current Medications Current Medications (continue as prescribed) Meclizine HCl 25 MG Oral Tablet, chewable 06/10/2023 Provider: ZULY JERONIMO MD Diagnosis: Last Documented On 4 2:34PM By Garry Tapia ; [facility], [facility] Fluticasone Propionate 50 MC G/ACT Nasal Suspension 06/01/2023 Provider: ZULY JERONIMO MD Diagnosis: Last Documented On 4 2:34PM By Garry Tapia ; [facility], [facility] ZyrTEC 10 MG Oral Tablet Chewable 01/16/2023 Provide r: Diagnosis: Last Documented On 3 8:00AM By Pooja Dixon ; [facility] oxyCODONE-Acetaminophen 10-325 MG Oral Tablet 12/24/19 Provider: ZULY JERONIMO MD Diagnosis: Last Documented On 3 7:59AM By Pooja Dixon ; [facility], [facility] Atenolol 25 MG Oral Tablet 12/22/2022 Provider: Jen JERONIMO MD Diagnosis: Last Documented On 3 7:59AM By Pooja Dixon ; [facility], [facility] Furosemide 20 MG Oral Tablet 12/22/2022 Provider: ZULY JERONIMO MD Diagnosis: Last Documented On 3 7:59AM By Pooja Dixon ; [facility] Levothyroxine Sodium 100 MCG Oral Tablet 12/22/2022 Provider: ZULY JERONIMO MD Diagnosis: Last Documented On 3 7:59AM By Pooja Dixon ; [facility] Pravastatin Sodium 40 MG Oral Tablet 12/22/2022 Prov ider: ZULY JERONIMO MD Diagnosis: Last Documented On 3 7:59AM By Pooja Dixon ; [facility] Famotidine 20 MG Oral Tablet 11/21/2022 Provider: ZULY JERONIMO MD Diagnosis: Last Documented On 3 7:59AM By Pooja Dixon ; [facility] NexIUM 40 MG Oral Capsule Delayed Release 07/23/2022 Provider: ZULY JERONIMO MD Diagnosis: Last Documented On 3 7:59AM By Pooja Dixon ; [facility] Medications Administered Includes: Administered Medications from this encounter No Administered Medications Recorded Vital Signs Includes: Vital Signs from this encounter Vital Name 10/01/2023 12:54P Height (in) 63 Weight (lb) 127.8 Body Mass Index 22.6 Body Surface Area 1.6 Note: tm Last Documented: On 10/01/2023 12:54P M ; [facility] Results Includes: Results discussed during this encounter [...] 10/01/2023 Last Documented On 4 6:08AM ; [facility] No recent change in diet 10/01/2023 Last Documented On 4 6:08AM ; [facility] Not a current smoker. 10/01/2023 Last Documented On 4 6:08AM ; [facility] Not exercising regularly 10/01/2023 Last Documented On 4 6:08AM ; [facility] Not using alcohol 10/01/2023 Last Documented On 4 6:08AM ; [facility] Not using drugs 10/01/2023 Last Documented On 4 6:08AM ; [facility] Tobacco non-user 10/01/2023 Last Documented On 4 6:08AM ; [facility] Sex - Female 10/25/2024 Last Documented On 5 1:58PM ; [facility] Smoking Status Unknown Procedures and Surgical History Includes: Procedures from this encounter Procedures Code Diagnosis Performing Provider Service L ocation Service Date use of tobacco assessment performed 1000F Last Documented On 4 12:50PM ; [facility] patient screened for future fall risk: documentation of any fall with injury in past year 1100F Last Documented On 4 12:50PM ; [facility] review of medications documented 1160F Last Documented On 4 12:50PM ; [facility] body mass index not documented system reason 300 8F Last Documented On 4 12:50PM ; [facility] Surgical History Last Updated History of hysterectomy 10/01/2023 Last Documented On 4 6:08AM ; [facility] Medical History Includes: Medical History addressed during this encounter Description Last Updated History of Anemia 10/01/2023 Last Documented On 4 6:08AM ; [facility] History of arthritis 10/01/2023 Last Documented On 4 6:08AM ; [facility] History of Heartburn / Acid Reflux 09/30 Last Documented On 4 6:08AM ; [facility] History of History of Cancer 10/01/2023 Last Documented On 4 6:08AM ; [facility] History of History of Rheumatology 09/30 Last Documented On 4 6:08AM ; [facility] History of Kidney Disease 10/01/2023 Last Documented On 4 6:08AM ; [facility] History of osteoporosis 10/01/2023 Last Documented On 4 6:08AM ; [facility] Family History Includes: Family History addressed during this encounter Description Last Updated No significant family history 10/01/2023 Last Documented On 4 6:08AM ; [facility] Review of Systems Includes: Review of Systems [...] encounter Description No anxiety Last Documented On 12:50PM ; [facility] Physical Exam Includes: Physical Exam from this encounter Allergies Includes: Active Allergies No Known Allergies Care Piece Hand Name (Identifier) Role/Relation Location/Telecom Last Documented By ZULY JERONIMO MD ([id number]) Primary care physician (occupation) [address] [facility] [address] [place], [place], [place], [address] tel:[phone] Last Documented On 10/25/2024 1:58PM ; [facility] Nathan Last MD ([id number]) Assigned practitioner (occupation) [address] [place], [place], [place], [address] tel:[phone] Last Documented On 10/25/2024 1:58PM ; [facility] Karthikeyan Lee MD ([id number]) [address] [place], [place], [place], [address] tel:[phone] Last Documented On 01/15/2023 3:18PM ; [facility] Encounters Encounter Provider Location (Healthcare Service Location) Date Check-In Time Check-Out Time Diagnosis Encounter Disposition Follow Up Nathan [facility] 2023 11:50AM 12:57PM Payer Includes: Active Insurance Policies Plan Name (Payer ID) Coverage Type Member ID Group # Subscriber (ID) Relationship Effective Dates 1 - Medicare Part B [facility] ([id number]) [id number] Francisca Espinoza Self Last Documented On 3 12:51PM ; [facility] - [facility] ([id number]) [id number] Francisca Espinoza Self Last Documented On 3 12:51PM ; [facility] Clinical Notes Includes: Clinical Notes from this encounter * Progress note Date Encounter Last Documented by 10/01/2023 Follow Up Last documented on 10/06/2023; 6:08 AM, Nathan Last MD; [facility] Active Problems & Conditions - Joint Pain [...]
--- NOTE | 2025-05-19 10:31 | XR_ITS ---
FINAL REPORT CLINICAL HISTORY: Cough, short of breath, pneumonia? COMPARISON: 03/15/2025 FINDINGS: PA and lateral views of the chest were obtained. Emphysematous change is noted. There is no acute infiltrate. Small bilateral pleural effusions are noted. There is a left-sided pacer. The mediastinum has a normal appearance. The cardiac silhouette is unremarkable. IMPRESSION: Small bilateral pleural effusions. Reviewed, Interpreted and Dictated by Colby Baker MD Transcribed by Yun Espinoza Authenticated and [facility]
--- OUTSIDE RECORDS SUMMARY | 2025-05-19 10:31 | XMS_ITS ---
Author Organization [facility] , [facility] Address [address] [place] [address] Phone Care Team Providers Care Brake Reliner Name Role Phone KANDAEC NORWOOD, ZULY Primary Care Provider [phone] Shala NORWOOD, Nathan Unavailable [phone] Karthikeyan Lee MD Unavailable [phone] Problems Includes: Active, inactive, and resolved Problems All Visits Onset Date Date of Diagnosis Resolved Date Provider Condition Status Joint Pain Hip Left 01/15/2023 01/15/2023 Nathan Last MD Active Last Documented On 5 1:42AM ; [facility] Plan of Treatment Findings Encounter Date Patient screened for future fall risk: documentation of any fall with injury in past year Follow Up with Nathan Last MD 10/21/2024 Last Documented On 5 9:36AM ; [facility] Patient screened for future fall risk: documentation of any fall with injury in past year Follow Up with Nathan Last MD 01/28/2024 Last Documented On 4 9:00AM ; [facility] Patient screened for future fall risk: documentation of any fall with injury in past year Follow Up with Nathan Last MD 10/01/2023 Last Documented On 4 12:55PM ; [facility] Assessments Includes: Assessments for all patient [...] 2:34PM By Garry Tapia ; [facility], [facility] ZyrTEC 10 MG Oral Tablet Chewable 01/16/2023 Provide r: Diagnosis: Last Documented On 3 8:00AM By Pooja Dixon ; [facility], [facility] oxyCODONE-Acetaminophen 10-325 MG Oral Tablet 12/24/19 Provider: ZULY JERONIMO MD Diagnosis: Last Documented On 3 7:59AM By Pooja Dixon ; [facility], [facility] Atenolol 25 MG Oral Tablet 12/22/2022 Provider: Jen JERONIMO MD Diagnosis: Last Documented On 3 7:59AM By Pooja Dixon ; [facility], [facility] Furosemide 20 MG Oral Tablet 12/22/2022 Provider: ZULY JERONIMO MD Diagnosis: Last Documented On 3 7:59AM By Pooja Dixon ; [facility], [facility] Levothyroxine Sodium 100 MCG Oral Tablet 12/22/2022 Provider: ZULY JERONIMO MD Diagnosis: Last Documented On 3 7:59AM By Pooja Dixon ; [facility], [facility] Pravastatin Sodium 40 MG Oral Tablet 12/22/2022 Prov ider: ZULY JERONIMO MD Diagnosis: Last Documented On 3 7:59AM By Pooja Dixon ; [facility], [facility] Famotidine 20 MG Oral Tablet 11/21/2022 Provider: ZULY JERONIMO MD Diagnosis: Last Documented On 3 7:59AM By Pooja Dixon ; [facility], [facility] NexIUM 40 MG Oral Capsule Delayed Release 07/23/2022 Provider: ZULY JERONIMO MD Diagnosis: Last Documented On 3 7:59AM By Pooja Dixon ; [facility], [facility] Medications Administered Includes: Administered Medications in patient's chart No Administered Medications Recorded Results Includes: Results from 05/19/2024 through 05/19/2025 No Results Recorded For Specified Dates Social History Description Last Updated No caffeine use 10/21/2024 Last Documented On 5 9:53AM ; [facility] No recent change in diet 10/21/2024 Last Documented On 5 9:53AM ; [facility] Not a current smoker. 10/21/2024 Last Documented On 5 9:53AM ; [facility] Not exercising regularly 10/21/2024 Last Documented On 5 9:53AM ; [facility] Not using alcohol 10/21/2024 Last Documented On 5 9:53AM ; [facility] Not using drugs 10/21/2024 Last Documented On 5 9:53AM ; [facility] Tobacco non-user 10/21/2024 Last Documented On 5 9:53AM ; [facility] Sex - Female 10/25/2024 Last Documented On 1:58PM ; [facility] Smoking Status Unknown Procedures and Surgical History Includes: Procedures from 05/19/2024 through 05/19/2025 Procedures Code Diagnosis Performing Provider Service Location Service Date PELVIS w/ 2-3 VIEW HIP (LEFT) 34329 Unilateral primary osteoarthritis, left hip, Presence of left artificial hip joint Nathan Last MD [facility] 10/21/2024 Last Documented On 5 1:58PM ; [facility] Surgical History Last Updated History of hysterectomy 10/21/2024 Last Documented On 5 9:53AM ; [facility] Medical History Includes: Medical History in patient's chart Description Last Updated History of Anemia 10/21/2024 Last Documented On 5 9:53AM ; [facility] History of arthritis 10/21/2024 Last Documented On 5 9:53AM ; [facility] History of Heartburn / Acid Reflux 10/21 Last Documented On 5 9:53AM ; [facility] History of History of Cancer 10/21/2024 Last Documented On 5 9:53AM ; [facility] History of History of Rheumatology 10/21 Last Documented On 5 9:53AM ; [facility] History of Kidney Disease 10/21/2024 Last Documented On 5 9:53AM ; [facility] History of osteoporosis 10/21/2024 Last Documented On 5 9:53AM ; [facility] Family History Includes: Family History in patient's chart Description Last Updated No significant family history 10/21/2024 Last Documented On 5 9:53AM ; [facility] Mental Status Description No anxiety Last Documented On 5 9:36AM ; [facility] No anxiety Last Documented On 4 9:00AM ; [facility] No anxiety Last Documented On 4 12:50PM ; [facility] No anxiety Last Documented On 4 1:43PM ; [facility] No anxiety Last Documented On 3 8:57AM ; [facility] No anxiety Last Documented On 3 8:57AM ; [facility] No anxiety Last Documented On 3 8:03AM ; [facility] Allergies Includes: Active, inactive, and resolved Allergies No Known Allergies Care Brake Reliner Name (Identifier) Role/Relation Location/Telecom Last Documented By ZULY JERONIMO MD ([id number]) Primary care physician (occupation) [address] [facility] [address] [facility] [place], [place], [address] tel:[phone] Last Documented On 10/25/2024 1:58PM ; [facility] Nathan Last MD ([id number]) Assigned practitioner (occupation) [address] [place], [place], [place], [address] tel:[phone] Last Documented On 10/25/2024 1:58PM ; [facility] Karthikeyan Lee MD ([id number]) [facility] [place], [place], [address] tel:[phone] Last Documented On 01/15/2023 3:18PM ; [facility] Encounters Includes: Encounters from 05/19/2024 through 05/19/2025 Encounter Provider Location (Healthcare Service Location) Date Check-In Time Check-Out Time Diagnosis Encounter Disposition Follow Up Nathan Last MD [facility] 2024 9:34AM 9:58AM Payer Includes: Active Insurance Policies Plan Name (Payer ID) Coverage Type Member ID Group # Subscriber (ID) Relationship Effective Dates 1 - Medicare Part B [facility] ([id number]) [id number] Francisca Espinoza Self Last Documented On 3 12:51PM ; [facility] 2 - [facility] ([id number]) [id number] Francisca Espinoza Self Last Documented On 3 12:51PM ; [facility] Clinical Notes Includes: Signed Clinical Notes starting from 05/08/2022 * Progress note Date Encounter Last Documented by 10/21/2024 Follow Up Last documented on 10/21/2024; 9:53 AM, Nathan Last MD; [facility] Active Problems & Conditions - [...]
--- OUTSIDE RECORDS SUMMARY | 2025-05-19 10:31 | XMS_ITS | Clinical Summary ---
Author Organization [facility] , [facility] Address [address] [place] [address] Phone Care Team Providers Care Hide Worker Name Role Phone KANDACE NORWOOD, ZULY Primary Care Provider [phone] Shala NORWOOD, Nathan Unavailable [phone] Jesus NORWOOD, Karthikeyan Unavailable [phone] Reason for Visit and Chief Complaint The Chief Complaint is: fu L NOLAN Problems Includes: Problems addressed during this encounter and other active Problems All Visits Onset Date Date of Diagnosis Resolved Date Provider Condition Status Joint Pain Hip Left 01/15/2023 01/15/2023 Nathan Last MD Active Last Documented On 1:42AM ; [facility], [facility] Plan of Treatment Fall Risk Assessment: [...] - Last Documented On 03/26/2023 8:17AM ; [facility], [facility] Assessments Includes: Assessments from this encounter Findings Status post revision left total hip arthroplasty doing well - Last Documented On 03/26/2023 8:17AM ; [facility], [facility] moderate left knee osteoarthritis - Last Documented On 03/26/2023 8:17AM ; [facility], [facility] continue activities as tolerated for the left hip. Lower extremity strengthening for the left hip and left knee. We did discuss a steroid injection today for the left knee. Happy to see her back if its not improving. Otherwise I will see her back in 9 months for the left hip. - Last Documented On 03/26/2023 8:17AM ; [facility], [facility] Injection note - Last Documented On 03/26/2023 8:17AM ; [facility], [facility] we discussed the indications, risks, benefits, alternatives, and recovery in detail to a Left knee steroid injection. Risks discussed include but are not limited to bleeding, infection (possibly requiring surgery to treat), pain, allergic reaction, and failure to relieve pain. The patient gave verbal and written consent, and wished to proceed. - Last Documented On 03/26/2023 8:17AM ; [facility], [facility] Procedure: The the skin around the [...] - Last Documented On 03/26/2023 8:17AM ; [facility], [facility] The patient tolerated to procedure well. - Last Documented On 03/26/2023 8:17AM ; [facility], [facility] Medical Equipment - Implanted Devices Includes: Current Devices No Medical Equipment Recorded Medications Includes: Medications discussed during this encounter and other current Medications Current Medications (continue as prescribed) Meclizine HCl 25 MG Oral Tablet, chewable 06/10/2023 Provider: ZULY JERONIMO MD Diagnosis: Last Documented On 4 2:34PM By Garry Arias [facility], [facility] Fluticasone Propionate 50 MC G/ACT Nasal Suspension 06/01/2023 Provider: ZULY JERONIMO MD Diagnosis: Last Documented On 4 2:34PM By Garry Tapia ; [facility], [facility] ZyrTEC 10 MG Oral Tablet Chewable 01/16/2023 Provide r: Diagnosis: Last Documented On 3 8:00AM By Pooja Arias [facility], [facility] oxyCODONE-Acetaminophen 10-325 MG Oral Tablet 12/24/19 Provider: ZULY JERONIMO MD Diagnosis: Last Documented On 3 7:59AM By Pooja Arias [facility], [facility] Atenolol 25 MG Oral Tablet 12/22/2022 Provider: Jen JERONIMO MD Diagnosis: Last Documented On 3 7:59AM By Pooja Dixon ; [facility], [facility] Furosemide 20 MG Oral Tablet 12/22/2022 Provider: ZULY JERONIMO MD Diagnosis: Last Documented On 3 7:59AM By Pooja Dixon ; [facility], [facility] Levothyroxine Sodium 100 MCG Oral Tablet 12/22/2022 Provider: ZULY JERONIMO MD Diagnosis: Last Documented On 3 7:59AM By Pooja Dixon ; [facility], [facility] Pravastatin Sodium 40 MG Oral Tablet 12/22/2022 Prov ider: ZULY JERONIMO MD Diagnosis: Last Documented On 3 7:59AM By Pooja Dixon ; [facility], [facility] Famotidine 20 MG Oral Tablet 11/21/2022 Provider: ZULY JERONIMO MD Diagnosis: Last Documented On 3 7:59AM By Pooja Dixon ; [facility], [facility] NexIUM 40 MG Oral Capsule Delayed Release 07/23/2022 Provider: ZULY JERONIMO MD Diagnosis: Last Documented On 3 7:59AM By Pooja Dixon ; [facility], [facility] Medications Administered Includes: Administered Medications from this encounter No Administered Medications Recorded Vital Signs Includes: Vital Signs from this encounter Vital Name 03/25/2023 09:13A Height (in) 63 Weight (lb) 110 Body Mass Index 19.5 Body Surface Area 1.5 Note: mgg Last Documented: On 03/25/2023 9:16AM ; [facility], [facility] Results Includes: Results discussed during this [...] 03/25/2023 Last Documented On 3 8:17AM ; [facility] No recent change in diet 03/25/2023 Last Documented On 3 8:17AM ; [facility], [facility] Not a current smoker. 03/25/2023 Last Documented On 3 8:17AM ; [facility] Not exercising regularly 03/25/2023 Last Documented On 3 8:17AM ; [facility], [facility] Not using alcohol 03/25/2023 Last Documented On 3 8:17AM ; [facility], [facility] Not using drugs 03/25/2023 Last Documented On 3 8:17AM ; [facility], [facility] Tobacco non-user 03/25/2023 Last Documented On 3 8:17AM ; [facility], [facility] Sex - Female 10/25/2024 Last Documented On 5 1:58PM ; [facility], [facility] Smoking Status Unknown Procedures and Surgical History Includes: Procedures from this encounter Procedures Code Diagnosis Performing Provider Service L ocation Service Date use of tobacco assessment performed 1000F Last Documented On 3 8:57AM ; [facility], [facility] patient screened for future fall risk: documentation of any fall with injury in past year 1100F Last Documented On 3 8:57AM ; [facility], [facility] review of medications documented 1160F Last Documented On 3 8:57AM ; [facility] body mass index not documented system reason 300 8F Last Documented On 3 8:57AM ; [facility], [facility] Surgical History Last Updated History of hysterectomy 03/25/2023 Last Documented On 3 8:17AM ; [facility], [facility] Medical History Includes: Medical History addressed during this encounter Description Last Updated History of Anemia 03/25/2023 Last Documented On 3 8:17AM ; [facility] History of arthritis 03/25/2023 Last Documented On 3 8:17AM ; [facility] History of Heartburn / Acid Reflux 03/25 Last Documented On 3 8:17AM ; [facility] History of History of Cancer 03/25/2023 Last Documented On 3 8:17AM ; [facility] History of History of Rheumatology 03/25 Last Documented On 3 8:17AM ; [facility], [facility] History of Kidney Disease 03/25/2023 Last Documented On 3 8:17AM ; [facility], [facility] History of osteoporosis 03/25/2023 Last Documented On 3 8:17AM ; [facility], [facility] Family History Includes: Family History addressed during this encounter Description Last Updated No significant family history 03/25/2023 Last Documented On 3 8:17AM ; [facility] Review of Systems Includes: Review [...] encounter Description No anxiety Last Documented On 3 8:57AM ; [facility] Physical Exam Includes: Physical Exam from this encounter Allergies Includes: Active Allergies No Known Allergies Care Hide Worker Name (Identifier) Role/Relation Location/Telecom Last Documented By ZULY JERONIMO MD ([id number]) Primary care physician (occupation) [address], [place], [address] tel:[phone] Last Documented On 10/25/2024 1:58PM ; [facility], [facility] Nathan Last MD ([id number]) Assigned practitioner (occupation) [address] [place], [place], [address] tel:[phone] Last Documented On 10/25/2024 1:58PM ; [facility], [facility] Karthikeyan Lee MD ([id number]) [address] [place], [place], [place], [address] tel:[phone] Last Documented On 01/15/2023 3:18PM ; [facility], [facility] Encounters Encounter Provider Location (Healthcare Service Location) Date Check-In Time Check-Out Time Diagnosis Encounter Disposition Post Op Nathan Last MD [facility] 2022 8:52AM 10:18AM Payer Includes: Active Insurance Policies Plan Name (Payer ID) Coverage Type Member ID Group # Subscriber (ID) Relationship Effective Dates 1 - Medicare Part B [facility] ([id number]) [id number] Francisca Espinoza Self Last Documented On 3 12:51PM ; [facility], [facility] ([id number]) [id number] Francisca Espinoza Self Last Documented On 3 12:51PM ; [facility], [facility] Clinical Notes Includes: Clinical Notes from this encounter * Progress note Date Encounter Last Documented by 03/25/2023 Post Op Last documented on 03/26/2023; 8:17 AM, Nathan Last MD; [facility], [facility] Active Problems & Conditions - Joint [...]
--- NOTE | 2025-05-19 10:33 | ED_ITS ---
Discharge Plan Disposition Patient Disposition: Home, Self-Care Prescriptions Prescriptions: New doxycycline hyclate 100 mg capsule 100 mg PO BID 7 Days Qty: 14 0RF benzonatate 200 mg capsule 200 mg PO BID PRN (Reason: cough) Qty: 14 0RF No Action furosemide 20 mg tablet 20 mg PO DAILY PRN (Reason: edema) cetirizine [Zyrtec] 10 mg tablet 10 mg PO DAILY PRN (Reason: per md) meclizine 25 mg tablet 25 mg PO DAILY PRN budesonide-formoterol 160-4.5 mcg/actuation HFA aerosol inhaler 1 puff inhalation BID 90 Days Qty: 10.2 2RF sacubitril-valsartan [Entresto] 49-51 mg tablet 1 tab PO BID Qty: 60 2RF azithromycin 250 mg tablet See Rx Instructions PO .COMPLEX Qty: 6 0RF Rx Instructions: For 250 mg dose pack: take 500 mg today (day 1), then 250 mg for 4 days (days 2-5) PO codeine-guaifenesin 10-100 mg/5 mL liquid 10 ml PO Q4-6H PRN (Reason: cough) Qty: 120 1RF polyethylene glycol 3350 17 gram/dose powder See Rx Instructions .ROUTE .COMPLEX Qty: 527 1RF Dose Instruction: MIX 17 GRAMS (1 CAPFUL) WITH 8 OUNCES OF WATER OR JUICE AND DRINK DAILY Rx Instructions: MIX 17 GRAMS (1 CAPFUL) WITH 8 OUNCES OF WATER OR JUICE AND DRINK DAILY diclofenac sodium 1 % gel See Rx Instructions .ROUTE .COMPLEX Qty: 100 2RF Dose Instruction: 2 GRAMS APPLIED TOPICALLY 4 TIMES A DAY 30 DAY(S) Rx Instructions: 2 GRAMS APPLIED TOPICALLY 4 TIMES A DAY 30 DAY(S) ondansetron 4 mg tablet,disintegrating 4 mg PO BID PRN (Reason: nausea and vomiting) 5 Days Qty: 10 2RF fluticasone propionate 50 mcg/actuation spray,suspension See Rx Instructions .ROUTE .COMPLEX Qty: 48 4RF Dose Instruction: 1 SPRAY(S) IN EACH NOSTRIL ONCE A DAY Rx Instructions: 1 SPRAY(S) IN EACH NOSTRIL ONCE A DAY lactulose 10 gram/15 mL solution 20 g PO BID Qty: 1200 4RF dapagliflozin propanediol [Farxiga] 10 mg tablet 10 mg PO DAILY Qty: 30 2RF lidocaine 5 % adhesive patch,medicated 1 patch topical DAILY Qty: 30 3RF Rx Instructions: leave on most painful area for up to 12 hrs famotidine 40 mg tablet See Rx Instructions .ROUTE .COMPLEX Qty: 30 1RF Dose Instruction: TAKE 1 TABLET BY MOUTH AT BEDTIME Rx Instructions: TAKE 1 TABLET BY MOUTH AT BEDTIME esomeprazole magnesium 20 mg capsule,delayed release(DR/EC) 20 mg PO BID Qty: 60 1RF ranolazine 500 mg tablet extended release 12 hr 500 mg PO BID Qty: 60 2RF pravastatin 40 mg tablet See Rx Instructions .ROUTE .COMPLEX Qty: 90 0RF Dose Instruction: TAKE 1 TABLET BY MOUTH EVERY DAY Rx Instructions: TAKE 1 TABLET BY MOUTH EVERY DAY memantine [Namenda] 5 mg tablet 5 mg PO TID 90 Days Qty: 270 0RF duloxetine 20 mg capsule,delayed release(DR/EC) 20 mg PO HS Qty: 30 0RF oxycodone-acetaminophen 5-325 mg tablet 1 tab PO Q8H PRN (Reason: pain) Qty: 40 0RF Referrals Follow up/Referrals: Mazin Restrepo MD [Primary Care Provider, Internal Medicine] - See instructions Activity Restrictions/Add. Instructions Additional Instructions/Restrictions: You are being prescribed Tessalon Perles to help with your cough. Take this as prescribed. You are also being prescribed a course of doxycycline for possible atypical pneumonia. Take this as prescribed as well. Use the inhaler prescribed to you, 2 puffs every 4 hours as needed, to help with your breathing. You are getting follow-up with the cardiology team on Thursday (05/22/2025) at the cardiology clinic for close follow-up. I do encourage you to take your Lasix daily until your follow-up appointment. If you develop any new or worsening symptoms, or if you become concerned for your health for any reason, return to the emergency department for evaluation. Clinical Impressions Clinical Impression: Cough Print Language Print Language: Omani Discharge ED Provider: Ilir Kim General Chief Complaint: Shortness of Breath/Dyspnea Stated Complaint: cough, SOA Time Seen by Provider: 05/19/25 10:27 Mode of Arrival: Wheelchair Source of Information: Patient and Relative Description of Symptoms (Recalled from ER Triage Doc. by RN): Pt presents for evaluation after not feeling well for 2 weeks . Per patient she was seen by her PCP and was prescribed a z-pack. Pt states she completed the course of antibiotics but continues to have a dry nagging cough, fatigue, and has felt short of breath History of Present Illness HPI narrative: Francisca Espinoza is an 84y female with a past medical history of hypertension, hypothyroidism, hyperlipidemia, HFrEF, pacemaker, lung cancer status post surgery who presents to the emergency department for complaints of 3 weeks of cough and shortness of breath. Patient states that she has had a cold for the past 3 weeks and was prescribed a Z-Tristen by her primary care doctor and completed that a few weeks ago. She states that she has had a persistent dry cough since then that worsened over the last 3 days. She has had subjective fevers at home. She reports intermittent pains in her chest but denies any currently. She denies abdominal pain, nausea, vomiting or diarrhea. No known sick contacts. She does not smoke tobacco. Related Data Home Medications ?Medication ?Instructions ?Recorded ?Confirmed cetirizine 10 mg tablet (Zyrtec) 10 mg PO DAILY PRN pe r md 09/14/24 05/01/25 furosemide 20 mg tablet 20 mg PO DAILY PRN edema 01/1605/01/25 meclizine 25 mg tablet 25 mg PO DAILY PRN 01/26/25 05/01/25 Previous Rx's ?Medication ?Instructions ?Recorded diclofenac sodium 1 % topical gel See Rx Instructions .Route 12/21/24 .COMPLEX #100 grams polyethylene glycol 3350 17 See Rx Instructions .Route 12/21/24 gram/dose oral powder .COMPLEX #527 grams ondansetron 4 mg disintegrating 4 mg PO BID PRN nausea and 12/27/24 tablet vomiting 5 days #10 tabs fluticasone propionate 50 See Rx Instructions .Route 0 01/09/25 mcg/actuation nasal .COMPLEX #48 mL spray,suspension lactulose 10 gram/15 mL oral 20 g (30 mL) PO BID #1,20 0 mL 01/25/25 solution budesonide-formoterol HFA 160 1 puff inhalation BID 90 days 01/26/25 mcg-4.5 mcg/actuation aerosol #10.2 grams inhaler dapagliflozin propanediol 10 mg 10 mg PO DAILY #30 tab s 02/13/25 tablet (Farxiga) lidocaine 5 % topical patch 1 patch topical DAILY #30 ea 02/23/25 sacubitril 49 mg-valsartan 51 mg 1 tab PO BID #60 tabs 03/02/25 tablet (Entresto) famotidine 40 mg tablet See Rx Instructions .Route 1 .COMPLEX #30 tabs esomeprazole magnesium 20 mg 20 mg PO BID #60 caps 08/16 capsule,delayed release ranolazine 500 mg tablet,extended 500 mg PO BID #60 ta bs 03/27/25 release,12 hr pravastatin 40 mg tablet See Rx Instructions .Route 1 05/31/24 .COMPLEX #90 tabs memantine 5 mg tablet (Namenda) 5 mg PO TID Memory los s 90 days 04/14/25 #270 tabs azithromycin 250 mg tablet See Rx Instructions PO .COM PLEX #6 05/01/25 tabs codeine 10 mg-guaifenesin 100 mg/5 10 ml PO Q4-6H PRN cough #120 mL 05/01/25 mL oral liquid duloxetine 20 mg capsule,delayed 20 mg PO HS for anxie ty #30 caps 05/10/25 release oxycodone-acetaminophen 5 mg-325 1 tab PO Q8H PRN pain #40 tabs 05/12/25 mg tablet benzonatate 200 mg capsule 200 mg PO BID PRN cough #14 caps 05/19/25 doxycycline hyclate 100 mg capsule 100 mg PO BID 7 day s #14 caps 05/19/25 Allergies Allergy/AdvReac Type Severity Reaction Status Date / Time atorvastatin (From LIPITOR) Allergy Unknown LEG CRAMPS Verified 05/01/25 14:12 tolmetin (From TOLECTIN) Allergy Unknown FACIAL Verified 05/01/25 14:12 SWELLING PFSH PFSH Disclaimer: The information contained in this section may have been updated after the patient was seen, as this information can be updated by other users. Medical History Other cardiomyopathies Atypical angina Abnormal ECG Severe tricuspid regurgitation Moderate to severe mitral regurgitation HFrEF (heart failure with reduced ejection fraction) Non-Hodgkin lymphoma NHL (nodular histiocytic lymphoma) Asthma History of rheumatoid arthritis Lung nodule Dyspnea on exertion Pleural effusion, right Recent thoracocentesis Pneumonia Physical deconditioning Sepsis Influenza due to influenza virus, type A, human Muscle cramps Cystitis Otitis externa of right ear Non-Hodgkin lymphoma in remission Cognitive change Lung cancer Fall Heart murmur Hyperlipidemia Hypothyroidism Hypertension Stress incontinence in female Surgical History AICD (automatic cardioverter/defibrillator) present History of hip replacement, total History of lung surgery History of hysterectomy History of cholecystectomy Hx of cardiac cath History of bowel resection Family History Other No significant family history Social History Smoking Status: Never smoker alcohol intake: never substance use type: denies use current occupational status: retired Travel in the last 8 weeks?: None household members: none housing: house lives independently: Yes marital status: number of children: 3 [place] [facility]: No Hx Recent Travel: No sexually active: No well-balanced diet: daily or most days physical activity: walking Have you lived/traveled outside [place] in past 30 days?: No Contact w/someone who lives/traveled outside [place] past 30 days?: No Exposure to someone with infectious disease in past 14 days?: No Do you have a fever (greater than 100.4 F or 38 C)?: No Have you tested positive for COVID-19?: No Exposed to someone with COVID-19 in past 14 days?: No Do you have a sore throat?: No Do you have a cough?: No Do you have any weakness?: No Do you have any diarrhea?: No Are you experiencing any unusual bleeding?: No Do you have any muscle aches/pain?: No Do you have any abdominal pain?: No Are you experiencing loss of taste or smell?: No Other Medical History Have you received the Pneumonia Vaccine: No ROS Obtained: Yes Systems reviewed as appropriate & no additional complaints except as documented Physical Exam General General appearance: alert and in no apparent distress Head Head exam: atraumatic Eye Eye exam: Present normal appearance ENT ENT exam: Present normal external ear exam Neck Neck exam: Present full ROM Chest Chest inspection: Present symmetric chest wall rise Respiratory Respiratory exam: Present normal lung sounds bilaterally; Absent respiratory distress Cardiovascular Cardiovascular exam: Present regular rate and normal rhythm Abdominal Exam Abdominal exam: Present soft; Absent tenderness or guarding Extremities Exam Extremities exam: Present normal inspection Back Exam Back exam: Present normal inspection Neurological Exam Neurological exam: Present alert and oriented X3 Psychiatric Psychiatric exam: Present normal affect Skin Skin exam: Present warm and dry HEART Score HEART Score HEART Score assessment performed?: Yes History (anamnesis): Slightly suspicious ECG: Normal Age: >65 years Risk factors: Atherosclerosis history Troponin: </= normal limit HEART Score: 4 Critical Care Critical Care Time Critical Care Time: No Medical Decision Making Kirill Inquiry Pt receiving controlled substance: No Vital Signs Vital Signs: 05/19/25 10:20 05/19/25 10:28 05/19/25 11:54 Temperature 97.4 F L Temperature Source Oral Pulse Rate 90 80 Pulse Rate [Right] 89 Respiratory Rate 18 Blood Pressure 111/66 119/67 Blood Pressure [Right Arm] 111/66 Blood Pressure Mean [Right Arm] 81 Blood Pressure Source [Right Arm] Automatic Cuff Blood Pressure Position [Right Arm] Sitting 02 Sat by Pulse Oximetry 95 94 L 97 Oxygen Delivery Method Room Air Room Air Room Air 05/19/25 12:00 05/19/25 12:30 05/19/25 13:01 Temperature Temperature Source Pulse Rate 79 89 84 Pulse Rate [Right] Respiratory Rate Blood Pressure 116/69 109/69 L 117/84 Blood Pressure [Right Arm] Blood Pressure Mean [Right Arm] Blood Pressure Source [Right Arm] Blood Pressure Position [Right Arm] 02 Sat by Pulse Oximetry 96 95 96 Oxygen Delivery Method Room Air Room Air 05/19/25 13:41 Temperature Temperature Source Pulse Rate 87 Pulse Rate [Right] Respiratory Rate Blood Pressure 112/83 Blood Pressure [Right Arm] Blood Pressure Mean [Right Arm] Blood Pressure Source [Right Arm] Blood Pressure Position [Right Arm] 02 Sat by Pulse Oximetry 97 Oxygen Delivery Method Lab Data Labs: Lab Results 05/19/25 10:18: SARS-CoV-2 (PCR) Not detected, Influenza A Untype (PCR) Not detected, Influenza Type B (PCR) Not detected 05/19/25 10:30: Sodium 140, Potassium 3.1 L, Chloride 102, Carbon Dioxide 31 H, Anion Gap 10.1, BUN 11, Creatinine 0.90, Estimated Creat Clear 32, Estimated GFR 59, Est GFR ( Amer) 72, Glucose 94, Calcium 9.6, Total Bilirubin 0.8, AST 28, ALT 12, Alkaline Phosphatase 51, Troponin I 0.02, C-Reactive Protein 15.3 H, NT-Pro-B Natriuret Pep 42832 H, Total Protein 6.6, Albumin 4.4, Globulin 2.2, A lbumin/Globulin Ratio 2.0 H 05/19/25 10:55: WBC 3.2 L, RBC 3.71 L, Hgb 11.5 L, Hct 35.1 L, MCV 94.6, MCH 31.0, MCHC 32.8, RDW 14.8, Plt Count 81 L, MPV 10.7 H, Neut % (Auto) 43.8, Lymph % (Auto) 44.7, [place] % (Auto) 10.6 H, Eos % (Auto) 0.3, Baso % (Auto) 0.6, Neut # (Auto) 1.4 L, Lymph # (Auto) 1.4, [place] # (Auto) 0.3, Eos # (Auto) 0.0, Baso # (Auto) 0.0 05/19/25 13:47: Troponin I 0.02 05/19/25 10:55 05/19/25 10:30 Response Orders (Tests/Meds): ED MEDICATIONS Generic Name Dose Route Start Last Admin Trade Name Freq PRN Reason Stop Dose Admin Albuterol Sulfate 2 puff 05/19/25 13:58 05/19/25 14:05 Albuterol-Hfa 90mcg/Puff Inhaler 8gm IH 06/18/25 13:57 2 puff Q4HP PRN Administration Shortness Of Breath Discontinued Medications Generic Name Dose Route Start Last Admin Trade Name Freq PRN Reason Stop Dose Admin Benzonatate 200 mg 05/19/25 13:45 05/19/25 13:41 Benzonatate 100mg Capsule PO 05/19/25 13:46 200 mg ONCE ONE Administration Furosemide 20 mg 05/19/25 13:35 05/19/25 13:42 Furosemide 20 Mg/2 Ml Vial IV 05/19/25 13:36 20 mg ONCE ONE Administration Miscellaneous 1 unit 05/19/25 13:58 05/19/25 14:05 Aerochamber/Optihaler MC 05/19/25 13:59 1 unit ONCE ONE Administration Potassium Chloride 40 meq 05/19/25 11:31 05/19/25 11:51 Potassium Chloride 20meq Tab PO 05/19/25 11:32 40 meq ONCE ONE Administration ORDERS Category Date Time Status CXR 2 view (NOT portable) [XR chest 2V] Stat Exams 05/19/25 10:31 Completed BNP [NT Pro Brain Natriuretic Pep.] Stat Lab 05/19/25 10:30 Completed CBC w/Auto Diff [Complete Blood Count Auto Diff] Stat Lab 05/19/25 10:55 Completed CMP [Comprehensive Metabolic Panel] Stat Lab 05/19/25 10:30 Completed CRP [C-Reactive Protein] Stat Lab 05/19/25 10:30 Completed Rapid PCR Covid and Flu A/B Stat Lab 05/19/25 10:18 Completed Troponin I Q3H Lab 05/19/25 13:47 Completed Troponin I Q3H Lab 05/19/25 16:45 Ordered Troponin I Stat Lab 05/19/25 10:30 Completed ECG Data Tracing #1: Attestation: I reviewed this ECG and interpreted as documented below: ECG Narrative: Normal sinus rhythm. No ST elevation or depression. QTc normal at 416. MDM Narrative Medical Decision Narrative: Francisca Espinoza is an 84y female with a past medical history of hypertension, hypothyroidism, hyperlipidemia, HFrEF, pacemaker, lung cancer status post surgery who presents to the emergency department for complaints of 3 weeks of cough and shortness of breath. Patient states that she has had a cold for the past 3 weeks and was prescribed a Z-Tristen by her primary care doctor and completed that a few weeks ago. She states that she has had a persistent dry cough since then that worsened over the last 3 days. She has had subjective fevers at home. She reports intermittent pains in her chest but denies any currently. She denies abdominal pain, nausea, vomiting or diarrhea. No known sick contacts. She does not smoke tobacco. On arrival, patient's heart rate within normal limits, maintaining appropriate oxygen saturation on room air blood pressure within normal limits. Physical exam, stated above, revealed a nontoxic- appearing female. She does have a dry active cough. She has no wheezing, rales or rhonchi. No murmurs or rubs. Abdomen is soft, nontender nondistended. Differential diagnosis includes, but is not limited to: Pneumonia, bronchitis, viral respiratory illness, ACS, pericarditis, among others. The most morbid conditions were considered and workup was based on these. EKG without evidence of ischemia. See interpretation above Patient's workup shows mild leukopenia with white blood cell count of 3.2, hemoglobin 11.5, hematocrit 35.1. Platelets are low at 81, however she is borderline low at baseline. She has mildly low potassium at 3.1, this was replaced with 40 mill equivalents of potassium chloride. Electrolytes otherwise within normal limits. No GENE. Bilirubin and liver enzymes within normal limits. Initial troponin 0.02. CRP elevated at 15.3. NT pro BNP is significantly elevated 21,300. Patient had an echocardiogram performed on 03/01/2025 that showed severe global hypokinesis of the left ventricle with LVEF of 10 to 15%. Patient's chest x-ray was interpreted by me personally. Patient has small bilateral pleural effusions but no focal consolidation to suggest pneumonia. No pneumothorax. No widening of the mediastinum. See final radiology report for details. Patient did state that she takes Lasix as needed and took a dose this morning for the first time in a while. I do feel that some symptoms could be related to mild volume overload in setting of her heart failure, however given longevity of symptoms, could represent atypical pneumonia. Will administer Tessalon Perle and 20 mg of IV Lasix here in the emergency department. Will also give albuterol inhaler for possible bronchospasm. Repeat troponin is pending at this time. Patient's repeat troponin is flat at 0.02. On repeat evaluation, patient's cough has stopped. She overall feels much better and coughing is much better controlled. I do feel that patient symptomatology is likely related to bronchitis, however cannot rule out atypical pneumonia at this time. I do feel that she would benefit from a course of doxycycline and we will send home with prescription for Tessalon Perles. Will send her home with the albuterol inhaler as well. Patient notes that she does not have an appointment with cardiology until next year. I do feel that she would benefit from closer follow-up due to her pleural effusions and elevated BNP, which may be contributing to her cough as well. Will arrange follow-up in the cardiology clinic on Thursday morning at 9 AM. Recommend she take Lasix daily until her appointment. Strict return precautions were given. All questions were answered. She demonstrated understanding and was in agreement this plan. She was then discharged from the emergency department in stable condition.
[2025-05-19 10:38] LABS: Coronavirus 19, PCR Not Detected (NotDetected); Influenza A, PCR Not Detected (NotDetected); Influenza B, PCR Not Detected (NotDetected)
[2025-05-19 10:46] LABS: Chloride 102 mmol/L (98-107)
[2025-05-19 10:47] LABS: Albumin Level 4.4 g/dl (3.5-5.0); Potassium 3.1 mmoL/L (3.5-5.1); Sodium 140 mmol/L (136-145)
[2025-05-19 10:49] LABS: Alanine Aminotransferase 12 U/L (12-78); Anion Gap 10.1 mEq/L (5-15); Aspartate Amino Transferase 28 U/L (14-36); Blood Urea Nitrogen 11 mg/dl (7-17); Carbon Dioxide 31 mmol/L (22.0-30.0); Creatinine Clearance Estimated 32 mL/min (50-200); Creatinine,Serum 0.90 mg/dl (0.52-1.04); Estimated Glomerular Filt Rate 59 ml/min (>60); GFR (African American) 72 ML/MIN (>60)
--- NOTE | 2025-05-19 10:49 | PC.NURSE ---
Lab called and notified that purple top was hemolyzed. This RN attempted to draw lab from the IV, unable to obtain sample. Lab called to come stick patient due to patient being a difficult stick.
[2025-05-19 10:50] LABS: Albumin/Globulin Ratio 2.0 (1.1-1.8); Alkaline Phosphatase 51 U/L (38-126); Bilirubin,Total 0.8 mg/dl (0.2-1.3); Calcium 9.6 mg/dl (8.4-10.2); Globulin 2.2 g/dL (1.3-3.2); Glucose 94 mg/dl (74-100); Total Protein,Serum 6.6 g/dl (6.3-8.2)
[2025-05-19 10:58] LABS: C-Reactive Protein 15.3 mg/L (0-4)
[2025-05-19 10:59] LABS: NT Pro Brain Natriuretic Pep. 21300 pg/mL (0-450)
[2025-05-19 11:02] LABS: Troponin I 0.02 ng/ml (0.00-0.034)
[2025-05-19 11:08] LABS: Hematocrit 35.1 % (37.0-47.0); Hemoglobin 11.5 g/dL (12.2-16.2); Immature Granulocytes % 0 %; Mean Corpuscular HGB Conc 32.8 g/dL (31.8-35.4); Mean Corpuscular Hemoglobin 31.0 pg (27.0-31.2); Mean Corpuscular Volume 94.6 fl (81-99); Nucleated Red Blood Cells % 0 %; Platelet Count 81 K/mm3 (142-424); Red Blood Count 3.71 M/mm3 (4.20-5.40); Red Cell Distribution Width-SD 51.3 fL; White Blood Count 3.2 K/mm3 (4.8-10.8)
[2025-05-19] MEDS: POTASSIUM CHLORIDE 20MEQ TAB 40 MEQ PO (11:51)
[2025-05-19] MEDS: BENZONATATE 100MG CAPSULE 200 MG PO (13:41)
[2025-05-19] MEDS: FUROSEMIDE 20 MG/2 ML VIAL IV (13:42)
--- NOTE | 2025-05-19 14:02 | PC.NURSE ---
RT Called for Inhaler instructions for discharge
[2025-05-19] MEDS: ALBUTEROL-HFA 90MCG/PUFF INHALER 8GM 2 PUFF IH (14:05)
[2025-05-19] MEDS: AEROCHAMBER/OPTIHALER 1 UNIT MC (14:05)
--- NOTE | 2025-05-19 14:06 | PC.NURSE ---
RT to bedside administering albuterol and provided education on inhaler use.
[2025-05-19 14:21] LABS: Troponin I 0.02 ng/ml (0.00-0.034)
== END 2025-05-19 15:02 | disposition home or self-care (01) ==
PROVIDERS: Emergency Provider Student in an Organized Health Care Education/Training Program; PCP Family Medicine
DX: R06.02 Shortness of breath (principal); J90 Pleural effusion, not elsewhere classified; R05.1 Acute cough; E87.6 Hypokalemia; I11.0 Hypertensive heart disease with heart failure; I50.20 Unspecified systolic (congestive) heart failure
CPT/HCPCS: 36415; 71046; 80053; 83880; 84484; 85025; 86140; 87636; 93005; 96374; 99284; 99285; J1938